=== PATIENT | female | born 1975 | race American Indian/Alaskan Native ===

== ENCOUNTER 2016-06-25 13:33 | Emergency (ER) | payer MEDICARE ==
[2016-06-25 14:06] VITALS: BP 156/94
--- NOTE | 2016-06-25 14:33 | Emergency Department Report ---
Chief Complaint: Chest Pain Stated Complaint: HYPERTHYROID Time Seen by Provider: 06/25/16 14:24 - HPI History of Present Illness: 41-year-old female presents today with chest pain and shortness of breath 3 days. Positive for history of similar symptoms and was diagnosed with hypothyroidism. Positive for history of CHF, diabetes, hypertension, bipolar schizophrenia. Positive for nausea and vomiting and states she is compliant with medication. - ROS Review of Systems: Per HPI - Exam Vital Signs: Vital Signs 06/25/16 14:00 Temperature 97.1 F L Pulse Rate 119 H Respiratory 24 Rate Blood Pressure 156/94 O2 Sat by Pulse 97 Oximetry Physical Exam: General: 41-year-old female in no acute distress. Well-developed, well- nourished. CV: Tachycardic. Regular rhythm. Lungs: Clear to auscultation bilaterally. MSE screening note: Focused history and physical exam performed. Due to findings the following was ordered: ED Disposition for MSE Condition: Stable
--- NOTE | 2016-06-25 14:54 | XRay Report ---
CHEST 2 VIEWS INDICATION: Chest pain, shortness of breath. CHF. COMPARISON: 12/11/2015. FINDINGS: PA and lateral chest radiographs demonstrate normal cardiomediastinal silhouette. Clear lungs. Intact bones. CONCLUSION: No acute disease in the chest. Thank you for the opportunity to participate in this patient's care.
[2016-06-25 15:16] LABS: Basophils % (Auto) 0.3 % (0.0-1.8); Hematocrit 43.1 % (30.3-42.9); Hemoglobin 13.7 gm/dl (10.1-14.3); Mean Corpuscular HGB Conc 32 % (30-34); Mean Corpuscular Hemoglobin 26 pg (28-32); Mean Corpuscular Volume 83 fl (79-97); Platelet Count 252 K/mm3 (140-440); Red Blood Count 5.22 M/mm3 (3.65-5.03); Red Cell Distribution Width 14.5 % (13.2-15.2); White Blood Count 8.1 K/mm3 (4.5-11.0)
[2016-06-25 15:39] LABS: Creatine Kinase MB 3.5 ng/mL (0.0-4.0)
[2016-06-25 15:40] LABS: Anion Gap 24 mmol/L; BUN/Creatinine Ratio 15.88; Blood Urea Nitrogen 27 mg/dL (7-17); Calcium 8.5 mg/dL (8.4-10.2); Carbon Dioxide 17 mmol/L (22-30); Chloride 80.7 mmol/L (98-107); Creatine Kinase 41 units/L (30-135); Lipase 119 units/L (13-60); Potassium 4.6 mmol/L (3.6-5.0)
[2016-06-25 16:06] LABS: Sodium 118 mmol/L (137-145)
[2016-06-25 16:09] LABS: Glucose 915 mg/dL (65-100)
--- NOTE | 2016-06-26 00:29 | Admit Criteria Form ---
Admission Criteria Documentation: HEART FAILURE: OBSERVATION CARE USE THIS FORM ONLY WHEN INPATIENT ADMISSION CRITERIA ARE NOT MET. (Place "X" for any and all applicable criteria): Placement for observation care is indicated for a patient with ANY ONE of the following (1)(2)(3)(4)(5)(6) [ X]I. Signs or symptoms inadequately controlled by outpatient or emergency department treatment as indicated by persistence of ANY ONE of the following: [ ]a) Pulmonary edema [ ]b) Oxygen saturation less than 90% on room air or baseline supplemental oxygen [ ]c) Tachypnea [X ]d) Dyspnea [ ]e) Syncope [ ]f) Cognitive impairment (new) [ ]II. Change in renal function (reduction of more than 25% in estimated glomerular filtration rate from baseline) [ ]III. New-onset acute heart failure for which immediate outpatient etiologic examination is needed that cannot be done in required time frame [ ]IV. Other observation care needs. ( Also refer to General Criteria: Observation Care Form as appropriate) The original [employer] content created by [employer] has been revised. The portions of the content which have been revised are identified through the use of italic text, and [facility] has neither reviewed nor approved the modified material. All other unmodified content is copyright [facility] [employer]. Please see references footnoted in the original [facility] [employer] edition 2015 Admission Criteria Met: Pending
--- NOTE | 2016-06-27 14:09 | ED Elopement Review ---
ED Pt Elopement review - Results review Lab results: Laboratory Tests 06/25/16 06/25/16 15:05 15:05 WBC 8.1 RBC 5.22 H Hgb 13.7 Hct 43.1 H MCV 83 MCH 26 L MCHC 32 RDW 14.5 Plt Count 252 Lymph % (Auto) 18.5 [place] % (Auto) 7.8 H Eos % (Auto) 1.0 Baso % (Auto) 0.3 Lymph # 1.5 [place] # 0.6 Eos # 0.1 Baso # 0.0 Seg Neutrophils % 72.4 H Seg Neutrophils # 5.9 Sodium 118 L* Potassium 4.6 Chloride 80.7 L Carbon Dioxide 17 L Anion Gap 24 BUN 27 H Creatinine 1.7 H Estimated GFR 40 BUN/Creatinine Ratio 15.88 Glucose 915 H* Calcium 8.5 Total Creatine Kinase 41 CK-MB (CK-2) 3.5 CK-MB (CK-2) Rel Index 8.5 H Troponin T < 0.010 Lipase 119 H - Call Back decision Pt Call Back Decision: Call pt to return to ED KASHIF (glucose 915 and elevated lipase.)
== END 2016-06-25 23:50 | disposition left against medical advice (07) ==
LOC: ED 13:33
DX: R07.9 Chest pain, unspecified (principal); R06.02 Shortness of breath; R11.2 Nausea with vomiting, unspecified; E11.9 Type 2 diabetes mellitus without complications; E03.9 Hypothyroidism, unspecified; I50.9 Heart failure, unspecified; I10 Essential (primary) hypertension; F31.9 Bipolar disorder, unspecified; F20.9 Schizophrenia, unspecified; Z53.21 Procedure and treatment not carried out due to patient leaving prior to being seen by health care provider
CPT/HCPCS: 36415; 71020; 80048; 82550; 82553; 83690; 84484; 85025; 93005; 93010

== ENCOUNTER 2016-06-30 10:04 | Inpatient (IN) | payer MEDICARE ==
--- NOTE | 2016-06-30 10:59 | Emergency Department Report ---
Chief Complaint: Hyperglycemia Stated Complaint: ABNORMAL LABS Time Seen by Provider: 06/30/16 10:54 - HPI History of Present Illness: Patient was instructed to return back to the ED due to abnormal laboratory results. The patient's glycemic level is greater than 500. LMP 06/28/16 - ROS Review of Systems: all other systems are unremarkable except for documentation in HPI - Exam Vital Signs: Vital Signs 06/30/16 10:14 Temperature 98.0 F Pulse Rate 105 H Respiratory 20 Rate Blood Pressure 175/92 O2 Sat by Pulse 100 Oximetry Physical Exam: Gen: well nourished, NAD MSE screening note: Focused history and physical exam performed. Due to findings the following was ordered: laboratory studies ordered ED Disposition for MSE Condition: Stable
[2016-06-30 11:27] LABS: Basophils % (Auto) 1.1 % (0.0-1.8); Eosinophils % (Auto) 4.4 % (0.0-4.3); Hematocrit 36.8 % (30.3-42.9); Hemoglobin 11.8 gm/dl (10.1-14.3); Mean Corpuscular HGB Conc 32 % (30-34); Mean Corpuscular Hemoglobin 26 pg (28-32); Mean Corpuscular Volume 82 fl (79-97); Platelet Count 217 K/mm3 (140-440); Red Blood Count 4.49 M/mm3 (3.65-5.03); Red Cell Distribution Width 14.6 % (13.2-15.2); White Blood Count 6.3 K/mm3 (4.5-11.0)
--- NOTE | 2016-06-30 11:29 | Emergency Department Report ---
ED General Adult HPI - General Chief complaint: Hyperglycemia Stated complaint: ABNORMAL LABS Time Seen by Provider: 06/30/16 11:25 Source: patient Mode of arrival: Ambulatory Limitations: No Limitations - History of Present Illness Initial comments: Patient admits that she hasn't taken her insulin for at least 3 days. She is however largely asymptomatic. She states that she needs some yeast medicine. This is for a rash in the intertriginous folds of her abdomen. She does not complain of dysuria. She does not complain of nausea vomiting or actual urinary frequency. She has a history of a psychiatric disorder. She states that her primary care is office has been closed. However it is not unlikely that she is simply medically noncompliant. She states that she had a temperature of 101 yesterday. She does not refer me to any specific focus of infection. He does complain of some generalized weakness and a high blood sugar. -: Gradual Severity scale (0 -10): 0 Associated Symptoms: denies other symptoms - Related Data Home Medications Medication Instructions Recorded Confirmed Last Taken Insulin Glargine,Hum.rec.anlog 30 units SQ HS 05/24/14 06/30/16 05/23/14 [Lantus] HumaLOG VIAL 20 units SQ BID 04/11/15 06/30/16 Unknown Previous Rx's Medication Instructions Recorded Last Taken Type Hydrochlorothiazide [HCTZ] 25 mg PO QDAY tablet 10/09/14 Unknown Rx Diazepam Tab [Valium] 5 mg PO TID PRN #30 tablet 12/14/15 Unknown Rx Diltiazem Cd [Cardizem CD] 300 mg PO QDAY #30 capsule 12/14/15 Unknown Rx Gabapentin [Neurontin] 300 mg PO Q8HR #90 capsule 12/14/15 Unknown Rx Insulin Aspart [NovoLOG Flexpen] 6 units SQ AC #2 pen 12/14/15 Unknown Rx Lisinopril [Zestril TAB] 20 mg PO QDAY #30 tablet 12/14/15 Unknown Rx Methimazole [Tapazole] 5 mg PO Q8HR #60 tablet 12/14/15 Unknown Rx Quetiapine Fumarate [SEROquel XR] 400 mg PO QDAY #30 tab.er.24h 12/14/15 Unknown Rx metFORMIN XR [Glucophage XR] 1,000 mg PO 0800 #30 tablet 12/14/15 Unknown Rx Ibuprofen [Motrin] 800 mg PO Q8HR PRN #15 tablet 02/21/16 Unknown Rx Allergies Allergy/AdvReac Type Severity Reaction Status Date / Time latex Allergy Rash Verified 02/21/16 09:31 morphine Allergy Rash Verified 02/21/16 09:31 Penicillins Allergy Rash Verified 02/21/16 09:31 tramadol Allergy Rash Verified 02/21/16 09:31 ED Review of Systems ROS: Stated complaint: ABNORMAL LABS Other details as noted in HPI Constitutional: denies: chills, fever Eyes: denies: eye pain, eye discharge, vision change ENT: denies: ear pain, throat pain Respiratory: denies: cough, shortness of breath, wheezing Cardiovascular: denies: chest pain, palpitations Endocrine: no symptoms reported Gastrointestinal: denies: abdominal pain, nausea, diarrhea Genitourinary: denies: urgency, dysuria, discharge Musculoskeletal: denies: back pain, arthralgia Skin: rash. denies: lesions Neurological: denies: headache, weakness, paresthesias Psychiatric: denies: anxiety, depression Hematological/Lymphatic: denies: easy bleeding, easy bruising ED Past Medical Hx - Past Medical History Hx Hypertension: Yes Hx Congestive Heart Failure: Yes Hx Diabetes: Yes Hx Psychiatric Treatment: Yes (BIPOLAR/SCHIZO) Additional medical history: Paranoid schizophrenia - Surgical History Additional Surgical History: right arm fx - Social History Smoking Status: Former Smoker Substance Use Type: Alcohol - Medications Home Medications: Home Medications Medication Instructions Recorded Confirmed Last Taken Type Insulin Glargine,Hum.rec.anlog 30 units SQ HS 05/24/14 06/30/16 05/23/14 History [Lantus] Hydrochlorothiazide [HCTZ] 25 mg PO QDAY tablet 10/09/14 06/30/16 Unknown Rx HumaLOG VIAL 20 units SQ BID 04/11/15 06/30/16 Unknown History Diazepam Tab [Valium] 5 mg PO TID PRN #30 tablet 12/14/15 06/30/16 Unknown Rx Diltiazem Cd [Cardizem CD] 300 mg PO QDAY #30 capsule 12/14/15 06/30/16 Unknown Rx Gabapentin [Neurontin] 300 mg PO Q8HR #90 capsule 12/14/15 06/30/16 Unknown Rx Insulin Aspart [NovoLOG Flexpen] 6 units SQ AC #2 pen 12/14/15 06/30/16 Unknown Rx Lisinopril [Zestril TAB] 20 mg PO QDAY #30 tablet 12/14/15 06/30/16 Unknown Rx Methimazole [Tapazole] 5 mg PO Q8HR #60 tablet 12/14/15 06/30/16 Unknown Rx Quetiapine Fumarate [SEROquel XR] 400 mg PO QDAY #30 tab.er.24h 12/14/15 Unknown Rx metFORMIN XR [Glucophage XR] 1,000 mg PO 0800 #30 tablet 12/14/15 06/30/16 Unknown Rx Ibuprofen [Motrin] 800 mg PO Q8HR PRN #15 tablet 02/21/16 06/30/16 Unknown Rx ED Physical Exam - General Limitations: No Limitations General appearance: alert, in no apparent distress - Head Head exam: Present: atraumatic, normocephalic - Eye Eye exam: Present: normal appearance, PERRL, EOMI. Absent: scleral icterus - ENT ENT exam: Present: mucous membranes moist - Neck Neck exam: Present: normal inspection - Respiratory Respiratory exam: Present: normal lung sounds bilaterally. Absent: respiratory distress - Cardiovascular Cardiovascular Exam: Present: regular rate, normal rhythm. Absent: systolic murmur, diastolic murmur, rubs, gallop - GI/Abdominal GI/Abdominal exam: Present: soft, normal bowel sounds. Absent: distended, tenderness, guarding, rebound - Extremities Exam Extremities exam: Present: normal inspection. Absent: tenderness, joint swelling, calf tenderness - Back Exam Back exam: Present: normal inspection - Neurological Exam Neurological exam: Present: alert, oriented X3, CN II-XII intact. Absent: motor sensory deficit - Psychiatric Psychiatric exam: Present: normal affect, normal mood - Skin Skin exam: Present: warm, intact, rash (there is mild intertriginous rash is moist onto the breasts and in the intertriginous folds of the abdomen/groin) ED Course Vital Signs 06/30/16 06/30/16 06/30/16 10:14 11:20 11:26 Temperature 98.0 F 98.4 F Pulse Rate 105 H 100 H 102 H Respiratory 20 17 11 L Rate Blood Pressure 175/92 Blood Pressure 198/84 [Left] O2 Sat by Pulse 100 100 100 Oximetry 06/30/16 06/30/1617 11:30 12:00 12:02 Temperature Pulse Rate 99 H 104 H 117 H Respiratory 13 14 18 Rate Blood Pressure 190/87 183/88 183/88 Blood Pressure [Left] O2 Sat by Pulse 100 100 Oximetry 06/30/16 06/30/16 12:20 12:45 Temperature Pulse Rate 101 H Respiratory Rate Blood Pressure 183/88 194/86 Blood Pressure [Left] O2 Sat by Pulse Oximetry ED Medical Decision Making - Lab Data Result diagrams: 06/30/16 11:12 06/30/16 11:12 Laboratory Results - last 24 hr 06/30/16 06/30/16 06/30/16 10:21 11:12 11:12 WBC 6.3 RBC 4.49 Hgb 11.8 Hct 36.8 MCV 82 MCH 26 L MCHC 32 RDW 14.6 Plt Count 217 Lymph % (Auto) 24.8 [place] % (Auto) 7.6 H Eos % (Auto) 4.4 H Baso % (Auto) 1.1 Lymph # 1.6 [place] # 0.5 Eos # 0.3 Baso # 0.1 Seg Neutrophils % 62.1 Seg Neutrophils # 3.9 VBG pH 7.305 L POC Glucose > 500 H - EKG Data EKG shows normal: sinus rhythm - EKG Data Interpretation: nonspecific ST-T wave blanca, other (RBBB ) - Radiology Data interpreted by me: Chest x-ray no acute process Critical Care Time: Yes Critical care time in (mins) excluding proc time.: 40 Critical care attestation.: If time is entered above; I have spent that time in minutes in the direct care of this critically ill patient, excluding procedure time. ED Disposition Clinical Impression: Elevated brain natriuretic peptide (BNP) level, Cardiomyopathy, Right bundle branch block, Moniliasis skin DKA (diabetic ketoacidoses) Qualifiers: Diabetes mellitus type: type 2 Diabetes mellitus complication detail: without coma Qualified Code(s): E13.10 - Other specified diabetes mellitus with ketoacidosis without coma Disposition: OP ADMITTED IP TO THIS HOSP Is pt being admited?: Yes Does the pt Need Aspirin: Yes Condition: Stable Instructions: Diabetic Ketoacidosis (ED)
[2016-06-30] MEDS ORDERED: NACL 0.9% 1000 ML 1,000 ML IV ONE (11:30)
[2016-06-30] MEDS ORDERED: CATAPRES PO ONE (11:37)
[2016-06-30 11:49] LABS: Alanine Aminotransferase 11 units/L (7-56); Albumin 2.8 g/dL (3.9-5); Albumin/Globulin Ratio 0.7 %; Alkaline Phosphatase 147 units/L (35-129); Anion Gap 18 mmol/L; B-Hydroxybutyrate 3.3 mg/dL (0.2-2.8); BUN/Creatinine Ratio 18.18; Bilirubin,Total 0.2 mg/dL (0.1-1.2); Blood Urea Nitrogen 20 mg/dL (7-17); Calcium 8.5 mg/dL (8.4-10.2); Carbon Dioxide 18 mmol/L (22-30); Chloride 93.7 mmol/L (98-107); Potassium 3.8 mmol/L (3.6-5.0); Sodium 126 mmol/L (137-145); Total Protein 6.6 g/dL (6.3-8.2)
[2016-06-30 11:57] LABS: Bilirubin,Urine NEG (Negative); Blood,Urine SM (Negative); Ketones,Urine NEG (Negative); Leukocyte Esterase,Urine NEG (Negative); Nitrite,Urine NEG (Negative); Urobilinogen,Urine < 2.0 mg/dL (<2.0)
[2016-06-30 12:03] LABS: Glucose 789 mg/dL (65-100)
--- NOTE | 2016-06-30 12:14 | Admit Criteria Form ---
Admission Criteria Documentation: DIABETES Clinical Indications for Admission to Inpatient Care (Place 'X' for any and all applicable criteria): Admission is indicated by presence of ALL (if I & II) or ANY ONE (if III or IV) of the following (1)(2)(3)(4): [X ]I. Diabetes is uncontrolled as indicated by ANY ONE of the following: [X ]a) Diabetic ketoacidosis as indicated by ALL of the following (8): X[ ]i) Hyperglycemia (eg, plasma glucose greater than 200 mg /dL (11.1 mmol/L)) [X ]ii) Acidosis (eg, arterial pH less than 7.30, serum bicarbonate level less than 15 mEq/L (mmol/L)) [X ]iii) Moderate ketonuria or ketonemia [ ]b) Hyperglycemic hyperosmolar state as indicated by ALL of the following(9)(10): [ ]i) Neurologic dysfunction (eg, stupor, coma, hemiparesis , seizure)(13) [ ]ii) Plasma glucose greater than 600 mg/dL (33.3 mmol/L) [ ]iii) Serum osmolality greater than 320 mOsm/kg (mmol/kg) [ X]c) Severe signs or symptoms secondary to hyperglycemia indicated by ANY ONE of the following: [ ]i) Altered mental status(10) [ ]ii) Significant hypovolemia or dehydration [ ]iii) Intractable nausea or vomiting [ ]iv) Unexplained fever or severe infection [X ]v) Severe electrolyte abnormality (eg, hypokalemia, hyperkalemia, hypernatremia) [ X]II. Management at other levels of care (Also use Diabetes: Observation Care as appropriate) is not feasible because of ANY ONE of the following: [X ]a) Condition was not adequately corrected with treatment at other levels of care. [ ]b) Treatment at other levels of care is not appropriate because of condition severity (eg, hyperosmolar coma). [ ]III. Contraindications and/or Inappropriate clinical situations for Observational Care in patients with Diabetes, when ANY ONE of the following is required: [ ]a) Patient require specific diagnostic workup or therapeutic intervention 22 [ ]b) Patient with abnormal vital signs or altered mental status 23 [ ]IV. General contraindications and/or Inappropriate clinical situations for Observational Care in patients with Diabetes, when ANY ONE of the following is required: [ ]a) Prediction of prolongation of LOS based on ANY ONE of the following may be considered as a contraindication for observational care 2, 3, 4, 5, 6, 7, 8, 9, 10, 11 [ ]i) Age > 65 yrs. [ ]ii) Patient arriving by ambulance [ ]iii) Patient with high acuity [ ]iv) Patient requiring vital sign monitoring [ ]v) Patient on IV medication [ ]b) Systolic blood pressures 180mmHg 3,12 [ ]c) Patient with altered mental status including delirium and other alteration of consciousness, (3) [ ]d) Patient whose discharge disposition will be to a [facility] home or rehabilitation home should not be managed in Emergency Department Observation Unit. CMS rule requires 3 days hospital stay before such placement.3,13 [ ]e) Patient with failure to thrive due to broad array of etiologies 3,16,17 [ ]f) Inability to ambulate 3,14 Extended stay beyond goal length of stay may be needed for(3)(20): [ ]a) Treatment of precipitating causes [ ]b) Development of hypoglycemia [ ]c) Complications of treatment [ ]d) Complications of decompensated diabetes (eg, acute gastric dilatation, persistent metabolic or neurologic derangement) [ ]e) Active Comorbidities [ ]f) Older patients( 65 years or older) The original [facility] content created by [employer] has been revised. The portions of the content which have been revised are identified through the use of italic text or in bold,and [facility] has neither reviewed nor approved the modified material. All other unmodified content is copyright [facility]. Please see references footnoted in the original [facility] edition 2016 Admission Criteria Met: Yes
[2016-06-30 12:16] LABS: Magnesium 1.8 mg/dL (1.7-2.3)
[2016-06-30] MEDS ORDERED: D50W (25GM) IV PRN ×2 (12:39→17:30)
[2016-06-30] MEDS ORDERED: K-DUR PO ONE (12:53)
--- NOTE | 2016-06-30 13:03 | XRay Report ---
ROUTINE CHEST, TWO VIEWS: HISTORY: Difficulty breathing. The trachea, heart, mediastinal contour, lung elena and bony thorax are unremarkable. IMPRESSION: Unremarkable chest x-ray. No significant change since 06/25/16.
[2016-06-30 13:05] LABS: INR 1.05 (0.87-1.13); Partial Thromboplastin Time 27.9 Sec. (24.2-36.6)
[2016-06-30 13:07] LABS: Blood Urea Nitrogen 22 mg/dL (7-17); Calcium 8.7 mg/dL (8.4-10.2); Carbon Dioxide 18 mmol/L (22-30); Chloride 93.2 mmol/L (98-107); Magnesium 1.9 mg/dL (1.7-2.3); Phosphorous 2.9 mg/dL (2.5-4.5); Potassium 4.1 mmol/L (3.6-5.0); Sodium 127 mmol/L (137-145)
[2016-06-30 13:08] LABS: Anion Gap 20 mmol/L
[2016-06-30] MEDS ORDERED: DIFLUCAN PO ONE (13:15)
[2016-06-30] MEDS ORDERED: BABY ASPIRIN PO ONE (13:17)
[2016-06-30 13:20] LABS: Glucose 780 mg/dL (65-100)
[2016-06-30] MEDS ORDERED: NovoLIN R 100 UNITS in NACL 0.9% 99 ML IV SCH ×2 (13:30→18:00)
[2016-06-30 15:43] LABS: BUN/Creatinine Ratio 22.22; Blood Urea Nitrogen 20 mg/dL (7-17); Calcium 8.5 mg/dL (8.4-10.2); Carbon Dioxide 17 mmol/L (22-30); Chloride 98.3 mmol/L (98-107); Potassium 3.7 mmol/L (3.6-5.0); Sodium 131 mmol/L (137-145)
[2016-06-30] MEDS: LOVENOX SUB-Q SCH (15:46)
[2016-06-30 15:48] LABS: Glucose 564 mg/dL (65-100)
[2016-06-30 15:49] LABS: Anion Gap 19 mmol/L
--- NOTE | 2016-06-30 15:49 | History and Physical Report ---
History of Present Illness Date of examination: 06/30/16 Date of admission: 06/30/16 Chief complaint: Elevated Blood sugar and blood pressure History of present illness: Patient is a 41-year-old lady who was a history of brittle diabetes, diabetic peripheral neuropathy, hypertension, bipolar disorder, noncompliance with medication and diet, started having what she felt was symptoms of yeast infection 4 days ago. Came to the emergency department where patient was evaluated, nondistended ordered, given some medications and discharged home. However her lab results came back today showing she has severely elevated blood sugar levels in the 700s. There was evidence of ketones in her blood. Patient was called back on readmitted to the emergency department. Denies any fever, nausea or vomiting. Still has symptoms of yeast infection for which she is concerned about. Emergency department patient was commenced on IV normal saline. Insulin was also given. Past History Past Medical History: atrial fib, diabetes, hypertension, hyperlipidemia, other (schizophrenia and bipolar disorder) Past Surgical History: No surgical history Social history: lives with family. denies: smoking, alcohol abuse, IV drug use Family history: hypertension Medications and Allergies Allergies Allergy/AdvReac Type Severity Reaction Status Date / Time latex Allergy Rash Verified 02/21/16 09:31 morphine Allergy Rash Verified 02/21/16 09:31 Penicillins Allergy Rash Verified 02/21/16 09:31 tramadol Allergy Rash Verified 02/21/16 09:31 Home Medications Medication Instructions Recorded Confirmed Last Taken Type Insulin Glargine,Hum.rec.anlog 30 units SQ HS 05/24/14 06/30/16 05/23/14 History [Lantus] Hydrochlorothiazide [HCTZ] 25 mg PO QDAY tablet 10/09/14 06/30/16 Unknown Rx HumaLOG VIAL 20 units SQ BID 04/11/15 06/30/16 Unknown History Diazepam Tab [Valium] 5 mg PO TID PRN #30 tablet 12/14/15 06/30/16 Unknown Rx Diltiazem Cd [Cardizem CD] 300 mg PO QDAY #30 capsule 12/14/15 06/30/16 Unknown Rx Gabapentin [Neurontin] 300 mg PO Q8HR #90 capsule 12/14/15 06/30/16 Unknown Rx Insulin Aspart [NovoLOG Flexpen] 6 units SQ AC #2 pen 12/14/15 06/30/16 Unknown Rx Lisinopril [Zestril TAB] 20 mg PO QDAY #30 tablet 12/14/15 06/30/16 Unknown Rx Methimazole [Tapazole] 5 mg PO Q8HR #60 tablet 12/14/15 06/30/16 Unknown Rx Quetiapine Fumarate [SEROquel XR] 400 mg PO QDAY #30 tab.er.24h 12/14/15 Unknown Rx metFORMIN XR [Glucophage XR] 1,000 mg PO 0800 #30 tablet 12/14/15 06/30/16 Unknown Rx Ibuprofen [Motrin] 800 mg PO Q8HR PRN #15 tablet 02/21/16 06/30/16 Unknown Rx Active Meds: Active Medications Dextrose (D50w (25gm)) 0 ml IV ONCE PRN PRN Reason: Hypoglycemia Enoxaparin Sodium (Lovenox) 40 mg SUB-Q QDAY SILVANO Insulin Human Regular 100 (units/ Sodium Chloride) 100 mls @ 1 mls/hr IV TITR SILVANO; 1 UNITS/HR PRN Reason: Protocol Last Admin: 06/30/16 13:52 Dose: 8 mls/hr Review of Systems All systems: negative Exam - Physical Exam Narrative exam: Constitutional: Well Nourished and Well developed. Head: NC/ AT Eyes: Denies any visual impairments. No discharge from the eyes Nose: Denies any rhinorrhea or epistaxis Throats: Denies any post nasal drainage. Ears: Denies any hearing deficits Cardiovascular system: Denies any chest pain, shortness of breath, orthopnea, paroxysmal nocturnal dyspnea, or palpitation. Respiratory system: Denies any cough, difficulty breathing, wheezing, pleuritic chest pain, Gastrointestinal system: Denies any abdominal pain, nausea vomiting, hematemesis or melena. Neurological system: Denies any headache, slurred speech, facial droop, lateralizing weakness Genitalia system: Denies any dysuria, urinary frequency or urgency, urethral discharge Skin: No rashes, hyperpigmented spots. Hematological: Denies any cervical tenderness hemorrhages or petechia. Immunological: Denies any multiple septic spots, Lymphatic: Denies any generalized lymphadenopathy. Endocrine: Denies any polyuria, polydipsia, polyphagia. No heat or cold intolerance. - Constitutional Vitals: Temp Pulse Resp BP Pulse Ox 98.4 F 81 25 H 159/52 99 06/30/16 11:20 06/30/16 14:30 06/30/16 14:30 06/30/16 14:30 06/30/16 14:30 General appearance: Present: no acute distress, well-nourished - EENT Eyes: Present: PERRL ENT: hearing intact, clear oral mucosa - Neck Neck: Present: supple, normal ROM - Respiratory Respiratory effort: normal Respiratory: bilateral: CTA - Cardiovascular Heart Sounds: Present: S1 & S2. Absent: rub, click - Extremities Extremities: pulses symmetrical, No edema Peripheral Pulses: within normal limits - Abdominal General gastrointestinal: Present: soft, non-tender, non-distended, normal bowel sounds Female genitourinary: Present: normal - Integumentary Integumentary: Present: clear, warm, dry - Musculoskeletal Musculoskeletal: gait normal, strength equal bilaterally - Psychiatric Psychiatric: appropriate mood/affect, intact judgment & insight - Neurologic Neurologic: CNII-XII intact, moves all extremities Results - Labs CBC & Chem 7: 06/30/16 11:12 06/30/16 21:42 Labs: Abnormal lab results 06/30/16 06/30/16 06/30/16 Range/Units 10:21 11:12 11:12 MCH 26 L (28-32) pg [place] % (Auto) 7.6 H (0.0-7.3) % Eos % (Auto) 4.4 H (0.0-4.3) % VBG pH (7.320-7.420) Sodium 126 L D (137-145) mmol/L Chloride 93.7 L (98-107) mmol/L Carbon Dioxide 18 L (22-30) mmol/L BUN 20 H (7-17) mg/dL Glucose 789 H* (65-100) mg/dL POC Glucose > 500 H (70-105) Alkaline Phosphatase 147 H (35-129) units/L NT-Pro-B Natriuret Pep (0-450) pg/mL Albumin 2.8 L (3.9-5) g/dL Ketones 3.3 H (0.2-2.8) mg/dL 06/30/16 06/30/16 06/30/16 Range/Units 11:12 11:12 12:45 MCH (28-32) pg [place] % (Auto) (0.0-7.3) % Eos % (Auto) (0.0-4.3) % VBG pH 7.305 L (7.320-7.420) Sodium 127 L (137-145) mmol/L Chloride 93.2 L (98-107) mmol/L Carbon Dioxide 18 L (22-30) mmol/L BUN 22 H (7-17) mg/dL Glucose 780 H* (65-100) mg/dL POC Glucose (70-105) Alkaline Phosphatase (35-129) units/L NT-Pro-B Natriuret Pep 1520 H (0-450) pg/mL Albumin (3.9-5) g/dL Ketones (0.2-2.8) mg/dL 06/30/16 Range/Units 13:45 MCH (28-32) pg [place] % (Auto) (0.0-7.3) % Eos % (Auto) (0.0-4.3) % VBG pH (7.320-7.420) Sodium (137-145) mmol/L Chloride (98-107) mmol/L Carbon Dioxide (22-30) mmol/L BUN (7-17) mg/dL Glucose (65-100) mg/dL POC Glucose > 500 H (70-105) Alkaline Phosphatase (35-129) units/L NT-Pro-B Natriuret Pep (0-450) pg/mL Albumin (3.9-5) g/dL Ketones (0.2-2.8) mg/dL - Imaging and Cardiology EKG: pending, report reviewed, image reviewed, other Assessment and Plan Assessment: 1. Diabetic ketoacidosis 2. Metabolic acidosis 3. Noncompliance 4. She started having failure 5. Hypertension 6. Diabetic peripheral neuropathy 7. Heart failure with elevated proBNP Plan: Admit to ICU Commence IV hydration with normal saline at 150/m. IV insulin per DKA protocol. Anticipates hypokalemia and hypomagnesemia with IV insulin. We'll correct accordingly. Optimize blood pressure control with lisinopril, amlodipine, and carvedilol Continue with patient's gabapentin for medical neuropathy DVT prophylaxis with Lovenox and GI prophylaxis with Protonix continue with beta blockers and lisinopril for congestive heart failure. ECHO report of 6/22/16 was 50-55% LVEF with diastolic dysfunction. Will Closely patient's pulmonary status to avoid any over hydration. Spent 31 minutes in direct patient care delivery degenerative data during this admission
[2016-06-30] MEDS ORDERED: ATIVAN IV ONE (15:52)
[2016-06-30] MEDS ORDERED: ATIVAN ONE (16:03)
[2016-06-30 17:18] LABS: Anion Gap 16 mmol/L; BUN/Creatinine Ratio 21.11; Blood Urea Nitrogen 19 mg/dL (7-17); Calcium 8.9 mg/dL (8.4-10.2); Carbon Dioxide 20 mmol/L (22-30); Chloride 102.3 mmol/L (98-107); Glucose 251 mg/dL (65-100); Potassium 3.5 mmol/L (3.6-5.0); Sodium 135 mmol/L (137-145)
[2016-06-30] MEDS ORDERED: D5W/0.45% NACL/KCL 20 MEQ 1,000 ML IV SCH (18:00)
--- NOTE | 2016-06-30 18:44 | Consultation ---
History of Present Illness Consult date: 06/30/16 Requesting physician: KATHIE HAILE Reason for consult: other (DKA) History of present illness: PULMONARY/CCM CONSULT NOTE (Full dictation # [id number]) Please see dictated notes for full details Medications and Allergies Allergies Allergy/AdvReac Type Severity Reaction Status Date / Time latex Allergy Rash Verified 02/21/16 09:31 morphine Allergy Rash Verified 02/21/16 09:31 Penicillins Allergy Rash Verified 02/21/16 09:31 tramadol Allergy Rash Verified 02/21/16 09:31 Home Medications Medication Instructions Recorded Confirmed Last Taken Type Insulin Glargine,Hum.rec.anlog 30 units SQ HS 05/24/14 06/30/16 05/23/14 History [Lantus] Hydrochlorothiazide [HCTZ] 25 mg PO QDAY tablet 10/09/14 06/30/16 Unknown Rx HumaLOG VIAL 20 units SQ BID 04/11/15 06/30/16 Unknown History Diazepam Tab [Valium] 5 mg PO TID PRN #30 tablet 12/14/15 06/30/16 Unknown Rx Diltiazem Cd [Cardizem CD] 300 mg PO QDAY #30 capsule 12/14/15 06/30/16 Unknown Rx Gabapentin [Neurontin] 300 mg PO Q8HR #90 capsule 12/14/15 06/30/16 Unknown Rx Insulin Aspart [NovoLOG Flexpen] 6 units SQ AC #2 pen 12/14/15 06/30/16 Unknown Rx Lisinopril [Zestril TAB] 20 mg PO QDAY #30 tablet 12/14/15 06/30/16 Unknown Rx Methimazole [Tapazole] 5 mg PO Q8HR #60 tablet 12/14/15 06/30/16 Unknown Rx Quetiapine Fumarate [SEROquel XR] 400 mg PO QDAY #30 tab.er.24h 12/14/15 Unknown Rx metFORMIN XR [Glucophage XR] 1,000 mg PO 0800 #30 tablet 12/14/15 06/30/16 Unknown Rx Ibuprofen [Motrin] 800 mg PO Q8HR PRN #15 tablet 02/21/16 06/30/16 Unknown Rx Active Meds: Active Medications Dextrose (D50w (25gm)) 0 ml IV ONCE PRN PRN Reason: Hypoglycemia Dextrose (D50w (25gm)) 0 ml IV PRN PRN PRN Reason: Hypoglycemia Enoxaparin Sodium (Lovenox) 40 mg SUB-Q QDAY SILVANO Last Admin: 06/30/16 15:46 Dose: 40 mg Insulin Human Regular 100 (units/ Sodium Chloride) 100 mls @ 1 mls/hr IV TITR SILVANO; 1 UNITS/HR PRN Reason: Protocol Last Titration: 06/30/16 18:02 Dose: 2 units/hr Potassium Chloride/Dextrose/Sod Cl (D5w/0.45% Nacl/Kcl 20 Meq) 1,000 mls @ 125 mls/hr IV DIRECT SILVANO Physical Examination Vital signs: Vital Signs Temp Pulse Resp BP Pulse Ox 98.0 F 105 H 20 175/92 100 06/30/16 10:14 06/30/16 10:14 06/30/16 10:14 06/30/16 10:14 06/30/16 10:14 Results - Laboratory Findings CBC and BMP: 06/30/16 11:12 07/01/16 09:59 PT/INR, D-dimer PT 13.6 Sec. (12.2-14.9) 06/30/16 12:45 INR 1.05 (0.87-1.13) 06/30/16 12:45 Abnormal lab findings: Abnormal Labs 06/30/16 06/30/16 06/30/16 15:43 16:48 16:48 Sodium 135 L Potassium 3.5 L Carbon Dioxide 20 L BUN 19 H Glucose 251 H POC Glucose 408 H 238 H 06/30/16 18:01 Sodium Potassium Carbon Dioxide BUN Glucose POC Glucose 153 H
[2016-06-30 22:20] LABS: Anion Gap 16 mmol/L; BUN/Creatinine Ratio 21.25; Blood Urea Nitrogen 17 mg/dL (7-17); Calcium 8.6 mg/dL (8.4-10.2); Carbon Dioxide 20 mmol/L (22-30); Glucose 196 mg/dL (65-100); Sodium 137 mmol/L (137-145)
[2016-06-30 22:22] LABS: Anion Gap 16 mmol/L; BUN/Creatinine Ratio 24.28; Blood Urea Nitrogen 17 mg/dL (7-17); Calcium 8.7 mg/dL (8.4-10.2); Carbon Dioxide 19 mmol/L (22-30); Cholesterol 132 mg/dL (50-199); Glucose 200 mg/dL (65-100); HDL Cholesterol 32 mg/dL (40-59); LDL Cholesterol,Direct 56 mg/dL (50-130); Magnesium 1.7 mg/dL (1.7-2.3); Phosphorous 2.5 mg/dL (2.5-4.5); Potassium 3.9 mmol/L (3.6-5.0); Sodium 134 mmol/L (137-145); Triglycerides 222 mg/dL (2-149)
[2016-07-01 00:22] LABS: BUN/Creatinine Ratio 24.28; Blood Urea Nitrogen 17 mg/dL (7-17); Calcium 8.6 mg/dL (8.4-10.2); Carbon Dioxide 21 mmol/L (22-30); Glucose 145 mg/dL (65-100)
[2016-07-01 00:23] LABS: Potassium 3.7 mmol/L (3.6-5.0); Sodium 137 mmol/L (137-145)
[2016-07-01 00:25] LABS: Anion Gap 16 mmol/L
[2016-07-01] MEDS: PERCOCET 5/325 PO PRN ×4 (04:54→19:19)
[2016-07-01 05:36] LABS: BUN/Creatinine Ratio 21.42; Blood Urea Nitrogen 15 mg/dL (7-17); Calcium 8.7 mg/dL (8.4-10.2); Carbon Dioxide 19 mmol/L (22-30); Chloride 108.3 mmol/L (98-107); Glucose 125 mg/dL (65-100); Potassium 3.7 mmol/L (3.6-5.0); Sodium 139 mmol/L (137-145)
[2016-07-01 05:38] LABS: Anion Gap 15 mmol/L
[2016-07-01] MEDS ORDERED: D50W (25GM) IV PRN (09:27)
[2016-07-01] MEDS: NEURONTIN PO SCH ×3 (10:00→20:00)
--- NOTE | 2016-07-01 10:23 | Progress Note ---
Assessment and Plan - Patient Problems (1) DKA (diabetic ketoacidoses) Diagnosis Date: 12/11/15 Current Visit: Yes Status: Acute Qualifiers: Diabetes mellitus type: type 2 Diabetes mellitus complication detail: without coma Qualified Code(s): E13.10 - Other specified diabetes mellitus with ketoacidosis without coma Plan to address problem: - resolved - on long acting insulin therapy now - SSI - resume home meds (2) Atrial fibrillation with rapid ventricular response Diagnosis Date: 12/11/15 Current Visit: No Status: Acute Plan to address problem: - rate controlled (3) Hypertensive urgency Current Visit: Yes Status: Acute Plan to address problem: - resolved - resume home meds Subjective Date of service: 07/01/16 Principal diagnosis: DKA Interval history: seen and examined at bedside; 24hour events reviewed; nursing and respiratory care staff consulted; no adverse overnight events reported to me; resting peacefully in bed; denies acute chest pains or increased SOB; off IV insulin; flat/depressed affect Objective Vital Signs - 12hr 06/30/16 06/30/16 06/30/16 22:30 23:00 23:30 Temperature Pulse Rate 79 94 H 75 Respiratory 27 H 13 30 H Rate Blood Pressure 139/65 132/57 132/57 O2 Sat by Pulse 99 98 99 Oximetry 06/30/16 07/01/16 07/01/16 23:42 00:00 00:05 Temperature 98.1 F Pulse Rate 76 81 Respiratory 29 H 24 Rate Blood Pressure 132/57 132/71 O2 Sat by Pulse 99 97 Oximetry 07/01/16 07/01/16 07/01/16 00:10 00:30 00:54 Temperature Pulse Rate 82 77 76 Respiratory 29 H 30 H 31 H Rate Blood Pressure 132/71 132/71 132/71 O2 Sat by Pulse 99 99 98 Oximetry 07/01/16 07/01/16 07/01/16 01:00 01:02 01:30 Temperature Pulse Rate 75 79 76 Respiratory 25 H 32 H 33 H Rate Blood Pressure 127/64 127/64 127/64 O2 Sat by Pulse 98 98 98 Oximetry 07/01/16 07/01/16 07/01/16 01:54 02:00 02:04 Temperature Pulse Rate 77 77 81 Respiratory 32 H 29 H 18 Rate Blood Pressure 127/64 123/68 127/64 O2 Sat by Pulse 98 98 99 Oximetry 07/01/16 07/01/16 07/01/16 02:30 02:50 02:54 Temperature Pulse Rate 87 83 80 Respiratory 10 L 15 17 Rate Blood Pressure 123/68 123/68 123/68 O2 Sat by Pulse 100 99 99 Oximetry 07/01/16 07/01/16 07/01/16 03:00 03:04 03:30 Temperature Pulse Rate 79 79 80 Respiratory 16 14 12 Rate Blood Pressure 132/60 132/60 132/60 O2 Sat by Pulse 100 100 99 Oximetry 07/01/16 07/01/16 07/01/16 04:00 04:10 04:30 Temperature 98.3 F Pulse Rate 83 78 Respiratory 13 8 L Rate Blood Pressure 145/70 145/70 O2 Sat by Pulse 100 99 Oximetry 07/01/16 07/01/16 07/01/16 05:00 05:12 05:30 Temperature Pulse Rate 77 82 75 Respiratory 12 20 25 H Rate Blood Pressure 138/65 138/65 138/65 O2 Sat by Pulse 100 99 97 Oximetry 07/01/16 07/01/16 07/01/16 06:00 06:09 06:30 Temperature Pulse Rate 107 H 105 H 99 H Respiratory 36 H 33 H 27 H Rate Blood Pressure 138/65 167/65 167/65 O2 Sat by Pulse 98 97 97 Oximetry 07/01/16 07/01/16 07/01/16 07:00 07:30 08:00 Temperature 98.2 F Pulse Rate 84 85 Respiratory 27 H 15 28 H Rate Blood Pressure 119/46 119/46 119/46 O2 Sat by Pulse 97 98 98 Oximetry 07/01/16 08:30 Temperature Pulse Rate 85 Respiratory 31 H Rate Blood Pressure 129/44 O2 Sat by Pulse 98 Oximetry Constitutional: no acute distress Eyes: non-icteric ENT: oropharynx moist Neck: supple, no lymphadenopathy Ascultation: Bilateral: clear Cardiovascular: regular rate and rhythm Gastrointestinal: normoactive bowel sounds, soft, non-tender, non-distended Integumentary: normal Extremities: no cyanosis, no edema, pulses normal, no ischemia or petechiae Neurologic: normal mental status, non-focal exam, pupils equal and round, motor strength normal and Psychiatric: depressed CBC and BMP: 06/30/16 11:12 07/01/16 16:51 ABG, PT/INR, D-dimer: PT/INR, D-dimer PT 13.6 Sec. (12.2-14.9) 06/30/16 12:45 INR 1.05 (0.87-1.13) 06/30/16 12:45 Abnormal lab findings: Abnormal Labs 06/30/16 06/30/16 06/30/16 15:43 16:48 16:48 Sodium 135 L Potassium 3.5 L Chloride Carbon Dioxide 20 L BUN 19 H Glucose 251 H POC Glucose 408 H 238 H Hemoglobin A1c Triglycerides HDL Cholesterol 06/30/16 06/30/16 06/30/16 18:01 19:50 21:06 Sodium Potassium Chloride Carbon Dioxide BUN Glucose POC Glucose 153 H 141 H 198 H Hemoglobin A1c Triglycerides HDL Cholesterol 06/30/16 06/30/16 06/30/16 21:42 21:42 21:42 Sodium 134 L Potassium Chloride Carbon Dioxide 19 L 20 L BUN Glucose 200 H 196 H POC Glucose Hemoglobin A1c 14.3 H Triglycerides 222 H HDL Cholesterol 32 L 06/30/16 06/30/16 06/30/16 22:09 23:42 23:55 Sodium Potassium Chloride Carbon Dioxide 21 L BUN Glucose 145 H POC Glucose 211 H 150 H Hemoglobin A1c Triglycerides HDL Cholesterol 07/01/16 07/01/16 07/01/16 00:13 00:53 02:19 Sodium Potassium Chloride Carbon Dioxide BUN Glucose POC Glucose 143 H 145 H 162 H Hemoglobin A1c Triglycerides HDL Cholesterol 07/01/16 07/01/16 07/01/16 02:55 04:12 04:47 Sodium Potassium Chloride 108.3 H Carbon Dioxide 19 L BUN Glucose 125 H POC Glucose 144 H 130 H Hemoglobin A1c Triglycerides HDL Cholesterol 07/01/16 07/01/16 05:08 06:24 Sodium Potassium Chloride Carbon Dioxide BUN Glucose POC Glucose 126 H 46 L Hemoglobin A1c Triglycerides HDL Cholesterol
[2016-07-01] MEDS: LOVENOX SUB-Q SCH (10:27)
[2016-07-01 10:30] LABS: Anion Gap 22 mmol/L; BUN/Creatinine Ratio 21.42; Blood Urea Nitrogen 15 mg/dL (7-17); Calcium 8.4 mg/dL (8.4-10.2); Carbon Dioxide 14 mmol/L (22-30); Chloride 104.1 mmol/L (98-107); Glucose 191 mg/dL (65-100); Potassium 3.9 mmol/L (3.6-5.0); Sodium 136 mmol/L (137-145)
[2016-07-01] MEDS: NOVOLOG SUB-Q SCH ×4 (10:55→21:59)
[2016-07-01] MEDS: LEVEMIR SUB-Q SCH (12:55)
--- NOTE | 2016-07-01 13:13 | Consultation ---
CONSULTING PHYSICIAN: Modesto Stephenson MD REASON FOR CONSULTATION: Hypertensive urgency and diabetic ketoacidosis. CHIEF COMPLAINT AND HISTORY OF PRESENT ILLNESS: The patient is a 41-year-old -[place] female with past medical history significant amongst other things for a diagnosis of end-stage renal disease with complications, came into the Emergency Room complaining actually with symptoms of a yeast infection. She was seen in the ER, she was evaluated, this was about 4 days before this representation, she was given medications and discharged home. When they were reviewing her lab results, they found that her blood sugars were on the high side. She was asked to come back into the Emergency Room. On reevaluation, she complained of a fever of about 101 prior to coming into the Emergency Room. She was no longer complaining of dysuria. She did not complain of nausea or vomiting. She was, however, found to be in diabetic ketoacidosis and admitted to the Intensive Care Unit for IV insulin therapy, hence the consult. When I stopped by to see her, she was lying in bed, a little bit of a flat/depressed affect. She apparently has a history of bipolar disorder. When asked why she was not taking her medications, she says she did not know, she admitted to not being compliant with her medications. She denied any chest pains, palpitations. Denied any new onset leg pain or swelling. Denied nausea, vomiting, or overt aspiration. That really is as much of the history of this presentation as I have. PAST MEDICAL HISTORY: Hypertension, congestive heart failure, diabetes, bipolar disorder/paranoid schizophrenia. PAST SURGICAL HISTORY: Right arm fracture repair. MEDICATIONS: She was on at the time I stopped by to see her, according to the medication administration record: She was on Lovenox 40 mg subcutaneous daily, Neurontin 800 mg p.o. t.i.d. She was on IV insulin drip. She was on Percocet 5/325 mg p.o. q. 4 hours p.r.n. moderate pain, and she has been given some potassium chloride at that time. ALLERGIES: To latex, to morphine, to penicillins, to tramadol, nature of this allergy is unknown. DIET: Obese lady. Denies significant weight loss or gain in the preceding few weeks to months. FAMILY AND SOCIAL HISTORY: She has a less than 10+ pack year now remote tobacco smoking history, she tells me. Denies alcohol or illicit drug use or abuse. REVIEW OF SYSTEMS: No loss of consciousness. No new onset seizures. No new onset focal weakness. No gross hematochezia or melena. No gross hematuria. No dysuria. No hematemesis. No hemoptysis. Complete review of systems obtained. Pertinent positives and/or negatives as in body of history above, otherwise they are noncontributory. PHYSICAL EXAMINATION: VITAL SIGNS: At presentation, she was afebrile, temperature 98.0, pulse 105, respiratory rate 20, blood pressure 175/92, oxygen sats were 100%, inspired oxygen concentration was not recorded. HEENT: Pupils equal, round, about 3 mm, reactive to light. Extraocular muscle movements are intact. NECK: Grossly, there were no palpable lymph nodes in the supraclavicular or submandibular lymph node chains. LUNGS: Auscultation of both lung elena, she did have some bibasilar rhonchi, mild, otherwise clear, and no wheezing. HEART: Heart sounds 1 and 2 are heard. There were regular rate and rhythm at the time of my evaluation. ABDOMEN: Soft, full, bowel sounds are positive, nontender. EXTREMITIES: Without overt digital clubbing, cyanosis, or pedal edema. NEUROLOGIC: The exam was grossly nonfocal. LABORATORY DATA: From my review are as follows: Admission labs: white cell count 6300, hemoglobin 11.8, hematocrit 36.8, platelets 217. Serum INR 1.05. Venous blood gas showed a pH of 7.331. Serum sodium was 126, potassium 3.8, chloride 94, bicarbonate 18, BUN 20, creatinine 1.1, and glucose 789. BNP was elevated at 1520. Albumin slightly diminished at 2.8. Urinalysis negative for nitrites and leukocyte esterase. Serum ketones slightly elevated at 3.3. Radiographic studies have been reviewed. I am trying to pull up the films. I have reviewed the radiologist's interpretation, it mentions an unremarkable chest x-ray without significant change since one done on the 4th of this month. This is about 5 days ago. Urine culture is pending. ASSESSMENT AND PLAN: We have a middle-aged lady, history of noncompliance, in with diabetic ketoacidosis and requiring IV insulin therapy. For this reason, she will be admitted to the Intensive Care Unit. It will be titrated according to the DKA protocol. Psychiatric evaluation will be at the behest of the attending physician. Hopefully, we can quickly convert her to a longer acting insulin as well as sliding scale and get her off the IV insulin therapy. She will be placed on GI prophylaxis while she is in here as well as DVT prophylaxis. Flu and pneumonia vaccination will be per protocol. Blood pressure control is improved now at this time and if necessary IV Cardene drip will be started. Thank you very much for the consult, . We will follow along and make further recommendations as the picture progresses/becomes clearer. JOB# [id number] TALIA/ALL
[2016-07-01 13:56] LABS: Anion Gap 19 mmol/L; BUN/Creatinine Ratio 16.66; Blood Urea Nitrogen 15 mg/dL (7-17); Calcium 8.3 mg/dL (8.4-10.2); Carbon Dioxide 17 mmol/L (22-30); Chloride 103.5 mmol/L (98-107); Glucose 368 mg/dL (65-100); Potassium 3.6 mmol/L (3.6-5.0); Sodium 136 mmol/L (137-145)
[2016-07-01 17:41] LABS: Anion Gap 19 mmol/L; BUN/Creatinine Ratio 22.22; Blood Urea Nitrogen 20 mg/dL (7-17); Calcium 8.3 mg/dL (8.4-10.2); Carbon Dioxide 16 mmol/L (22-30); Chloride 103.2 mmol/L (98-107); Glucose 431 mg/dL (65-100); Potassium 3.9 mmol/L (3.6-5.0); Sodium 134 mmol/L (137-145)
--- NOTE | 2016-07-01 19:59 | Progress Note ---
Assessment and Plan Assessment: 1. Diabetic ketoacidosis - Improving 2. Metabolic acidosis - resolved 3. Noncompliance - Advised accordingly. 4. H/o diastolic heart failure failure 5. Hypertension - controlled 6. Diabetic peripheral neuropathy - Gabpemntind and 7. Heart failure with elevated proBNP Plan: Comntinue with IV hydration with normal saline at 150/m. SSI high dose with basal insulin commenced . Optimized blood pressure control with lisinopril, amlodipine, and carvedilol Continue with patient's gabapentin for diabetic peripheral neuropathy DVT prophylaxis with Lovenox and GI prophylaxis with Protonix continue with beta blockers and lisinopril for congestive heart failure. ECHO report of 12/12/15 was 50-55% LVEF with diastolic dysfunction. Will Closely patient's pulmonary status to avoid any over hydration. Spent 31 minutes in direct critical patient care delivery degenerative data during this admission Subjective Date of service: 07/01/16 Principal diagnosis: DKA Interval history: Feeling better Objective - Constitutional Vitals: Vital Signs - 12hr 07/01/16 07/01/16 07/01/16 08:00 08:30 08:38 Temperature 98.2 F Pulse Rate 85 85 Respiratory 28 H 31 H 30 H Rate Blood Pressure 119/46 129/44 129/44 O2 Sat by Pulse 98 98 98 Oximetry 07/01/16 07/01/16 07/01/16 09:00 09:30 10:00 Temperature Pulse Rate 82 78 88 Respiratory 27 H 30 H 16 Rate Blood Pressure 138/58 138/58 138/58 O2 Sat by Pulse 99 98 98 Oximetry 07/01/16 07/01/16 07/01/16 10:30 11:00 11:30 Temperature Pulse Rate 96 H 84 92 H Respiratory 16 14 20 Rate Blood Pressure 148/65 130/51 130/51 O2 Sat by Pulse 100 99 98 Oximetry 07/01/16 07/01/16 07/01/16 12:00 12:30 13:01 Temperature 98.4 F Pulse Rate 94 H 106 H 97 H Respiratory 14 17 31 H Rate Blood Pressure 138/62 138/62 128/59 O2 Sat by Pulse 98 99 97 Oximetry 07/01/16 07/01/16 07/01/16 13:07 13:31 14:00 Temperature Pulse Rate 98 H 99 H 94 H Respiratory 34 H 29 H 31 H Rate Blood Pressure 128/59 128/59 118/46 O2 Sat by Pulse 97 97 99 Oximetry 07/01/16 07/01/16 07/01/16 14:11 14:17 14:31 Temperature Pulse Rate 95 H 96 H 99 H Respiratory 31 H 32 H 33 H Rate Blood Pressure 118/46 118/46 118/46 O2 Sat by Pulse 98 98 98 Oximetry 07/01/16 07/01/16 07/01/16 15:00 15:31 16:00 Temperature Pulse Rate 97 H 107 H 91 H Respiratory 32 H 27 H 17 Rate Blood Pressure 123/45 123/45 131/53 O2 Sat by Pulse 97 97 Oximetry 07/01/16 07/01/16 07/01/16 16:30 16:31 17:00 Temperature 98.6 F Pulse Rate 85 94 H Respiratory 15 21 Rate Blood Pressure 123/45 135/59 O2 Sat by Pulse 98 99 Oximetry 07/01/16 07/01/16 07/01/16 17:31 18:00 19:00 Temperature Pulse Rate 93 H 94 H Respiratory 17 19 Rate Blood Pressure 135/59 121/58 143/44 O2 Sat by Pulse 99 98 Oximetry 07/01/16 07/01/16 19:31 19:50 Temperature 98.3 F Pulse Rate 92 H Respiratory 31 H Rate Blood Pressure 121/61 O2 Sat by Pulse Oximetry General appearance: Present: no acute distress - EENT Eyes: PERRL ENT: hearing intact, clear oral mucosa Ears: bilateral: normal - Neck Neck: supple, normal ROM - Respiratory Respiratory effort: normal Respiratory: bilateral: CTA - Breasts Breasts: normal - Cardiovascular Rhythm: regular Heart Sounds: Present: S1 & S2 Extremities: no ischemia - Gastrointestinal General gastrointestinal: Present: soft, non-tender - Genitourinary Female genitourinary: normal - Integumentary Integumentary: clear, warm - Musculoskeletal Musculoskeletal: strength equal bilaterally - Neurologic Neurologic: CNII-XII intact, moves all extremities - Psychiatric Psychiatric: memory intact, appropriate mood/affect, intact judgment & insight - Labs CBC & Chem 7: 06/30/16 11:12 07/01/16 16:51 Labs: Abnormal lab results 06/30/16 06/30/16 06/30/16 Range/Units 19:50 21:06 21:42 Sodium 134 L (137-145) mmol/L Chloride (98-107) mmol/L Carbon Dioxide 19 L (22-30) mmol/L BUN (7-17) mg/dL Glucose 200 H (65-100) mg/dL POC Glucose 141 H 198 H (70-105) Hemoglobin A1c (4-6) % Calcium (8.4-10.2) mg/dL Triglycerides 222 H (2-149) mg/dL HDL Cholesterol 32 L (40-59) mg/dL 06/30/16 06/30/16 06/30/16 Range/Units 21:42 21:42 22:09 Sodium (137-145) mmol/L Chloride (98-107) mmol/L Carbon Dioxide 20 L (22-30) mmol/L BUN (7-17) mg/dL Glucose 196 H (65-100) mg/dL POC Glucose 211 H (70-105) Hemoglobin A1c 14.3 H (4-6) % Calcium (8.4-10.2) mg/dL Triglycerides (2-149) mg/dL HDL Cholesterol (40-59) mg/dL 06/30/16 06/30/16 07/01/16 Range/Units 23:42 23:55 00:13 Sodium (137-145) mmol/L Chloride (98-107) mmol/L Carbon Dioxide 21 L (22-30) mmol/L BUN (7-17) mg/dL Glucose 145 H (65-100) mg/dL POC Glucose 150 H 143 H (70-105) Hemoglobin A1c (4-6) % Calcium (8.4-10.2) mg/dL Triglycerides (2-149) mg/dL HDL Cholesterol (40-59) mg/dL 07/01/16 07/01/16 07/01/16 Range/Units 00:53 02:19 02:55 Sodium (137-145) mmol/L Chloride (98-107) mmol/L Carbon Dioxide (22-30) mmol/L BUN (7-17) mg/dL Glucose (65-100) mg/dL POC Glucose 145 H 162 H 144 H (70-105) Hemoglobin A1c (4-6) % Calcium (8.4-10.2) mg/dL Triglycerides (2-149) mg/dL HDL Cholesterol (40-59) mg/dL 07/01/16 07/01/16 07/01/16 Range/Units 04:12 04:47 05:08 Sodium (137-145) mmol/L Chloride 108.3 H (98-107) mmol/L Carbon Dioxide 19 L (22-30) mmol/L BUN (7-17) mg/dL Glucose 125 H (65-100) mg/dL POC Glucose 130 H 126 H (70-105) Hemoglobin A1c (4-6) % Calcium (8.4-10.2) mg/dL Triglycerides (2-149) mg/dL HDL Cholesterol (40-59) mg/dL 07/01/16 07/01/16 07/01/16 Range/Units 06:24 08:05 09:05 Sodium (137-145) mmol/L Chloride (98-107) mmol/L Carbon Dioxide (22-30) mmol/L BUN (7-17) mg/dL Glucose (65-100) mg/dL POC Glucose 46 L 129 H 177 H (70-105) Hemoglobin A1c (4-6) % Calcium (8.4-10.2) mg/dL Triglycerides (2-149) mg/dL HDL Cholesterol (40-59) mg/dL 07/01/16 07/01/16 07/01/16 Range/Units 09:59 11:13 13:04 Sodium 136 L 136 L (137-145) mmol/L Chloride (98-107) mmol/L Carbon Dioxide 14 L 17 L (22-30) mmol/L BUN (7-17) mg/dL Glucose 191 H 368 H (65-100) mg/dL POC Glucose 231 H (70-105) Hemoglobin A1c (4-6) % Calcium 8.3 L (8.4-10.2) mg/dL Triglycerides (2-149) mg/dL HDL Cholesterol (40-59) mg/dL 07/01/16 Range/Units 16:51 Sodium 134 L (137-145) mmol/L Chloride (98-107) mmol/L Carbon Dioxide 16 L (22-30) mmol/L BUN 20 H (7-17) mg/dL Glucose 431 H (65-100) mg/dL POC Glucose (70-105) Hemoglobin A1c (4-6) % Calcium 8.3 L (8.4-10.2) mg/dL Triglycerides (2-149) mg/dL HDL Cholesterol (40-59) mg/dL
[2016-07-01] MEDS ORDERED: LEVEMIR SUB-Q STA (21:28)
[2016-07-02] MEDS: PERCOCET 5/325 PO PRN ×4 (00:24→20:02)
[2016-07-02] MEDS: NEURONTIN PO SCH ×3 (08:55→20:05)
[2016-07-02] MEDS: LOVENOX SUB-Q SCH (10:30)
[2016-07-02] MEDS: NOVOLOG SUB-Q SCH ×4 (11:26→22:07)
[2016-07-02] MEDS: LEVEMIR SUB-Q SCH (11:37)
--- NOTE | 2016-07-02 12:29 | Progress Note ---
Assessment and Plan - Patient Problems (1) DKA (diabetic ketoacidoses) Diagnosis Date: 12/11/15 Current Visit: Yes Status: Acute Qualifiers: Diabetes mellitus type: type 2 Diabetes mellitus complication detail: without coma Qualified Code(s): E13.10 - Other specified diabetes mellitus with ketoacidosis without coma Plan to address problem: - resolved - on long acting insulin therapy now and increased levemir to 45units (from 30units) - SSI - resuming home meds (2) Atrial fibrillation with rapid ventricular response Diagnosis Date: 12/11/15 Current Visit: No Status: Acute Plan to address problem: - rate controlled (3) Hypertensive urgency Current Visit: Yes Status: Acute Plan to address problem: - resolved - resuming home meds Subjective Date of service: 07/02/16 Principal diagnosis: DKA Interval history: seen and examined at bedside; 24hour events reviewed; nursing and respiratory care staff consulted; no adverse overnight events reported to me; u p in bed; eating breakfast; still looks depressed but more conversational today; no N/V/F/ C; sugars running high Objective Vital Signs - 12hr 07/02/16 07/02/16 07/02/16 00:31 00:46 01:00 Temperature 98.6 F Pulse Rate 76 81 Respiratory 26 H 25 H Rate Blood Pressure 141/71 154/67 O2 Sat by Pulse 100 99 Oximetry 07/02/16 07/02/16 07/02/16 01:31 02:00 02:31 Temperature Pulse Rate 74 75 75 Respiratory 26 H 25 H 25 H Rate Blood Pressure 154/67 134/67 134/67 O2 Sat by Pulse 98 97 98 Oximetry 07/02/16 07/02/16 07/02/16 02:59 03:00 03:03 Temperature Pulse Rate 72 72 73 Respiratory 27 H 24 24 Rate Blood Pressure 134/67 154/75 154/75 O2 Sat by Pulse 98 98 98 Oximetry 07/02/16 07/02/16 07/02/16 03:31 04:00 04:01 Temperature 98.8 F Pulse Rate 84 72 Respiratory 36 H 24 Rate Blood Pressure 154/75 149/56 O2 Sat by Pulse 99 99 Oximetry 07/02/16 07/02/16 07/02/16 04:31 05:00 08:00 Temperature 98.2 F Pulse Rate 82 81 Respiratory 17 18 Rate Blood Pressure 149/56 164/81 O2 Sat by Pulse 100 Oximetry Constitutional: no acute distress Eyes: non-icteric ENT: oropharynx moist Neck: supple, no lymphadenopathy Ascultation: Bilateral: clear Cardiovascular: regular rate and rhythm Gastrointestinal: normoactive bowel sounds, soft, non-tender, non-distended Integumentary: normal Extremities: no cyanosis, no edema, pulses normal, no ischemia or petechiae Neurologic: normal mental status, non-focal exam, pupils equal and round, motor strength normal and Psychiatric: depressed CBC and BMP: 06/30/16 11:12 07/01/16 16:51 ABG, PT/INR, D-dimer: PT/INR, D-dimer PT 13.6 Sec. (12.2-14.9) 06/30/16 12:45 INR 1.05 (0.87-1.13) 06/30/16 12:45 Abnormal lab findings: Abnormal Labs 06/30/16 06/30/16 06/30/16 15:43 16:48 16:48 Sodium 135 L Potassium 3.5 L Chloride Carbon Dioxide 20 L BUN 19 H Glucose 251 H POC Glucose 408 H 238 H Hemoglobin A1c Calcium Triglycerides HDL Cholesterol 06/30/16 06/30/16 06/30/16 18:01 19:50 21:06 Sodium Potassium Chloride Carbon Dioxide BUN Glucose POC Glucose 153 H 141 H 198 H Hemoglobin A1c Calcium Triglycerides HDL Cholesterol 06/30/16 06/30/16 06/30/16 21:42 21:42 21:42 Sodium 134 L Potassium Chloride Carbon Dioxide 19 L 20 L BUN Glucose 200 H 196 H POC Glucose Hemoglobin A1c 14.3 H Calcium Triglycerides 222 H HDL Cholesterol 32 L 06/30/16 06/30/16 06/30/16 22:09 23:42 23:55 Sodium Potassium Chloride Carbon Dioxide 21 L BUN Glucose 145 H POC Glucose 211 H 150 H Hemoglobin A1c Calcium Triglycerides HDL Cholesterol 07/01/16 07/01/16 07/01/16 00:13 00:53 02:19 Sodium Potassium Chloride Carbon Dioxide BUN Glucose POC Glucose 143 H 145 H 162 H Hemoglobin A1c Calcium Triglycerides HDL Cholesterol 07/01/16 07/01/16 07/01/16 02:55 04:12 04:47 Sodium Potassium Chloride 108.3 H Carbon Dioxide 19 L BUN Glucose 125 H POC Glucose 144 H 130 H Hemoglobin A1c Calcium Triglycerides HDL Cholesterol 07/01/16 07/01/16 07/01/16 05:08 06:24 08:05 Sodium Potassium Chloride Carbon Dioxide BUN Glucose POC Glucose 126 H 46 L 129 H Hemoglobin A1c Calcium Triglycerides HDL Cholesterol 07/01/16 07/01/16 07/01/16 09:05 09:59 10:02 Sodium 136 L Potassium Chloride Carbon Dioxide 14 L BUN Glucose 191 H POC Glucose 177 H 210 H Hemoglobin A1c Calcium Triglycerides HDL Cholesterol 07/01/16 07/01/16 07/01/16 11:13 13:04 15:52 Sodium 136 L Potassium Chloride Carbon Dioxide 17 L BUN Glucose 368 H POC Glucose 231 H 394 H Hemoglobin A1c Calcium 8.3 L Triglycerides HDL Cholesterol 07/01/16 07/01/16 07/01/16 16:51 21:08 21:11 Sodium 134 L Potassium Chloride Carbon Dioxide 16 L BUN 20 H Glucose 431 H POC Glucose > 500 H > 500 H Hemoglobin A1c Calcium 8.3 L Triglycerides HDL Cholesterol 07/02/16 07:57 Sodium Potassium Chloride Carbon Dioxide BUN Glucose POC Glucose 303 H Hemoglobin A1c Calcium Triglycerides HDL Cholesterol
[2016-07-02] MEDS ORDERED: LEVEMIR SUB-Q ONE (13:00)
[2016-07-02] MEDS: TAPAZOLE PO SCH ×2 (15:01→22:08)
[2016-07-02] MEDS: CARDIZEM CD PO SCH (15:01)
[2016-07-02] MEDS: HCTZ PO SCH (15:02)
[2016-07-02] MEDS: ZESTRIL PO SCH (15:03)
[2016-07-02] MEDS: GLUCOPHAGE XR PO SCH (17:45)
--- NOTE | 2016-07-02 23:50 | Progress Note ---
Assessment and Plan Assessment: 1. Diabetic ketoacidosis - corrected 2. Metabolic acidosis - resolved 3. Noncompliance - Advised accordingly. 4. H/o diastolic heart failure failure 5. Hypertension - controlled 6. Diabetic peripheral neuropathy - Gabapentine and Lyrica 7. Heart failure with elevated proBNP Plan: Comntinue with IV hydration with normal saline at 150/m. SSI high dose with basal insulin commenced . Optimized blood pressure control with lisinopril, amlodipine, and carvedilol Continue with patient's gabapentin for diabetic peripheral neuropathy DVT prophylaxis with Lovenox and GI prophylaxis with Protonix continue with beta blockers and lisinopril for congestive heart failure. ECHO report of 12/12/15 was 50-55% LVEF with diastolic dysfunction. Will Closely patient's pulmonary status to avoid any over hydration. Spent 31 minutes in direct critical patient care delivery degenerative data during this admission Subjective Date of service: 07/02/16 Principal diagnosis: DKA Interval history: Feeling better Objective - Constitutional Vitals: Vital Signs - 12hr 07/02/16 07/02/16 07/02/16 12:00 12:31 12:35 Temperature 97.3 F L Pulse Rate 94 H 99 H 84 Respiratory 16 21 18 Rate Respiratory Rate [Unable to Assess] Blood Pressure 146/81 146/81 146/81 O2 Sat by Pulse 99 94 98 Oximetry 07/02/16 07/02/16 07/02/16 13:01 13:31 14:01 Temperature Pulse Rate 91 H 85 82 Respiratory 31 H 26 H 27 H Rate Respiratory Rate [Unable to Assess] Blood Pressure 132/45 132/45 132/45 O2 Sat by Pulse 99 99 97 Oximetry 07/02/16 07/02/16 07/02/16 14:31 15:01 15:03 Temperature Pulse Rate 88 82 84 Respiratory 25 H 31 H Rate Respiratory Rate [Unable to Assess] Blood Pressure 132/45 132/45 137/82 O2 Sat by Pulse 98 97 Oximetry 07/02/16 07/02/16 07/02/16 15:31 16:00 16:01 Temperature 98.7 F Pulse Rate 82 82 Respiratory 26 H 27 H Rate Respiratory Rate [Unable to Assess] Blood Pressure 132/45 132/45 O2 Sat by Pulse Oximetry 07/02/16 07/02/16 07/02/16 16:31 17:01 17:31 Temperature Pulse Rate 80 109 H 88 Respiratory 26 H 14 14 Rate Respiratory Rate [Unable to Assess] Blood Pressure 132/45 132/45 132/45 O2 Sat by Pulse Oximetry 07/02/16 07/02/16 07/02/16 17:43 17:55 18:01 Temperature Pulse Rate 90 88 87 Respiratory 24 27 H 27 H Rate Respiratory Rate [Unable to Assess] Blood Pressure 132/45 132/45 132/45 O2 Sat by Pulse Oximetry 07/02/16 07/02/16 07/02/16 18:21 18:31 19:00 Temperature Pulse Rate 87 86 Respiratory 17 17 Rate Respiratory 18 Rate [Unable to Assess] Blood Pressure 132/45 132/45 O2 Sat by Pulse Oximetry 07/02/16 07/02/16 07/02/16 19:01 19:31 20:00 Temperature 98.8 F Pulse Rate 82 79 Respiratory 14 24 18 Rate Respiratory Rate [Unable to Assess] Blood Pressure 132/45 132/45 O2 Sat by Pulse 100 Oximetry 07/02/16 07/02/16 07/02/16 20:01 20:02 20:31 Temperature Pulse Rate 108 H 77 Respiratory 18 20 18 Rate Respiratory Rate [Unable to Assess] Blood Pressure 144/60 144/60 O2 Sat by Pulse Oximetry 07/02/16 07/02/16 07/02/16 21:01 21:31 22:00 Temperature Pulse Rate 93 H 82 80 Respiratory 18 29 H Rate Respiratory Rate [Unable to Assess] Blood Pressure 144/60 144/60 O2 Sat by Pulse Oximetry 07/02/16 22:01 Temperature Pulse Rate 83 Respiratory 27 H Rate Respiratory Rate [Unable to Assess] Blood Pressure 144/60 O2 Sat by Pulse Oximetry General appearance: Present: no acute distress - EENT Eyes: PERRL - Neck Neck: supple - Respiratory Respiratory: bilateral: CTA - Cardiovascular Rhythm: regular Heart Sounds: Present: S1 & S2 Extremities: no ischemia - Gastrointestinal General gastrointestinal: Present: soft, non-tender, non-distended - Integumentary Integumentary: clear, warm - Musculoskeletal Musculoskeletal: strength equal bilaterally - Neurologic Neurologic: CNII-XII intact - Psychiatric Psychiatric: appropriate mood/affect - Labs CBC & Chem 7: 06/30/16 11:12 07/01/16 16:51 Labs: Abnormal lab results 07/02/16 07/02/16 07/02/16 Range/Units 07:57 11:14 16:21 POC Glucose 303 H 410 H 349 H (70-105) 07/02/16 Range/Units 21:42 POC Glucose 405 H (70-105)
[2016-07-03] MEDS: TAPAZOLE PO SCH ×2 (05:31→14:52)
[2016-07-03] MEDS: NOVOLOG SUB-Q SCH ×3 (08:00→17:50)
[2016-07-03] MEDS: CARDIZEM CD PO SCH ×2 (09:00→09:33)
--- NOTE | 2016-07-03 09:10 | Progress Note ---
Assessment and Plan Assessment: 1. Diabetic ketoacidosis - corrected 2. Metabolic acidosis - resolved. Check Electolytes 3. Noncompliance - Advised accordingly. 4. H/o diastolic heart failure failure 5. Hypertension - controlled 6. Diabetic peripheral neuropathy - Gabapentine and Lyrica 7. Heart failure with elevated proBNP. Stable Plan: Comntinue with IV hydration with normal saline at 150/m. SSI high dose with basal insulin commenced . Optimized blood pressure control with lisinopril, amlodipine, and carvedilol Continue with patient's gabapentin for diabetic peripheral neuropathy DVT prophylaxis with Lovenox and GI prophylaxis with Protonix continue with beta blockers and lisinopril for congestive heart failure. ECHO report of 12/12/15 was 50-55% LVEF with diastolic dysfunction. Will Closely patient's pulmonary status to avoid any over hydration. Spent 30 minutes in direct critical patient care delivery degenerative data during this admission Subjective Date of service: 07/03/16 Principal diagnosis: DKA Interval history: Feeling better. No N/V Objective - Constitutional Vitals: Vital Signs - 12hr 07/02/16 07/02/16 07/02/16 21:31 22:00 22:01 Temperature Pulse Rate 82 80 83 Respiratory 29 H 27 H Rate Respiratory Rate [Unable to Assess] Blood Pressure 144/60 144/60 O2 Sat by Pulse Oximetry 07/02/16 07/02/16 07/03/16 22:05 23:01 00:00 Temperature 98.3 F Pulse Rate 79 82 Respiratory 27 H 23 18 Rate Respiratory Rate [Unable to Assess] Blood Pressure 54/27 54/27 O2 Sat by Pulse 100 Oximetry 07/03/16 07/03/16 07/03/16 00:01 01:01 01:27 Temperature Pulse Rate 75 74 76 Respiratory 25 H 26 H 26 H Rate Respiratory Rate [Unable to Assess] Blood Pressure 54/27 54/35 113/56 O2 Sat by Pulse Oximetry 07/03/16 07/03/16 07/03/16 02:00 03:00 04:00 Temperature Pulse Rate 73 75 72 Respiratory 25 H 25 H 23 Rate Respiratory 18 Rate [Unable to Assess] Blood Pressure 102/48 109/49 111/54 O2 Sat by Pulse 98 Oximetry 07/03/16 07/03/16 07/03/16 04:30 05:00 06:00 Temperature 98.0 F Pulse Rate 75 74 Respiratory 26 H 25 H Rate Respiratory Rate [Unable to Assess] Blood Pressure 106/52 103/54 O2 Sat by Pulse Oximetry 07/03/16 07:49 Temperature 98.4 F Pulse Rate Respiratory Rate Respiratory Rate [Unable to Assess] Blood Pressure O2 Sat by Pulse Oximetry General appearance: Present: no acute distress, well-nourished - EENT Eyes: PERRL, EOM intact ENT: hearing intact, clear oral mucosa Ears: bilateral: normal - Neck Neck: supple, normal ROM - Respiratory Respiratory effort: normal Respiratory: bilateral: CTA - Breasts Breasts: normal - Cardiovascular Rhythm: regular Heart Sounds: Present: S1 & S2. Absent: gallop, rub Extremities: pulses intact, No edema, normal color, Full ROM - Gastrointestinal General gastrointestinal: Present: soft, non-tender, non-distended, normal bowel sounds - Genitourinary Female genitourinary: normal - Integumentary Integumentary: clear, warm, dry - Musculoskeletal Musculoskeletal: 1, strength equal bilaterally - Neurologic Neurologic: moves all extremities - Psychiatric Psychiatric: memory intact, appropriate mood/affect, intact judgment & insight - Labs CBC & Chem 7: 06/30/16 11:12 07/01/16 16:51 Labs: Abnormal lab results 07/02/16 07/02/16 07/02/16 Range/Units 07:57 11:14 16:21 POC Glucose 303 H 410 H 349 H (70-105) 07/02/16 07/03/16 Range/Units 21:42 07:42 POC Glucose 405 H 218 H (70-105)
[2016-07-03] MEDS: ZESTRIL PO SCH (09:21)
[2016-07-03] MEDS: GLUCOPHAGE XR PO SCH (09:21)
[2016-07-03] MEDS: NEURONTIN PO SCH ×2 (09:22→14:51)
[2016-07-03] MEDS: HCTZ PO SCH (09:23)
[2016-07-03] MEDS: LOVENOX SUB-Q SCH (09:23)
[2016-07-03] MEDS: PERCOCET 5/325 PO PRN ×2 (09:28→14:54)
[2016-07-03 09:50] LABS: Basophils % (Auto) 0.3 % (0.0-1.8); Eosinophils % (Auto) 3.6 % (0.0-4.3); Hematocrit 33.3 % (30.3-42.9); Hemoglobin 10.9 gm/dl (10.1-14.3); Mean Corpuscular HGB Conc 33 % (30-34); Mean Corpuscular Hemoglobin 26 pg (28-32); Mean Corpuscular Volume 81 fl (79-97); Platelet Count 212 K/mm3 (140-440); Red Blood Count 4.14 M/mm3 (3.65-5.03); Red Cell Distribution Width 14.6 % (13.2-15.2); White Blood Count 7.4 K/mm3 (4.5-11.0)
[2016-07-03] MEDS ORDERED: LEVEMIR SUB-Q SCH (10:00)
[2016-07-03 10:03] LABS: Anion Gap 15 mmol/L; BUN/Creatinine Ratio 22.72; Blood Urea Nitrogen 25 mg/dL (7-17); Calcium 8.7 mg/dL (8.4-10.2); Carbon Dioxide 20 mmol/L (22-30); Chloride 106.9 mmol/L (98-107); Glucose 266 mg/dL (65-100); Potassium 4.2 mmol/L (3.6-5.0); Sodium 138 mmol/L (137-145)
--- NOTE | 2016-07-03 12:00 | Progress Note ---
Assessment and Plan - Patient Problems (1) DKA (diabetic ketoacidoses) Diagnosis Date: 12/11/15 Current Visit: Yes Status: Acute Qualifiers: Diabetes mellitus type: type 2 Diabetes mellitus complication detail: without coma Qualified Code(s): E13.10 - Other specified diabetes mellitus with ketoacidosis without coma (2) Atrial fibrillation with rapid ventricular response Diagnosis Date: 12/11/15 Current Visit: No Status: Acute (3) Hypertensive urgency Current Visit: Yes Status: Acute Subjective Date of service: 07/03/16 Principal diagnosis: DKA Interval history: seen and examined at bedside; 24hour events reviewed; nursing and respiratory care staff consulted; no adverse overnight events reported to me; Objective Vital Signs - 12hr 07/03/16 07/03/16 07/03/16 00:01 01:01 01:27 Temperature Pulse Rate 75 74 76 Respiratory 25 H 26 H 26 H Rate Respiratory Rate [Unable to Assess] Blood Pressure 54/27 54/35 113/56 O2 Sat by Pulse Oximetry 07/03/16 07/03/16 07/03/16 02:00 03:00 04:00 Temperature Pulse Rate 73 75 72 Respiratory 25 H 25 H 23 Rate Respiratory 18 Rate [Unable to Assess] Blood Pressure 102/48 109/49 111/54 O2 Sat by Pulse 98 Oximetry 07/03/16 07/03/16 07/03/16 04:30 05:00 06:00 Temperature 98.0 F Pulse Rate 75 74 Respiratory 26 H 25 H Rate Respiratory Rate [Unable to Assess] Blood Pressure 106/52 103/54 O2 Sat by Pulse Oximetry 07/03/16 07/03/16 07/03/16 06:35 07:00 07:49 Temperature 98.4 F Pulse Rate 81 78 Respiratory 33 H 27 H Rate Respiratory Rate [Unable to Assess] Blood Pressure 103/54 111/56 O2 Sat by Pulse Oximetry 07/03/16 07/03/16 07/03/16 08:00 09:01 09:21 Temperature Pulse Rate 74 81 Respiratory 25 H 27 H Rate Respiratory Rate [Unable to Assess] Blood Pressure 109/50 109/50 114/54 O2 Sat by Pulse Oximetry 07/03/16 07/03/16 07/03/16 09:33 10:01 11:46 Temperature 97.4 F L Pulse Rate 100 H 84 Respiratory 20 Rate Respiratory Rate [Unable to Assess] Blood Pressure 114/54 114/44 O2 Sat by Pulse Oximetry Constitutional: no acute distress Eyes: non-icteric ENT: oropharynx moist Neck: supple, no lymphadenopathy Ascultation: Bilateral: clear Cardiovascular: regular rate and rhythm Gastrointestinal: normoactive bowel sounds, soft, non-tender, non-distended Integumentary: normal Extremities: no cyanosis, no edema, pulses normal, no ischemia or petechiae Neurologic: normal mental status, non-focal exam, pupils equal and round, motor strength normal and Psychiatric: depressed CBC and BMP: 07/03/16 09:39 07/03/16 09:39 ABG, PT/INR, D-dimer: PT/INR, D-dimer PT 13.6 Sec. (12.2-14.9) 06/30/16 12:45 INR 1.05 (0.87-1.13) 06/30/16 12:45 Abnormal lab findings: Abnormal Labs 06/30/16 06/30/16 06/30/16 15:43 16:48 16:48 MCH Kerr % (Auto) Sodium 135 L Potassium 3.5 L Chloride Carbon Dioxide 20 L BUN 19 H Glucose 251 H POC Glucose 408 H 238 H Hemoglobin A1c Calcium Triglycerides HDL Cholesterol 06/30/16 06/30/16 06/30/16 18:01 19:50 21:06 MCH Kerr % (Auto) Sodium Potassium Chloride Carbon Dioxide BUN Glucose POC Glucose 153 H 141 H 198 H Hemoglobin A1c Calcium Triglycerides HDL Cholesterol 06/30/16 06/30/16 06/30/16 21:42 21:42 21:42 MCH Kerr % (Auto) Sodium 134 L Potassium Chloride Carbon Dioxide 19 L 20 L BUN Glucose 200 H 196 H POC Glucose Hemoglobin A1c 14.3 H Calcium Triglycerides 222 H HDL Cholesterol 32 L 06/30/16 06/30/16 06/30/16 22:09 23:42 23:55 MCH Kerr % (Auto) Sodium Potassium Chloride Carbon Dioxide 21 L BUN Glucose 145 H POC Glucose 211 H 150 H Hemoglobin A1c Calcium Triglycerides HDL Cholesterol 07/01/16 07/01/16 07/01/16 00:13 00:53 02:19 MCH Kerr % (Auto) Sodium Potassium Chloride Carbon Dioxide BUN Glucose POC Glucose 143 H 145 H 162 H Hemoglobin A1c Calcium Triglycerides HDL Cholesterol 07/01/16 07/01/16 07/01/16 02:55 04:12 04:47 MCH Kerr % (Auto) Sodium Potassium Chloride 108.3 H Carbon Dioxide 19 L BUN Glucose 125 H POC Glucose 144 H 130 H Hemoglobin A1c Calcium Triglycerides HDL Cholesterol 07/01/16 07/01/16 07/01/16 05:08 06:24 08:05 MCH Kerr % (Auto) Sodium Potassium Chloride Carbon Dioxide BUN Glucose POC Glucose 126 H 46 L 129 H Hemoglobin A1c Calcium Triglycerides HDL Cholesterol 07/01/16 07/01/16 07/01/16 09:05 09:59 10:02 MCH Kerr % (Auto) Sodium 136 L Potassium Chloride Carbon Dioxide 14 L BUN Glucose 191 H POC Glucose 177 H 210 H Hemoglobin A1c Calcium Triglycerides HDL Cholesterol 07/01/16 07/01/16 07/01/16 11:13 13:04 15:52 MCH Kerr % (Auto) Sodium 136 L Potassium Chloride Carbon Dioxide 17 L BUN Glucose 368 H POC Glucose 231 H 394 H Hemoglobin A1c Calcium 8.3 L Triglycerides HDL Cholesterol 07/01/16 07/01/16 07/01/16 16:51 21:08 21:11 MCH Kerr % (Auto) Sodium 134 L Potassium Chloride Carbon Dioxide 16 L BUN 20 H Glucose 431 H POC Glucose > 500 H > 500 H Hemoglobin A1c Calcium 8.3 L Triglycerides HDL Cholesterol 07/02/16 07/02/16 07/02/16 07:57 11:14 16:21 MCH Kerr % (Auto) Sodium Potassium Chloride Carbon Dioxide BUN Glucose POC Glucose 303 H 410 H 349 H Hemoglobin A1c Calcium Triglycerides HDL Cholesterol 07/02/16 07/03/16 07/03/16 21:42 07:42 09:39 MCH 26 L Kerr % (Auto) 7.6 H Sodium Potassium Chloride Carbon Dioxide BUN Glucose POC Glucose 405 H 218 H Hemoglobin A1c Calcium Triglycerides HDL Cholesterol 07/03/16 07/03/16 09:39 11:16 MCH Kerr % (Auto) Sodium Potassium Chloride Carbon Dioxide 20 L BUN 25 H Glucose 266 H POC Glucose 363 H Hemoglobin A1c Calcium Triglycerides HDL Cholesterol
[2016-07-03 15:53] VITALS: BP 108/52
== END 2016-07-03 19:00 | disposition left against medical advice (07) | DRG 638 ==
LOC: ED 10:04 → CC1 15:33 → 3A 07-03 15:10
PROVIDERS: ADMIT Family Medicine; ATTEND Family Medicine
PROC: 4A033R1 Measurement of Arterial Saturation, Peripheral, Percutaneous Approach (ICD-10-PCS; principal; 2016-06-30)
DX: E13.10 Other specified diabetes mellitus with ketoacidosis without coma (principal); F20.0 Paranoid schizophrenia; I50.30 Unspecified diastolic (congestive) heart failure; I16.0 Hypertensive urgency; Z53.21 Procedure and treatment not carried out due to patient leaving prior to being seen by health care provider; I50.9 Heart failure, unspecified; F31.9 Bipolar disorder, unspecified; I48.91 Unspecified atrial fibrillation; E78.5 Hyperlipidemia, unspecified; E66.9 Obesity, unspecified; I11.0 Hypertensive heart disease with heart failure; Z68.31 Body mass index [BMI] 31.0-31.9, adult; Z79.4 Long term (current) use of insulin; Z79.899 Other long term (current) drug therapy; Z79.84 Long term (current) use of oral hypoglycemic drugs; Z88.5 Allergy status to narcotic agent; Z88.0 Allergy status to penicillin; Z88.8 Allergy status to other drugs, medicaments and biological substances; Z91.040 Latex allergy status; Z87.891 Personal history of nicotine dependence; Z91.19 Patient's noncompliance with other medical treatment and regimen; Z98.890 Other specified postprocedural states; Z87.81 Personal history of (healed) traumatic fracture; Z82.49 Family history of ischemic heart disease and other diseases of the circulatory system
CPT/HCPCS: 36415; 71020; 80048; 80053; 80061; 81001; 82010; 82805; 82962; 83036; 83735; 83880; 84100; 84702; 85025; 85610; 85730; 87040; 87086; 93005; 93010; 96361; 96372; 96374; J1650; J1815; J1818; J2060; J7030

== ENCOUNTER 2016-08-13 05:28 | Emergency (ER) | payer MEDICARE ==
[2016-08-13 06:51] VITALS: BP 160/67
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
[2016-08-13] MEDS ORDERED: MOTRIN PO ONE (07:57)
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
[2016-08-13 09:21] LABS: Bilirubin,Urine NEG (Negative); Blood,Urine SM (Negative); Ketones,Urine NEG (Negative); Leukocyte Esterase,Urine NEG (Negative); Nitrite,Urine NEG (Negative); Urobilinogen,Urine < 2.0 mg/dL (<2.0); WBC,Urine < 1.0 /HPF (0.0-6.0)
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
== END 2016-08-13 11:41 | disposition home or self-care (01) ==
LOC: ED 05:28
DX: M25.511 Pain in right shoulder (principal); M79.601 Pain in right arm; N93.9 Abnormal uterine and vaginal bleeding, unspecified; I10 Essential (primary) hypertension; I50.9 Heart failure, unspecified; F31.9 Bipolar disorder, unspecified; F20.0 Paranoid schizophrenia; E11.9 Type 2 diabetes mellitus without complications; Z79.1 Long term (current) use of non-steroidal anti-inflammatories (NSAID); Z79.4 Long term (current) use of insulin; Z79.899 Other long term (current) drug therapy; Z88.0 Allergy status to penicillin; Z88.6 Allergy status to analgesic agent; Z91.040 Latex allergy status; Y08.89XA Assault by other specified means, initial encounter; Y93.89 Activity, other specified; Y99.8 Other external cause status; Y92.89 Other specified places as the place of occurrence of the external cause
CPT/HCPCS: 81001; 81025; 87210; 87591; 99284

== ENCOUNTER 2016-08-14 13:27 | Inpatient (IN) | payer MEDICARE ==
[~2016-08-14 13:27] MED LIST: AMIDATE IV ONE; ZEMURON IV ONE
[2016-08-14] MEDS ORDERED: VASELINE LIP THERAPY TP PRN (13:41)
[2016-08-14] MEDS ORDERED: ARTIFICIAL TEARS OPHTH OINT OU PRN (13:41)
[2016-08-14] MEDS ORDERED: AMIDATE IV ONE (13:43)
[2016-08-14] MEDS ORDERED: ZEMURON IV ONE (13:43)
[2016-08-14] MEDS ORDERED: SUBLIMAZE IV ONE (13:43)
[2016-08-14 13:53] LABS: Urine Drugs of Abuse Note Disclamer
[2016-08-14] MEDS ORDERED: ROCEPHIN/NS 2 GM/100 ML 2 GM/100 ML BAG IV ONE (13:57)
[2016-08-14] MEDS ORDERED: NACL 0.9% 500 ML IV SCH (14:00)
[2016-08-14 14:01] LABS: Bacteria,Urine 1+ /HPF (Negative); Bilirubin,Urine NEG (Negative); Blood,Urine NEG (Negative); Ketones,Urine NEG (Negative); Leukocyte Esterase,Urine NEG (Negative); Nitrite,Urine NEG (Negative); Urobilinogen,Urine < 2.0 mg/dL (<2.0); WBC,Urine < 1.0 /HPF (0.0-6.0)
--- NOTE | 2016-08-14 14:02 | Emergency Department Report ---
ED Altered Mental Status HPI - General Chief Complaint: Altered Mental Status Stated Complaint: UNRESPONSIVE Time Seen by Provider: 08/14/16 13:39 Source: EMS (verbal report received from EMS. ems notes not available at time of chart dictation), RN notes reviewed, old records reviewed Mode of arrival: Stretcher Limitations: Altered Mental Status, Physical Limitation, Other - History of Present Illness Initial Comments: This is a 41-year-old female. She is previously unknown to me. As per verbal report from EMS, patient is brought to the hospital by EMS for altered mental status. Patient found on count, minimally responsive. Patient had nasal trumpet applied in the field. EMS gave 2 mg of Narcan, minimal response. EMS reports fingerstick greater than 400. Apparently, the patient's family contacted 911 last night, patient refused care. 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 May also have a history of schizophrenia, bipolar, atrial fibrillation. Upon arrival to the ER, the patient was breathing sonorously, had copious airway secretions, was not protecting her airway. Her eyes would not open spontaneously, she did not respond to verbal command, and she grimace response to painful stimuli. Given this, she was intubated by myself with one attempt using direct laryngoscopy, without any obvious competitions. Primary survey was otherwise unremarkable, secondary survey was unremarkable, patient found to have a core temperature of 94 rectally. Active patient rewarming was ordered. CT scan of the head and cervical spine were ordered, lung protective vent which strategies were ordered, broad- spectrum antibiotics ordered. Urinalysis is pending. EKG is pending. Critical care consult, we are currently awaiting callback Patient intubated using C-spine immobilization/protective technique. . MD Complaint: altered mental status, confusion -: Gradual Severity: severe Context: drug abuse Associated Symptoms: other (per hpi) Treatments Prior to Arrival: spinal immobilization, other pre-hosp med - Related Data Home Medications Medication Instructions Recorded Confirmed Last Taken Insulin Glargine,Hum.rec.anlog 30 units SQ HS 05/24/14 07/29/16 05/23/14 [Lantus] Previous Rx's Medication Instructions Recorded Last Taken Type Diazepam Tab [Valium] 5 mg PO TID PRN #30 tablet 12/14/15 Unknown Rx Gabapentin [Neurontin] 300 mg PO Q8HR #90 capsule 12/14/15 Unknown Rx Insulin Aspart [NovoLOG Flexpen] 6 units SQ AC #2 pen 12/14/15 Unknown Rx Methimazole [Tapazole] 5 mg PO Q8HR #60 tablet 12/14/15 Unknown Rx Quetiapine Fumarate [SEROquel XR] 400 mg PO QDAY #30 tab.er.24h 12/14/15 Unknown Rx metFORMIN XR [Glucophage XR] 1,000 mg PO 0800 #30 tablet 12/14/15 Unknown Rx Diltiazem Cd [Cardizem CD] 300 mg PO QDAY #30 capsule 07/31/16 Unknown Rx Furosemide [Lasix TAB] 20 mg PO QDAY #30 tablet 07/31/16 Unknown Rx HYDROcodone/APAP 7.5-325 [[place] 1 each PO Q6HR PRN #12 tablet 07/31/16 Unknown Rx 7.5/325] Lisinopril [Zestril TAB] 20 mg PO QDAY #30 tablet 07/31/16 Unknown Rx Ibuprofen [Motrin 800 MG tab] 800 mg PO Q8HR PRN #15 tablet 08/13/16 Unknown Rx Allergies Allergy/AdvReac Type Severity Reaction Status Date / Time latex Allergy Rash Verified 08/14/16 13:44 Penicillins Allergy Rash Verified 08/14/16 13:44 tramadol Allergy Rash Verified 08/14/16 13:44 ED Review of Systems ROS: Stated complaint: UNRESPONSIVE Other details as noted in HPI Comment: Unobtainable due to pts medical conditions Constitutional: see HPI Eyes: as per HPI ENT: as per HPI Respiratory: see HPI Cardiovascular: as per HPI Endocrine: see HPI Gastrointestinal: as per HPI Genitourinary: as per HPI Musculoskeletal: as per HPI Skin: as per HPI Neurological: as per HPI Psychiatric: as per HPI Hematological/Lymphatic: as per HPI ED Past Medical Hx - Past Medical History Hx Hypertension: Yes Hx Congestive Heart Failure: Yes Hx Diabetes: Yes Hx Arthritis: Yes Hx Psychiatric Treatment: Yes (BIPOLAR/PARANOID SCHIZOPHRENIA) Hx Asthma: Yes Hx COPD: No Additional medical history: Paranoid schizophrenia - Surgical History Additional Surgical History: right arm fx - Social History Smoking Status: Former Smoker - Medications Home Medications: Home Medications Medication Instructions Recorded Confirmed Last Taken Type Insulin Glargine,Hum.rec.anlog 30 units SQ HS 05/24/14 07/29/16 05/23/14 History [Lantus] Diazepam Tab [Valium] 5 mg PO TID PRN #30 tablet 12/14/15 07/29/16 Unknown Rx Gabapentin [Neurontin] 300 mg PO Q8HR #90 capsule 12/14/15 07/29/16 Unknown Rx Insulin Aspart [NovoLOG Flexpen] 6 units SQ AC #2 pen 12/14/15 07/29/16 Unknown Rx Methimazole [Tapazole] 5 mg PO Q8HR #60 tablet 12/14/15 07/29/16 Unknown Rx Quetiapine Fumarate [SEROquel XR] 400 mg PO QDAY #30 tab.er.24h 12/14/15 Unknown Rx metFORMIN XR [Glucophage XR] 1,000 mg PO 0800 #30 tablet 12/14/15 07/29/16 Unknown Rx Diltiazem Cd [Cardizem CD] 300 mg PO QDAY #30 capsule 07/31/16 Unknown Rx Furosemide [Lasix TAB] 20 mg PO QDAY #30 tablet 07/31/16 Unknown Rx HYDROcodone/APAP 7.5-325 [[place] 1 each PO Q6HR PRN #12 tablet 07/31/16 Unknown Rx 7.5/325] Lisinopril [Zestril TAB] 20 mg PO QDAY #30 tablet 07/31/16 Unknown Rx Ibuprofen [Motrin 800 MG tab] 800 mg PO Q8HR PRN #15 tablet 08/13/16 Unknown Rx ED Physical Exam - General Limitations: Altered Mental Status, Physical Limitation, Other General appearance: obtunded, obese - Head Head exam: Present: atraumatic, normal inspection - Eye Eye exam: Present: normal appearance, other (pupils are pinpoint, minimally responsive to light.) - ENT ENT exam: Present: mucous membranes moist, other (copious secretions noted in oropharynx) - Neck Neck exam: Present: normal inspection. Absent: tenderness, meningismus, lymphadenopathy - Respiratory Respiratory exam: Present: respiratory distress, rhonchi - Cardiovascular Cardiovascular Exam: Present: regular rate, normal rhythm, normal heart sounds. Absent: bradycardia, tachycardia, irregular rhythm, systolic murmur, diastolic murmur, rubs, gallop - GI/Abdominal GI/Abdominal exam: Present: soft, normal bowel sounds. Absent: distended, tenderness, guarding, rebound, rigid, pulsatile mass - Rectal Rectal exam: Present: normal inspection, normal rectal tone - External exam: Present: normal external exam, other (escorted by nurse RN Jr Ray) - Extremities Exam Extremities exam: Present: normal inspection, normal capillary refill. Absent: tenderness, pedal edema, joint swelling, calf tenderness - Back Exam Back exam: Present: normal inspection. Absent: muscle spasm, paraspinal tenderness, vertebral tenderness - Neurological Exam Neurological exam: Present: altered - Psychiatric Psychiatric exam: Present: flat affect - Skin Skin exam: Present: warm, dry, intact, normal color. Absent: rash - Assessment Assessment Interval: Baseline - Level of Consciousness 1a. Level of Consciousness: responds reflex/autonomic - LOC Questions 1b. LOC Questions: answers no questions correctly - LOC Command 1c. LOC Commands: performs no tasks correctly - Best Gaze 2. Best Gaze: normal (cannot assess) - Visual 3. Visual: no visual loss (cannot assess) - Facial Palsy 4. Facial Palsy: normal symmetrical movement - Motor Arm 5b. Motor Arm Right: no movement 5a. Motor Arm Left: no movement - Motor Leg 6a. Motor Leg Left: no movement 6b. Motor Leg Right: no movement - Limb Ataxia 7. Limb Ataxia: absent - Sensory 8. Sensory: severe/total sensory loss - Best Language 9. Best Language: mute/global aphasia - Dysarthria 10. Dysarthria: intubated or other barrier - Extinction and Inattention 11. Extinction/Inattention: profound inattention ED Course Vital Signs 08/14/16 08/14/16 08/14/16 13:35 13:45 13:56 Temperature 94.5 F L 95.4 F L Pulse Rate 67 70 Respiratory 16 Rate Blood Pressure 166/73 Blood Pressure [Left] O2 Sat by Pulse 100 98 Oximetry 08/14/16 08/14/16 08/14/16 14:05 14:10 16:21 Temperature 94.5 F L Pulse Rate 64 61 Respiratory 20 14 22 Rate Blood Pressure Blood Pressure 146/84 [Left] O2 Sat by Pulse 100 100 Oximetry 08/14/16 08/14/16 08/14/16 16:30 16:45 17:00 Temperature Pulse Rate 59 L 58 L Respiratory 20 18 Rate Blood Pressure 117/50 125/63 135/66 Blood Pressure [Left] O2 Sat by Pulse 100 100 100 Oximetry 08/14/16 08/14/16 08/14/16 17:15 17:30 17:45 Temperature Pulse Rate 64 64 64 Respiratory 16 16 17 Rate Blood Pressure 154/79 141/61 123/59 Blood Pressure [Left] O2 Sat by Pulse 100 100 100 Oximetry 08/14/16 08/14/16 08/14/16 18:00 18:15 18:30 Temperature Pulse Rate 67 67 66 Respiratory 18 18 18 Rate Blood Pressure 122/59 103/48 122/46 Blood Pressure [Left] O2 Sat by Pulse 100 100 100 Oximetry 08/14/16 08/14/16 08/14/16 18:42 18:45 19:00 Temperature 95.5 F L Pulse Rate 64 65 65 Respiratory 18 17 19 Rate Blood Pressure 124/56 123/63 Blood Pressure 119/75 [Left] O2 Sat by Pulse 100 100 100 Oximetry 08/14/16 08/14/16 19:15 19:29 Temperature Pulse Rate 66 66 Respiratory 17 Rate Blood Pressure 119/75 119/75 Blood Pressure [Left] O2 Sat by Pulse 100 100 Oximetry - Reevaluation(s) Reevaluation #1: 08/14/16 15:34 Patient still hypothermic. Low TSH suggest hyperthyroidism. Chest x-ray does not suggest pneumonia. Urinalysis does not suggest urinary tract infection. Lactic acid 1.1. ABG demonstrates metabolic acidosis, without respiratory compensation, and mild hypoxemia. Given altered mental status, hypothermia, patient will be treated empirically for community-acquired meningitis. Blood cultures, urine cultures have been ordered. Ceftriaxone, steroids, acyclovir, vancomycin is ordered. We are currently awaiting CT scan of the head and cervical spine to proceed with spinal puncture. IV insulin as ordered. Case was discussed with critical care, Dr. Hartley, who will see the patient in consultation. Reevaluation #2: 08/14/16 17:20 Dr Garcia, accepts patient to his service Reevaluation #3: 08/14/16 18:27 CT scan of the brain and cervical spine are negative. Family and relatives not currently in the department, not available. Given the acuity of patient's condition, multiple abnormal vital signs, a spinal tap was performed by myself with 1 attempt with no obvious complications. CSF analysis is pending. Reevaluation #4: 02/23/17 18:42 additional history is obtained from the patient's boyfriend, Mr. RATNA Green; [phone] He is concerned that the patient may have tried to overdose. Patient takes Seroquel. Patient will be placed on a 1013. Psychiatric consultation is ordered. Reevaluation #5: 08/14/16 19:25 CSF preliminary analysis does not appear to be consistent with meningitis. Gram stain is pending. - Intubation Time Out Performed: Yes Sedative: Etomidate Mg Given: 20 Paralytic: Rocuronium Mg Given: 100 Laryngoscope: Dov Size: 4 ET Tube Size: 7.5 Other Airway Intervention: bvm, passive apneic oxygenation Tube Secured Depth (cm): 24 Tube Secured Location: teeth Tube Placement Confirmation: visualized tube passing t, equal breath sounds bilat, no breath sounds over epi, confirmation by capnometr Patient Tolerated Procedure: well Intubation Complications: none - Lumbar Puncture Consent Obtained: emergent situation Time Out Performed: Yes Indication for Procedure: change in mental status Patient Position: right lateral decubitus Skin Prep: Povidone-Iodine 1% Local Anesthetic Used: Lidocaine 2% Amount of anesthesia used (mls): 10 Spinal Needle Gauge: 22G Spinal Needle Length: 3in Interspace Used: L4-L5 Fluid Initially Obtained: clear Complications: none Patient Tolerated Procedure: well - Lab Data Result diagrams: 08/15/16 14:21 08/15/16 14:21 Lab Results 08/14/16 08/14/16 08/14/16 Range/Units 13:45 13:45 14:11 WBC (4.5-11.0) K/mm3 RBC (3.65-5.03) M/mm3 Hgb (10.1-14.3) gm/dl Hct (30.3-42.9) % MCV (79-97) fl MCH (28-32) pg MCHC (30-34) % RDW (13.2-15.2) % Plt Count (140-440) K/mm3 Lymph % (Auto) (13.4-35.0) % [place] % (Auto) (0.0-7.3) % Eos % (Auto) (0.0-4.3) % Baso % (Auto) (0.0-1.8) % Lymph # (1.2-5.4) K/mm3 [place] # (0.0-0.8) K/mm3 Eos # (0.0-0.4) K/mm3 Baso # (0.0-0.1) K/mm3 Seg Neutrophils % (40.0-70.0) % Seg Neutrophils # (1.8-7.7) K/mm3 PT (12.2-14.9) Sec. INR (0.87-1.13) APTT (24.2-36.6) Sec. POC ABG pH 7.257 L (7.35-7.45) POC ABG pCO2 39.8 (35-45) POC ABG pO2 65 L (80-105) POC ABG HCO3 17.8 POC ABG Total CO2 19 POC ABG O2 Sat 89 POC ABG Base Excess -9 FiO2 50 % Sodium (137-145) mmol/L Potassium (3.6-5.0) mmol/L Chloride (98-107) mmol/L Carbon Dioxide (22-30) mmol/L Anion Gap mmol/L BUN (7-17) mg/dL Creatinine (0.7-1.2) mg/dL Estimated GFR ml/min BUN/Creatinine Ratio % Glucose (65-100) mg/dL Lactic Acid (0.7-2.0) mmol/L Calcium (8.4-10.2) mg/dL Total Bilirubin (0.1-1.2) mg/dL AST (5-40) units/L ALT (7-56) units/L Alkaline Phosphatase (35-129) units/L Ammonia (25-60) umol/L Total Creatine Kinase (30-135) units/L Troponin T (0.00-0.029) ng/mL Total Protein (6.3-8.2) g/dL Albumin (3.9-5) g/dL Albumin/Globulin Ratio % TSH (0.270-4.200) mlU/mL HCG, Qual (Negative) Urine Color Straw (Yellow) Urine Turbidity Clear (Clear) Urine pH 6.0 (5.0-7.0) Ur Specific [place] 1.008 (1.003-1.030) Urine Protein 100 mg/dl (Negative) mg/dL Urine Glucose (UA) 150 (Negative) mg/dL Urine Ketones Neg (Negative) mg/dL Urine Blood Neg (Negative) Urine Nitrite Neg (Negative) Urine Bilirubin Neg (Negative) Urine Urobilinogen < 2.0 (<2.0) mg/dL Ur Leukocyte Esterase Neg (Negative) Urine WBC (Auto) < 1.0 (0.0-6.0) /HPF Urine RBC (Auto) 2.0 (0.0-6.0) /HPF U Epithel Cells (Auto) < 1.0 (0-13.0) /HPF Urine Bacteria (Auto) 1+ (Negative) /HPF Salicylates (2.8-20.0) mg/dL Urine Opiates Screen Presumptive negative Urine Methadone Screen Presumptive negative Acetaminophen (10.0-30.0) ug/mL Ur Barbiturates Screen Presumptive negative Ur Phencyclidine Scrn Presumptive negative Ur Amphetamines Screen Presumptive negative U Benzodiazepines Scrn Presumptive negative Urine Cocaine Screen Presumptive negative U Marijuana (THC) Screen Presumptive negative Drugs of Abuse Note Disclamer Plasma/Serum Alcohol (0-0.07) gm% 08/14/16 08/14/16 08/14/16 Range/Units 14:16 14:16 14:16 WBC 5.4 (4.5-11.0) K/mm3 RBC 4.69 (3.65-5.03) M/mm3 Hgb 11.8 (10.1-14.3) gm/dl Hct 37.0 (30.3-42.9) % MCV 79 (79-97) fl MCH 25 L (28-32) pg MCHC 32 (30-34) % RDW 14.2 (13.2-15.2) % Plt Count 195 (140-440) K/mm3 Lymph % (Auto) 29.4 (13.4-35.0) % [place] % (Auto) 6.4 (0.0-7.3) % Eos % (Auto) 3.6 (0.0-4.3) % Baso % (Auto) 0.8 (0.0-1.8) % Lymph # 1.6 (1.2-5.4) K/mm3 [place] # 0.3 (0.0-0.8) K/mm3 Eos # 0.2 (0.0-0.4) K/mm3 Baso # 0.0 (0.0-0.1) K/mm3 Seg Neutrophils % 59.8 (40.0-70.0) % Seg Neutrophils # 3.2 (1.8-7.7) K/mm3 PT 14.2 (12.2-14.9) Sec. INR 1.11 (0.87-1.13) APTT 26.3 (24.2-36.6) Sec. POC ABG pH (7.35-7.45) POC ABG pCO2 (35-45) POC ABG pO2 (80-105) POC ABG HCO3 POC ABG Total CO2 POC ABG O2 Sat POC ABG Base Excess FiO2 % Sodium 136 L (137-145) mmol/L Potassium 3.9 (3.6-5.0) mmol/L Chloride 100.8 (98-107) mmol/L Carbon Dioxide 17 L (22-30) mmol/L Anion Gap 22 mmol/L BUN 26 H (7-17) mg/dL Creatinine 1.1 (0.7-1.2) mg/dL Estimated GFR > 60 ml/min BUN/Creatinine Ratio 23.63 % Glucose 375 H (65-100) mg/dL Lactic Acid (0.7-2.0) mmol/L Calcium 8.9 (8.4-10.2) mg/dL Total Bilirubin 0.3 (0.1-1.2) mg/dL AST 10 (5-40) units/L ALT 12 (7-56) units/L Alkaline Phosphatase 87 (35-129) units/L Ammonia (25-60) umol/L Total Creatine Kinase 410 H (30-135) units/L Troponin T < 0.010 (0.00-0.029) ng/mL Total Protein 6.8 (6.3-8.2) g/dL Albumin 3.3 L (3.9-5) g/dL Albumin/Globulin Ratio 0.9 % TSH (0.270-4.200) mlU/mL HCG, Qual (Negative) Urine Color (Yellow) Urine Turbidity (Clear) Urine pH (5.0-7.0) Ur Specific [place] (1.003-1.030) Urine Protein (Negative) mg/dL Urine Glucose (UA) (Negative) mg/dL Urine Ketones (Negative) mg/dL Urine Blood (Negative) Urine Nitrite (Negative) Urine Bilirubin (Negative) Urine Urobilinogen (<2.0) mg/dL Ur Leukocyte Esterase (Negative) Urine WBC (Auto) (0.0-6.0) /HPF Urine RBC (Auto) (0.0-6.0) /HPF U Epithel Cells (Auto) (0-13.0) /HPF Urine Bacteria (Auto) (Negative) /HPF Salicylates (2.8-20.0) mg/dL Urine Opiates Screen Urine Methadone Screen Acetaminophen (10.0-30.0) ug/mL Ur Barbiturates Screen Ur Phencyclidine Scrn Ur Amphetamines Screen U Benzodiazepines Scrn Urine Cocaine Screen U Marijuana (THC) Screen Drugs of Abuse Note Plasma/Serum Alcohol (0-0.07) gm% 08/14/16 08/14/16 08/14/16 Range/Units 14:16 14:16 14:16 WBC (4.5-11.0) K/mm3 RBC (3.65-5.03) M/mm3 Hgb (10.1-14.3) gm/dl Hct (30.3-42.9) % MCV (79-97) fl MCH (28-32) pg MCHC (30-34) % RDW (13.2-15.2) % Plt Count (140-440) K/mm3 Lymph % (Auto) (13.4-35.0) % [place] % (Auto) (0.0-7.3) % Eos % (Auto) (0.0-4.3) % Baso % (Auto) (0.0-1.8) % Lymph # (1.2-5.4) K/mm3 [place] # (0.0-0.8) K/mm3 Eos # (0.0-0.4) K/mm3 Baso # (0.0-0.1) K/mm3 Seg Neutrophils % (40.0-70.0) % Seg Neutrophils # (1.8-7.7) K/mm3 PT (12.2-14.9) Sec. INR (0.87-1.13) APTT (24.2-36.6) Sec. POC ABG pH (7.35-7.45) POC ABG pCO2 (35-45) POC ABG pO2 (80-105) POC ABG HCO3 POC ABG Total CO2 POC ABG O2 Sat POC ABG Base Excess FiO2 % Sodium (137-145) mmol/L Potassium (3.6-5.0) mmol/L Chloride (98-107) mmol/L Carbon Dioxide (22-30) mmol/L Anion Gap mmol/L BUN (7-17) mg/dL Creatinine (0.7-1.2) mg/dL Estimated GFR ml/min BUN/Creatinine Ratio % Glucose (65-100) mg/dL Lactic Acid 1.1 (0.7-2.0) mmol/L Calcium (8.4-10.2) mg/dL Total Bilirubin (0.1-1.2) mg/dL AST (5-40) units/L ALT (7-56) units/L Alkaline Phosphatase (35-129) units/L Ammonia 28.0 (25-60) umol/L Total Creatine Kinase (30-135) units/L Troponin T (0.00-0.029) ng/mL Total Protein (6.3-8.2) g/dL Albumin (3.9-5) g/dL Albumin/Globulin Ratio % TSH < 0.005 L (0.270-4.200) mlU/mL HCG, Qual (Negative) Urine Color (Yellow) Urine Turbidity (Clear) Urine pH (5.0-7.0) Ur Specific [place] (1.003-1.030) Urine Protein (Negative) mg/dL Urine Glucose (UA) (Negative) mg/dL Urine Ketones (Negative) mg/dL Urine Blood (Negative) Urine Nitrite (Negative) Urine Bilirubin (Negative) Urine Urobilinogen (<2.0) mg/dL Ur Leukocyte Esterase (Negative) Urine WBC (Auto) (0.0-6.0) /HPF Urine RBC (Auto) (0.0-6.0) /HPF U Epithel Cells (Auto) (0-13.0) /HPF Urine Bacteria (Auto) (Negative) /HPF Salicylates (2.8-20.0) mg/dL Urine Opiates Screen Urine Methadone Screen Acetaminophen (10.0-30.0) ug/mL Ur Barbiturates Screen Ur Phencyclidine Scrn Ur Amphetamines Screen U Benzodiazepines Scrn Urine Cocaine Screen U Marijuana (THC) Screen Drugs of Abuse Note Plasma/Serum Alcohol (0-0.07) gm% 08/14/16 08/14/16 08/14/16 Range/Units 14:16 14:16 14:16 WBC (4.5-11.0) K/mm3 RBC (3.65-5.03) M/mm3 Hgb (10.1-14.3) gm/dl Hct (30.3-42.9) % MCV (79-97) fl MCH (28-32) pg MCHC (30-34) % RDW (13.2-15.2) % Plt Count (140-440) K/mm3 Lymph % (Auto) (13.4-35.0) % [place] % (Auto) (0.0-7.3) % Eos % (Auto) (0.0-4.3) % Baso % (Auto) (0.0-1.8) % Lymph # (1.2-5.4) K/mm3 [place] # (0.0-0.8) K/mm3 Eos # (0.0-0.4) K/mm3 Baso # (0.0-0.1) K/mm3 Seg Neutrophils % (40.0-70.0) % Seg Neutrophils # (1.8-7.7) K/mm3 PT (12.2-14.9) Sec. INR (0.87-1.13) APTT (24.2-36.6) Sec. POC ABG pH (7.35-7.45) POC ABG pCO2 (35-45) POC ABG pO2 (80-105) POC ABG HCO3 POC ABG Total CO2 POC ABG O2 Sat POC ABG Base Excess FiO2 % Sodium (137-145) mmol/L Potassium (3.6-5.0) mmol/L Chloride (98-107) mmol/L Carbon Dioxide (22-30) mmol/L Anion Gap mmol/L BUN (7-17) mg/dL Creatinine (0.7-1.2) mg/dL Estimated GFR ml/min BUN/Creatinine Ratio % Glucose (65-100) mg/dL Lactic Acid (0.7-2.0) mmol/L Calcium (8.4-10.2) mg/dL Total Bilirubin (0.1-1.2) mg/dL AST (5-40) units/L ALT (7-56) units/L Alkaline Phosphatase (35-129) units/L Ammonia (25-60) umol/L Total Creatine Kinase (30-135) units/L Troponin T (0.00-0.029) ng/mL Total Protein (6.3-8.2) g/dL Albumin (3.9-5) g/dL Albumin/Globulin Ratio % TSH (0.270-4.200) mlU/mL HCG, Qual (Negative) Urine Color (Yellow) Urine Turbidity (Clear) Urine pH (5.0-7.0) Ur Specific [place] (1.003-1.030) Urine Protein (Negative) mg/dL Urine Glucose (UA) (Negative) mg/dL Urine Ketones (Negative) mg/dL Urine Blood (Negative) Urine Nitrite (Negative) Urine Bilirubin (Negative) Urine Urobilinogen (<2.0) mg/dL Ur Leukocyte Esterase (Negative) Urine WBC (Auto) (0.0-6.0) /HPF Urine RBC (Auto) (0.0-6.0) /HPF U Epithel Cells (Auto) (0-13.0) /HPF Urine Bacteria (Auto) (Negative) /HPF Salicylates < 0.3 L (2.8-20.0) mg/dL Urine Opiates Screen Urine Methadone Screen Acetaminophen < 15.0 (10.0-30.0) ug/mL Ur Barbiturates Screen Ur Phencyclidine Scrn Ur Amphetamines Screen U Benzodiazepines Scrn Urine Cocaine Screen U Marijuana (THC) Screen Drugs of Abuse Note Plasma/Serum Alcohol < 0.01 (0-0.07) gm% 08/14/16 Range/Units 14:16 WBC (4.5-11.0) K/mm3 RBC (3.65-5.03) M/mm3 Hgb (10.1-14.3) gm/dl Hct (30.3-42.9) % MCV (79-97) fl MCH (28-32) pg MCHC (30-34) % RDW (13.2-15.2) % Plt Count (140-440) K/mm3 Lymph % (Auto) (13.4-35.0) % [place] % (Auto) (0.0-7.3) % Eos % (Auto) (0.0-4.3) % Baso % (Auto) (0.0-1.8) % Lymph # (1.2-5.4) K/mm3 [place] # (0.0-0.8) K/mm3 Eos # (0.0-0.4) K/mm3 Baso # (0.0-0.1) K/mm3 Seg Neutrophils % (40.0-70.0) % Seg Neutrophils # (1.8-7.7) K/mm3 PT (12.2-14.9) Sec. INR (0.87-1.13) APTT (24.2-36.6) Sec. POC ABG pH (7.35-7.45) POC ABG pCO2 (35-45) POC ABG pO2 (80-105) POC ABG HCO3 POC ABG Total CO2 POC ABG O2 Sat POC ABG Base Excess FiO2 % Sodium (137-145) mmol/L Potassium (3.6-5.0) mmol/L Chloride (98-107) mmol/L Carbon Dioxide (22-30) mmol/L Anion Gap mmol/L BUN (7-17) mg/dL Creatinine (0.7-1.2) mg/dL Estimated GFR ml/min BUN/Creatinine Ratio % Glucose (65-100) mg/dL Lactic Acid (0.7-2.0) mmol/L Calcium (8.4-10.2) mg/dL Total Bilirubin (0.1-1.2) mg/dL AST (5-40) units/L ALT (7-56) units/L Alkaline Phosphatase (35-129) units/L Ammonia (25-60) umol/L Total Creatine Kinase (30-135) units/L Troponin T (0.00-0.029) ng/mL Total Protein (6.3-8.2) g/dL Albumin (3.9-5) g/dL Albumin/Globulin Ratio % TSH (0.270-4.200) mlU/mL HCG, Qual Negative (Negative) Urine Color (Yellow) Urine Turbidity (Clear) Urine pH (5.0-7.0) Ur Specific [place] (1.003-1.030) Urine Protein (Negative) mg/dL Urine Glucose (UA) (Negative) mg/dL Urine Ketones (Negative) mg/dL Urine Blood (Negative) Urine Nitrite (Negative) Urine Bilirubin (Negative) Urine Urobilinogen (<2.0) mg/dL Ur Leukocyte Esterase (Negative) Urine WBC (Auto) (0.0-6.0) /HPF Urine RBC (Auto) (0.0-6.0) /HPF U Epithel Cells (Auto) (0-13.0) /HPF Urine Bacteria (Auto) (Negative) /HPF Salicylates (2.8-20.0) mg/dL Urine Opiates Screen Urine Methadone Screen Acetaminophen (10.0-30.0) ug/mL Ur Barbiturates Screen Ur Phencyclidine Scrn Ur Amphetamines Screen U Benzodiazepines Scrn Urine Cocaine Screen U Marijuana (THC) Screen Drugs of Abuse Note Plasma/Serum Alcohol (0-0.07) gm% - EKG Data -: EKG Interpreted by Me EKG shows normal: sinus rhythm Rate: normal When compared to previous EKG there are: other (no stemi) 08/14/16 19:25 normal sinus, 63 bpm, QTC prolonged at 495 ms, right bundle branch block, abnormal EKG, not morphologically consistent with STEMI, appears grossly unchanged from prior EKG. - Radiology Data Radiology results: report reviewed, image reviewed interpreted by me: X-ray the chest and straight no acute disease. Poor inspiration is noted. Upper lung zones are clear. Endotracheal tube terminates 5 cm superior to the lulu. CT scan of the head and cervical spine are negative. - Core Measures Measure Exclusions: not indicated - NEXUS Criteria Focal neurological deficit present: No Midline spinal tenderness present: No Altered level of consciousness: Yes Intoxication present: No Distracting injury present: No NEXUS results: C-Spine cannot be cleared clinically by these results. Imaging is required. Critical Care Time: Yes Critical care time in (mins) excluding proc time.: 60 Critical care attestation.: If time is entered above; I have spent that time in minutes in the direct care of this critically ill patient, excluding procedure time. ED Disposition Clinical Impression: Respiratory failure, Hypothermia Disposition: OP ADMITTED IP TO THIS HOSP Is pt being admited?: Yes Condition: Critical
[2016-08-14 14:16] LABS: ISTAT Base Excess -9; ISTAT HCO3 17.8; ISTAT PCO2 39.8 (35-45); ISTAT PH 7.257 (7.35-7.45); ISTAT PO2 65 (80-105); ISTAT SO2 89; ISTAT TCO2 19
--- NOTE | 2016-08-14 14:19 | Admit Criteria Form ---
Admission Criteria Documentation: RESPIRATORY FAILURE GRG Clinical Indications for Admission to Inpatient Care (Place 'X' for any and all applicable criteria): Hospital admission is needed for appropriate care of the patient because of acute respiratory failure or insufficiency as indicated by ANY ONE of the following(1)(2)(3)(4)(5)(6)(7)(8): [ X]I. Mechanical ventilation needed (acute invasive or noninvasive) [ ]II. Severe ventilation deficit as indicated by ANY ONE of the following (9) [ ]a) Respiratory acidosis (pH less than 7.32 and partial pressure of carbon dioxide greater than 40 mm Hg (5.3 kPa)) [ ]b) Partial pressure of carbon dioxide greater than 44 mm Hg (5.9 kPa ) (new) [ ]c) Airflow measurements less than 25% of predicted (eg, peak expiratory flow rate less than 100 L/minute) [ ]d) Forced vital capacity less than 15 mL/kg of ideal body weight, or 50% decrease in vital capacity from baseline [ ]III. Noncardiac pulmonary edema not resolving with rapid emergency treatment (8) [ ]IV. Severe respiratory distress as indicated by ANY ONE of the following: [ ]a) Severe tachypnea (respiratory rate greater than 30, greater than 45 for 6-month-old, greater than 60 for ) [ ]b) Severe hypoxemia (partial pressure of oxygen less than 50 mm Hg ( 6.7 kPa) on greater than 50% oxygen or partial pressure of oxygen to FIO2 ratio less than 200) [ ]c) Mental status deterioration from respiratory disease [ ]V. Airway obstruction or inadequate protection [A](10)(11) The original [employer] content created by [employer] has been revised. The portions of the content which have been revised are identified through the use of italic text or in bold, and [employer] has neither reviewed nor approved the modified material. All other unmodified content is copyright [employer]. Please see references footnoted in the original [employer] edition 2016 Admission Criteria Met: Yes
--- NOTE | 2016-08-14 14:45 | XRay Report ---
AP chest History: Endotracheal tube placement. Findings: Compared to 07/29/16. An endotracheal tube terminates 5 cm superior to the lulu. There is poor inspiration with mild bibasilar atelectatic changes. The upper lung zones are clear. No pleural effusion or pneumothorax. Heart and mediastinal structures are unremarkable.
[2016-08-14 14:46] LABS: Basophils % (Auto) 0.8 % (0.0-1.8); Eosinophils % (Auto) 3.6 % (0.0-4.3); Hemoglobin 11.8 gm/dl (10.1-14.3); Mean Corpuscular HGB Conc 32 % (30-34); Mean Corpuscular Volume 79 fl (79-97); Platelet Count 195 K/mm3 (140-440); Red Blood Count 4.69 M/mm3 (3.65-5.03); Red Cell Distribution Width 14.2 % (13.2-15.2); White Blood Count 5.4 K/mm3 (4.5-11.0)
[2016-08-14 14:47] LABS: Mean Corpuscular Hemoglobin 25 pg (28-32)
[2016-08-14 14:55] LABS: INR 1.11 (0.87-1.13)
[2016-08-14 14:56] LABS: Partial Thromboplastin Time 26.3 Sec. (24.2-36.6)
[2016-08-14 15:08] LABS: Alanine Aminotransferase 12 units/L (7-56); Albumin 3.3 g/dL (3.9-5); Albumin/Globulin Ratio 0.9 %; Alkaline Phosphatase 87 units/L (35-129); Anion Gap 22 mmol/L; BUN/Creatinine Ratio 23.63; Bilirubin,Total 0.3 mg/dL (0.1-1.2); Blood Urea Nitrogen 26 mg/dL (7-17); Calcium 8.9 mg/dL (8.4-10.2); Carbon Dioxide 17 mmol/L (22-30); Chloride 100.8 mmol/L (98-107); Creatine Kinase 410 units/L (30-135); Glucose 375 mg/dL (65-100); Potassium 3.9 mmol/L (3.6-5.0); Sodium 136 mmol/L (137-145); Total Protein 6.8 g/dL (6.3-8.2)
[2016-08-14] MEDS ORDERED: VANCOMYCIN VIAL IV ONE (15:31)
[2016-08-14] MEDS ORDERED: DECADRON IV ONE (15:31)
[2016-08-14] MEDS ORDERED: ZOVIRAX 1,000 MG in NACL 0.9% 100 ML IV STA (15:39)
[2016-08-14] MEDS ORDERED: VANCOMYCIN PHARMACY TO DOSE IV SCH (16:00)
[2016-08-14] MEDS ORDERED: VANCOMYCIN VIAL 2,000 MG in NACL 0.9% 500 ML 500 ML IV ONE (16:30)
[2016-08-14] MEDS ORDERED: XYLOCAINE 2%/EPI 1:100,000 INFILTRATI ONE (16:42)
[2016-08-14] MEDS: fentaNYL DRIP Premix 2,000 MCG/100 ML BAG IV SCH (16:45)
--- NOTE | 2016-08-14 16:45 | Cat Scan Report ---
Cranial CT without contrast. History: Altered mineral status. Findings: Motion artifact degrades image quality. The study is read with these limitations. No definite evidence of an intracranial hemorrhage or acute infarct is seen. No masses or extra-axial collections are seen. The ventricles are normal in size and contour. The posterior fossa is unremarkable. The calvarium is intact. There is evidence of chronic ethmoid sinusitis. Impression: Technically limited study demonstrating no intracranial abnormalities. Chronic sinus disease is noted.
--- NOTE | 2016-08-14 16:47 | Cat Scan Report ---
CT of the cervical spine. History: Neck pain. Findings: There is no evidence of fracture or subluxation. The vertebral body heights are normal. Mild changes of spondylosis are seen at C5-6. The odontoid is intact. An endotracheal tube is noted. Impression: No acute findings.
[2016-08-14 18:04] LABS: ISTAT Base Excess -6; ISTAT HCO3 20.1; ISTAT PCO2 38.4 (35-45); ISTAT PH 7.326 (7.35-7.45); ISTAT PO2 203 (80-105); ISTAT SO2 100; ISTAT TCO2 21
[2016-08-14 19:17] LABS: Appearance,CSF Clear; Glucose,CSF 183 mg/dL; White Blood Cell,CSF 0 /mm3 (1-10)
--- NOTE | 2016-08-14 19:26 | Consultation ---
History of Present Illness Consult date: 08/14/16 Requesting physician: SIMA CHINO Reason for consult: other (Acute Hypoxemic Respiratory Failure) History of present illness: PULMONARY/CCM CONSULT NOTE (Full dictation # [id number]) Please see dictated notes for full details Medications and Allergies Allergies Allergy/AdvReac Type Severity Reaction Status Date / Time latex Allergy Rash Verified 08/14/16 13:44 Penicillins Allergy Rash Verified 08/14/16 13:44 tramadol Allergy Rash Verified 08/14/16 13:44 Home Medications Medication Instructions Recorded Confirmed Last Taken Type Insulin Glargine,Hum.rec.anlog 30 units SQ HS 05/24/14 07/29/16 05/23/14 History [Lantus] Diazepam Tab [Valium] 5 mg PO TID PRN #30 tablet 12/14/15 07/29/16 Unknown Rx Gabapentin [Neurontin] 300 mg PO Q8HR #90 capsule 12/14/15 07/29/16 Unknown Rx Insulin Aspart [NovoLOG Flexpen] 6 units SQ AC #2 pen 12/14/15 07/29/16 Unknown Rx Methimazole [Tapazole] 5 mg PO Q8HR #60 tablet 12/14/15 07/29/16 Unknown Rx Quetiapine Fumarate [SEROquel XR] 400 mg PO QDAY #30 tab.er.24h 12/14/15 Unknown Rx metFORMIN XR [Glucophage XR] 1,000 mg PO 0800 #30 tablet 12/14/15 07/29/16 Unknown Rx Diltiazem Cd [Cardizem CD] 300 mg PO QDAY #30 capsule 07/31/16 Unknown Rx Furosemide [Lasix TAB] 20 mg PO QDAY #30 tablet 07/31/16 Unknown Rx HYDROcodone/APAP 7.5-325 [[place] 1 each PO Q6HR PRN #12 tablet 07/31/16 Unknown Rx 7.5/325] Lisinopril [Zestril TAB] 20 mg PO QDAY #30 tablet 07/31/16 Unknown Rx Ibuprofen [Motrin 800 MG tab] 800 mg PO Q8HR PRN #15 tablet 08/13/16 Unknown Rx Active Meds: Active Medications Hydrophilic Ointment (Vaseline Lip Therapy) 1 applic TP Q2HR PRN PRN Reason: Dry Lips Fentanyl Citrate (Fentanyl Drip Premix) 2,000 mcg in 100 mls @ 5.443 mls/hr IV TITR SILVANO; 1 MCG/KG/HR PRN Reason: Protocol Last Titration: 08/14/16 16:55 Dose: 0.18 mcg/kg/hr, 1 mls/hr Vancomycin HCl 1,500 mg/ (Sodium Chloride) 500 mls @ 250 mls/hr IV Q12H SILVANO Multi-Ingred Cream/Lotion/Oil/Oint (Artificial Tears Ophth Oint) 1 applic OU Q4HR PRN PRN Reason: Dry Eye(s) Sodium Chloride (Nacl 0.9% 500 Ml) 1 ml IV DIRECT SILVANO Vancomycin HCl (Vancomycin Pharmacy To Dose) 1 each IV PKCONSULT SILVANO PRN Reason: Protocol Physical Examination Vital signs: Vital Signs Temp Pulse Resp BP Pulse Ox 94.5 F L 67 16 166/73 100 08/14/16 13:35 08/14/16 13:35 08/14/16 13:35 08/14/16 13:35 08/14/16 13:35 Results - Laboratory Findings CBC and BMP: 08/14/16 14:16 08/14/16 14:16 ABG POC ABG pH 7.326 (7.35-7.45) L 08/14/16 17:21 POC ABG pCO2 38.4 (35-45) 08/14/16 17:21 POC ABG pO2 203 (80-105) H 08/14/16 17:21 POC ABG HCO3 20.1 08/14/16 17:21 POC ABG Total CO2 21 08/14/16 17:21 POC ABG O2 Sat 100 08/14/16 17:21 PT/INR, D-dimer PT 14.2 Sec. (12.2-14.9) 08/14/16 14:16 INR 1.11 (0.87-1.13) 08/14/16 14:16 Abnormal lab findings: Abnormal Labs 08/14/16 17:21 POC ABG pH 7.326 L POC ABG pO2 203 H
[2016-08-14 19:30] LABS: CSF Diff Status Complete
[2016-08-14] MEDS ORDERED: ZOSYN/NS 4.5GM/100ML 4.5 GM/100 ML VIAL IV SCH (23:45)
--- NOTE | 2016-08-14 23:53 | Event Note ---
Date: 08/14/16 See H/p in reports
[2016-08-15] MEDS: DUONEB 0.5 MG-3 MG/3 ML SOLN IH SCH ×4 (02:45→19:58)
[2016-08-15 05:10] LABS: ISTAT Base Excess -14; ISTAT HCO3 13.2; ISTAT PCO2 30.2 (35-45); ISTAT PO2 143 (80-105); ISTAT SO2 99; ISTAT TCO2 14
--- NOTE | 2016-08-15 08:50 | XRay Report ---
Single view chest: Compared to 08/14/16. History: Followup of respiratory failure. Findings: Normal cardiomediastinal silhouette. Trachea is midline. Tip of endotracheal tube in normal position. Left basilar atelectasis. Normal CP angles. Impression: Left basilar atelectasis.
[2016-08-15] MEDS: LEVAQUIN 500MG/100ML 500 MG/100 ML BAG IV SCH (09:17)
[2016-08-15] MEDS: VANCOMYCIN VIAL 1,500 MG in NACL 0.9% 500 ML 500 ML IV SCH (09:17)
[2016-08-15] MEDS: LOVENOX SUB-Q SCH (09:17)
--- NOTE | 2016-08-15 10:38 | History and Physical Report ---
CHIEF COMPLAINT: 1. Altered mental status. 2. Unresponsiveness. HISTORY OF PRESENT ILLNESS: A 41-year-old female with history of bipolar, schizophrenia, hypertension, congestive heart failure, insulin-dependent diabetes, and arthritis, brought by EMS for altered mental status. The patient was found to be minimally responsive. The patient had a nasal trumpet applied in the field. EMS gave 2 mg of Narcan with minimal response. Fingerstick was greater than 400. No fever, no chills. The patient had copious airway secretions and was breathing sonorously; hence the patient was intubated for airway protection in the ER. The patient also had a core temperature of 94 for which rewarming was ordered in the ER. The reason for altered sensorium is not clear. No fever, no chills, no shortness of breath. Became altered sensorium and unresponsive. The patient had high sugars last night and did not want to seek any medical attention. PAST MEDICAL HISTORY: 1. As mentioned, bipolar disorder. 2. Hypertension. 3. Insulin-dependent diabetes. 4. Congestive heart failure. 5. Asthma, COPD. 6. Paranoid schizophrenia. PAST SURGICAL HISTORY: Right arm fracture. SOCIAL HISTORY: Former smoker, stopped smoking 4 years ago. FAMILY HISTORY: Significant for hypertension. CURRENT MEDICATIONS: Lantus 30 units subcutaneous at bedtime, diazepam 5 mg p.o. t.i.d., gabapentin 300 mg p.o. q.8h., NovoLog 6 units before each meal, Tapazole 5 mg p.o. q.8h., Seroquel 400 mg p.o. daily, metformin 1000 mg p.o. daily, diltiazem 300 mg p.o. daily, Lasix 20 mg p.o. daily, [place] 7.5/325 mg q.6h., lisinopril 20 mg once a day, and (ibuprofen) Motrin 800 mg p.o. q.8h. REVIEW OF SYSTEMS: The patient totally altered and unresponsive. Review of systems could not be done. The patient had sugars last night. That's the only positive contribution towards review of systems. No fever, no chills as per the family. No wheezing, no shortness of breath, no dysuria as per family. No TIAs or strokes. The patient unresponsive and intubated. PHYSICAL EXAMINATION: GENERAL: Middle-aged female, intubated, unresponsive. HEENT: Pupils equal and reactive. NECK: Supple, no lymphadenopathy, no thyromegaly, no neck stiffness. LUNGS: Bilateral rhonchi present. CARDIOVASCULAR: S1, S2 heard. No gallop, no murmur, no rub. Apical impulse in left fifth intercostal space and midclavicular line. ABDOMEN: Soft and benign. No hepatosplenomegaly. No guarding, no rigidity. CENTRAL NERVOUS SYSTEM: Totally unresponsive. Not moving her extremities. VITAL SIGNS: Repeat blood pressure was 166/73 and temperature is 94.5. LABORATORY DATA: Significant for white count of 5400, H and H is 11.8 and 37.0, platelet count is 195,000. Protime is 14.2, INR is 1.11, PTT is 36.3. pH is 7.257, pCO2 is 39.8, pO2 of 65, bicarbonate is 17.8 and FiO2 is 50. Glucose is 375. Sodium is 136, potassium is 3.9, BUN and creatinine is 26 and 1.1. Urine shows no white cells. CSF was normal. CSF glucose was 183. Urine drug screen was negative. ASSESSMENT AND PLAN: 1. Encephalopathy, toxicosis metabolic, high sugars may be contributory or multifactorial including catatonic schizophrenia. Continue protection of airway and continue vent management. 2. Acute respiratory failure. The patient intubated because of airway protection. Blood gas, pH was 7.257; pCO2 of 39.8; and pO2 was 65 and O2 stat was 89 consistent with acute respiratory failure secondary to hypoxia 3. Uncontrolled diabetes, high dose sliding scale coverage. 4. Catatonia schizophrenia possible, continue Seroquel. Mental Health consult to be requested. 5. Hypertension. Continue Cardizem-CD. 6. Tube feeding diet. 7. Deep venous thrombosis prophylaxis, Lovenox 40 mg subcutaneous daily. In summary, the patient has encephalopathy, hypothermia, possible sepsis. The patient is started on IV broad spectrum antibiotics. LP was negative. 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 PROGNOSIS: Fair to guarded. CRITICAL CARE STATEMENT: The high probability of a clinically significant sudden or life-threatening deterioration of the cardiopulmonary system required my full and direct attention, intervention, and personal management. The aggregate critical care time was 35 minutes. This time is in addition to the time spent performing reported procedures, but includes the following data review and interpretation, and patient's assessment and monitoring of vital signs, documentation, medication orders and management. JOB# [id number] TOBIAS/ALL
--- NOTE | 2016-08-15 11:57 | Progress Note ---
Assessment and Plan Assessment and plan: 1.? Sepsis. Patient was noted to have hypothermia on admission. Chest x-ray appears to have left lower lobe. Follow-up blood cultures and check lactic acid levels. 2. Acute hypoxemic respiratory failure. Follow-up ABG. Continue vent management per pulmonary. 3. Left lower lobe pneumonia. Patient will be treated with IV antibiotics and follow-up blood and sputum cultures. 4. Diabetes mellitus type 2. Uncontrolled. Continue sliding scale. 5. Hypertension. Continue antihypertensives medications. 6. Catatonia. Patient does have a history of schizophrenia. 7. Toxic metabolic encephalopathy. LP was negative. Continue supportive measures. Consider neurology consultation. History Interval history: 41-year-old female with history of bipolar, schizophrenia, hypertension, congestive heart failure, insulin-dependent diabetes mellitus and osteoarthritis presented to the emergency department with altered mentation. Patient was admitted with diagnosis of sepsis, toxic metabolic encephalopathy, acute hypoxemic respiratory failure and catatonia. Patient currently remains intubated and sedated in the ICU. Hospitalist Physical - Constitutional Vitals: Temp Pulse Resp BP Pulse Ox 99.6 F 70 26 H 132/52 100 08/15/16 08:00 08/15/16 11:36 08/15/16 11:00 08/15/16 11:36 08/15/16 11:36 General appearance: Present: no acute distress, well-nourished, other (orally intubated) - EENT Eyes: Present: PERRL, EOM intact ENT: hearing intact, clear oral mucosa, dentition normal - Neck Neck: Present: supple, normal ROM - Respiratory Respiratory effort: normal Respiratory: bilateral: diminished, rhonchi - Cardiovascular Rhythm: regular Heart Sounds: Present: S1 & S2. Absent: gallop, rub - Extremities Extremities: no ischemia, No edema, Full ROM - Abdominal General gastrointestinal: soft, non-tender, non-distended, normal bowel sounds - Integumentary Integumentary: Present: clear, warm, dry - Neurologic Neurologic: CNII-XII intact, moves all extremities Results - Labs CBC & Chem 7: 08/14/16 14:16 08/14/16 14:16 Labs: Laboratory Last Values WBC 5.4 K/mm3 (4.5-11.0) 08/14/16 14:16 RBC 4.69 M/mm3 (3.65-5.03) 08/14/16 14:16 Hgb 11.8 gm/dl (10.1-14.3) 08/14/16 14:16 Hct 37.0 % (30.3-42.9) 08/14/16 14:16 MCV 79 fl (79-97) 08/14/16 14:16 MCH 25 pg (28-32) L 08/14/16 14:16 MCHC 32 % (30-34) 08/14/16 14:16 RDW 14.2 % (13.2-15.2) 08/14/16 14:16 Plt Count 195 K/mm3 (140-440) 08/14/16 14:16 Lymph % (Auto) 29.4 % (13.4-35.0) 08/14/16 14:16 [place] % (Auto) 6.4 % (0.0-7.3) 08/14/16 14:16 Eos % (Auto) 3.6 % (0.0-4.3) 08/14/16 14:16 Baso % (Auto) 0.8 % (0.0-1.8) 08/14/16 14:16 Lymph # 1.6 K/mm3 (1.2-5.4) 08/14/16 14:16 [place] # 0.3 K/mm3 (0.0-0.8) 08/14/16 14:16 Eos # 0.2 K/mm3 (0.0-0.4) 08/14/16 14:16 Baso # 0.0 K/mm3 (0.0-0.1) 08/14/16 14:16 Seg Neutrophils % 59.8 % (40.0-70.0) 08/14/16 14:16 Seg Neutrophils # 3.2 K/mm3 (1.8-7.7) 08/14/16 14:16 PT 14.2 Sec. (12.2-14.9) 08/14/16 14:16 INR 1.11 (0.87-1.13) 08/14/16 14:16 APTT 26.3 Sec. (24.2-36.6) 08/14/16 14:16 POC ABG pH 7.250 (7.35-7.45) L 08/15/16 04:52 POC ABG pCO2 30.2 (35-45) L 08/15/16 04:52 POC ABG pO2 143 (80-105) H 08/15/16 04:52 POC ABG HCO3 13.2 08/15/16 04:52 POC ABG Total CO2 14 08/15/16 04:52 POC ABG O2 Sat 99 08/15/16 04:52 POC ABG Base Excess -14 08/15/16 04:52 FiO2 35 % 08/15/16 04:52 Sodium 136 mmol/L (137-145) L 08/14/16 14:16 Potassium 3.9 mmol/L (3.6-5.0) 08/14/16 14:16 Chloride 100.8 mmol/L (98-107) 08/14/16 14:16 Carbon Dioxide 17 mmol/L (22-30) L 08/14/16 14:16 Anion Gap 22 mmol/L 08/14/16 14:16 BUN 26 mg/dL (7-17) H 08/14/16 14:16 Creatinine 1.1 mg/dL (0.7-1.2) 08/14/16 14:16 Estimated GFR > 60 ml/min 08/14/16 14:16 BUN/Creatinine Ratio 23.63 % 08/14/16 14:16 Glucose 375 mg/dL (65-100) H 08/14/16 14:16 POC Glucose 368 (70-105) H 08/15/16 03:12 Lactic Acid 1.1 mmol/L (0.7-2.0) 08/14/16 14:16 Calcium 8.9 mg/dL (8.4-10.2) 08/14/16 14:16 Total Bilirubin 0.3 mg/dL (0.1-1.2) 08/14/16 14:16 AST 10 units/L (5-40) 08/14/16 14:16 ALT 12 units/L (7-56) 08/14/16 14:16 Alkaline Phosphatase 87 units/L (35-129) 08/14/16 14:16 Ammonia 28.0 umol/L (25-60) 08/14/16 14:16 Total Creatine Kinase 410 units/L (30-135) H 08/14/16 14:16 Troponin T < 0.010 ng/mL (0.00-0.029) 08/14/16 14:16 Total Protein 6.8 g/dL (6.3-8.2) 08/14/16 14:16 Albumin 3.3 g/dL (3.9-5) L 08/14/16 14:16 Albumin/Globulin Ratio 0.9 % 08/14/16 14:16 TSH < 0.005 mlU/mL (0.270-4.200) L 08/14/16 14:16 HCG, Qual Negative (Negative) 08/14/16 14:16 Urine Color Straw (Yellow) 08/14/16 13:45 Urine Turbidity Clear (Clear) 08/14/16 13:45 Urine pH 6.0 (5.0-7.0) 08/14/16 13:45 Ur Specific [place] 1.008 (1.003-1.030) 08/14/16 13:45 Urine Protein 100 mg/dl mg/dL (Negative) 08/14/16 13:45 Urine Glucose (UA) 150 mg/dL (Negative) 08/14/16 13:45 Urine Ketones Neg mg/dL (Negative) 08/14/16 13:45 Urine Blood Neg (Negative) 08/14/16 13:45 Urine Nitrite Neg (Negative) 08/14/16 13:45 Urine Bilirubin Neg (Negative) 08/14/16 13:45 Urine Urobilinogen < 2.0 mg/dL (<2.0) 08/14/16 13:45 Ur Leukocyte Esterase Neg (Negative) 08/14/16 13:45 Urine WBC (Auto) < 1.0 /HPF (0.0-6.0) 08/14/16 13:45 Urine RBC (Auto) 2.0 /HPF (0.0-6.0) 08/14/16 13:45 U Epithel Cells (Auto) < 1.0 /HPF (0-13.0) 08/14/16 13:45 Urine Bacteria (Auto) 1+ /HPF (Negative) 08/14/16 13:45 CSF Appearance Clear 08/14/16 Unknown CSF Color Colorless 08/14/16 Unknown CSF WBC 0 /mm3 (1-10) 08/14/16 Unknown CSF RBC 2 /mm3 (0-0) 08/14/16 Unknown CSF Seg Neutrophils Not Reportable 08/14/16 Unknown CSF Lymphocytes % Not Reportable 08/14/16 Unknown CSF Reactive Lymphs Not Reportable 08/14/16 Unknown CSF Monocytes % Not Reportable 08/14/16 Unknown CSF Eosinophils % Not Reportable 08/14/16 Unknown CSF Basophils Not Reportable 08/14/16 Unknown CSF Comment No cells seen 08/14/16 Unknown CSF Pathologist Review C 08/14/16 Unknown CSF Glucose 183 mg/dL 08/14/16 Unknown CSF Total Protein 23 mg/dL 08/14/16 Unknown Salicylates < 0.3 mg/dL (2.8-20.0) L 08/14/16 14:16 Urine Opiates Screen Presumptive negative 08/14/16 13:45 Urine Methadone Screen Presumptive negative 08/14/16 13:45 Acetaminophen < 15.0 ug/mL (10.0-30.0) 08/14/16 14:16 Ur Barbiturates Screen Presumptive negative 08/14/16 13:45 Ur Phencyclidine Scrn Presumptive negative 08/14/16 13:45 Ur Amphetamines Screen Presumptive negative 08/14/16 13:45 U Benzodiazepines Scrn Presumptive negative 08/14/16 13:45 Urine Cocaine Screen Presumptive negative 08/14/16 13:45 U Marijuana (THC) Screen Presumptive negative 08/14/16 13:45 Drugs of Abuse Note Disclamer 08/14/16 13:45 Plasma/Serum Alcohol < 0.01 gm% (0-0.07) 08/14/16 14:16
--- NOTE | 2016-08-15 13:12 | Progress Note ---
Assessment and Plan - Patient Problems (1) Acute respiratory failure Current Visit: Yes Status: Acute Qualifiers: Respiratory failure complication: R Plan to address problem: - continue full MVS - continue bronchodilators - treat metabolic acidosis - continue aspiration precautions / VAP bundles - routine pulmonary toilet (2) Altered mental status Current Visit: Yes Status: Acute Qualifiers: Altered mental status type: A Coma depth: C Coma timing: C Plan to address problem: - get EEG - neurology consult placed - treat acidosis (3) LESLI (acute kidney injury) Current Visit: Yes Status: Acute Plan to address problem: - will begin alkalanized isotonic fluids - follow BUN/Cr - follow electrolytes and correct as necessary (4) Metabolic acidosis Current Visit: Yes Status: Acute Plan to address problem: - as above (5) Atrial fibrillation with rapid ventricular response Onset Date: 12/11/15 Current Visit: No Status: Acute Plan to address problem: - rate control per cardiology - treat hyperthyroidism (6) Hyperthyroidism Onset Date: 12/11/15 Current Visit: No Status: Acute Plan to address problem: - resume home methimazole dose (7) Discharge planning issues Current Visit: Yes Status: Acute Plan to address problem: ....she is critically ill on life sustaining interventions including MVS ....34' CCT Subjective Date of service: 08/15/16 Principal diagnosis: Acute Hypoxemic Respiratory Failure; Altered Mental Status Interval history: Seen and examined at bedside; 24 hour events reviewed; nursing and respiratory care staff consulted; no adverse overnight events reported to me; AMS is persistent; no emesis or overt aspiration; remains on MVS; still with metabolic acidosis Objective Vital Signs - 12hr 08/15/16 08/15/16 08/15/16 01:20 01:30 01:40 Temperature Pulse Rate 71 71 71 Pulse Rate [ Bilateral Throughout] Respiratory 21 21 20 Rate Respiratory Rate [Bilateral Throughout] Blood Pressure 129/54 129/54 129/54 O2 Sat by Pulse 100 100 100 Oximetry 08/15/16 08/15/16 08/15/16 01:50 02:00 02:10 Temperature Pulse Rate 71 71 71 Pulse Rate [ Bilateral Throughout] Respiratory 21 17 20 Rate Respiratory Rate [Bilateral Throughout] Blood Pressure 129/54 130/52 130/52 O2 Sat by Pulse 100 100 100 Oximetry 08/15/16 08/15/16 08/15/16 02:20 02:28 02:30 Temperature Pulse Rate 71 72 71 Pulse Rate [ Bilateral Throughout] Respiratory 20 20 Rate Respiratory Rate [Bilateral Throughout] Blood Pressure 130/52 130/59 130/52 O2 Sat by Pulse 100 100 100 Oximetry 08/15/16 08/15/16 08/15/16 02:40 02:47 02:50 Temperature Pulse Rate 71 71 Pulse Rate [ 70 Bilateral Throughout] Respiratory 21 22 Rate Respiratory 20 Rate [Bilateral Throughout] Blood Pressure 130/52 130/52 O2 Sat by Pulse 100 100 Oximetry 08/15/16 08/15/16 08/15/16 03:00 03:02 03:10 Temperature Pulse Rate 71 71 Pulse Rate [ 69 Bilateral Throughout] Respiratory 22 20 Rate Respiratory 21 Rate [Bilateral Throughout] Blood Pressure 122/52 130/52 O2 Sat by Pulse 100 100 Oximetry 08/15/16 08/15/16 08/15/16 03:20 03:30 03:40 Temperature Pulse Rate 71 71 71 Pulse Rate [ Bilateral Throughout] Respiratory 20 20 20 Rate Respiratory Rate [Bilateral Throughout] Blood Pressure 130/52 130/52 130/52 O2 Sat by Pulse 100 100 100 Oximetry 08/15/16 08/15/16 08/15/16 03:50 04:00 04:10 Temperature Pulse Rate 72 72 72 Pulse Rate [ Bilateral Throughout] Respiratory 20 20 21 Rate Respiratory Rate [Bilateral Throughout] Blood Pressure 130/52 125/51 122/52 O2 Sat by Pulse 100 100 100 Oximetry 08/15/16 08/15/16 08/15/16 04:20 04:30 04:40 Temperature Pulse Rate 73 74 73 Pulse Rate [ Bilateral Throughout] Respiratory 21 22 19 Rate Respiratory Rate [Bilateral Throughout] Blood Pressure 122/52 122/52 122/52 O2 Sat by Pulse 100 100 100 Oximetry 08/15/16 08/15/16 08/15/16 04:50 04:52 05:00 Temperature Pulse Rate 73 73 74 Pulse Rate [ Bilateral Throughout] Respiratory 20 22 Rate Respiratory Rate [Bilateral Throughout] Blood Pressure 122/52 125/51 129/47 O2 Sat by Pulse 100 100 100 Oximetry 08/15/16 08/15/16 08/15/16 05:10 05:20 05:30 Temperature Pulse Rate 74 74 74 Pulse Rate [ Bilateral Throughout] Respiratory 22 23 24 Rate Respiratory Rate [Bilateral Throughout] Blood Pressure 129/47 129/47 129/47 O2 Sat by Pulse 100 100 100 Oximetry 08/15/16 08/15/16 08/15/16 05:40 05:50 06:00 Temperature Pulse Rate 74 74 74 Pulse Rate [ Bilateral Throughout] Respiratory 22 23 22 Rate Respiratory Rate [Bilateral Throughout] Blood Pressure 129/47 129/47 129/43 O2 Sat by Pulse 100 100 100 Oximetry 08/15/16 08/15/16 08/15/16 06:10 06:20 06:30 Temperature Pulse Rate 74 74 74 Pulse Rate [ Bilateral Throughout] Respiratory 22 22 21 Rate Respiratory Rate [Bilateral Throughout] Blood Pressure 129/43 129/43 129/43 O2 Sat by Pulse 100 100 100 Oximetry 08/15/16 08/15/16 08/15/16 06:40 06:50 07:00 Temperature Pulse Rate 74 74 74 Pulse Rate [ Bilateral Throughout] Respiratory 24 23 24 Rate Respiratory Rate [Bilateral Throughout] Blood Pressure 129/43 129/43 125/50 O2 Sat by Pulse 100 100 100 Oximetry 08/15/16 08/15/16 08/15/16 07:10 07:20 07:30 Temperature Pulse Rate 74 74 74 Pulse Rate [ Bilateral Throughout] Respiratory 25 H 26 H 26 H Rate Respiratory Rate [Bilateral Throughout] Blood Pressure 125/50 125/50 125/50 O2 Sat by Pulse 100 100 100 Oximetry 08/15/16 08/15/16 08/15/16 07:36 07:40 07:47 Temperature Pulse Rate 74 74 Pulse Rate [ 74 Bilateral Throughout] Respiratory 26 H Rate Respiratory 25 H Rate [Bilateral Throughout] Blood Pressure 125/50 125/50 O2 Sat by Pulse 100 100 Oximetry 08/15/16 08/15/16 08/15/16 07:50 08:00 08:10 Temperature 99.6 F Pulse Rate 73 80 76 Pulse Rate [ Bilateral Throughout] Respiratory 19 25 H 26 H Rate Respiratory Rate [Bilateral Throughout] Blood Pressure 125/50 143/53 143/53 O2 Sat by Pulse 100 100 100 Oximetry 08/15/16 08/15/16 08/15/16 08:20 08:30 08:40 Temperature Pulse Rate 75 74 73 Pulse Rate [ Bilateral Throughout] Respiratory 25 H 26 H 25 H Rate Respiratory Rate [Bilateral Throughout] Blood Pressure 143/53 143/53 143/53 O2 Sat by Pulse 100 100 100 Oximetry 08/15/16 08/15/16 08/15/16 08:50 09:00 09:10 Temperature Pulse Rate 73 73 73 Pulse Rate [ Bilateral Throughout] Respiratory 26 H 25 H 26 H Rate Respiratory Rate [Bilateral Throughout] Blood Pressure 143/53 133/48 133/48 O2 Sat by Pulse 100 100 100 Oximetry 08/15/16 08/15/16 08/15/16 09:20 09:30 09:40 Temperature Pulse Rate 72 71 71 Pulse Rate [ Bilateral Throughout] Respiratory 25 H 25 H 25 H Rate Respiratory Rate [Bilateral Throughout] Blood Pressure 133/48 133/48 133/48 O2 Sat by Pulse 100 100 100 Oximetry 08/15/16 08/15/16 08/15/16 09:50 10:00 10:10 Temperature Pulse Rate 71 71 71 Pulse Rate [ Bilateral Throughout] Respiratory 25 H 25 H 26 H Rate Respiratory Rate [Bilateral Throughout] Blood Pressure 133/48 124/54 124/54 O2 Sat by Pulse 100 100 100 Oximetry 08/15/16 08/15/16 08/15/16 10:20 10:30 10:40 Temperature Pulse Rate 71 70 70 Pulse Rate [ Bilateral Throughout] Respiratory 24 23 26 H Rate Respiratory Rate [Bilateral Throughout] Blood Pressure 124/54 124/54 124/54 O2 Sat by Pulse 100 100 100 Oximetry 08/15/16 08/15/16 08/15/16 10:50 11:00 11:36 Temperature Pulse Rate 70 70 70 Pulse Rate [ Bilateral Throughout] Respiratory 24 26 H Rate Respiratory Rate [Bilateral Throughout] Blood Pressure 124/54 132/52 132/52 O2 Sat by Pulse 100 100 100 Oximetry Constitutional: no acute distress, lethargic Eyes: non-icteric ENT: oropharynx moist Neck: supple, no lymphadenopathy Effort: mildly labored Ascultation: Bilateral: rhonchi (scant in bases) Cardiovascular: regular rate and rhythm Gastrointestinal: normoactive bowel sounds, soft, non-tender, non-distended Integumentary: normal Extremities: no cyanosis, no edema, pulses normal, no ischemia or petechiae Neurologic: unable to assess Psychiatric: other (obtunded) CBC and BMP: 08/15/16 14:21 08/15/16 14:21 ABG, PT/INR, D-dimer: ABG POC ABG pH 7.250 (7.35-7.45) L 08/15/16 04:52 POC ABG pCO2 30.2 (35-45) L 08/15/16 04:52 POC ABG pO2 143 (80-105) H 08/15/16 04:52 POC ABG HCO3 13.2 08/15/16 04:52 POC ABG Total CO2 14 08/15/16 04:52 POC ABG O2 Sat 99 08/15/16 04:52 PT/INR, D-dimer PT 14.2 Sec. (12.2-14.9) 08/14/16 14:16 INR 1.11 (0.87-1.13) 08/14/16 14:16 Abnormal lab findings: Abnormal Labs 08/14/16 08/14/16 08/15/16 17:21 19:31 03:12 POC ABG pH 7.326 L POC ABG pCO2 POC ABG pO2 203 H POC Glucose 341 H 368 H 08/15/16 04:52 POC ABG pH 7.250 L POC ABG pCO2 30.2 L POC ABG pO2 143 H POC Glucose Chest x-ray: image reviewed
[2016-08-15 14:08] LABS: ISTAT Base Excess -12; ISTAT HCO3 14.7; ISTAT PCO2 30.1 (35-45); ISTAT PH 7.296 (7.35-7.45); ISTAT PO2 153 (80-105); ISTAT SO2 99; ISTAT TCO2 16
[2016-08-15] MEDS ORDERED: PANCREAZE DR 10,500 UNIT FEEDTUBE PRN (14:29)
[2016-08-15] MEDS ORDERED: SIMPLE SYRUP FEEDTUBE PRN ×2 (14:29)
[2016-08-15] MEDS ORDERED: SODIUM BICARBONATE FEEDTUBE PRN (14:29)
[2016-08-15 14:43] LABS: Basophils % (Auto) 0.4 % (0.0-1.8); Hematocrit 31.8 % (30.3-42.9); Hemoglobin 10.4 gm/dl (10.1-14.3); Mean Corpuscular HGB Conc 33 % (30-34); Mean Corpuscular Hemoglobin 26 pg (28-32); Mean Corpuscular Volume 78 fl (79-97); Platelet Count 213 K/mm3 (140-440); Red Blood Count 4.09 M/mm3 (3.65-5.03); Red Cell Distribution Width 14.4 % (13.2-15.2); White Blood Count 10.1 K/mm3 (4.5-11.0)
[2016-08-15 14:58] LABS: BUN/Creatinine Ratio 22.35; Calcium 8.8 mg/dL (8.4-10.2); Chloride 105.4 mmol/L (98-107); Magnesium 1.9 mg/dL (1.7-2.3); Phosphorous 4.3 mg/dL (2.5-4.5); Potassium 4.4 mmol/L (3.6-5.0)
--- NOTE | 2016-08-15 16:05 | XRay Report ---
Flat abdomen: Next History: Dobbhoff placement. Findings: Tip of Dobbhoff feeding tube is noted in distal stomach. Impression: Tip of Dobbhoff feeding tube is noted in distal stomach.
[2016-08-15] MEDS ORDERED: D50W (25GM) IV PRN (17:10)
[2016-08-15] MEDS: SODIUM BICARBONATE 150 MEQ in D5W 1,000 ML IV SCH (17:51)
[2016-08-15 21:47] LABS: ISTAT Base Excess -9; ISTAT HCO3 17.1; ISTAT PCO2 32.9 (35-45); ISTAT PH 7.323 (7.35-7.45); ISTAT PO2 150 (80-105); ISTAT SO2 99; ISTAT TCO2 18
[2016-08-15] MEDS: fentaNYL DRIP Premix 2,000 MCG/100 ML BAG IV SCH (23:40)
[2016-08-16] MEDS: DUONEB 0.5 MG-3 MG/3 ML SOLN IH SCH ×4 (01:34→20:21)
[2016-08-16 04:20] LABS: Basophils % (Auto) 0.9 % (0.0-1.8); Eosinophils % (Auto) 0.6 % (0.0-4.3); Hematocrit 31.7 % (30.3-42.9); Hemoglobin 10.1 gm/dl (10.1-14.3); Mean Corpuscular HGB Conc 32 % (30-34); Mean Corpuscular Volume 80 fl (79-97); Platelet Count 180 K/mm3 (140-440); Red Blood Count 3.97 M/mm3 (3.65-5.03); Red Cell Distribution Width 14.5 % (13.2-15.2)
[2016-08-16 04:21] LABS: Mean Corpuscular Hemoglobin 25 pg (28-32)
[2016-08-16 04:42] LABS: BUN/Creatinine Ratio 26.25; Calcium 8.8 mg/dL (8.4-10.2); Chloride 105.6 mmol/L (98-107); Potassium 4.2 mmol/L (3.6-5.0)
[2016-08-16 05:40] LABS: ISTAT Base Excess -8; ISTAT HCO3 18.8; ISTAT PCO2 37.9 (35-45); ISTAT PH 7.303 (7.35-7.45); ISTAT PO2 113 (80-105); ISTAT SO2 98; ISTAT TCO2 20
[2016-08-16] MEDS: VANCOMYCIN VIAL 1,500 MG in NACL 0.9% 500 ML 500 ML IV SCH ×3 (06:00→17:22)
[2016-08-16] MEDS: fentaNYL DRIP Premix 2,000 MCG/100 ML BAG IV SCH (06:25)
[2016-08-16] MEDS: SODIUM BICARBONATE 150 MEQ in D5W 1,000 ML IV SCH (06:38)
[2016-08-16] MEDS: LEVAQUIN 500MG/100ML 500 MG/100 ML BAG IV SCH (09:56)
[2016-08-16] MEDS: LOVENOX SUB-Q SCH (09:57)
[2016-08-16] MEDS: PEPCID PO SCH (09:57)
--- NOTE | 2016-08-16 10:10 | XRay Report ---
AP chest History: Followup respiratory failure. Findings: The endotracheal tube and feeding tube remain in adequate position. Decreased segmental atelectasis at the left lung base since yesterday's exam. The lungs are generally clear. Heart size is stable and within normal limits.
--- NOTE | 2016-08-16 11:07 | Progress Note ---
Assessment and Plan Assessment and plan: 1.? Sepsis. Patient was noted to have hypothermia on admission. Chest x-ray appears to have left lower lobe infiltrate. Follow-up blood cultures and check lactic acid levels. 2. Acute hypoxemic respiratory failure. Follow-up ABG. Continue vent management per pulmonary. 3. Left lower lobe pneumonia. Patient will be treated with IV antibiotics and follow-up blood and sputum cultures. 4. Diabetes mellitus type 2. Uncontrolled. Continue sliding scale. 5. Hypertension. Continue antihypertensives medications. 6. Catatonia. Patient does have a history of schizophrenia. 7. Toxic metabolic encephalopathy. LP was negative. Continue supportive measures. Neurology consultation. EEG 8. Acute kidney injury. Etiology secondary to #1 +/- vasomotor nephropathy/ dehydration. 8. Hyperthyroidism. Resume methimazole. 10. Atrial fibrillation with RVR. Treatment hyperthyroidism. Rate control per cardiology. History Interval history: 41-year-old female with history of bipolar, schizophrenia, hypertension, congestive heart failure, insulin-dependent diabetes mellitus and osteoarthritis presented to the emergency department with altered mentation. Patient was admitted with diagnosis of sepsis, toxic metabolic encephalopathy, acute hypoxemic respiratory failure and catatonia. Patient currently remains intubated and sedated in the ICU. Hospitalist Physical - Constitutional Vitals: Temp Pulse Resp BP Pulse Ox 98.3 F 70 11 L 128/60 100 08/16/16 08:00 08/16/16 10:41 08/16/16 10:41 08/16/16 10:41 08/16/16 10:41 General appearance: Present: no acute distress, well-nourished, other (orally intubated) - EENT Eyes: Present: PERRL, EOM intact ENT: hearing intact, clear oral mucosa, dentition normal - Neck Neck: Present: supple, normal ROM - Respiratory Respiratory effort: normal Respiratory: bilateral: CTA - Cardiovascular Rhythm: regular Heart Sounds: Present: S1 & S2. Absent: gallop, rub - Extremities Extremities: no ischemia, No edema, Full ROM - Abdominal General gastrointestinal: soft, non-tender, non-distended, normal bowel sounds - Integumentary Integumentary: Present: clear, warm, dry - Neurologic Neurologic: CNII-XII intact, moves all extremities Results - Labs CBC & Chem 7: 08/16/16 04:07 08/16/16 04:07 Labs: Laboratory Last Values WBC 9.0 K/mm3 (4.5-11.0) 08/16/16 04:07 RBC 3.97 M/mm3 (3.65-5.03) 08/16/16 04:07 Hgb 10.1 gm/dl (10.1-14.3) 08/16/16 04:07 Hct 31.7 % (30.3-42.9) 08/16/16 04:07 MCV 80 fl (79-97) 08/16/16 04:07 MCH 25 pg (28-32) L 08/16/16 04:07 MCHC 32 % (30-34) 08/16/16 04:07 RDW 14.5 % (13.2-15.2) 08/16/16 04:07 Plt Count 180 K/mm3 (140-440) 08/16/16 04:07 Lymph % (Auto) 21.8 % (13.4-35.0) 08/16/16 04:07 [place] % (Auto) 9.2 % (0.0-7.3) H 08/16/16 04:07 Eos % (Auto) 0.6 % (0.0-4.3) 08/16/16 04:07 Baso % (Auto) 0.9 % (0.0-1.8) 08/16/16 04:07 Lymph # 2.0 K/mm3 (1.2-5.4) 08/16/16 04:07 [place] # 0.8 K/mm3 (0.0-0.8) 08/16/16 04:07 Eos # 0.0 K/mm3 (0.0-0.4) 08/16/16 04:07 Baso # 0.1 K/mm3 (0.0-0.1) 08/16/16 04:07 Seg Neutrophils % 67.5 % (40.0-70.0) 08/16/16 04:07 Seg Neutrophils # 6.0 K/mm3 (1.8-7.7) 08/16/16 04:07 PT 14.2 Sec. (12.2-14.9) 08/14/16 14:16 INR 1.11 (0.87-1.13) 08/14/16 14:16 APTT 26.3 Sec. (24.2-36.6) 08/14/16 14:16 POC ABG pH 7.303 (7.35-7.45) L 08/16/16 05:24 POC ABG pCO2 37.9 (35-45) 08/16/16 05:24 POC ABG pO2 113 (80-105) H 08/16/16 05:24 POC ABG HCO3 18.8 08/16/16 05:24 POC ABG Total CO2 20 08/16/16 05:24 POC ABG O2 Sat 98 08/16/16 05:24 POC ABG Base Excess -8 08/16/16 05:24 FiO2 30 % 08/16/16 05:24 Sodium 138 mmol/L (137-145) 08/16/16 04:07 Potassium 4.2 mmol/L (3.6-5.0) 08/16/16 04:07 Chloride 105.6 mmol/L (98-107) 08/16/16 04:07 Carbon Dioxide 18 mmol/L (22-30) L 08/16/16 04:07 Anion Gap 19 mmol/L 08/16/16 04:07 BUN 42 mg/dL (7-17) H 08/16/16 04:07 Creatinine 1.6 mg/dL (0.7-1.2) H 08/16/16 04:07 Estimated GFR 43 ml/min 08/16/16 04:07 BUN/Creatinine Ratio 26.25 % 08/16/16 04:07 Glucose 341 mg/dL (65-100) H 08/16/16 04:07 POC Glucose 323 (70-105) H 08/16/16 06:16 Lactic Acid 1.0 mmol/L (0.7-2.0) 08/15/16 14:21 Calcium 8.8 mg/dL (8.4-10.2) 08/16/16 04:07 Phosphorus 4.3 mg/dL (2.5-4.5) 08/15/16 14:21 Magnesium 1.9 mg/dL (1.7-2.3) 08/15/16 14:21 Total Bilirubin 0.3 mg/dL (0.1-1.2) 08/14/16 14:16 AST 10 units/L (5-40) 08/14/16 14:16 ALT 12 units/L (7-56) 08/14/16 14:16 Alkaline Phosphatase 87 units/L (35-129) 08/14/16 14:16 Ammonia 28.0 umol/L (25-60) 08/14/16 14:16 Total Creatine Kinase 410 units/L (30-135) H 08/14/16 14:16 Troponin T < 0.010 ng/mL (0.00-0.029) 08/14/16 14:16 Total Protein 6.8 g/dL (6.3-8.2) 08/14/16 14:16 Albumin 3.3 g/dL (3.9-5) L 08/14/16 14:16 Albumin/Globulin Ratio 0.9 % 08/14/16 14:16 TSH < 0.005 mlU/mL (0.270-4.200) L 08/14/16 14:16 HCG, Qual Negative (Negative) 08/14/16 14:16 Urine Color Straw (Yellow) 08/14/16 13:45 Urine Turbidity Clear (Clear) 08/14/16 13:45 Urine pH 6.0 (5.0-7.0) 08/14/16 13:45 Ur Specific [place] 1.008 (1.003-1.030) 08/14/16 13:45 Urine Protein 100 mg/dl mg/dL (Negative) 08/14/16 13:45 Urine Glucose (UA) 150 mg/dL (Negative) 08/14/16 13:45 Urine Ketones Neg mg/dL (Negative) 08/14/16 13:45 Urine Blood Neg (Negative) 08/14/16 13:45 Urine Nitrite Neg (Negative) 08/14/16 13:45 Urine Bilirubin Neg (Negative) 08/14/16 13:45 Urine Urobilinogen < 2.0 mg/dL (<2.0) 08/14/16 13:45 Ur Leukocyte Esterase Neg (Negative) 08/14/16 13:45 Urine WBC (Auto) < 1.0 /HPF (0.0-6.0) 08/14/16 13:45 Urine RBC (Auto) 2.0 /HPF (0.0-6.0) 08/14/16 13:45 U Epithel Cells (Auto) < 1.0 /HPF (0-13.0) 08/14/16 13:45 Urine Bacteria (Auto) 1+ /HPF (Negative) 08/14/16 13:45 CSF Appearance Clear 08/14/16 Unknown CSF Color Colorless 08/14/16 Unknown CSF WBC 0 /mm3 (1-10) 08/14/16 Unknown CSF RBC 2 /mm3 (0-0) 08/14/16 Unknown CSF Seg Neutrophils Not Reportable 08/14/16 Unknown CSF Lymphocytes % Not Reportable 08/14/16 Unknown CSF Reactive Lymphs Not Reportable 08/14/16 Unknown CSF Monocytes % Not Reportable 08/14/16 Unknown CSF Eosinophils % Not Reportable 08/14/16 Unknown CSF Basophils Not Reportable 08/14/16 Unknown CSF Comment No cells seen 08/14/16 Unknown CSF Pathologist Review C 08/14/16 Unknown CSF Glucose 183 mg/dL 08/14/16 Unknown CSF Total Protein 23 mg/dL 08/14/16 Unknown Salicylates < 0.3 mg/dL (2.8-20.0) L 08/14/16 14:16 Urine Opiates Screen Presumptive negative 08/14/16 13:45 Urine Methadone Screen Presumptive negative 08/14/16 13:45 Acetaminophen < 15.0 ug/mL (10.0-30.0) 08/14/16 14:16 Ur Barbiturates Screen Presumptive negative 08/14/16 13:45 Ur Phencyclidine Scrn Presumptive negative 08/14/16 13:45 Ur Amphetamines Screen Presumptive negative 08/14/16 13:45 U Benzodiazepines Scrn Presumptive negative 08/14/16 13:45 Urine Cocaine Screen Presumptive negative 08/14/16 13:45 U Marijuana (THC) Screen Presumptive negative 08/14/16 13:45 Drugs of Abuse Note Disclamer 08/14/16 13:45 Plasma/Serum Alcohol < 0.01 gm% (0-0.07) 08/14/16 14:16
--- NOTE | 2016-08-16 13:03 | Progress Note ---
Assessment and Plan - Patient Problems (1) Acute respiratory failure Current Visit: Yes Status: Acute Qualifiers: Respiratory failure complication: R Plan to address problem: - continue full MVS - continue bronchodilators - continue to treat metabolic acidosis - continue aspiration precautions / VAP bundles - routine pulmonary toilet - PSV trial in am hopefully and once acidosis corrected/ significantly improved (2) Altered mental status Current Visit: Yes Status: Acute Qualifiers: Altered mental status type: A Coma depth: C Coma timing: C Plan to address problem: - EEG oredered; await report - no clinical seizures - neurology consult placed - treating acidosis (3) LESLI (acute kidney injury) Current Visit: Yes Status: Acute Plan to address problem: - will continue alkalanized isotonic fluids - follow BUN/Cr - follow electrolytes and correct as necessary (4) Metabolic acidosis Current Visit: Yes Status: Acute Plan to address problem: - as above (5) Atrial fibrillation with rapid ventricular response Onset Date: 12/11/15 Current Visit: No Status: Acute Plan to address problem: - rate control per cardiology - treat hyperthyroidism (6) Hyperthyroidism Onset Date: 12/11/15 Current Visit: No Status: Acute Plan to address problem: - resumed home methimazole dose (7) Discharge planning issues Current Visit: Yes Status: Acute Plan to address problem: ....she is critically ill on life sustaining interventions including MVS at risk for further deterioration including ....32' CCT Subjective Date of service: 08/16/16 Principal diagnosis: Acute Hypoxemic Respiratory Failure; Altered Mental Status Interval history: Seen and examined at bedside; 24 hour events reviewed; nursing and respiratory care staff consulted; no adverse overnight events reported to me; remains on MVS ; arousable but not for extended periods of time; awaiting neurology evaluation as well as EEG; no emesis or overt aspiration Objective Vital Signs - 12hr 08/16/16 08/16/16 08/16/16 01:11 01:21 01:31 Temperature Pulse Rate 72 72 72 Pulse Rate [ Bilateral Throughout] Respiratory 14 14 23 Rate Respiratory Rate [Bilateral Throughout] Blood Pressure 136/54 136/54 136/54 O2 Sat by Pulse 100 100 100 Oximetry 08/16/16 08/16/16 08/16/16 01:35 01:41 01:51 Temperature Pulse Rate 72 72 Pulse Rate [ 72 Bilateral Throughout] Respiratory 18 16 Rate Respiratory 19 Rate [Bilateral Throughout] Blood Pressure 136/54 136/54 O2 Sat by Pulse 100 100 Oximetry 08/16/16 08/16/16 08/16/16 02:00 02:10 02:11 Temperature Pulse Rate 71 71 Pulse Rate [ 70 Bilateral Throughout] Respiratory 13 12 Rate Respiratory 19 Rate [Bilateral Throughout] Blood Pressure 143/55 143/55 O2 Sat by Pulse 100 100 Oximetry 08/16/16 08/16/16 08/16/16 02:21 02:31 02:41 Temperature Pulse Rate 71 71 71 Pulse Rate [ Bilateral Throughout] Respiratory 12 12 10 L Rate Respiratory Rate [Bilateral Throughout] Blood Pressure 143/55 136/54 136/54 O2 Sat by Pulse 100 100 99 Oximetry 08/16/16 08/16/16 08/16/16 02:51 03:00 03:11 Temperature Pulse Rate 71 71 71 Pulse Rate [ Bilateral Throughout] Respiratory 10 L 16 13 Rate Respiratory Rate [Bilateral Throughout] Blood Pressure 136/54 127/53 127/53 O2 Sat by Pulse 100 100 99 Oximetry 08/16/16 08/16/16 08/16/16 03:21 03:31 03:37 Temperature Pulse Rate 71 70 71 Pulse Rate [ Bilateral Throughout] Respiratory 13 16 Rate Respiratory Rate [Bilateral Throughout] Blood Pressure 127/53 143/55 127/53 O2 Sat by Pulse 100 100 100 Oximetry 08/16/16 08/16/16 08/16/16 03:41 03:51 04:00 Temperature Pulse Rate 70 70 70 Pulse Rate [ Bilateral Throughout] Respiratory 12 16 12 Rate Respiratory Rate [Bilateral Throughout] Blood Pressure 143/55 143/55 134/53 O2 Sat by Pulse 99 100 100 Oximetry 08/16/16 08/16/16 08/16/16 04:11 04:21 04:31 Temperature Pulse Rate 70 70 70 Pulse Rate [ Bilateral Throughout] Respiratory 16 15 14 Rate Respiratory Rate [Bilateral Throughout] Blood Pressure 134/53 134/53 134/53 O2 Sat by Pulse 100 100 100 Oximetry 08/16/16 08/16/16 08/16/16 04:41 04:51 05:00 Temperature Pulse Rate 71 71 70 Pulse Rate [ Bilateral Throughout] Respiratory 20 11 L 17 Rate Respiratory Rate [Bilateral Throughout] Blood Pressure 134/53 134/53 131/50 O2 Sat by Pulse 100 100 100 Oximetry 08/16/16 08/16/16 08/16/16 05:11 05:21 05:31 Temperature Pulse Rate 70 69 69 Pulse Rate [ Bilateral Throughout] Respiratory 12 16 15 Rate Respiratory Rate [Bilateral Throughout] Blood Pressure 131/50 131/50 131/50 O2 Sat by Pulse 100 100 100 Oximetry 08/16/16 08/16/16 08/16/16 05:41 05:51 06:00 Temperature Pulse Rate 69 69 69 Pulse Rate [ Bilateral Throughout] Respiratory 13 11 L 14 Rate Respiratory Rate [Bilateral Throughout] Blood Pressure 131/50 131/50 129/52 O2 Sat by Pulse 100 100 100 Oximetry 08/16/16 08/16/16 08/16/16 06:11 06:21 06:31 Temperature Pulse Rate 69 70 70 Pulse Rate [ Bilateral Throughout] Respiratory 11 L 13 11 L Rate Respiratory Rate [Bilateral Throughout] Blood Pressure 129/52 129/52 129/52 O2 Sat by Pulse 100 100 100 Oximetry 08/16/16 08/16/16 08/16/16 06:41 06:51 07:00 Temperature Pulse Rate 70 70 70 Pulse Rate [ Bilateral Throughout] Respiratory 12 10 L 13 Rate Respiratory Rate [Bilateral Throughout] Blood Pressure 129/52 129/52 131/53 O2 Sat by Pulse 100 100 100 Oximetry 08/16/16 08/16/16 08/16/16 07:11 07:21 07:31 Temperature Pulse Rate 69 69 72 Pulse Rate [ Bilateral Throughout] Respiratory 14 14 15 Rate Respiratory Rate [Bilateral Throughout] Blood Pressure 131/53 131/53 131/53 O2 Sat by Pulse 100 100 100 Oximetry 08/16/16 08/16/16 08/16/16 07:40 07:41 07:46 Temperature Pulse Rate 70 70 Pulse Rate [ 70 Bilateral Throughout] Respiratory 16 Rate Respiratory 16 Rate [Bilateral Throughout] Blood Pressure 131/53 131/53 O2 Sat by Pulse 100 100 Oximetry 08/16/16 08/16/16 08/16/16 07:51 08:00 08:11 Temperature 98.3 F Pulse Rate 69 69 69 Pulse Rate [ Bilateral Throughout] Respiratory 10 L 18 16 Rate Respiratory Rate [Bilateral Throughout] Blood Pressure 131/53 136/59 136/59 O2 Sat by Pulse 100 97 100 Oximetry 08/16/16 08/16/16 08/16/16 08:21 08:28 08:31 Temperature Pulse Rate 70 69 Pulse Rate [ 70 Bilateral Throughout] Respiratory 16 13 Rate Respiratory 18 Rate [Bilateral Throughout] Blood Pressure 136/59 136/59 O2 Sat by Pulse 100 100 Oximetry 08/16/16 08/16/16 08/16/16 08:41 08:51 09:00 Temperature Pulse Rate 69 69 69 Pulse Rate [ Bilateral Throughout] Respiratory 12 15 10 L Rate Respiratory Rate [Bilateral Throughout] Blood Pressure 136/59 136/59 129/53 O2 Sat by Pulse 100 100 100 Oximetry 08/16/16 08/16/16 08/16/16 09:11 09:21 09:31 Temperature Pulse Rate 69 69 69 Pulse Rate [ Bilateral Throughout] Respiratory 14 12 18 Rate Respiratory Rate [Bilateral Throughout] Blood Pressure 129/53 129/53 129/53 O2 Sat by Pulse 100 100 99 Oximetry 08/16/16 08/16/16 08/16/16 09:41 09:51 10:00 Temperature Pulse Rate 69 69 69 Pulse Rate [ Bilateral Throughout] Respiratory 11 L 12 16 Rate Respiratory Rate [Bilateral Throughout] Blood Pressure 129/53 129/53 128/60 O2 Sat by Pulse 100 100 100 Oximetry 08/16/16 08/16/16 08/16/16 10:11 10:21 10:31 Temperature Pulse Rate 69 69 70 Pulse Rate [ Bilateral Throughout] Respiratory 11 L 16 14 Rate Respiratory Rate [Bilateral Throughout] Blood Pressure 128/60 128/60 128/60 O2 Sat by Pulse 100 100 100 Oximetry 08/16/16 08/16/16 08/16/16 10:41 10:51 11:00 Temperature Pulse Rate 70 70 70 Pulse Rate [ Bilateral Throughout] Respiratory 11 L 14 14 Rate Respiratory Rate [Bilateral Throughout] Blood Pressure 128/60 128/60 141/61 O2 Sat by Pulse 100 100 100 Oximetry 08/16/16 08/16/16 08/16/16 11:11 11:21 11:31 Temperature Pulse Rate 71 71 72 Pulse Rate [ Bilateral Throughout] Respiratory 16 14 14 Rate Respiratory Rate [Bilateral Throughout] Blood Pressure 128/60 128/60 128/60 O2 Sat by Pulse 100 100 100 Oximetry 08/16/16 08/16/16 08/16/16 11:41 11:43 11:50 Temperature 99.0 F Pulse Rate 72 72 Pulse Rate [ Bilateral Throughout] Respiratory 13 Rate Respiratory Rate [Bilateral Throughout] Blood Pressure 141/61 141/61 O2 Sat by Pulse 100 100 Oximetry 08/16/16 08/16/16 11:51 12:00 Temperature Pulse Rate 72 72 Pulse Rate [ Bilateral Throughout] Respiratory 15 14 Rate Respiratory Rate [Bilateral Throughout] Blood Pressure 141/61 138/56 O2 Sat by Pulse 100 100 Oximetry Constitutional: no acute distress, lethargic Eyes: non-icteric ENT: oropharynx moist Neck: supple, no lymphadenopathy Effort: mildly labored Ascultation: Bilateral: rhonchi (scant in bases) Cardiovascular: regular rate and rhythm Gastrointestinal: normoactive bowel sounds, soft, non-tender, non-distended Integumentary: normal Extremities: no cyanosis, no edema, pulses normal, no ischemia or petechiae Neurologic: unable to assess Psychiatric: other (obtunded) CBC and BMP: 08/16/16 04:07 08/16/16 04:07 ABG, PT/INR, D-dimer: ABG POC ABG pH 7.303 (7.35-7.45) L 08/16/16 05:24 POC ABG pCO2 37.9 (35-45) 08/16/16 05:24 POC ABG pO2 113 (80-105) H 08/16/16 05:24 POC ABG HCO3 18.8 08/16/16 05:24 POC ABG Total CO2 20 08/16/16 05:24 POC ABG O2 Sat 98 08/16/16 05:24 PT/INR, D-dimer PT 14.2 Sec. (12.2-14.9) 08/14/16 14:16 INR 1.11 (0.87-1.13) 08/14/16 14:16 Abnormal lab findings: Abnormal Labs 08/14/16 08/14/16 08/15/16 17:21 19:31 03:12 MCV MCH [place] % (Auto) [place] # Seg Neutrophils % POC ABG pH 7.326 L POC ABG pCO2 POC ABG pO2 203 H Sodium Carbon Dioxide BUN Creatinine Glucose POC Glucose 341 H 368 H 08/15/16 08/15/16 08/15/16 04:52 11:01 13:15 MCV MCH [place] % (Auto) [place] # Seg Neutrophils % POC ABG pH 7.250 L 7.296 L POC ABG pCO2 30.2 L 30.1 L POC ABG pO2 143 H 153 H Sodium Carbon Dioxide BUN Creatinine Glucose POC Glucose 309 H 08/15/16 08/15/1608/15/17 14:21 14:21 16:43 MCV 78 L MCH 26 L [place] % (Auto) 9.3 H [place] # 0.9 H Seg Neutrophils % 76.4 H POC ABG pH POC ABG pCO2 POC ABG pO2 Sodium 136 L Carbon Dioxide 15 L BUN 38 H Creatinine 1.7 H D Glucose 266 H POC Glucose 269 H 08/15/16 08/16/16 08/16/16 21:36 01:14 04:07 MCV MCH 25 L [place] % (Auto) 9.2 H [place] # Seg Neutrophils % POC ABG pH 7.323 L POC ABG pCO2 32.9 L POC ABG pO2 150 H Sodium Carbon Dioxide BUN Creatinine Glucose POC Glucose 394 H 08/16/16 08/16/16 08/16/16 04:07 04:42 05:24 MCV MCH [place] % (Auto) [place] # Seg Neutrophils % POC ABG pH 7.303 L POC ABG pCO2 POC ABG pO2 113 H Sodium Carbon Dioxide 18 L BUN 42 H Creatinine 1.6 H Glucose 341 H POC Glucose 368 H 08/16/16 08/16/16 06:16 11:17 MCV MCH [place] % (Auto) [place] # Seg Neutrophils % POC ABG pH POC ABG pCO2 POC ABG pO2 Sodium Carbon Dioxide BUN Creatinine Glucose POC Glucose 323 H 300 H Chest x-ray: image reviewed
--- NOTE | 2016-08-16 15:03 | Consultation ---
History of Present Illness - Reason for Consult Consult date: 08/16/16 acute renal failure, metabolic acidosis - History of Present Illness Patient is a 41 yo AF with history significant for DM type 2, HTN, Obesity, peripheral neuropathy, previous admissions with DKA, ?Schizophrenia and Thyroid disorder was brought to the hospital by EMS for altered mental status. Patient was found minimally responsive by EMS. EMS reports fingerstick greater than 400. Unable to obtain any history from patient at this time and there was no family member at the bedside. She is also found to have anion gap metabolic acidosis and creatinine of 1.6. Her baseline creatinine was normal. Patient is currently intubated and sedated. Past History Past Medical History: diabetes, hypertension Medications and Allergies Allergies Allergy/AdvReac Type Severity Reaction Status Date / Time latex Allergy Rash Verified 08/14/16 13:44 Penicillins Allergy Rash Verified 08/14/16 13:44 tramadol Allergy Rash Verified 08/14/16 13:44 Home Medications Medication Instructions Recorded Confirmed Last Taken Type Insulin Glargine,Hum.rec.anlog 30 units SQ HS 05/24/14 08/16/16 05/23/14 History [Lantus] Diazepam Tab [Valium] 5 mg PO TID PRN #30 tablet 12/14/15 08/16/16 Unknown Rx Gabapentin [Neurontin] 300 mg PO Q8HR #90 capsule 12/14/15 08/16/16 Unknown Rx Insulin Aspart [NovoLOG Flexpen] 6 units SQ AC #2 pen 12/14/15 08/16/16 Unknown Rx Methimazole [Tapazole] 5 mg PO Q8HR #60 tablet 12/14/15 08/16/16 Unknown Rx Quetiapine Fumarate [SEROquel XR] 400 mg PO QDAY #30 tab.er.24h 12/14/15 Unknown Rx metFORMIN XR [Glucophage XR] 1,000 mg PO 0800 #30 tablet 12/14/15 08/16/16 Unknown Rx Diltiazem Cd [Cardizem CD] 300 mg PO QDAY #30 capsule 07/31/16 08/16/16 Unknown Rx Furosemide [Lasix TAB] 20 mg PO QDAY #30 tablet 07/31/16 08/16/16 Unknown Rx HYDROcodone/APAP 7.5-325 [[place] 1 each PO Q6HR PRN #12 tablet 07/31/16 08/16/16 Unknown Rx 7.5/325] Lisinopril [Zestril TAB] 20 mg PO QDAY #30 tablet 07/31/16 08/16/16 Unknown Rx Ibuprofen [Motrin 800 MG tab] 800 mg PO Q8HR PRN #15 tablet 08/13/16 08/16/16 Unknown Rx Active Meds: Active Medications Albuterol/Ipratropium (Duoneb 0.5 Mg-3 Mg/3 Ml Soln) 1 ampul IH Q6HRT [facility] Last Admin: 08/16/16 13:11 Dose: 1 ampul Lipase/Protease/Amylase (Pancreaze Dr 10,500 Unit) 1 each FEEDTUBE PRN PRN PRN Reason: For Clogged Feeding Tube Dextrose (D50w (25gm)) 50 ml IV PRN PRN PRN Reason: Hypoglycemia Enoxaparin Sodium (Lovenox) 40 mg SUB-Q QDAY [facility] Last Admin: 08/16/16 09:57 Dose: 40 mg Famotidine (Pepcid) 20 mg PO QDAY [facility] Last Admin: 08/16/16 09:57 Dose: 20 mg Hydrophilic Ointment (Vaseline Lip Therapy) 1 applic TP Q2HR PRN PRN Reason: Dry Lips Fentanyl Citrate (Fentanyl Drip Premix) 2,000 mcg in 100 mls @ 5.443 mls/hr IV TITR [facility]; 1 MCG/KG/HR PRN Reason: Protocol Last Admin: 08/16/16 06:25 Dose: 2.75 mcg/kg/hr, 14.969 mls/hr Vancomycin HCl 1,500 mg/ (Sodium Chloride) 500 mls @ 250 mls/hr IV Q12H [facility] Last Admin: 08/16/16 06:29 Dose: 250 mls/hr Levofloxacin/Dextrose (Levaquin 500mg/100ml) 500 mg in 100 mls @ 100 mls/hr IV Q24HR [facility] Last Admin: 08/16/16 09:56 Dose: 100 mls/hr Sodium Bicarbonate 150 meq/ (Dextrose) 1,150 mls @ 75 mls/hr IV DIRECT [facility] Last Admin: 08/16/16 06:38 Dose: 75 mls/hr Insulin Detemir (Levemir) 30 units SUB-Q QHS [facility] Insulin Human Regular (Novolin R) 0 units SUB-Q Q6HR [facility] PRN Reason: Protocol Last Admin: 08/16/16 14:54 Dose: 6 units Methimazole (Tapazole) 5 mg FEEDTUBE Q8HR [facility] Multi-Ingred Cream/Lotion/Oil/Oint (Artificial Tears Ophth Oint) 1 applic OU Q4HR PRN PRN Reason: Dry Eye(s) Quetiapine Fumarate (Seroquel) 200 mg PO BID [facility] Simple Syrup (Simple Syrup) 15 ml FEEDTUBE PRN PRN PRN Reason: Hypoglycemia Simple Syrup (Simple Syrup) 30 ml FEEDTUBE PRN PRN PRN Reason: Hypoglycemia Sodium Bicarbonate (Sodium Bicarbonate) 325 mg FEEDTUBE PRN PRN PRN Reason: For Clogged Feeding Tube Sodium Chloride (Nacl 0.9% 500 Ml) 1 ml IV DIRECT [facility] Vancomycin HCl (Vancomycin Pharmacy To Dose) 1 each IV PKCONSULT [facility] PRN Reason: Protocol Review of Systems ROS unobtainable: due to mental status Exam - Vital Signs Vital signs: Vital Signs Temp Pulse Resp BP Pulse Ox 94.5 F L 67 16 166/73 100 08/14/16 13:35 08/14/16 13:35 08/14/16 13:35 08/14/16 13:35 08/14/16 13:35 - General Appearance General appearance: well-developed, well-nourished, obese, sedated on ventilator (FiO2 30%), intubated EENT: PERRL Neck: Present: neck supple, trachea midline Respiratory: Other (coarse breath sounds) Heart: regular, S1S2, no murmurs Gastrointestinal: Present: normoactive bowel sounds, obese. Absent: tenderness , distended Integumentary: no rash, warm and dry Neurologic: other (sedated) Musculoskeletal: Present: other (no edema) Psychiatric: other (sedated) Results - Lab Results 08/16/16 04:07 08/16/16 04:07 Most recent lab results Calcium 8.8 mg/dL (8.4-10.2) 08/16/16 04:07 Phosphorus 4.3 mg/dL (2.5-4.5) 08/15/16 14:21 Magnesium 1.9 mg/dL (1.7-2.3) 08/15/16 14:21 Assessment and Plan - Patient Problems (1) LESLI (acute kidney injury) Current Visit: Yes Status: Acute Plan to address problem: Acute Kidney Injury in the setting of Respiratory failure, ?Sepsis and uncontrolled DM. Continue IV fluids and monitor renal function. Hemodynamically stable. Mild rhabdomyolysis noted. Monitor CK levels. Urine studies ordered. (2) Metabolic acidosis Current Visit: Yes Status: Acute Plan to address problem: Anion gap metabolic acidosis in the setting of uncontrolled DM. Urine is negative for ketones. Continue Bicarbonate drip. Monitor acid-base status. (3) Acute respiratory failure Current Visit: Yes Status: Acute Qualifiers: Respiratory failure complication: R Plan to address problem: On vent. 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
[2016-08-16 15:51] LABS: Potassium, Urine 13.89 mEq/L
[2016-08-16] MEDS: TAPAZOLE FEEDTUBE SCH ×2 (17:22→22:50)
[2016-08-16] MEDS: SODIUM BICARBONATE 150 MEQ in STERILE WATER 1,000 ML IV SCH (18:25)
[2016-08-16] MEDS ORDERED: LEVEMIR SUB-Q SCH (22:00)
[2016-08-16] MEDS: TYLENOL FEEDTUBE PRN (23:34)
[2016-08-17] MEDS: fentaNYL DRIP Premix 2,000 MCG/100 ML BAG IV SCH (00:25)
[2016-08-17] MEDS: DUONEB 0.5 MG-3 MG/3 ML SOLN IH SCH ×4 (01:28→19:59)
[2016-08-17] MEDS: TYLENOL FEEDTUBE PRN ×3 (03:25→22:16)
[2016-08-17] MEDS: VANCOMYCIN VIAL 1,500 MG in NACL 0.9% 500 ML 500 ML IV SCH ×2 (05:02→18:52)
[2016-08-17] MEDS: TAPAZOLE FEEDTUBE SCH ×3 (05:02→22:17)
[2016-08-17 05:42] LABS: Basophils % (Auto) 0.6 % (0.0-1.8); Eosinophils % (Auto) 1.4 % (0.0-4.3); Hemoglobin 9.9 gm/dl (10.1-14.3); Mean Corpuscular HGB Conc 32 % (30-34); Mean Corpuscular Volume 79 fl (79-97); Platelet Count 176 K/mm3 (140-440); Red Cell Distribution Width 14.5 % (13.2-15.2)
[2016-08-17 05:44] LABS: Mean Corpuscular Hemoglobin 25 pg (28-32)
[2016-08-17 05:56] LABS: Calcium 8.7 mg/dL (8.4-10.2); Chloride 106.4 mmol/L (98-107); Potassium 4.1 mmol/L (3.6-5.0)
[2016-08-17 06:21] LABS: ISTAT Base Excess -1; ISTAT HCO3 23.5; ISTAT PCO2 37.9 (35-45); ISTAT PO2 111 (80-105); ISTAT SO2 98; ISTAT TCO2 25
--- NOTE | 2016-08-17 08:07 | Progress Note ---
Assessment and Plan - Patient Problems (1) LESLI (acute kidney injury) Current Visit: Yes Status: Acute Plan to address problem: Acute Kidney Injury in the setting of Respiratory failure, Sepsis and uncontrolled DM. Renal function is improving. Continue IV fluids and monitor renal function. Hemodynamically stable. Mild rhabdomyolysis noted. CK level is improving. (2) Metabolic acidosis Current Visit: Yes Status: Acute Plan to address problem: MA is improving with Bicarbonate drip. Monitor acid-base status. (3) Acute respiratory failure Current Visit: Yes Status: Acute Qualifiers: Respiratory failure complication: R Plan to address problem: On vent. (4) Altered mental status Current Visit: Yes Status: Acute Qualifiers: Altered mental status type: A Coma depth: C Coma timing: C (5) Diabetes mellitus Current Visit: No Status: Chronic Qualifiers: Diabetes mellitus type: D Diabetes mellitus complication status: D Diabetes mellitus complication detail: D Diabetic retinopathy severity: D Proliferative retinopathy type: P Diabetes mellitus macular edema: D Diabetes mellitus emt intermediate insulin use: D Laterality: L Chronic kidney disease stage: C Subjective Date of service: 08/17/16 Principal diagnosis: Acute Hypoxemic Respiratory Failure; Altered Mental Status Interval history: Patient remain intubated. Objective - Vital Signs Vital signs: Vital Signs - 12hr 08/16/16 08/16/16 08/16/16 20:19 20:21 20:31 Temperature Pulse Rate 80 82 Pulse Rate [ 80 Bilateral Throughout] Pulse Rate [ From Monitor] Respiratory 26 H Rate Respiratory 22 Rate [Bilateral Throughout] Respiratory Rate [ Generalized] Blood Pressure 138/60 138/60 O2 Sat by Pulse 99 100 Oximetry 08/16/16 08/16/16 08/16/16 21:00 21:31 22:00 Temperature Pulse Rate 80 80 80 Pulse Rate [ 83 Bilateral Throughout] Pulse Rate [ From Monitor] Respiratory 19 21 21 Rate Respiratory 21 Rate [Bilateral Throughout] Respiratory Rate [ Generalized] Blood Pressure 157/64 157/64 153/59 O2 Sat by Pulse 100 100 100 Oximetry 08/16/16 08/16/16 08/16/16 22:31 22:45 23:00 Temperature 103 F H Pulse Rate 81 80 Pulse Rate [ Bilateral Throughout] Pulse Rate [ 80 From Monitor] Respiratory 21 21 Rate Respiratory Rate [Bilateral Throughout] Respiratory Rate [ Generalized] Blood Pressure 153/59 152/59 O2 Sat by Pulse 100 99 Oximetry 08/16/16 08/16/1608/16/17 23:31 23:34 23:46 Temperature Pulse Rate 92 H 91 H Pulse Rate [ Bilateral Throughout] Pulse Rate [ From Monitor] Respiratory 22 26 H Rate Respiratory Rate [Bilateral Throughout] Respiratory Rate [ Generalized] Blood Pressure 215/84 147/52 O2 Sat by Pulse 98 99 Oximetry 08/17/16 08/17/16 08/17/16 00:00 00:31 01:00 Temperature Pulse Rate 87 89 84 Pulse Rate [ Bilateral Throughout] Pulse Rate [ From Monitor] Respiratory 23 22 21 Rate Respiratory Rate [Bilateral Throughout] Respiratory Rate [ Generalized] Blood Pressure 157/48 157/48 154/45 O2 Sat by Pulse 99 99 98 Oximetry 08/17/16 08/17/16 08/17/16 01:29 01:31 01:40 Temperature Pulse Rate 85 Pulse Rate [ 85 84 Bilateral Throughout] Pulse Rate [ From Monitor] Respiratory 23 Rate Respiratory 20 16 Rate [Bilateral Throughout] Respiratory Rate [ Generalized] Blood Pressure 154/45 O2 Sat by Pulse 99 Oximetry 08/17/16 08/17/16 08/17/16 02:00 02:31 03:00 Temperature Pulse Rate 85 81 83 Pulse Rate [ Bilateral Throughout] Pulse Rate [ From Monitor] Respiratory 18 19 19 Rate Respiratory Rate [Bilateral Throughout] Respiratory Rate [ Generalized] Blood Pressure 162/55 162/55 167/57 O2 Sat by Pulse 99 100 98 Oximetry 08/17/16 08/17/16 08/17/16 03:03 03:25 03:30 Temperature 101.4 F H Pulse Rate Pulse Rate [ Bilateral Throughout] Pulse Rate [ 82 From Monitor] Respiratory 20 20 Rate Respiratory Rate [Bilateral Throughout] Respiratory Rate [ Generalized] Blood Pressure O2 Sat by Pulse 98 Oximetry 08/17/16 08/17/16 08/17/16 03:31 03:48 04:00 Temperature Pulse Rate 82 81 81 Pulse Rate [ Bilateral Throughout] Pulse Rate [ From Monitor] Respiratory 20 20 Rate Respiratory Rate [Bilateral Throughout] Respiratory 19 Rate [ Generalized] Blood Pressure 167/57 167/57 157/52 O2 Sat by Pulse 98 99 99 Oximetry 08/17/16 08/17/16 08/17/16 04:25 04:46 05:00 Temperature Pulse Rate 79 79 Pulse Rate [ Bilateral Throughout] Pulse Rate [ 79 From Monitor] Respiratory 20 20 Rate Respiratory Rate [Bilateral Throughout] Respiratory Rate [ Generalized] Blood Pressure 154/54 O2 Sat by Pulse 99 Oximetry 08/17/16 08/17/16 08/17/16 06:01 07:00 07:39 Temperature Pulse Rate 83 77 Pulse Rate [ Bilateral Throughout] Pulse Rate [ 77 From Monitor] Respiratory 18 19 23 Rate Respiratory Rate [Bilateral Throughout] Respiratory Rate [ Generalized] Blood Pressure 154/54 147/47 O2 Sat by Pulse 98 98 99 Oximetry 08/17/16 08/17/16 08/17/16 07:48 07:50 08:04 Temperature Pulse Rate 77 Pulse Rate [ 102 H 103 H Bilateral Throughout] Pulse Rate [ From Monitor] Respiratory Rate Respiratory 18 18 Rate [Bilateral Throughout] Respiratory Rate [ Generalized] Blood Pressure 147/47 O2 Sat by Pulse 98 Oximetry - General Appearance General appearance: well-developed, well-nourished, sedated on ventilator (FiO2 25%), intubated EENT: PERRL Neck: supple Respiratory: Present: Other (coarse breath sounds) Cardiology: regular, S1S2, no murmurs Gastrointestinal: normoactive bowel sounds, no tenderness, no distended Integumentary: no rash, warm and dry Neurologic: other (sedated) Musculoskeletal: other (no edema) - Lab 08/17/16 04:21 08/17/16 04:21 Most recent lab results Calcium 8.7 mg/dL (8.4-10.2) 08/17/16 04:21 Phosphorus 4.3 mg/dL (2.5-4.5) 08/15/16 14:21 Magnesium 1.9 mg/dL (1.7-2.3) 08/15/16 14:21 Urine Creatinine 39.3 mg/dL (0.1-20.0) H 08/16/16 15:12 Urine Sodium 80 mEq/L 08/16/16 15:12
--- NOTE | 2016-08-17 10:23 | XRay Report ---
AP CHEST: HISTORY: Followup respiratory failure AP view of the chest demonstrates a normal mediastinal and cardiac contour with clear lungs and normal bony and soft tissue structures. Lines and tubes are unchanged since yesterday's exam. IMPRESSION: Unremarkable AP chest.
[2016-08-17] MEDS: LEVAQUIN 500MG/100ML 500 MG/100 ML BAG IV SCH (10:25)
[2016-08-17] MEDS: PEPCID PO SCH (10:25)
[2016-08-17] MEDS: LOVENOX SUB-Q SCH (10:26)
[2016-08-17 11:39] LABS: ISTAT Base Excess 0; ISTAT HCO3 24.3; ISTAT PCO2 36.4 (35-45); ISTAT PH 7.433 (7.35-7.45); ISTAT PO2 90 (80-105); ISTAT SO2 97; ISTAT TCO2 25
[2016-08-17] MEDS: SODIUM BICARBONATE 150 MEQ in STERILE WATER 1,000 ML IV SCH (12:43)
--- NOTE | 2016-08-17 13:22 | Progress Note ---
Assessment and Plan - Patient Problems (1) Acute respiratory failure Current Visit: Yes Status: Acute Qualifiers: Respiratory failure complication: R Plan to address problem: - extubate if ABG good - continue bronchodilators - corrected metabolic acidosis - continue aspiration precautions - continue routine pulmonary toilet (2) Altered mental status Current Visit: Yes Status: Acute Qualifiers: Altered mental status type: A Coma depth: C Coma timing: C Plan to address problem: - EEG ordered; await report - no clinical seizures - neurology consult placed - much improved since restarting seroquel (3) LESLI (acute kidney injury) Current Visit: Yes Status: Acute Plan to address problem: - improving - follow BUN/Cr - follow electrolytes and correct as necessary - follow nephrology recommendations (4) Metabolic acidosis Current Visit: Yes Status: Acute Plan to address problem: - as above (5) Atrial fibrillation with rapid ventricular response Onset Date: 12/11/15 Current Visit: No Status: Acute Plan to address problem: - rate controlled - treating hyperthyroidism (6) Hyperthyroidism Onset Date: 12/11/15 Current Visit: No Status: Acute Plan to address problem: - resumed home methimazole dose (7) Discharge planning issues Current Visit: Yes Status: Acute Plan to address problem: ...she is critically ill on life sustaining interventions including MVS at risk for further deterioration including ..improving though ...care plan discussed with patient and brother at bedside ....34' CCT Subjective Date of service: 08/17/16 Principal diagnosis: Acute Hypoxemic Respiratory Failure; Altered Mental Status Interval history: Seen and examined at bedside; 24 hour events reviewed; nursing and respiratory care staff consulted; no adverse overnight events reported to me; looks much more alert; following commands well; denies acute chest pains or increased SOB; tolerating SBT well at 8/5 Objective Vital Signs - 12hr 08/17/16 08/17/16 08/17/16 01:29 01:31 01:40 Temperature Pulse Rate 85 Pulse Rate [ 85 84 Bilateral Throughout] Pulse Rate [ From Monitor] Respiratory 23 Rate Respiratory 20 16 Rate [Bilateral Throughout] Respiratory Rate [ Generalized] Blood Pressure 154/45 O2 Sat by Pulse 99 Oximetry 08/17/16 08/17/16 08/17/16 02:00 02:31 03:00 Temperature Pulse Rate 85 81 83 Pulse Rate [ Bilateral Throughout] Pulse Rate [ From Monitor] Respiratory 18 19 19 Rate Respiratory Rate [Bilateral Throughout] Respiratory Rate [ Generalized] Blood Pressure 162/55 162/55 167/57 O2 Sat by Pulse 99 100 98 Oximetry 08/17/16 08/17/16 08/17/16 03:03 03:25 03:30 Temperature 101.4 F H Pulse Rate Pulse Rate [ Bilateral Throughout] Pulse Rate [ 82 From Monitor] Respiratory 20 20 Rate Respiratory Rate [Bilateral Throughout] Respiratory Rate [ Generalized] Blood Pressure O2 Sat by Pulse 98 Oximetry 08/17/16 08/17/16 08/17/16 03:31 03:48 04:00 Temperature Pulse Rate 82 81 81 Pulse Rate [ Bilateral Throughout] Pulse Rate [ From Monitor] Respiratory 20 20 Rate Respiratory Rate [Bilateral Throughout] Respiratory 19 Rate [ Generalized] Blood Pressure 167/57 167/57 157/52 O2 Sat by Pulse 98 99 99 Oximetry 08/17/16 08/17/16 08/17/16 04:25 04:46 05:00 Temperature Pulse Rate 79 79 Pulse Rate [ Bilateral Throughout] Pulse Rate [ 79 From Monitor] Respiratory 20 20 Rate Respiratory Rate [Bilateral Throughout] Respiratory Rate [ Generalized] Blood Pressure 154/54 O2 Sat by Pulse 99 Oximetry 08/17/16 08/17/16 08/17/16 06:01 07:00 07:39 Temperature Pulse Rate 83 77 Pulse Rate [ Bilateral Throughout] Pulse Rate [ 77 From Monitor] Respiratory 18 19 23 Rate Respiratory Rate [Bilateral Throughout] Respiratory Rate [ Generalized] Blood Pressure 154/54 147/47 O2 Sat by Pulse 98 98 99 Oximetry 08/17/16 08/17/16 08/17/16 07:48 07:50 08:00 Temperature 99.8 F H Pulse Rate 77 Pulse Rate [ 102 H Bilateral Throughout] Pulse Rate [ From Monitor] Respiratory Rate Respiratory 18 Rate [Bilateral Throughout] Respiratory Rate [ Generalized] Blood Pressure 147/47 O2 Sat by Pulse 98 Oximetry 08/17/16 08/17/16 08/17/16 08:01 08:04 09:00 Temperature Pulse Rate 96 H 81 Pulse Rate [ 103 H Bilateral Throughout] Pulse Rate [ From Monitor] Respiratory 22 19 Rate Respiratory 18 Rate [Bilateral Throughout] Respiratory Rate [ Generalized] Blood Pressure 196/59 154/44 O2 Sat by Pulse 98 98 Oximetry 08/17/16 08/17/16 08/17/16 10:00 11:00 11:20 Temperature Pulse Rate 82 84 84 Pulse Rate [ Bilateral Throughout] Pulse Rate [ From Monitor] Respiratory 21 23 22 Rate Respiratory Rate [Bilateral Throughout] Respiratory Rate [ Generalized] Blood Pressure 173/50 178/44 167/51 O2 Sat by Pulse 98 99 99 Oximetry 08/17/16 08/17/16 11:42 12:00 Temperature 102.2 F H Pulse Rate 90 Pulse Rate [ Bilateral Throughout] Pulse Rate [ 95 H From Monitor] Respiratory 28 H 28 H Rate Respiratory Rate [Bilateral Throughout] Respiratory Rate [ Generalized] Blood Pressure 182/54 O2 Sat by Pulse 98 98 Oximetry Constitutional: no acute distress, lethargic Eyes: non-icteric ENT: oropharynx moist Neck: supple, no lymphadenopathy Effort: normal, mildly labored Ascultation: Bilateral: clear Cardiovascular: regular rate and rhythm Gastrointestinal: normoactive bowel sounds, soft, non-tender, non-distended Integumentary: normal Extremities: no cyanosis, no edema, pulses normal, no ischemia or petechiae Neurologic: normal mental status, non-focal exam, pupils equal and round, motor strength normal and Psychiatric: mood appropriate, anxious CBC and BMP: 08/17/16 04:21 08/17/16 04:21 ABG, PT/INR, D-dimer: ABG POC ABG pH 7.433 (7.35-7.45) 08/17/16 11:33 POC ABG pCO2 36.4 (35-45) 08/17/16 11:33 POC ABG pO2 90 (80-105) 08/17/16 11:33 POC ABG HCO3 24.3 08/17/16 11:33 POC ABG Total CO2 25 08/17/16 11:33 POC ABG O2 Sat 97 08/17/16 11:33 PT/INR, D-dimer PT 14.2 Sec. (12.2-14.9) 08/14/16 14:16 INR 1.11 (0.87-1.13) 08/14/16 14:16 Abnormal lab findings: Abnormal Labs 08/14/16 08/14/16 08/15/16 17:21 19:31 03:12 Hgb MCV MCH Robeson % (Auto) Robeson # Seg Neutrophils % Seg Neutrophils # POC ABG pH 7.326 L POC ABG pCO2 POC ABG pO2 203 H Sodium Carbon Dioxide BUN Creatinine Glucose POC Glucose 341 H 368 H Total Creatine Kinase Urine Creatinine Urine Chloride 08/15/16 08/15/16 08/15/16 04:52 11:01 13:15 Hgb MCV MCH Rob[place] % (Auto) Robeson # Seg Neutrophils % Seg Neutrophils # POC ABG pH 7.250 L 7.296 L POC ABG pCO2 30.2 L 30.1 L POC ABG pO2 143 H 153 H Sodium Carbon Dioxide BUN Creatinine Glucose POC Glucose 309 H Total Creatine Kinase Urine Creatinine Urine Chloride 08/15/16 08/15/16 08/15/16 14:21 14:21 16:43 Hgb MCV 78 L MCH 26 L Robeson % (Auto) 9.3 H Robeson # 0.9 H Seg Neutrophils % 76.4 H Seg Neutrophils # POC ABG pH POC ABG pCO2 POC ABG pO2 Sodium 136 L Carbon Dioxide 15 L BUN 38 H Creatinine 1.7 H D Glucose 266 H POC Glucose 269 H Total Creatine Kinase Urine Creatinine Urine Chloride 08/15/16 08/16/16 08/16/16 21:36 01:14 04:07 Hgb MCV MCH 25 L Robeson % (Auto) 9.2 H Robeson # Seg Neutrophils % Seg Neutrophils # POC ABG pH 7.323 L POC ABG pCO2 32.9 L POC ABG pO2 150 H Sodium Carbon Dioxide BUN Creatinine Glucose POC Glucose 394 H Total Creatine Kinase Urine Creatinine Urine Chloride 08/16/16 08/16/16 08/16/16 04:07 04:42 05:24 Hgb MCV MCH Rob[place] % (Auto) Robeson # Seg Neutrophils % Seg Neutrophils # POC ABG pH 7.303 L POC ABG pCO2 POC ABG pO2 113 H Sodium Carbon Dioxide 18 L BUN 42 H Creatinine 1.6 H Glucose 341 H POC Glucose 368 H Total Creatine Kinase Urine Creatinine Urine Chloride 08/16/16 08/16/16 08/16/16 06:16 11:17 15:12 Hgb MCV MCH [place] % (Auto) Robeson # Seg Neutrophils % Seg Neutrophils # POC ABG pH POC ABG pCO2 POC ABG pO2 Sodium Carbon Dioxide BUN Creatinine Glucose POC Glucose 323 H 300 H Total Creatine Kinase Urine Creatinine 39.3 H Urine Chloride 57.7 L 08/16/16 08/16/16 08/17/16 18:30 23:34 04:21 Hgb 9.9 L MCV MCH 25 L Robeson % (Auto) 9.5 H Robeson # 1.0 H Seg Neutrophils % 73.5 H Seg Neutrophils # 8.1 H POC ABG pH POC ABG pCO2 POC ABG pO2 Sodium Carbon Dioxide BUN Creatinine Glucose POC Glucose 345 H 313 H Total Creatine Kinase Urine Creatinine Urine Chloride 08/17/16 08/17/16 08/17/16 04:21 05:29 11:48 Hgb MCV MCH Rob[place] % (Auto) Robeson # Seg Neutrophils % Seg Neutrophils # POC ABG pH POC ABG pCO2 POC ABG pO2 111 H Sodium Carbon Dioxide BUN 39 H Creatinine 1.3 H Glucose 390 H POC Glucose 248 H Total Creatine Kinase 226 H Urine Creatinine Urine Chloride Chest x-ray: image reviewed
--- NOTE | 2016-08-17 13:59 | Progress Note ---
Assessment and Plan Assessment and plan: 1.? Sepsis. Continue IV antibiotics. Follow-up culture results. 2. Acute hypoxemic respiratory failure. Continue vent management per pulmonary. 3. Left lower lobe pneumonia. Continue antibiotics. 4. Diabetes mellitus type 2. Uncontrolled. Increase Lantus to 40 units at bedtime. Continue sliding scale. 5. Hypertension. Uncontrolled. Start Hydralazine when necessary. Continue antihypertensives medications. 6. Catatonia. Patient does have a history of schizophrenia. 7. Toxic metabolic encephalopathy. LP was negative. Continue supportive measures. Neurology consultation. EEG 8. Acute kidney injury. Etiology secondary to #1 +/- vasomotor nephropathy/ dehydration. 9. Hyperthyroidism. Resume methimazole. 10. Atrial fibrillation with RVR. Treatment hyperthyroidism. Rate control per cardiology. History Interval history: 41-year-old female with history of bipolar, schizophrenia, hypertension, congestive heart failure, insulin-dependent diabetes mellitus and osteoarthritis presented to the emergency department with altered mentation. Patient was admitted with diagnosis of sepsis, toxic metabolic encephalopathy, acute hypoxemic respiratory failure and catatonia. Patient currently remains intubated and sedated in the ICU. Hospitalist Physical - Constitutional Vitals: Temp Pulse Resp BP Pulse Ox 102.2 F H 86 22 174/48 98 08/17/16 12:00 08/17/16 13:23 08/17/16 13:23 08/17/16 13:20 08/17/16 13:20 General appearance: Present: no acute distress, well-nourished, other (orally intubated) - EENT Eyes: Present: PERRL, EOM intact ENT: hearing intact, clear oral mucosa, dentition normal - Neck Neck: Present: supple, normal ROM - Respiratory Respiratory effort: normal Respiratory: bilateral: diminished, rhonchi - Cardiovascular Rhythm: regular Heart Sounds: Present: S1 & S2. Absent: gallop, rub - Extremities Extremities: no ischemia, No edema, Full ROM - Abdominal General gastrointestinal: soft, non-tender, non-distended, normal bowel sounds - Integumentary Integumentary: Present: clear, warm, dry - Neurologic Neurologic: CNII-XII intact, moves all extremities Results - Labs CBC & Chem 7: 08/17/16 04:21 08/17/16 04:21 Labs: Laboratory Last Values WBC 11.0 K/mm3 (4.5-11.0) 08/17/16 04:21 RBC 3.90 M/mm3 (3.65-5.03) 08/17/16 04:21 Hgb 9.9 gm/dl (10.1-14.3) L 08/17/16 04:21 Hct 31.0 % (30.3-42.9) 08/17/16 04:21 MCV 79 fl (79-97) 08/17/16 04:21 MCH 25 pg (28-32) L 08/17/16 04:21 MCHC 32 % (30-34) 08/17/16 04:21 RDW 14.5 % (13.2-15.2) 08/17/16 04:21 Plt Count 176 K/mm3 (140-440) 08/17/16 04:21 Lymph % (Auto) 15.0 % (13.4-35.0) 08/17/16 04:21 [place] % (Auto) 9.5 % (0.0-7.3) H 08/17/16 04:21 Eos % (Auto) 1.4 % (0.0-4.3) 08/17/16 04:21 Baso % (Auto) 0.6 % (0.0-1.8) 08/17/16 04:21 Lymph # 1.7 K/mm3 (1.2-5.4) 08/17/16 04:21 [place] # 1.0 K/mm3 (0.0-0.8) H 08/17/16 04:21 Eos # 0.2 K/mm3 (0.0-0.4) 08/17/16 04:21 Baso # 0.1 K/mm3 (0.0-0.1) 08/17/16 04:21 Seg Neutrophils % 73.5 % (40.0-70.0) H 08/17/16 04:21 Seg Neutrophils # 8.1 K/mm3 (1.8-7.7) H 08/17/16 04:21 PT 14.2 Sec. (12.2-14.9) 08/14/16 14:16 INR 1.11 (0.87-1.13) 08/14/16 14:16 APTT 26.3 Sec. (24.2-36.6) 08/14/16 14:16 POC ABG pH 7.433 (7.35-7.45) 08/17/16 11:33 POC ABG pCO2 36.4 (35-45) 08/17/16 11:33 POC ABG pO2 90 (80-105) 08/17/16 11:33 POC ABG HCO3 24.3 08/17/16 11:33 POC ABG Total CO2 25 08/17/16 11:33 POC ABG O2 Sat 97 08/17/16 11:33 POC ABG Base Excess 0 08/17/16 11:33 FiO2 25 % 08/17/16 11:33 Sodium 143 mmol/L (137-145) 08/17/16 04:21 Potassium 4.1 mmol/L (3.6-5.0) 08/17/16 04:21 Chloride 106.4 mmol/L (98-107) 08/17/16 04:21 Carbon Dioxide 22 mmol/L (22-30) 08/17/16 04:21 Anion Gap 19 mmol/L 08/17/16 04:21 BUN 39 mg/dL (7-17) H 08/17/16 04:21 Creatinine 1.3 mg/dL (0.7-1.2) H 08/17/16 04:21 Estimated GFR 54 ml/min 08/17/16 04:21 BUN/Creatinine Ratio 30.00 % 08/17/16 04:21 Glucose 390 mg/dL (65-100) H 08/17/16 04:21 POC Glucose 248 (70-105) H 08/17/16 11:48 Lactic Acid 1.0 mmol/L (0.7-2.0) 08/15/16 14:21 Calcium 8.7 mg/dL (8.4-10.2) 08/17/16 04:21 Phosphorus 4.3 mg/dL (2.5-4.5) 08/15/16 14:21 Magnesium 1.9 mg/dL (1.7-2.3) 08/15/16 14:21 Total Bilirubin 0.3 mg/dL (0.1-1.2) 08/14/16 14:16 AST 10 units/L (5-40) 08/14/16 14:16 ALT 12 units/L (7-56) 08/14/16 14:16 Alkaline Phosphatase 87 units/L (35-129) 08/14/16 14:16 Ammonia 28.0 umol/L (25-60) 08/14/16 14:16 Total Creatine Kinase 226 units/L (30-135) H 08/17/16 04:21 Troponin T < 0.010 ng/mL (0.00-0.029) 08/14/16 14:16 Total Protein 6.8 g/dL (6.3-8.2) 08/14/16 14:16 Albumin 3.3 g/dL (3.9-5) L 08/14/16 14:16 Albumin/Globulin Ratio 0.9 % 08/14/16 14:16 TSH < 0.005 mlU/mL (0.270-4.200) L 08/14/16 14:16 HCG, Qual Negative (Negative) 08/14/16 14:16 Urine Color Straw (Yellow) 08/14/16 13:45 Urine Turbidity Clear (Clear) 08/14/16 13:45 Urine pH 6.0 (5.0-7.0) 08/14/16 13:45 Ur Specific [place] 1.008 (1.003-1.030) 08/14/16 13:45 Urine Protein 100 mg/dl mg/dL (Negative) 08/14/16 13:45 Urine Glucose (UA) 150 mg/dL (Negative) 08/14/16 13:45 Urine Ketones Neg mg/dL (Negative) 08/14/16 13:45 Urine Blood Neg (Negative) 08/14/16 13:45 Urine Nitrite Neg (Negative) 08/14/16 13:45 Urine Bilirubin Neg (Negative) 08/14/16 13:45 Urine Urobilinogen < 2.0 mg/dL (<2.0) 08/14/16 13:45 Ur Leukocyte Esterase Neg (Negative) 08/14/16 13:45 Urine WBC (Auto) < 1.0 /HPF (0.0-6.0) 08/14/16 13:45 Urine RBC (Auto) 2.0 /HPF (0.0-6.0) 08/14/16 13:45 U Epithel Cells (Auto) < 1.0 /HPF (0-13.0) 08/14/16 13:45 Urine Bacteria (Auto) 1+ /HPF (Negative) 08/14/16 13:45 Urine Eosinophils 14 (None Seen) 08/16/16 15:12 Urine Creatinine 39.3 mg/dL (0.1-20.0) H 08/16/16 15:12 Urine Sodium 80 mEq/L 08/16/16 15:12 Urine Potassium 13.89 mEq/L 08/16/16 15:12 Urine Chloride 57.7 mEq/L (110-250) L 08/16/16 15:12 CSF Appearance Clear 08/14/16 Unknown CSF Color Colorless 08/14/16 Unknown CSF WBC 0 /mm3 (1-10) 08/14/16 Unknown CSF RBC 2 /mm3 (0-0) 08/14/16 Unknown CSF Seg Neutrophils Not Reportable 08/14/16 Unknown CSF Lymphocytes % Not Reportable 08/14/16 Unknown CSF Reactive Lymphs Not Reportable 08/14/16 Unknown CSF Monocytes % Not Reportable 08/14/16 Unknown CSF Eosinophils % Not Reportable 08/14/16 Unknown CSF Basophils Not Reportable 08/14/16 Unknown CSF Comment No cells seen 08/14/16 Unknown CSF Pathologist Review C 08/14/16 Unknown CSF Glucose 183 mg/dL 08/14/16 Unknown CSF Total Protein 23 mg/dL 08/14/16 Unknown Salicylates < 0.3 mg/dL (2.8-20.0) L 08/14/16 14:16 Urine Opiates Screen Presumptive negative 08/14/16 13:45 Urine Methadone Screen Presumptive negative 08/14/16 13:45 Acetaminophen < 15.0 ug/mL (10.0-30.0) 08/14/16 14:16 Ur Barbiturates Screen Presumptive negative 08/14/16 13:45 Ur Phencyclidine Scrn Presumptive negative 08/14/16 13:45 Ur Amphetamines Screen Presumptive negative 08/14/16 13:45 U Benzodiazepines Scrn Presumptive negative 08/14/16 13:45 Urine Cocaine Screen Presumptive negative 08/14/16 13:45 U Marijuana (THC) Screen Presumptive negative 08/14/16 13:45 Drugs of Abuse Note Disclamer 08/14/16 13:45 Plasma/Serum Alcohol < 0.01 gm% (0-0.07) 08/14/16 14:16
[2016-08-17] MEDS ORDERED: LEVEMIR SUB-Q SCH (14:01)
[2016-08-17] MEDS: APRESOLINE IV PRN ×3 (14:39→22:17)
[2016-08-17] MEDS ORDERED: HALDOL IV PRN (15:23)
[2016-08-17] MEDS: XANAX PO PRN (22:15)
--- NOTE | 2016-08-17 23:49 | Consultation ---
PULMONARY AND CRITICAL CARE CONSULT NOTE This is a late dictation. She was seen in the Emergency Room on 08/14/2016. HISTORY OF PRESENT ILLNESS: This is a 41-year-old -Mex[place] female known to me from prior admissions. Past medical history, amongst other things, significant for a diagnosis of schizophrenia. She was brought into the Emergency Room due to altered mental status. She had been found down minimally responsive. She came in with a nasal trumpet and reportedly, the patient's family had contacted EMS services the night before admission, but she had refused care. In the ER, she was breathing, she was in respiratory distress, had copious airway secretions and ultimately, she ended up being intubated. She was, amongst other things, found to have numbers consistent with diabetic ketoacidosis. She was placed on IV insulin drip and admitted to the intensive care unit. When I had stopped by to see her, she was mostly nonresponsive. She was relatively hemodynamically stable. I do not have any history of emesis or overt aspiration. With regards to the patient's tobacco use/abuse history, the records indicate that she does have a past smoking history unable to quantify. PAST MEDICAL HISTORY: Hypertension, congestive heart failure, diabetes, arthritis, bipolar disorder, history of asthma, history of paranoid schizophrenia. PAST SURGICAL HISTORY: She has had a right arm fracture repair in the past. MEDICATIONS: She was on, at the time I had come back to see her, according to the medication administration record had included the following: She had received Rocephin 2 grams IV x 1, she received Decadron 10 mg IV x 1, she received etomidate for a rapid sequence intubation, and she received insulin 8 units IV x 1 at the time she was paralyzed for the intubation, she received 2 grams of vancomycin. ALLERGIES: TO LATEX, TO PENICILLINS, TO TRAMADOL; NATURE OF THIS ALLERGY IS UNKNOWN. DIET: Obese lady, acute weight loss or gain history is unknown. FAMILY AND SOCIAL HISTORY: Apparently lives in the community with the family. She does have a prior tobacco smoking history. No alcohol or illicit drug use or abuse reported. REVIEW OF SYSTEMS: Unobtainable secondary to the patient's medical and mental condition since she has been here. No gross hematochezia or melena. No gross hematuria. No hematemesis. No bloody tracheal secretions. No witnessed seizures. PHYSICAL EXAMINATION: VITAL SIGNS: At presentation in the Emergency Room revealed, the vital signs shows that she was hypothermic, temperature was 94.5 Fahrenheit rectally, pulse was 67, respiratory rate of 16, blood pressure 166/73, oxygen sats were 100%, inspired oxygen concentration was not recorded. HEAD, EYES, EARS, NOSE, AND THROAT: Pupils were equal, round, about 3-4 mm, sluggishly reactive to light. Extraocular muscle movements could not be assessed. Endotracheal tube was taped at the lips around 23-24 cm. Grossly, no palpable lymph nodes in the supraclavicular or submandibular lymph node chains. LUNGS: Auscultation of both lung elena unremarkable. Lungs are clear bilaterally. HEART: Heart sounds 1 and 2 are heard. They were regular in rate and rhythm at time of my evaluation. ABDOMEN: Soft, full, bowel sounds are positive, nontender. EXTREMITIES: Without overt digital clubbing, cyanosis or pedal edema. NEUROLOGIC: She has spontaneous movement to all extremities, but was mostly nonresponsive, status post intubation. LABORATORY DATA: From my review are as follows: White cell count on admission 5400, hemoglobin 11.8, hematocrit 37.0, platelets 195. INR 1.11. Arterial blood gas showed a pH of 7.26, pCO2 of 40, pO2 of 65 that was on 50% FiO2 assist control, tidal volumes 500 mL, rate of 16, PEEP of 5 on 50% FiO2. Serum sodium 136, potassium 3.9, chloride 101, bicarb 17, BUN 26, creatinine 1.1, glucose 365. CPK was slightly elevated at 410. TSH was low at 0.005. Beta-hCG test was negative. Troponin was within normal limits. Liver function tests were within normal limits. Lactic acid within normal limits. Urinalysis was negative for nitrites or leukocyte esterase, bland. The ER physician had done a lumbar puncture and most of the results so far were within normal limits. Urine drug screen, Tylenol, aspirin and alcohol within expected limits and the urine drug screen was negative, otherwise. Microbiology studies have been sent to the lab. We will follow on those. Radiographic studies have been reviewed, also reviewed the radiologist's interpretation. Endotracheal tube was in place, tip at the level of aortic knob, mild basal atelectasis in the left, otherwise no acute process. ASSESSMENT AND PLAN: We have a middle-aged lady in with altered mental status and an acute hypoxemic respiratory failure with mostly a metabolic acidosis that is nonlactic acid driven. From a respiratory standpoint, we will keep her on full mechanical ventilatory support. We will wean oxygen to keep sats greater than or equal to about 92% to 94%. Aspiration precautions and other ventilator bundles will be instituted. Bronchodilators will be instituted. The hope is that she improves, she may have taken some of her medications, possibly antiepileptic medications, all other medications she has at home, and this might be contributing to her mental status. We will see how she does and begin weaning her as soon as we can. Hopefully, the metabolic acidosis is short-lived and she does not have to compensate significantly from a respiratory standpoint. From a cardiovascular standpoint, her blood pressures were holding at this point. Cardiac enzymes are negative. We will follow her clinically targeting mean arterial pressures greater than or equal to about 60-65 mmHg. Acute coronary syndrome workup probably not indicated at this point. From a GI and nutritional standpoint, enteral nutrition will be the feeding modality of choice. She will be put on GI prophylaxis. Aspiration precautions will be maintained. From an infectious disease standpoint, she has empirically been started on broad-spectrum antibiotics. We will continue those for now. Anti-infectives will ultimately be deescalated based on results of clinical and microbiologic data. Lactic acid level is unremarkable as is the white count. I will order a CRP level and begin to deescalate quickly if that is nonremarkable also. From a renal standpoint, no major electrolyte abnormalities at this point and except for the bicarb. We will trend the bicarb and see how that goes. If it does not improve, bicarbonate supplementation will be considered. We will also follow her BUN and creatinine ratio and correct all her electrolytes as necessary. From an endocrine standpoint, she will be put on sliding scale insulin. Strict glycemic control will be targeted. I note the TSH that is significantly reduced. Home medications include methimazole and we will continue that. I believe she has been admitted to this hospital in the past that has had trouble with also her not taking the methimazole. From a [employer] standpoint, CT scan of the brain was done and of the C-spine. CT scan of the C-spine was unremarkable. CT of the brain was unremarkable. The exam was grossly nonfocal. I note she was also taking Neurontin at home. I do hope that whatever medications might be cause of this altered mental status will soon wear off and we will be able to get her to follow commands. From a general and hospital healthcare maintenance standpoint, she is going to be placed on GI and DVT prophylaxis. Flu and pneumonia will be per protocol. Thank you very much for the consult, Dr. Spencer. We will follow along and make further recommendations as picture progresses/becomes clear. At this time, I had spent about 35-40 minutes of critical care time without overlap, excluding any procedural time that may be necessary. She is critically ill on life-sustaining interventions including mechanical ventilator support at high risk for further deterioration including . JOB# [id number] TALIA/ALL
[2016-08-17] MEDS: NORCO 7.5/325 PO PRN (23:58)
[2016-08-18] MEDS: DUONEB 0.5 MG-3 MG/3 ML SOLN IH SCH ×4 (01:45→19:40)
[2016-08-18] MEDS: TAPAZOLE FEEDTUBE SCH ×3 (06:00→22:03)
[2016-08-18] MEDS: VANCOMYCIN VIAL 1,500 MG in NACL 0.9% 500 ML 500 ML IV SCH (06:00)
[2016-08-18] MEDS: SODIUM BICARBONATE 150 MEQ in STERILE WATER 1,000 ML IV SCH (06:00)
[2016-08-18] MEDS: NORCO 7.5/325 PO PRN ×3 (06:01→22:03)
[2016-08-18 06:19] LABS: Anion Gap 18 mmol/L; BUN/Creatinine Ratio 26.36; Blood Urea Nitrogen 29 mg/dL (7-17); Calcium 8.8 mg/dL (8.4-10.2); Carbon Dioxide 26 mmol/L (22-30); Chloride 101.5 mmol/L (98-107); Glucose 245 mg/dL (65-100); Sodium 142 mmol/L (137-145)
[2016-08-18 06:21] LABS: Basophils % (Auto) 0.6 % (0.0-1.8); Eosinophils % (Auto) 4.6 % (0.0-4.3); Hematocrit 33.1 % (30.3-42.9); Hemoglobin 10.5 gm/dl (10.1-14.3); Mean Corpuscular HGB Conc 32 % (30-34); Mean Corpuscular Volume 79 fl (79-97); Platelet Count 187 K/mm3 (140-440); Red Cell Distribution Width 14.5 % (13.2-15.2); White Blood Count 11.2 K/mm3 (4.5-11.0)
[2016-08-18 06:22] LABS: Mean Corpuscular Hemoglobin 25 pg (28-32)
[2016-08-18 06:26] LABS: Potassium 3.1 mmol/L (3.6-5.0)
[2016-08-18] MEDS: K-DUR PO SCH ×2 (08:05→18:15)
--- NOTE | 2016-08-18 08:37 | XRay Report ---
AP CHEST: AP view of the chest demonstrates a normal mediastinal and cardiac contour with clear lungs and normal bony and soft tissue structures. IMPRESSION: Normal AP chest.
--- NOTE | 2016-08-18 08:44 | Progress Note ---
Assessment and Plan Assessment and plan: 1.? Sepsis. Continue IV antibiotics. Follow-up culture results. 2. Acute hypoxemic respiratory failure. Continue vent management per pulmonary. 3. Left lower lobe pneumonia. Continue antibiotics. 4. Diabetes mellitus type 2. Uncontrolled. Increase Lantus to 40 units at bedtime. Continue sliding scale. 5. Hypertension. Uncontrolled. Start Hydralazine when necessary. Continue antihypertensives medications. 6. Catatonia. Resolved. Patient does have a history of schizophrenia. 7. Toxic metabolic encephalopathy. LP was negative. Continue supportive measures. Neurology consultation pending. EEG pending 8. Acute kidney injury. Resolved. Etiology secondary to #1 +/- vasomotor nephropathy/dehydration. 9. Hyperthyroidism. Resume methimazole. 10. Atrial fibrillation with RVR. Treatment hyperthyroidism. Rate control per cardiology. 11. Hypokalemia. Replete potassium. 12. Disposition. Patient will be transferred to the floor. History Interval history: 41-year-old female with history of bipolar, schizophrenia, hypertension, congestive heart failure, insulin-dependent diabetes mellitus and osteoarthritis presented to the emergency department with altered mentation. Patient was admitted with diagnosis of sepsis, toxic metabolic encephalopathy, acute hypoxemic respiratory failure and catatonia. Patient is now extubated Hospitalist Physical - Constitutional Vitals: Temp Pulse Resp BP Pulse Ox 98.6 F 101 H 27 H 167/62 97 08/18/16 04:00 08/18/16 07:26 08/18/16 07:26 08/18/16 07:00 08/18/16 08:15 General appearance: Present: no acute distress, well-nourished, other (orally intubated) - EENT Eyes: Present: PERRL, EOM intact ENT: hearing intact, clear oral mucosa, dentition normal - Neck Neck: Present: supple, normal ROM - Respiratory Respiratory effort: normal Respiratory: bilateral: diminished - Cardiovascular Rhythm: regular Heart Sounds: Present: S1 & S2. Absent: gallop, rub - Extremities Extremities: no ischemia, No edema, Full ROM - Abdominal General gastrointestinal: soft, non-tender, non-distended, normal bowel sounds - Integumentary Integumentary: Present: clear, warm, dry - Neurologic Neurologic: CNII-XII intact, moves all extremities Results - Labs CBC & Chem 7: 08/18/16 04:55 08/18/16 04:55 Labs: Laboratory Last Values WBC 11.2 K/mm3 (4.5-11.0) H 08/18/16 04:55 RBC 4.20 M/mm3 (3.65-5.03) 08/18/16 04:55 Hgb 10.5 gm/dl (10.1-14.3) 08/18/16 04:55 Hct 33.1 % (30.3-42.9) 08/18/16 04:55 MCV 79 fl (79-97) 08/18/16 04:55 MCH 25 pg (28-32) L 08/18/16 04:55 MCHC 32 % (30-34) 08/18/16 04:55 RDW 14.5 % (13.2-15.2) 08/18/16 04:55 Plt Count 187 K/mm3 (140-440) 08/18/16 04:55 Lymph % (Auto) 14.7 % (13.4-35.0) 08/18/16 04:55 [place] % (Auto) 7.5 % (0.0-7.3) H 08/18/16 04:55 Eos % (Auto) 4.6 % (0.0-4.3) H 08/18/16 04:55 Baso % (Auto) 0.6 % (0.0-1.8) 08/18/16 04:55 Lymph # 1.6 K/mm3 (1.2-5.4) 08/18/16 04:55 [place] # 0.8 K/mm3 (0.0-0.8) 08/18/16 04:55 Eos # 0.5 K/mm3 (0.0-0.4) H 08/18/16 04:55 Baso # 0.1 K/mm3 (0.0-0.1) 08/18/16 04:55 Seg Neutrophils % 72.6 % (40.0-70.0) H 08/18/16 04:55 Seg Neutrophils # 8.2 K/mm3 (1.8-7.7) H 08/18/16 04:55 PT 14.2 Sec. (12.2-14.9) 08/14/16 14:16 INR 1.11 (0.87-1.13) 08/14/16 14:16 APTT 26.3 Sec. (24.2-36.6) 08/14/16 14:16 POC ABG pH 7.433 (7.35-7.45) 08/17/16 11:33 POC ABG pCO2 36.4 (35-45) 08/17/16 11:33 POC ABG pO2 90 (80-105) 08/17/16 11:33 POC ABG HCO3 24.3 08/17/16 11:33 POC ABG Total CO2 25 08/17/16 11:33 POC ABG O2 Sat 97 08/17/16 11:33 POC ABG Base Excess 0 08/17/16 11:33 FiO2 25 % 08/17/16 11:33 Sodium 142 mmol/L (137-145) 08/18/16 04:55 Potassium 3.1 mmol/L (3.6-5.0) L D 08/18/16 04:55 Chloride 101.5 mmol/L (98-107) 08/18/16 04:55 Carbon Dioxide 26 mmol/L (22-30) 08/18/16 04:55 Anion Gap 18 mmol/L 08/18/16 04:55 BUN 29 mg/dL (7-17) H 08/18/16 04:55 Creatinine 1.1 mg/dL (0.7-1.2) 08/18/16 04:55 Estimated GFR > 60 ml/min 08/18/16 04:55 BUN/Creatinine Ratio 26.36 % 08/18/16 04:55 Glucose 245 mg/dL (65-100) H 08/18/16 04:55 POC Glucose 391 (70-105) H 08/17/16 22:10 Lactic Acid 1.0 mmol/L (0.7-2.0) 08/15/16 14:21 Calcium 8.8 mg/dL (8.4-10.2) 08/18/16 04:55 Phosphorus 4.3 mg/dL (2.5-4.5) 08/15/16 14:21 Magnesium 1.9 mg/dL (1.7-2.3) 08/15/16 14:21 Total Bilirubin 0.3 mg/dL (0.1-1.2) 08/14/16 14:16 AST 10 units/L (5-40) 08/14/16 14:16 ALT 12 units/L (7-56) 08/14/16 14:16 Alkaline Phosphatase 87 units/L (35-129) 08/14/16 14:16 Ammonia 28.0 umol/L (25-60) 08/14/16 14:16 Total Creatine Kinase 226 units/L (30-135) H 08/17/16 04:21 Troponin T < 0.010 ng/mL (0.00-0.029) 08/14/16 14:16 Total Protein 6.8 g/dL (6.3-8.2) 08/14/16 14:16 Albumin 3.3 g/dL (3.9-5) L 08/14/16 14:16 Albumin/Globulin Ratio 0.9 % 08/14/16 14:16 TSH < 0.005 mlU/mL (0.270-4.200) L 08/14/16 14:16 HCG, Qual Negative (Negative) 08/14/16 14:16 Urine Color Straw (Yellow) 08/14/16 13:45 Urine Turbidity Clear (Clear) 08/14/16 13:45 Urine pH 6.0 (5.0-7.0) 08/14/16 13:45 Ur Specific [place] 1.008 (1.003-1.030) 08/14/16 13:45 Urine Protein 100 mg/dl mg/dL (Negative) 08/14/16 13:45 Urine Glucose (UA) 150 mg/dL (Negative) 08/14/16 13:45 Urine Ketones Neg mg/dL (Negative) 08/14/16 13:45 Urine Blood Neg (Negative) 08/14/16 13:45 Urine Nitrite Neg (Negative) 08/14/16 13:45 Urine Bilirubin Neg (Negative) 08/14/16 13:45 Urine Urobilinogen < 2.0 mg/dL (<2.0) 08/14/16 13:45 Ur Leukocyte Esterase Neg (Negative) 08/14/16 13:45 Urine WBC (Auto) < 1.0 /HPF (0.0-6.0) 08/14/16 13:45 Urine RBC (Auto) 2.0 /HPF (0.0-6.0) 08/14/16 13:45 U Epithel Cells (Auto) < 1.0 /HPF (0-13.0) 08/14/16 13:45 Urine Bacteria (Auto) 1+ /HPF (Negative) 08/14/16 13:45 Urine Eosinophils 14 (None Seen) 08/16/16 15:12 Urine Creatinine 39.3 mg/dL (0.1-20.0) H 08/16/16 15:12 Urine Sodium 80 mEq/L 08/16/16 15:12 Urine Potassium 13.89 mEq/L 08/16/16 15:12 Urine Chloride 57.7 mEq/L (110-250) L 08/16/16 15:12 CSF Appearance Clear 08/14/16 Unknown CSF Color Colorless 08/14/16 Unknown CSF WBC 0 /mm3 (1-10) 08/14/16 Unknown CSF RBC 2 /mm3 (0-0) 08/14/16 Unknown CSF Seg Neutrophils Not Reportable 08/14/16 Unknown CSF Lymphocytes % Not Reportable 08/14/16 Unknown CSF Reactive Lymphs Not Reportable 08/14/16 Unknown CSF Monocytes % Not Reportable 08/14/16 Unknown CSF Eosinophils % Not Reportable 08/14/16 Unknown CSF Basophils Not Reportable 08/14/16 Unknown CSF Comment No cells seen 08/14/16 Unknown CSF Pathologist Review C 08/14/16 Unknown CSF Glucose 183 mg/dL 08/14/16 Unknown CSF Total Protein 23 mg/dL 08/14/16 Unknown Vancomycin Trough 22.8 ug/mL (5.0-20.0) H 08/17/16 16:25 Salicylates < 0.3 mg/dL (2.8-20.0) L 08/14/16 14:16 Urine Opiates Screen Presumptive negative 08/14/16 13:45 Urine Methadone Screen Presumptive negative 08/14/16 13:45 Acetaminophen < 15.0 ug/mL (10.0-30.0) 08/14/16 14:16 Ur Barbiturates Screen Presumptive negative 08/14/16 13:45 Ur Phencyclidine Scrn Presumptive negative 08/14/16 13:45 Ur Amphetamines Screen Presumptive negative 08/14/16 13:45 U Benzodiazepines Scrn Presumptive negative 08/14/16 13:45 Urine Cocaine Screen Presumptive negative 08/14/16 13:45 U Marijuana (THC) Screen Presumptive negative 08/14/16 13:45 Drugs of Abuse Note Disclamer 08/14/16 13:45 Plasma/Serum Alcohol < 0.01 gm% (0-0.07) 08/14/16 14:16
--- NOTE | 2016-08-18 08:47 | Progress Note ---
Assessment and Plan - Patient Problems (1) LESLI (acute kidney injury) Current Visit: Yes Status: Acute Plan to address problem: Acute Kidney Injury in the setting of Respiratory failure, Sepsis and uncontrolled DM. Renal function is much better. Monitor renal function. Hemodynamically stable. Mild rhabdomyolysis noted. CK level is improving. Replete K. (2) Metabolic acidosis Current Visit: Yes Status: Acute Plan to address problem: Improved. (3) Acute respiratory failure Current Visit: Yes Status: Acute Qualifiers: Respiratory failure complication: R Plan to address problem: Improved. (4) Altered mental status Current Visit: Yes Status: Acute Qualifiers: Altered mental status type: A Coma depth: C Coma timing: C (5) Diabetes mellitus Current Visit: No Status: Chronic Qualifiers: Diabetes mellitus type: D Diabetes mellitus complication status: D Diabetes mellitus complication detail: D Diabetic retinopathy severity: D Proliferative retinopathy type: P Diabetes mellitus macular edema: D Diabetes mellitus skilled nursing insulin use: D Laterality: L Chronic kidney disease stage: C Subjective Date of service: 08/18/16 Principal diagnosis: Acute Hypoxemic Respiratory Failure; Altered Mental Status Interval history: Patient is extubated. Objective - Vital Signs Vital signs: Vital Signs - 12hr 08/17/16 08/17/16 08/17/16 21:00 22:00 22:16 Temperature Pulse Rate 105 H 96 H Pulse Rate [ Bilateral Throughout] Pulse Rate [ From Monitor] Respiratory 22 21 26 H Rate Respiratory Rate [Bilateral Throughout] Respiratory Rate [Left Shoulder] Blood Pressure 139/64 177/64 O2 Sat by Pulse 98 99 Oximetry 08/17/16 08/17/16 08/17/16 22:17 23:00 23:55 Temperature Pulse Rate 95 H 101 H Pulse Rate [ Bilateral Throughout] Pulse Rate [ From Monitor] Respiratory 28 H Rate Respiratory Rate [Bilateral Throughout] Respiratory 30 H Rate [Left Shoulder] Blood Pressure 177/64 178/55 O2 Sat by Pulse 97 Oximetry 08/17/16 08/18/16 08/18/16 23:58 00:00 01:00 Temperature 99.9 F H Pulse Rate 98 H 94 H Pulse Rate [ Bilateral Throughout] Pulse Rate [ 97 H From Monitor] Respiratory 29 H 31 H 29 H Rate Respiratory Rate [Bilateral Throughout] Respiratory Rate [Left Shoulder] Blood Pressure 163/58 154/60 O2 Sat by Pulse 95 94 Oximetry 08/18/16 08/18/16 08/18/16 02:00 03:00 04:00 Temperature 98.6 F Pulse Rate 88 91 H 89 Pulse Rate [ Bilateral Throughout] Pulse Rate [ 89 From Monitor] Respiratory 32 H 30 H 20 Rate Respiratory Rate [Bilateral Throughout] Respiratory Rate [Left Shoulder] Blood Pressure 162/60 165/64 171/57 O2 Sat by Pulse 95 94 94 Oximetry 08/18/16 08/18/16 08/18/16 05:00 06:00 06:01 Temperature Pulse Rate 90 92 H Pulse Rate [ Bilateral Throughout] Pulse Rate [ From Monitor] Respiratory 25 H 30 H 29 H Rate Respiratory Rate [Bilateral Throughout] Respiratory Rate [Left Shoulder] Blood Pressure 175/64 191/62 O2 Sat by Pulse 94 94 Oximetry 08/18/16 08/18/16 08/18/16 07:00 07:01 07:19 Temperature Pulse Rate 98 H Pulse Rate [ 97 H Bilateral Throughout] Pulse Rate [ From Monitor] Respiratory 34 H 17 Rate Respiratory 27 H Rate [Bilateral Throughout] Respiratory Rate [Left Shoulder] Blood Pressure 167/62 O2 Sat by Pulse 93 Oximetry 08/18/16 08/18/16 07:26 08:15 Temperature Pulse Rate Pulse Rate [ 101 H Bilateral Throughout] Pulse Rate [ From Monitor] Respiratory Rate Respiratory 27 H Rate [Bilateral Throughout] Respiratory Rate [Left Shoulder] Blood Pressure O2 Sat by Pulse 97 Oximetry - General Appearance General appearance: well-developed, well-nourished, obese, other (no distress) EENT: PERRL, mucous membranes moist, hearing intact, vision intact Neck: no carotid bruit, supple Respiratory: Present: Clear to Ascultation Cardiology: regular, S1S2, no murmurs Gastrointestinal: normoactive bowel sounds, no tenderness, no distended Integumentary: no rash, warm and dry Neurologic: no focal deficit, no asterixis, alert and oriented x3, CN 3-12 intact Musculoskeletal: other (no edema) Psychiatric: cooperative - Lab 08/18/16 04:55 08/18/16 04:55 Most recent lab results Calcium 8.8 mg/dL (8.4-10.2) 08/18/16 04:55 Phosphorus 4.3 mg/dL (2.5-4.5) 08/15/16 14:21 Magnesium 1.9 mg/dL (1.7-2.3) 08/15/16 14:21 Urine Creatinine 39.3 mg/dL (0.1-20.0) H 08/16/16 15:12 Urine Sodium 80 mEq/L 08/16/16 15:12
[2016-08-18] MEDS: PEPCID PO SCH (09:28)
[2016-08-18] MEDS: LOVENOX SUB-Q SCH (09:28)
[2016-08-18] MEDS: LEVAQUIN 500MG/100ML 500 MG/100 ML BAG IV SCH (09:29)
--- NOTE | 2016-08-18 13:04 | Progress Note ---
Assessment and Plan Assessment and plan: 1.? Sepsis. Continue IV antibiotics. Follow-up culture results. 2. Acute hypoxemic respiratory failure. Continue vent management per pulmonary. 3. Left lower lobe pneumonia. Continue antibiotics.? Aspiration. 4. Diabetes mellitus type 2. Uncontrolled. Increase Lantus to 40 units at bedtime. Continue sliding scale. 5. Hypertension. Uncontrolled. Start Hydralazine when necessary. Continue antihypertensives medications. 6. Catatonia. Resolved. Patient does have a history of schizophrenia. 7. Toxic metabolic encephalopathy. LP was negative. Continue supportive measures. Neurology consultation pending. EEG pending 8. Acute kidney injury. Resolved. Etiology secondary to #1 +/- vasomotor nephropathy/dehydration. 9. Hyperthyroidism. Resume methimazole. 10. Atrial fibrillation with RVR. Treat hyperthyroidism. Rate control per cardiology. 11. Hypokalemia. Replete potassium. 12. Disposition. ER physician/EMS records report that a boyfriend states that there is a fear of overdose. I discussed this with the patient and she reports she took 2000 mg of Seroquel prior to admission. Documented daily dose should be 400 mg daily. Continue 1013. Psych evaluation pending. 13. ?Drug overdose. As above. History Interval history: 41-year-old female with history of bipolar, schizophrenia, hypertension, congestive heart failure, insulin-dependent diabetes mellitus and osteoarthritis presented to the emergency department with altered mentation. Patient was admitted with diagnosis of sepsis, toxic metabolic encephalopathy, acute hypoxemic respiratory failure and catatonia. Patient is now extubated Hospitalist Physical - Constitutional Vitals: Temp Pulse Resp BP Pulse Ox 99.1 F 98 H 14 159/58 94 08/18/16 08:00 08/18/16 09:00 08/18/16 09:00 08/18/16 09:00 08/18/16 09:00 General appearance: Present: no acute distress, well-nourished, other (orally intubated) - EENT Eyes: Present: PERRL, EOM intact ENT: hearing intact, clear oral mucosa, dentition normal - Neck Neck: Present: supple, normal ROM - Respiratory Respiratory effort: normal Respiratory: bilateral: CTA - Cardiovascular Rhythm: regular Heart Sounds: Present: S1 & S2. Absent: gallop, rub - Extremities Extremities: no ischemia, No edema, Full ROM - Abdominal General gastrointestinal: soft, non-tender, non-distended, normal bowel sounds - Integumentary Integumentary: Present: clear, warm, dry - Neurologic Neurologic: CNII-XII intact, moves all extremities Results - Labs CBC & Chem 7: 08/18/16 04:55 08/18/16 04:55 Labs: Laboratory Last Values WBC 11.2 K/mm3 (4.5-11.0) H 08/18/16 04:55 RBC 4.20 M/mm3 (3.65-5.03) 08/18/16 04:55 Hgb 10.5 gm/dl (10.1-14.3) 08/18/16 04:55 Hct 33.1 % (30.3-42.9) 08/18/16 04:55 MCV 79 fl (79-97) 08/18/16 04:55 MCH 25 pg (28-32) L 08/18/16 04:55 MCHC 32 % (30-34) 08/18/16 04:55 RDW 14.5 % (13.2-15.2) 08/18/16 04:55 Plt Count 187 K/mm3 (140-440) 08/18/16 04:55 Lymph % (Auto) 14.7 % (13.4-35.0) 08/18/16 04:55 [place] % (Auto) 7.5 % (0.0-7.3) H 08/18/16 04:55 Eos % (Auto) 4.6 % (0.0-4.3) H 08/18/16 04:55 Baso % (Auto) 0.6 % (0.0-1.8) 08/18/16 04:55 Lymph # 1.6 K/mm3 (1.2-5.4) 08/18/16 04:55 [place] # 0.8 K/mm3 (0.0-0.8) 08/18/16 04:55 Eos # 0.5 K/mm3 (0.0-0.4) H 08/18/16 04:55 Baso # 0.1 K/mm3 (0.0-0.1) 08/18/16 04:55 Seg Neutrophils % 72.6 % (40.0-70.0) H 08/18/16 04:55 Seg Neutrophils # 8.2 K/mm3 (1.8-7.7) H 08/18/16 04:55 PT 14.2 Sec. (12.2-14.9) 08/14/16 14:16 INR 1.11 (0.87-1.13) 08/14/16 14:16 APTT 26.3 Sec. (24.2-36.6) 08/14/16 14:16 POC ABG pH 7.433 (7.35-7.45) 08/17/16 11:33 POC ABG pCO2 36.4 (35-45) 08/17/16 11:33 POC ABG pO2 90 (80-105) 08/17/16 11:33 POC ABG HCO3 24.3 08/17/16 11:33 POC ABG Total CO2 25 08/17/16 11:33 POC ABG O2 Sat 97 08/17/16 11:33 POC ABG Base Excess 0 08/17/16 11:33 FiO2 25 % 08/17/16 11:33 Sodium 142 mmol/L (137-145) 08/18/16 04:55 Potassium 3.1 mmol/L (3.6-5.0) L D 08/18/16 04:55 Chloride 101.5 mmol/L (98-107) 08/18/16 04:55 Carbon Dioxide 26 mmol/L (22-30) 08/18/16 04:55 Anion Gap 18 mmol/L 08/18/16 04:55 BUN 29 mg/dL (7-17) H 08/18/16 04:55 Creatinine 1.1 mg/dL (0.7-1.2) 08/18/16 04:55 Estimated GFR > 60 ml/min 08/18/16 04:55 BUN/Creatinine Ratio 26.36 % 08/18/16 04:55 Glucose 245 mg/dL (65-100) H 08/18/16 04:55 POC Glucose 363 (70-105) H 08/18/16 12:26 Lactic Acid 1.0 mmol/L (0.7-2.0) 08/15/16 14:21 Calcium 8.8 mg/dL (8.4-10.2) 08/18/16 04:55 Phosphorus 4.3 mg/dL (2.5-4.5) 08/15/16 14:21 Magnesium 1.9 mg/dL (1.7-2.3) 08/15/16 14:21 Total Bilirubin 0.3 mg/dL (0.1-1.2) 08/14/16 14:16 AST 10 units/L (5-40) 08/14/16 14:16 ALT 12 units/L (7-56) 08/14/16 14:16 Alkaline Phosphatase 87 units/L (35-129) 08/14/16 14:16 Ammonia 28.0 umol/L (25-60) 08/14/16 14:16 Total Creatine Kinase 226 units/L (30-135) H 08/17/16 04:21 Troponin T < 0.010 ng/mL (0.00-0.029) 08/14/16 14:16 Total Protein 6.8 g/dL (6.3-8.2) 08/14/16 14:16 Albumin 3.3 g/dL (3.9-5) L 08/14/16 14:16 Albumin/Globulin Ratio 0.9 % 08/14/16 14:16 TSH < 0.005 mlU/mL (0.270-4.200) L 08/14/16 14:16 HCG, Qual Negative (Negative) 08/14/16 14:16 Urine Color Straw (Yellow) 08/14/16 13:45 Urine Turbidity Clear (Clear) 08/14/16 13:45 Urine pH 6.0 (5.0-7.0) 08/14/16 13:45 Ur Specific [place] 1.008 (1.003-1.030) 08/14/16 13:45 Urine Protein 100 mg/dl mg/dL (Negative) 08/14/16 13:45 Urine Glucose (UA) 150 mg/dL (Negative) 08/14/16 13:45 Urine Ketones Neg mg/dL (Negative) 08/14/16 13:45 Urine Blood Neg (Negative) 08/14/16 13:45 Urine Nitrite Neg (Negative) 08/14/16 13:45 Urine Bilirubin Neg (Negative) 08/14/16 13:45 Urine Urobilinogen < 2.0 mg/dL (<2.0) 08/14/16 13:45 Ur Leukocyte Esterase Neg (Negative) 08/14/16 13:45 Urine WBC (Auto) < 1.0 /HPF (0.0-6.0) 08/14/16 13:45 Urine RBC (Auto) 2.0 /HPF (0.0-6.0) 08/14/16 13:45 U Epithel Cells (Auto) < 1.0 /HPF (0-13.0) 08/14/16 13:45 Urine Bacteria (Auto) 1+ /HPF (Negative) 08/14/16 13:45 Urine Eosinophils 14 (None Seen) 08/16/16 15:12 Urine Creatinine 39.3 mg/dL (0.1-20.0) H 08/16/16 15:12 Urine Sodium 80 mEq/L 08/16/16 15:12 Urine Potassium 13.89 mEq/L 08/16/16 15:12 Urine Chloride 57.7 mEq/L (110-250) L 08/16/16 15:12 CSF Appearance Clear 08/14/16 Unknown CSF Color Colorless 08/14/16 Unknown CSF WBC 0 /mm3 (1-10) 08/14/16 Unknown CSF RBC 2 /mm3 (0-0) 08/14/16 Unknown CSF Seg Neutrophils Not Reportable 08/14/16 Unknown CSF Lymphocytes % Not Reportable 08/14/16 Unknown CSF Reactive Lymphs Not Reportable 08/14/16 Unknown CSF Monocytes % Not Reportable 08/14/16 Unknown CSF Eosinophils % Not Reportable 08/14/16 Unknown CSF Basophils Not Reportable 08/14/16 Unknown CSF Comment No cells seen 08/14/16 Unknown CSF Pathologist Review C 08/14/16 Unknown CSF Glucose 183 mg/dL 08/14/16 Unknown CSF Total Protein 23 mg/dL 08/14/16 Unknown Vancomycin Trough 22.8 ug/mL (5.0-20.0) H 08/17/16 16:25 Salicylates < 0.3 mg/dL (2.8-20.0) L 08/14/16 14:16 Urine Opiates Screen Presumptive negative 08/14/16 13:45 Urine Methadone Screen Presumptive negative 08/14/16 13:45 Acetaminophen < 15.0 ug/mL (10.0-30.0) 08/14/16 14:16 Ur Barbiturates Screen Presumptive negative 08/14/16 13:45 Ur Phencyclidine Scrn Presumptive negative 08/14/16 13:45 Ur Amphetamines Screen Presumptive negative 08/14/16 13:45 U Benzodiazepines Scrn Presumptive negative 08/14/16 13:45 Urine Cocaine Screen Presumptive negative 08/14/16 13:45 U Marijuana (THC) Screen Presumptive negative 08/14/16 13:45 Drugs of Abuse Note Disclamer 08/14/16 13:45 Plasma/Serum Alcohol < 0.01 gm% (0-0.07) 08/14/16 14:16
--- NOTE | 2016-08-18 15:36 | Consultation ---
History of Present Illness Consult date: 08/18/16 Consult reason: atrial fibrillation History of present illness: This is a 41yr old woman that has a cardiac history of paroxysmal atrial fibrillation found during an admission to this hospital November 2015. At that time she was placed on cardizem for suppression and warfarin for prophylaxis and discharge home. Patient has since failed for outpatient cardiac follow up. She was brought in by EMS 08/14 after she was found unresponsive at home by a family member, admitted with sepsis, respiratory failure and uncontrolled diabetes. Her presenting ECG shows a sinus rhythm with a right bundle branch block. Telemetry strips reviewed shows a stable sinus rhythm. INR sub- therapeutic at 1.1 on presentation. Cardiac consultation requested for history of atrial fibrillation. Past History Past Medical History: diabetes, hypertension Medications and Allergies Allergies Allergy/AdvReac Type Severity Reaction Status Date / Time latex Allergy Rash Verified 08/14/16 13:44 Penicillins Allergy Rash Verified 08/14/16 13:44 tramadol Allergy Rash Verified 08/14/16 13:44 Home Medications Medication Instructions Recorded Confirmed Last Taken Type Insulin Glargine,Hum.rec.anlog 30 units SQ HS 05/24/14 08/16/16 05/23/14 History [Lantus] Diazepam Tab [Valium] 5 mg PO TID PRN #30 tablet 12/14/15 08/16/16 Unknown Rx Gabapentin [Neurontin] 300 mg PO Q8HR #90 capsule 12/14/15 08/16/16 Unknown Rx Insulin Aspart [NovoLOG Flexpen] 6 units SQ AC #2 pen 12/14/15 08/16/16 Unknown Rx Methimazole [Tapazole] 5 mg PO Q8HR #60 tablet 12/14/15 08/16/16 Unknown Rx Quetiapine Fumarate [SEROquel XR] 400 mg PO QDAY #30 tab.er.24h 12/14/15 Unknown Rx metFORMIN XR [Glucophage XR] 1,000 mg PO 0800 #30 tablet 12/14/15 08/16/16 Unknown Rx Diltiazem Cd [Cardizem CD] 300 mg PO QDAY #30 capsule 07/31/16 08/16/16 Unknown Rx Furosemide [Lasix TAB] 20 mg PO QDAY #30 tablet 07/31/16 08/16/16 Unknown Rx HYDROcodone/APAP 7.5-325 [Prue 1 each PO Q6HR PRN #12 tablet 07/31/16 08/16/16 Unknown Rx 7.5/325] Lisinopril [Zestril TAB] 20 mg PO QDAY #30 tablet 07/31/16 08/16/16 Unknown Rx Ibuprofen [Motrin 800 MG tab] 800 mg PO Q8HR PRN #15 tablet 08/13/16 08/16/16 Unknown Rx Active Meds: Active Medications Acetaminophen (Tylenol) 650 mg FEEDTUBE Q4H PRN PRN Reason: Fever Last Admin: 08/17/16 22:16 Dose: 650 mg Acetaminophen/Hydrocodone Bitart (Prue 7.5/325) 1 each PO Q6H PRN PRN Reason: Pain, Moderate (4-6) Last Admin: 08/18/16 06:01 Dose: 1 each Albuterol/Ipratropium (Duoneb 0.5 Mg-3 Mg/3 Ml Soln) 1 ampul IH Q6HRT [facility] Last Admin: 08/18/16 14:16 Dose: Not Given Alprazolam (Xanax) 0.25 mg PO Q8H PRN PRN Reason: Anxiety Last Admin: 08/17/16 22:15 Dose: 0.25 mg Dextrose (D50w (25gm)) 50 ml IV PRN PRN PRN Reason: Hypoglycemia Enoxaparin Sodium (Lovenox) 40 mg SUB-Q QDAY [facility] Last Admin: 08/18/16 09:28 Dose: 40 mg Famotidine (Pepcid) 20 mg PO QDAY [facility] Last Admin: 08/18/16 09:28 Dose: 20 mg Haloperidol Lactate (Haldol) 5 mg IV Q6H PRN PRN Reason: Agitation Hydralazine HCl (Apresoline) 10 mg IV Q4HR PRN PRN Reason: Blood Pressure Last Admin: 08/17/16 22:17 Dose: 10 mg Hydrophilic Ointment (Vaseline Lip Therapy) 1 applic TP Q2HR PRN PRN Reason: Dry Lips Levofloxacin/Dextrose (Levaquin 500mg/100ml) 500 mg in 100 mls @ 100 mls/hr IV Q24HR [facility] Last Admin: 08/18/16 09:29 Dose: 100 mls/hr Vancomycin HCl (Vancomycin/Ns 1 Gm/250 Ml) 1 gm in 250 mls @ 166.667 mls/hr IV Q12H [facility] Insulin Aspart (Novolog) 5 units SUB-Q AC [facility] Insulin Detemir (Levemir) 50 units SUB-Q QHS [facility] Insulin Human Regular (Novolin R) 0 units SUB-Q ACHS [facility] PRN Reason: Protocol Last Admin: 08/18/16 08:04 Dose: 3 units Methimazole (Tapazole) 5 mg FEEDTUBE Q8HR [facility] Last Admin: 08/18/16 06:00 Dose: 5 mg Multi-Ingred Cream/Lotion/Oil/Oint (Artificial Tears Ophth Oint) 1 applic OU Q4HR PRN PRN Reason: Dry Eye(s) Quetiapine Fumarate (Seroquel) 200 mg PO BID [facility] Last Admin: 08/18/16 09:28 Dose: 200 mg Vancomycin HCl (Vancomycin Pharmacy To Dose) 1 each IV PKCONSULT [facility] PRN Reason: Protocol Physical Examination Vital Signs Temp Pulse Resp BP Pulse Ox 94.5 F L 67 16 166/73 100 08/14/16 13:35 08/14/16 13:35 08/14/16 13:35 08/14/16 13:35 08/14/16 13:35 General appearance: no acute distress Cardiac: Positive: Reg Rate and Rhythm Results 08/18/16 04:55 08/18/16 04:55 Cardiac Enzymes 08/15/16 08/15/16 08/15/16 Range/Units 03:12 04:52 11:01 WBC (4.5-11.0) K/mm3 RBC (3.65-5.03) M/mm3 Hgb (10.1-14.3) gm/dl Hct (30.3-42.9) % MCV (79-97) fl MCH (28-32) pg MCHC (30-34) % RDW (13.2-15.2) % Plt Count (140-440) K/mm3 Lymph % (Auto) (13.4-35.0) % Page % (Auto) (0.0-7.3) % Eos % (Auto) (0.0-4.3) % Baso % (Auto) (0.0-1.8) % Lymph # (1.2-5.4) K/mm3 Page # (0.0-0.8) K/mm3 Eos # (0.0-0.4) K/mm3 Baso # (0.0-0.1) K/mm3 Seg Neutrophils % (40.0-70.0) % Seg Neutrophils # (1.8-7.7) K/mm3 POC ABG pH 7.250 L 7.296 L (7.35-7.45) POC ABG pCO2 30.2 L 30.1 L (35-45) POC ABG pO2 143 H 153 H (80-105) POC ABG HCO3 13.2 14.7 POC ABG Total CO2 14 16 POC ABG O2 Sat 99 99 POC ABG Base Excess -14 -12 FiO2 35 35 % Sodium (137-145) mmol/L Potassium (3.6-5.0) mmol/L Chloride (98-107) mmol/L Carbon Dioxide (22-30) mmol/L Anion Gap mmol/L BUN (7-17) mg/dL Creatinine (0.7-1.2) mg/dL Estimated GFR ml/min BUN/Creatinine Ratio % Glucose (65-100) mg/dL POC Glucose 368 H (70-105) Lactic Acid (0.7-2.0) mmol/L Calcium (8.4-10.2) mg/dL Phosphorus (2.5-4.5) mg/dL Magnesium (1.7-2.3) mg/dL Total Creatine Kinase (30-135) units/L Urine Eosinophils (None Seen) Urine Creatinine (0.1-20.0) mg/dL Urine Sodium mEq/L Urine Potassium mEq/L Urine Chloride (110-250) mEq/L 08/15/16 08/15/16 08/15/16 Range/Units 13:15 14:21 14:21 WBC 10.1 (4.5-11.0) K/mm3 RBC 4.09 (3.65-5.03) M/mm3 Hgb 10.4 (10.1-14.3) gm/dl Hct 31.8 (30.3-42.9) % MCV 78 L (79-97) fl MCH 26 L (28-32) pg MCHC 33 (30-34) % RDW 14.4 (13.2-15.2) % Plt Count 213 (140-440) K/mm3 Lymph % (Auto) 13.9 (13.4-35.0) % Page % (Auto) 9.3 H (0.0-7.3) % Eos % (Auto) 0.0 (0.0-4.3) % Baso % (Auto) 0.4 (0.0-1.8) % Lymph # 1.4 (1.2-5.4) K/mm3 Page # 0.9 H (0.0-0.8) K/mm3 Eos # 0.0 (0.0-0.4) K/mm3 Baso # 0.0 (0.0-0.1) K/mm3 Seg Neutrophils % 76.4 H (40.0-70.0) % Seg Neutrophils # 7.7 (1.8-7.7) K/mm3 POC ABG pH (7.35-7.45) POC ABG pCO2 (35-45) POC ABG pO2 (80-105) POC ABG HCO3 POC ABG Total CO2 POC ABG O2 Sat POC ABG Base Excess FiO2 % Sodium 136 L (137-145) mmol/L Potassium 4.4 (3.6-5.0) mmol/L Chloride 105.4 (98-107) mmol/L Carbon Dioxide 15 L (22-30) mmol/L Anion Gap 20 mmol/L BUN 38 H (7-17) mg/dL Creatinine 1.7 H D (0.7-1.2) mg/dL Estimated GFR 40 ml/min BUN/Creatinine Ratio 22.35 % Glucose 266 H (65-100) mg/dL POC Glucose 309 H (70-105) Lactic Acid (0.7-2.0) mmol/L Calcium 8.8 (8.4-10.2) mg/dL Phosphorus 4.3 (2.5-4.5) mg/dL Magnesium 1.9 (1.7-2.3) mg/dL Total Creatine Kinase (30-135) units/L Urine Eosinophils (None Seen) Urine Creatinine (0.1-20.0) mg/dL Urine Sodium mEq/L Urine Potassium mEq/L Urine Chloride (110-250) mEq/L 08/15/16 08/15/16 08/15/16 Range/Units 14:21 16:43 21:36 WBC (4.5-11.0) K/mm3 RBC (3.65-5.03) M/mm3 Hgb (10.1-14.3) gm/dl Hct (30.3-42.9) % MCV (79-97) fl MCH (28-32) pg MCHC (30-34) % RDW (13.2-15.2) % Plt Count (140-440) K/mm3 Lymph % (Auto) (13.4-35.0) % Page % (Auto) (0.0-7.3) % Eos % (Auto) (0.0-4.3) % Baso % (Auto) (0.0-1.8) % Lymph # (1.2-5.4) K/mm3 Page # (0.0-0.8) K/mm3 Eos # (0.0-0.4) K/mm3 Baso # (0.0-0.1) K/mm3 Seg Neutrophils % (40.0-70.0) % Seg Neutrophils # (1.8-7.7) K/mm3 POC ABG pH 7.323 L (7.35-7.45) POC ABG pCO2 32.9 L (35-45) POC ABG pO2 150 H (80-105) POC ABG HCO3 17.1 POC ABG Total CO2 18 POC ABG O2 Sat 99 POC ABG Base Excess -9 FiO2 35 % Sodium (137-145) mmol/L Potassium (3.6-5.0) mmol/L Chloride (98-107) mmol/L Carbon Dioxide (22-30) mmol/L Anion Gap mmol/L BUN (7-17) mg/dL Creatinine (0.7-1.2) mg/dL Estimated GFR ml/min BUN/Creatinine Ratio % Glucose (65-100) mg/dL POC Glucose 269 H (70-105) Lactic Acid 1.0 (0.7-2.0) mmol/L Calcium (8.4-10.2) mg/dL Phosphorus (2.5-4.5) mg/dL Magnesium (1.7-2.3) mg/dL Total Creatine Kinase (30-135) units/L Urine Eosinophils (None Seen) Urine Creatinine (0.1-20.0) mg/dL Urine Sodium mEq/L Urine Potassium mEq/L Urine Chloride (110-250) mEq/L 02/25/17 02/25/17 02/25/17 Range/Units 01:14 04:07 04:07 WBC 9.0 (4.5-11.0) K/mm3 RBC 3.97 (3.65-5.03) M/mm3 Hgb 10.1 (10.1-14.3) gm/dl Hct 31.7 (30.3-42.9) % MCV 80 (79-97) fl MCH 25 L (28-32) pg MCHC 32 (30-34) % RDW 14.5 (13.2-15.2) % Plt Count 180 (140-440) K/mm3 Lymph % (Auto) 21.8 (13.4-35.0) % Page % (Auto) 9.2 H (0.0-7.3) % Eos % (Auto) 0.6 (0.0-4.3) % Baso % (Auto) 0.9 (0.0-1.8) % Lymph # 2.0 (1.2-5.4) K/mm3 Page # 0.8 (0.0-0.8) K/mm3 Eos # 0.0 (0.0-0.4) K/mm3 Baso # 0.1 (0.0-0.1) K/mm3 Seg Neutrophils % 67.5 (40.0-70.0) % Seg Neutrophils # 6.0 (1.8-7.7) K/mm3 POC ABG pH (7.35-7.45) POC ABG pCO2 (35-45) POC ABG pO2 (80-105) POC ABG HCO3 POC ABG Total CO2 POC ABG O2 Sat POC ABG Base Excess FiO2 % Sodium 138 (137-145) mmol/L Potassium 4.2 (3.6-5.0) mmol/L Chloride 105.6 (98-107) mmol/L Carbon Dioxide 18 L (22-30) mmol/L Anion Gap 19 mmol/L BUN 42 H (7-17) mg/dL Creatinine 1.6 H (0.7-1.2) mg/dL Estimated GFR 43 ml/min BUN/Creatinine Ratio 26.25 % Glucose 341 H (65-100) mg/dL POC Glucose 394 H (70-105) Lactic Acid (0.7-2.0) mmol/L Calcium 8.8 (8.4-10.2) mg/dL Phosphorus (2.5-4.5) mg/dL Magnesium (1.7-2.3) mg/dL Total Creatine Kinase (30-135) units/L Urine Eosinophils (None Seen) Urine Creatinine (0.1-20.0) mg/dL Urine Sodium mEq/L Urine Potassium mEq/L Urine Chloride (110-250) mEq/L 08/16/16 08/16/16 08/16/16 Range/Units 04:42 05:24 06:16 WBC (4.5-11.0) K/mm3 RBC (3.65-5.03) M/mm3 Hgb (10.1-14.3) gm/dl Hct (30.3-42.9) % MCV (79-97) fl MCH (28-32) pg MCHC (30-34) % RDW (13.2-15.2) % Plt Count (140-440) K/mm3 Lymph % (Auto) (13.4-35.0) % Page % (Auto) (0.0-7.3) % Eos % (Auto) (0.0-4.3) % Baso % (Auto) (0.0-1.8) % Lymph # (1.2-5.4) K/mm3 Page # (0.0-0.8) K/mm3 Eos # (0.0-0.4) K/mm3 Baso # (0.0-0.1) K/mm3 Seg Neutrophils % (40.0-70.0) % Seg Neutrophils # (1.8-7.7) K/mm3 POC ABG pH 7.303 L (7.35-7.45) POC ABG pCO2 37.9 (35-45) POC ABG pO2 113 H (80-105) POC ABG HCO3 18.8 POC ABG Total CO2 20 POC ABG O2 Sat 98 POC ABG Base Excess -8 FiO2 30 % Sodium (137-145) mmol/L Potassium (3.6-5.0) mmol/L Chloride (98-107) mmol/L Carbon Dioxide (22-30) mmol/L Anion Gap mmol/L BUN (7-17) mg/dL Creatinine (0.7-1.2) mg/dL Estimated GFR ml/min BUN/Creatinine Ratio % Glucose (65-100) mg/dL POC Glucose 368 H 323 H (70-105) Lactic Acid (0.7-2.0) mmol/L Calcium (8.4-10.2) mg/dL Phosphorus (2.5-4.5) mg/dL Magnesium (1.7-2.3) mg/dL Total Creatine Kinase (30-135) units/L Urine Eosinophils (None Seen) Urine Creatinine (0.1-20.0) mg/dL Urine Sodium mEq/L Urine Potassium mEq/L Urine Chloride (110-250) mEq/L 08/16/16 08/16/16 08/16/16 Range/Units 11:17 15:12 15:12 WBC (4.5-11.0) K/mm3 RBC (3.65-5.03) M/mm3 Hgb (10.1-14.3) gm/dl Hct (30.3-42.9) % MCV (79-97) fl MCH (28-32) pg MCHC (30-34) % RDW (13.2-15.2) % Plt Count (140-440) K/mm3 Lymph % (Auto) (13.4-35.0) % Page % (Auto) (0.0-7.3) % Eos % (Auto) (0.0-4.3) % Baso % (Auto) (0.0-1.8) % Lymph # (1.2-5.4) K/mm3 Page # (0.0-0.8) K/mm3 Eos # (0.0-0.4) K/mm3 Baso # (0.0-0.1) K/mm3 Seg Neutrophils % (40.0-70.0) % Seg Neutrophils # (1.8-7.7) K/mm3 POC ABG pH (7.35-7.45) POC ABG pCO2 (35-45) POC ABG pO2 (80-105) POC ABG HCO3 POC ABG Total CO2 POC ABG O2 Sat POC ABG Base Excess FiO2 % Sodium (137-145) mmol/L Potassium (3.6-5.0) mmol/L Chloride (98-107) mmol/L Carbon Dioxide (22-30) mmol/L Anion Gap mmol/L BUN (7-17) mg/dL Creatinine (0.7-1.2) mg/dL Estimated GFR ml/min BUN/Creatinine Ratio % Glucose (65-100) mg/dL POC Glucose 300 H (70-105) Lactic Acid (0.7-2.0) mmol/L Calcium (8.4-10.2) mg/dL Phosphorus (2.5-4.5) mg/dL Magnesium (1.7-2.3) mg/dL Total Creatine Kinase (30-135) units/L Urine Eosinophils 14 (None Seen) Urine Creatinine 39.3 H (0.1-20.0) mg/dL Urine Sodium 80 mEq/L Urine Potassium 13.89 mEq/L Urine Chloride 57.7 L (110-250) mEq/L 08/16/16 08/16/16 08/17/16 Range/Units 18:30 23:34 04:21 WBC 11.0 (4.5-11.0) K/mm3 RBC 3.90 (3.65-5.03) M/mm3 Hgb 9.9 L (10.1-14.3) gm/dl Hct 31.0 (30.3-42.9) % MCV 79 (79-97) fl MCH 25 L (28-32) pg MCHC 32 (30-34) % RDW 14.5 (13.2-15.2) % Plt Count 176 (140-440) K/mm3 Lymph % (Auto) 15.0 (13.4-35.0) % Page % (Auto) 9.5 H (0.0-7.3) % Eos % (Auto) 1.4 (0.0-4.3) % Baso % (Auto) 0.6 (0.0-1.8) % Lymph # 1.7 (1.2-5.4) K/mm3 Page # 1.0 H (0.0-0.8) K/mm3 Eos # 0.2 (0.0-0.4) K/mm3 Baso # 0.1 (0.0-0.1) K/mm3 Seg Neutrophils % 73.5 H (40.0-70.0) % Seg Neutrophils # 8.1 H (1.8-7.7) K/mm3 POC ABG pH (7.35-7.45) POC ABG pCO2 (35-45) POC ABG pO2 (80-105) POC ABG HCO3 POC ABG Total CO2 POC ABG O2 Sat POC ABG Base Excess FiO2 % Sodium (137-145) mmol/L Potassium (3.6-5.0) mmol/L Chloride (98-107) mmol/L Carbon Dioxide (22-30) mmol/L Anion Gap mmol/L BUN (7-17) mg/dL Creatinine (0.7-1.2) mg/dL Estimated GFR ml/min BUN/Creatinine Ratio % Glucose (65-100) mg/dL POC Glucose 345 H 313 H (70-105) Lactic Acid (0.7-2.0) mmol/L Calcium (8.4-10.2) mg/dL Phosphorus (2.5-4.5) mg/dL Magnesium (1.7-2.3) mg/dL Total Creatine Kinase (30-135) units/L Urine Eosinophils (None Seen) Urine Creatinine (0.1-20.0) mg/dL Urine Sodium mEq/L Urine Potassium mEq/L Urine Chloride (110-250) mEq/L 08/17/16 08/17/16 08/17/16 Range/Units 04:21 05:29 11:33 WBC (4.5-11.0) K/mm3 RBC (3.65-5.03) M/mm3 Hgb (10.1-14.3) gm/dl Hct (30.3-42.9) % MCV (79-97) fl MCH (28-32) pg MCHC (30-34) % RDW (13.2-15.2) % Plt Count (140-440) K/mm3 Lymph % (Auto) (13.4-35.0) % Page % (Auto) (0.0-7.3) % Eos % (Auto) (0.0-4.3) % Baso % (Auto) (0.0-1.8) % Lymph # (1.2-5.4) K/mm3 Page # (0.0-0.8) K/mm3 Eos # (0.0-0.4) K/mm3 Baso # (0.0-0.1) K/mm3 Seg Neutrophils % (40.0-70.0) % Seg Neutrophils # (1.8-7.7) K/mm3 POC ABG pH 7.400 7.433 (7.35-7.45) POC ABG pCO2 37.9 36.4 (35-45) POC ABG pO2 111 H 90 (80-105) POC ABG HCO3 23.5 24.3 POC ABG Total CO2 25 25 POC ABG O2 Sat 98 97 POC ABG Base Excess -1 0 FiO2 30 25 % Sodium 143 (137-145) mmol/L Potassium 4.1 (3.6-5.0) mmol/L Chloride 106.4 (98-107) mmol/L Carbon Dioxide 22 (22-30) mmol/L Anion Gap 19 mmol/L BUN 39 H (7-17) mg/dL Creatinine 1.3 H (0.7-1.2) mg/dL Estimated GFR 54 ml/min BUN/Creatinine Ratio 30.00 % Glucose 390 H (65-100) mg/dL POC Glucose (70-105) Lactic Acid (0.7-2.0) mmol/L Calcium 8.7 (8.4-10.2) mg/dL Phosphorus (2.5-4.5) mg/dL Magnesium (1.7-2.3) mg/dL Total Creatine Kinase 226 H (30-135) units/L Urine Eosinophils (None Seen) Urine Creatinine (0.1-20.0) mg/dL Urine Sodium mEq/L Urine Potassium mEq/L Urine Chloride (110-250) mEq/L 08/17/16 08/17/16 08/17/16 Range/Units 11:48 17:50 22:10 WBC (4.5-11.0) K/mm3 RBC (3.65-5.03) M/mm3 Hgb (10.1-14.3) gm/dl Hct (30.3-42.9) % MCV (79-97) fl MCH (28-32) pg MCHC (30-34) % RDW (13.2-15.2) % Plt Count (140-440) K/mm3 Lymph % (Auto) (13.4-35.0) % Page % (Auto) (0.0-7.3) % Eos % (Auto) (0.0-4.3) % Baso % (Auto) (0.0-1.8) % Lymph # (1.2-5.4) K/mm3 Page # (0.0-0.8) K/mm3 Eos # (0.0-0.4) K/mm3 Baso # (0.0-0.1) K/mm3 Seg Neutrophils % (40.0-70.0) % Seg Neutrophils # (1.8-7.7) K/mm3 POC ABG pH (7.35-7.45) POC ABG pCO2 (35-45) POC ABG pO2 (80-105) POC ABG HCO3 POC ABG Total CO2 POC ABG O2 Sat POC ABG Base Excess FiO2 % Sodium (137-145) mmol/L Potassium (3.6-5.0) mmol/L Chloride (98-107) mmol/L Carbon Dioxide (22-30) mmol/L Anion Gap mmol/L BUN (7-17) mg/dL Creatinine (0.7-1.2) mg/dL Estimated GFR ml/min BUN/Creatinine Ratio % Glucose (65-100) mg/dL POC Glucose 248 H 311 H 391 H (70-105) Lactic Acid (0.7-2.0) mmol/L Calcium (8.4-10.2) mg/dL Phosphorus (2.5-4.5) mg/dL Magnesium (1.7-2.3) mg/dL Total Creatine Kinase (30-135) units/L Urine Eosinophils (None Seen) Urine Creatinine (0.1-20.0) mg/dL Urine Sodium mEq/L Urine Potassium mEq/L Urine Chloride (110-250) mEq/L 08/18/16 08/18/16 08/18/16 Range/Units 04:55 04:55 07:53 WBC 11.2 H (4.5-11.0) K/mm3 RBC 4.20 (3.65-5.03) M/mm3 Hgb 10.5 (10.1-14.3) gm/dl Hct 33.1 (30.3-42.9) % MCV 79 (79-97) fl MCH 25 L (28-32) pg MCHC 32 (30-34) % RDW 14.5 (13.2-15.2) % Plt Count 187 (140-440) K/mm3 Lymph % (Auto) 14.7 (13.4-35.0) % Page % (Auto) 7.5 H (0.0-7.3) % Eos % (Auto) 4.6 H (0.0-4.3) % Baso % (Auto) 0.6 (0.0-1.8) % Lymph # 1.6 (1.2-5.4) K/mm3 Page # 0.8 (0.0-0.8) K/mm3 Eos # 0.5 H (0.0-0.4) K/mm3 Baso # 0.1 (0.0-0.1) K/mm3 Seg Neutrophils % 72.6 H (40.0-70.0) % Seg Neutrophils # 8.2 H (1.8-7.7) K/mm3 POC ABG pH (7.35-7.45) POC ABG pCO2 (35-45) POC ABG pO2 (80-105) POC ABG HCO3 POC ABG Total CO2 POC ABG O2 Sat POC ABG Base Excess FiO2 % Sodium 142 (137-145) mmol/L Potassium 3.1 L D (3.6-5.0) mmol/L Chloride 101.5 (98-107) mmol/L Carbon Dioxide 26 (22-30) mmol/L Anion Gap 18 mmol/L BUN 29 H (7-17) mg/dL Creatinine 1.1 (0.7-1.2) mg/dL Estimated GFR > 60 ml/min BUN/Creatinine Ratio 26.36 % Glucose 245 H (65-100) mg/dL POC Glucose 229 H (70-105) Lactic Acid (0.7-2.0) mmol/L Calcium 8.8 (8.4-10.2) mg/dL Phosphorus (2.5-4.5) mg/dL Magnesium (1.7-2.3) mg/dL Total Creatine Kinase (30-135) units/L Urine Eosinophils (None Seen) Urine Creatinine (0.1-20.0) mg/dL Urine Sodium mEq/L Urine Potassium mEq/L Urine Chloride (110-250) mEq/L 08/18/16 Range/Units 12:26 WBC (4.5-11.0) K/mm3 RBC (3.65-5.03) M/mm3 Hgb (10.1-14.3) gm/dl Hct (30.3-42.9) % MCV (79-97) fl MCH (28-32) pg MCHC (30-34) % RDW (13.2-15.2) % Plt Count (140-440) K/mm3 Lymph % (Auto) (13.4-35.0) % Page % (Auto) (0.0-7.3) % Eos % (Auto) (0.0-4.3) % Baso % (Auto) (0.0-1.8) % Lymph # (1.2-5.4) K/mm3 Page # (0.0-0.8) K/mm3 Eos # (0.0-0.4) K/mm3 Baso # (0.0-0.1) K/mm3 Seg Neutrophils % (40.0-70.0) % Seg Neutrophils # (1.8-7.7) K/mm3 POC ABG pH (7.35-7.45) POC ABG pCO2 (35-45) POC ABG pO2 (80-105) POC ABG HCO3 POC ABG Total CO2 POC ABG O2 Sat POC ABG Base Excess FiO2 % Sodium (137-145) mmol/L Potassium (3.6-5.0) mmol/L Chloride (98-107) mmol/L Carbon Dioxide (22-30) mmol/L Anion Gap mmol/L BUN (7-17) mg/dL Creatinine (0.7-1.2) mg/dL Estimated GFR ml/min BUN/Creatinine Ratio % Glucose (65-100) mg/dL POC Glucose 363 H (70-105) Lactic Acid (0.7-2.0) mmol/L Calcium (8.4-10.2) mg/dL Phosphorus (2.5-4.5) mg/dL Magnesium (1.7-2.3) mg/dL Total Creatine Kinase (30-135) units/L Urine Eosinophils (None Seen) Urine Creatinine (0.1-20.0) mg/dL Urine Sodium mEq/L Urine Potassium mEq/L Urine Chloride (110-250) mEq/L CBC 08/18/16 Range/Units 04:55 WBC 11.2 H (4.5-11.0) K/mm3 RBC 4.20 (3.65-5.03) M/mm3 Hgb 10.5 (10.1-14.3) gm/dl Hct 33.1 (30.3-42.9) % Plt Count 187 (140-440) K/mm3 Lymph # 1.6 (1.2-5.4) K/mm3 Page # 0.8 (0.0-0.8) K/mm3 Eos # 0.5 H (0.0-0.4) K/mm3 Baso # 0.1 (0.0-0.1) K/mm3 Comprehensive Metabolic Panel 08/18/16 Range/Units 04:55 Sodium 142 (137-145) mmol/L Potassium 3.1 L D (3.6-5.0) mmol/L Chloride 101.5 (98-107) mmol/L Carbon Dioxide 26 (22-30) mmol/L BUN 29 H (7-17) mg/dL Creatinine 1.1 (0.7-1.2) mg/dL Glucose 245 H (65-100) mg/dL Calcium 8.8 (8.4-10.2) mg/dL EKG interpretations - EKG Sinus rhythms and dysrhythmias: sinus rhythm Assessment and Plan Altered mental status Acute respiratory failure pt extubated Diabetes mellitus -uncontrolled Hypertension -uncontrolled Paroxysmal atrial fibrillation currently in sinus rhythm RBBB, old Thyroid disease
[2016-08-18] MEDS: NOVOLOG SUB-Q SCH (18:37)
--- NOTE | 2016-08-18 19:16 | Progress Note ---
Assessment and Plan Patient alert,awake. No complaint of chest pain or shortness of breath. Complaining slight cough.Resting on room air. O2 satuaration 98%. - Patient Problems (1) Acute respiratory failure Current Visit: Yes Status: Acute Qualifiers: Respiratory failure complication: R Qualified Code(s): J96.01 - Acute respiratory failure with hypoxia; J96.02 - Acute respiratory failure with hypercapnia Plan to address problem: Improved. No complaint of shortness of breath. O2 satuaration 98% on room air. Obtaining blood gases on room air. Albuterol/atrovent aerosol treatments q 6 hours. Continue Lovenox Continue Famotidine. (2) LESLI (acute kidney injury) Current Visit: Yes Status: Acute Plan to address problem: Management as per primary care. (3) Altered mental status Current Visit: Yes Status: Acute Qualifiers: Altered mental status type: A Coma depth: C Coma timing: C Plan to address problem: Improved (4) Hypothermia Current Visit: Yes Status: Acute Qualifiers: Encounter type: E Plan to address problem: Improved. Todays temparature 98.4.F (5) Metabolic acidosis Current Visit: Yes Status: Acute Plan to address problem: Improved. Obtaining Blood gases. Subjective Date of service: 08/18/16 Principal diagnosis: Acute Hypoxemic Respiratory Failure; Altered Mental Status Interval history: Patient alert,awake. No complaint of chest pain or shortness of breath. Complaining slight cough.Resting on room air. O2 satuaration 98%. Objective Vital Signs - 12hr 08/18/16 08/18/16 08/18/16 07:15 07:19 07:26 Temperature Pulse Rate Pulse Rate [ 97 H 101 H Bilateral Throughout] Pulse Rate [ 101 H From Monitor] Pulse Rate [ Right Radial] Respiratory 32 H Rate Respiratory 27 H 27 H Rate [Bilateral Throughout] Blood Pressure Blood Pressure [Left Arm] O2 Sat by Pulse 97 Oximetry 08/18/16 08/18/16 08/18/16 08:00 08:15 09:00 Temperature 99.1 F Pulse Rate 104 H 98 H Pulse Rate [ Bilateral Throughout] Pulse Rate [ From Monitor] Pulse Rate [ Right Radial] Respiratory 14 14 Rate Respiratory Rate [Bilateral Throughout] Blood Pressure 181/65 159/58 Blood Pressure [Left Arm] O2 Sat by Pulse 95 97 94 Oximetry 08/18/16 08/18/1617 12:20 16:30 19:09 Temperature 98.9 F 97.8 F 98.6 F Pulse Rate Pulse Rate [ Bilateral Throughout] Pulse Rate [ 91 H From Monitor] Pulse Rate [ 100 H 91 H Right Radial] Respiratory 22 20 18 Rate Respiratory Rate [Bilateral Throughout] Blood Pressure 164/77 174/75 Blood Pressure 166/74 [Left Arm] O2 Sat by Pulse 96 97 Oximetry Constitutional: no acute distress, lethargic Eyes: non-icteric ENT: oropharynx moist Neck: supple, no lymphadenopathy Effort: normal, mildly labored Ascultation: Bilateral: clear, rhonchi (scant in bases) Cardiovascular: regular rate and rhythm Gastrointestinal: normoactive bowel sounds, soft, non-tender, non-distended Integumentary: normal Extremities: no cyanosis, no edema, pulses normal, no ischemia or petechiae Neurologic: normal mental status, non-focal exam, pupils equal and round, motor strength normal and Psychiatric: mood appropriate, anxious CBC and BMP: 08/18/16 04:55 08/18/16 04:55 ABG, PT/INR, D-dimer: ABG POC ABG pH 7.433 (7.35-7.45) 08/17/16 11:33 POC ABG pCO2 36.4 (35-45) 08/17/16 11:33 POC ABG pO2 90 (80-105) 08/17/16 11:33 POC ABG HCO3 24.3 08/17/16 11:33 POC ABG Total CO2 25 08/17/16 11:33 POC ABG O2 Sat 97 08/17/16 11:33 PT/INR, D-dimer PT 14.2 Sec. (12.2-14.9) 08/14/16 14:16 INR 1.11 (0.87-1.13) 08/14/16 14:16 Abnormal lab findings: Abnormal Labs 08/14/16 08/14/16 08/15/16 17:21 19:31 03:12 WBC Hgb MCV MCH [place] % (Auto) Eos % (Auto) [place] # Eos # Seg Neutrophils % Seg Neutrophils # POC ABG pH 7.326 L POC ABG pCO2 POC ABG pO2 203 H Sodium Potassium Carbon Dioxide BUN Creatinine Glucose POC Glucose 341 H 368 H Total Creatine Kinase Urine Creatinine Urine Chloride Vancomycin Trough 08/15/16 08/15/16 08/15/16 04:52 11:01 13:15 WBC Hgb MCV MCH [place] % (Auto) Eos % (Auto) [place] # Eos # Seg Neutrophils % Seg Neutrophils # POC ABG pH 7.250 L 7.296 L POC ABG pCO2 30.2 L 30.1 L POC ABG pO2 143 H 153 H Sodium Potassium Carbon Dioxide BUN Creatinine Glucose POC Glucose 309 H Total Creatine Kinase Urine Creatinine Urine Chloride Vancomycin Trough 08/15/16 08/15/16 08/15/16 14:21 14:21 16:43 WBC Hgb MCV 78 L MCH 26 L [place] % (Auto) 9.3 H Eos % (Auto) [place] # 0.9 H Eos # Seg Neutrophils % 76.4 H Seg Neutrophils # POC ABG pH POC ABG pCO2 POC ABG pO2 Sodium 136 L Potassium Carbon Dioxide 15 L BUN 38 H Creatinine 1.7 H D Glucose 266 H POC Glucose 269 H Total Creatine Kinase Urine Creatinine Urine Chloride Vancomycin Trough 08/15/16 08/16/16 08/16/16 21:36 01:14 04:07 WBC Hgb MCV MCH 25 L [place] % (Auto) 9.2 H Eos % (Auto) [place] # Eos # Seg Neutrophils % Seg Neutrophils # POC ABG pH 7.323 L POC ABG pCO2 32.9 L POC ABG pO2 150 H Sodium Potassium Carbon Dioxide BUN Creatinine Glucose POC Glucose 394 H Total Creatine Kinase Urine Creatinine Urine Chloride Vancomycin Trough 08/16/16 08/16/16 08/16/16 04:07 04:42 05:24 WBC Hgb MCV MCH [place] % (Auto) Eos % (Auto) [place] # Eos # Seg Neutrophils % Seg Neutrophils # POC ABG pH 7.303 L POC ABG pCO2 POC ABG pO2 113 H Sodium Potassium Carbon Dioxide 18 L BUN 42 H Creatinine 1.6 H Glucose 341 H POC Glucose 368 H Total Creatine Kinase Urine Creatinine Urine Chloride Vancomycin Trough 08/16/16 08/16/16 08/16/16 06:16 11:17 15:12 WBC Hgb MCV MCH [place] % (Auto) Eos % (Auto) [place] # Eos # Seg Neutrophils % Seg Neutrophils # POC ABG pH POC ABG pCO2 POC ABG pO2 Sodium Potassium Carbon Dioxide BUN Creatinine Glucose POC Glucose 323 H 300 H Total Creatine Kinase Urine Creatinine 39.3 H Urine Chloride 57.7 L Vancomycin Trough 0208/16/16 08/17/16 18:30 23:34 04:21 WBC Hgb 9.9 L MCV MCH 25 L [place] % (Auto) 9.5 H Eos % (Auto) [place] # 1.0 H Eos # Seg Neutrophils % 73.5 H Seg Neutrophils # 8.1 H POC ABG pH POC ABG pCO2 POC ABG pO2 Sodium Potassium Carbon Dioxide BUN Creatinine Glucose POC Glucose 345 H 313 H Total Creatine Kinase Urine Creatinine Urine Chloride Vancomycin Trough 08/17/16 08/17/16 08/17/16 04:21 05:29 11:48 WBC Hgb MCV MCH [place] % (Auto) Eos % (Auto) [place] # Eos # Seg Neutrophils % Seg Neutrophils # POC ABG pH POC ABG pCO2 POC ABG pO2 111 H Sodium Potassium Carbon Dioxide BUN 39 H Creatinine 1.3 H Glucose 390 H POC Glucose 248 H Total Creatine Kinase 226 H Urine Creatinine Urine Chloride Vancomycin Trough 08/17/16 08/17/16 08/17/16 16:25 17:50 22:10 WBC Hgb MCV MCH [place] % (Auto) Eos % (Auto) [place] # Eos # Seg Neutrophils % Seg Neutrophils # POC ABG pH POC ABG pCO2 POC ABG pO2 Sodium Potassium Carbon Dioxide BUN Creatinine Glucose POC Glucose 311 H 391 H Total Creatine Kinase Urine Creatinine Urine Chloride Vancomycin Trough 22.8 H 08/18/16 08/18/16 08/18/16 04:55 04:55 07:53 WBC 11.2 H Hgb MCV MCH 25 L [place] % (Auto) 7.5 H Eos % (Auto) 4.6 H [place] # Eos # 0.5 H Seg Neutrophils % 72.6 H Seg Neutrophils # 8.2 H POC ABG pH POC ABG pCO2 POC ABG pO2 Sodium Potassium 3.1 L D Carbon Dioxide BUN 29 H Creatinine Glucose 245 H POC Glucose 229 H Total Creatine Kinase Urine Creatinine Urine Chloride Vancomycin Trough 08/18/16 08/18/16 08/18/16 12:26 16:04 17:08 WBC Hgb MCV MCH [place] % (Auto) Eos % (Auto) [place] # Eos # Seg Neutrophils % Seg Neutrophils # POC ABG pH POC ABG pCO2 POC ABG pO2 Sodium Potassium Carbon Dioxide BUN Creatinine Glucose POC Glucose 363 H 387 H 358 H Total Creatine Kinase Urine Creatinine Urine Chloride Vancomycin Trough Chest x-ray: report reviewed (Normal AP chest.), image reviewed
[2016-08-18] MEDS: XANAX PO PRN (22:02)
[2016-08-18] MEDS: LEVEMIR SUB-Q SCH (22:07)
[2016-08-19] MEDS: DUONEB 0.5 MG-3 MG/3 ML SOLN IH SCH ×4 (02:42→20:33)
[2016-08-19 06:03] LABS: Basophils % (Auto) 0.4 % (0.0-1.8); Eosinophils % (Auto) 10.1 % (0.0-4.3); Hematocrit 31.3 % (30.3-42.9); Hemoglobin 10.2 gm/dl (10.1-14.3); Mean Corpuscular HGB Conc 32 % (30-34); Mean Corpuscular Hemoglobin 25 pg (28-32); Mean Corpuscular Volume 78 fl (79-97); Platelet Count 183 K/mm3 (140-440); Red Cell Distribution Width 14.3 % (13.2-15.2); White Blood Count 8.1 K/mm3 (4.5-11.0)
[2016-08-19 06:28] LABS: Anion Gap 18 mmol/L; Blood Urea Nitrogen 26 mg/dL (7-17); Calcium 8.9 mg/dL (8.4-10.2); Carbon Dioxide 27 mmol/L (22-30); Chloride 101.1 mmol/L (98-107); Creatine Kinase 124 units/L (30-135); Glucose 202 mg/dL (65-100); Phosphorous 3.3 mg/dL (2.5-4.5); Potassium 3.4 mmol/L (3.6-5.0); Sodium 143 mmol/L (137-145)
[2016-08-19] MEDS: ROBITUSSIN DM PO PRN ×2 (06:35→20:48)
[2016-08-19] MEDS: NORCO 7.5/325 PO PRN ×3 (06:35→20:51)
[2016-08-19] MEDS: TAPAZOLE FEEDTUBE SCH ×3 (06:35→21:03)
[2016-08-19] MEDS ORDERED: K-DUR PO ONE (08:30)
[2016-08-19] MEDS: NOVOLOG SUB-Q SCH ×3 (08:33→17:45)
--- NOTE | 2016-08-19 08:37 | Consultation ---
History of Present Illness - Reason for Consult Consult date: 08/19/16 neuro - History of Present Illness Thanks for consult all chart reviewed will monitor neuro status diabetic complications suspected Past History Past Medical History: diabetes, hypertension Medications and Allergies Allergies Allergy/AdvReac Type Severity Reaction Status Date / Time latex Allergy Rash Verified 08/14/16 13:44 Penicillins Allergy Rash Verified 08/14/16 13:44 tramadol Allergy Rash Verified 08/14/16 13:44 Home Medications Medication Instructions Recorded Confirmed Last Taken Type Insulin Glargine,Hum.rec.anlog 30 units SQ HS 05/24/14 08/16/16 05/23/14 History [Lantus] Diazepam Tab [Valium] 5 mg PO TID PRN #30 tablet 12/14/15 08/16/16 Unknown Rx Gabapentin [Neurontin] 300 mg PO Q8HR #90 capsule 12/14/15 08/16/16 Unknown Rx Insulin Aspart [NovoLOG Flexpen] 6 units SQ AC #2 pen 12/14/15 08/16/16 Unknown Rx Methimazole [Tapazole] 5 mg PO Q8HR #60 tablet 12/14/15 08/16/16 Unknown Rx Quetiapine Fumarate [SEROquel XR] 400 mg PO QDAY #30 tab.er.24h 12/14/15 Unknown Rx metFORMIN XR [Glucophage XR] 1,000 mg PO 0800 #30 tablet 12/14/15 08/16/16 Unknown Rx Diltiazem Cd [Cardizem CD] 300 mg PO QDAY #30 capsule 07/31/16 08/16/16 Unknown Rx Furosemide [Lasix TAB] 20 mg PO QDAY #30 tablet 07/31/16 08/16/16 Unknown Rx HYDROcodone/APAP 7.5-325 [[place] 1 each PO Q6HR PRN #12 tablet 07/31/16 08/16/16 Unknown Rx 7.5/325] Lisinopril [Zestril TAB] 20 mg PO QDAY #30 tablet 07/31/16 08/16/16 Unknown Rx Ibuprofen [Motrin 800 MG tab] 800 mg PO Q8HR PRN #15 tablet 08/13/16 08/16/16 Unknown Rx Active Meds: Active Medications Acetaminophen (Tylenol) 650 mg FEEDTUBE Q4H PRN PRN Reason: Fever Last Admin: 08/17/16 22:16 Dose: 650 mg Acetaminophen/Hydrocodone Bitart (Pyatt 7.5/325) 1 each PO Q6H PRN PRN Reason: Pain, Moderate (4-6) Last Admin: 08/19/16 06:35 Dose: 1 each Albuterol/Ipratropium (Duoneb 0.5 Mg-3 Mg/3 Ml Soln) 1 ampul IH Q6HRT [facility] Last Admin: 08/19/16 02:42 Dose: Not Given Alprazolam (Xanax) 0.25 mg PO Q8H PRN PRN Reason: Anxiety Last Admin: 08/18/16 22:02 Dose: 0.25 mg Dextrose (D50w (25gm)) 50 ml IV PRN PRN PRN Reason: Hypoglycemia Enoxaparin Sodium (Lovenox) 40 mg SUB-Q QDAY [facility] Last Admin: 08/18/16 09:28 Dose: 40 mg Famotidine (Pepcid) 20 mg PO QDAY [facility] Last Admin: 08/18/16 09:28 Dose: 20 mg Guaifenesin (Robitussin Dm) 10 ml PO Q6H PRN PRN Reason: Cough Last Admin: 08/19/16 06:35 Dose: 10 ml Haloperidol Lactate (Haldol) 5 mg IV Q6H PRN PRN Reason: Agitation Hydralazine HCl (Apresoline) 10 mg IV Q4HR PRN PRN Reason: Blood Pressure Last Admin: 08/17/16 22:17 Dose: 10 mg Hydrophilic Ointment (Vaseline Lip Therapy) 1 applic TP Q2HR PRN PRN Reason: Dry Lips Levofloxacin/Dextrose (Levaquin 500mg/100ml) 500 mg in 100 mls @ 100 mls/hr IV Q24HR [facility] Last Admin: 08/18/16 09:29 Dose: 100 mls/hr Vancomycin HCl (Vancomycin/Ns 1 Gm/250 Ml) 1 gm in 250 mls @ 166.667 mls/hr IV Q12H [facility] Insulin Aspart (Novolog) 5 units SUB-Q AC [facility] Last Admin: 08/19/16 08:33 Dose: 5 units Insulin Detemir (Levemir) 50 units SUB-Q QHS [facility] Last Admin: 08/18/16 22:07 Dose: 50 units Insulin Human Regular (Novolin R) 0 units SUB-Q ACHS [facility] PRN Reason: Protocol Last Admin: 08/19/16 08:34 Dose: 3 units Methimazole (Tapazole) 5 mg FEEDTUBE Q8HR [facility] Last Admin: 08/19/16 06:35 Dose: 5 mg Multi-Ingred Cream/Lotion/Oil/Oint (Artificial Tears Ophth Oint) 1 applic OU Q4HR PRN PRN Reason: Dry Eye(s) Quetiapine Fumarate (Seroquel) 200 mg PO BID [facility] Last Admin: 08/18/16 22:06 Dose: 200 mg Vancomycin HCl (Vancomycin Pharmacy To Dose) 1 each IV PKCONSULT [facility] PRN Reason: Protocol Exam - Constitutional Vitals: Temp Pulse Resp BP Pulse Ox 98 F 92 H 20 142/66 96 08/19/16 04:00 08/19/16 04:00 08/19/16 04:00 08/19/16 04:00 08/19/16 04:00 Results - Labs CBC & Chem 7: 08/19/16 04:42 08/19/16 04:42 Labs: Abnormal lab results 08/18/16 08/18/16 08/18/16 Range/Units 07:53 12:26 16:04 MCV (79-97) fl MCH (28-32) pg [place] % (Auto) (0.0-7.3) % Eos % (Auto) (0.0-4.3) % Eos # (0.0-0.4) K/mm3 Potassium (3.6-5.0) mmol/L BUN (7-17) mg/dL Glucose (65-100) mg/dL POC Glucose 229 H 363 H 387 H (70-105) 08/18/16 08/18/16 08/19/16 Range/Units 17:08 21:20 04:42 MCV 78 L (79-97) fl MCH 25 L (28-32) pg [place] % (Auto) 9.2 H (0.0-7.3) % Eos % (Auto) 10.1 H (0.0-4.3) % Eos # 0.8 H (0.0-0.4) K/mm3 Potassium (3.6-5.0) mmol/L BUN (7-17) mg/dL Glucose (65-100) mg/dL POC Glucose 358 H 233 H (70-105) 08/19/16 Range/Units 04:42 MCV (79-97) fl MCH (28-32) pg [place] % (Auto) (0.0-7.3) % Eos % (Auto) (0.0-4.3) % Eos # (0.0-0.4) K/mm3 Potassium 3.4 L (3.6-5.0) mmol/L BUN 26 H (7-17) mg/dL Glucose 202 H (65-100) mg/dL POC Glucose (70-105)
--- NOTE | 2016-08-19 09:28 | Progress Note ---
Assessment and Plan - Patient Problems (1) LESLI (acute kidney injury) Status: Acute Plan to address problem: Acute Kidney Injury in the setting of Respiratory failure, Sepsis and uncontrolled DM. Renal function has improved. Hemodynamically stable. Mild rhabdomyolysis has improved. (2) Metabolic acidosis Status: Acute Plan to address problem: Improved. (3) Acute respiratory failure Status: Acute Qualifiers: Respiratory failure complication: R Plan to address problem: Improved. (4) Altered mental status Status: Acute Qualifiers: Altered mental status type: A Coma depth: C Coma timing: C (5) Diabetes mellitus Status: Chronic Qualifiers: Diabetes mellitus type: D Diabetes mellitus complication status: D Diabetes mellitus complication detail: D Diabetic retinopathy severity: D Proliferative retinopathy type: P Diabetes mellitus macular edema: D Diabetes mellitus fci insulin use: D Laterality: L Chronic kidney disease stage: C Subjective Date of service: 08/19/16 Principal diagnosis: Acute Hypoxemic Respiratory Failure; Altered Mental Status Interval history: Patient is feeling better. Objective - Vital Signs Vital signs: Vital Signs - 12hr 08/19/16 08/19/16 08/19/16 00:06 00:13 02:00 Temperature 99.4 F 99.4 F Pulse Rate 94 H Pulse Rate [ 98 H From Monitor] Pulse Rate [ Right Radial] Respiratory 20 Rate Blood Pressure Blood Pressure 149/71 [Left Arm] O2 Sat by Pulse Oximetry 08/19/16 08/19/16 04:00 08:00 Temperature 98 F 98.4 F Pulse Rate Pulse Rate [ 92 H 92 H From Monitor] Pulse Rate [ 92 H Right Radial] Respiratory 20 18 Rate Blood Pressure 142/66 Blood Pressure 142/66 197/88 [Left Arm] O2 Sat by Pulse 96 97 Oximetry - General Appearance General appearance: well-developed, well-nourished, other (no distress) EENT: PERRL, mucous membranes moist, hearing intact, vision intact Neck: no JVD, supple Cardiology: regular, S1S2, no murmurs Gastrointestinal: normoactive bowel sounds, no tenderness, no distended Integumentary: no rash, warm and dry Neurologic: no focal deficit, no asterixis, alert and oriented x3, CN 3-12 intact Musculoskeletal: other (no edema) Psychiatric: mood/affect appropriate, cooperative - Lab 08/20/16 04:00 08/20/16 04:00 Most recent lab results Calcium 8.9 mg/dL (8.4-10.2) 08/19/16 04:42 Phosphorus 3.3 mg/dL (2.5-4.5) 08/19/16 04:42 Magnesium 2.0 mg/dL (1.7-2.3) 08/19/16 04:42 Urine Creatinine 39.3 mg/dL (0.1-20.0) H 08/16/16 15:12 Urine Sodium 80 mEq/L 08/16/16 15:12
--- NOTE | 2016-08-19 09:49 | Electroencephalogram Report ---
Electroencephalogram EEG Date of exam: 08/18/16 History: 41 YO F p/w altered mental status. Impression: Normal awake and drowsy 21 minute routine EEG. There are no findings to suggest cerebral dysfunction, cortical irritability, epileptiform discharges or electrographic seizures. Please note however that a normal EEG does not completely exclude a clinical diagnosis of epilepsy. Description: The waking background shows an appropriate organization with well-defined anterior posterior voltage and frequency gradients. Posteriorly, there is a well -developed alpha rhythm of 8-9 Hz which is symmetrical and bilaterally reactive. Anteriorly, there is a pattern of lower voltage and slightly irregular theta and beta range frequencies. During drowsiness, there is attenuation of the background rhythms. There is no sleep background. Throughout, the recording there are no epileptiform abnormalities, focal or lateralizing features, or significant interhemispheric findings. Interpretation: This is a digitally acquired 21-channel electroencephalogram. Both bipolar and referential montages were used in interpretation. Electrodes were placed in accordance with the International 10-20 system.
[2016-08-19] MEDS ORDERED: VANCOMYCIN VIAL 1,500 MG in NACL 0.9% 500 ML 500 ML IV SCH (10:00)
[2016-08-19 10:09] LABS: ISTAT Base Excess 2; ISTAT DEVICE 0; ISTAT HCO3 25.2; ISTAT PCO2 33.7 (35-45); ISTAT PH 7.481 (7.35-7.45); ISTAT PO2 89 (80-105); ISTAT SO2 98; ISTAT TCO2 26
[2016-08-19] MEDS: LEVAQUIN 500MG/100ML 500 MG/100 ML BAG IV SCH (10:48)
[2016-08-19] MEDS: VANCOMYCIN/NS 1 GM/250 ML 1 GM/250 ML BAG IV SCH ×2 (10:49→21:01)
[2016-08-19] MEDS: PEPCID PO SCH (10:49)
[2016-08-19] MEDS: LOVENOX SUB-Q SCH (10:49)
--- NOTE | 2016-08-19 11:21 | Progress Note ---
Assessment and Plan Altered mental status no acute intracranial abnormalities CT of the head Acute respiratory failure pt extubated Diabetes mellitus -uncontrolled Hypertension Paroxysmal atrial fibrillation currently in sinus rhythm pt reports she is on home eliquis for anticoagulation RBBB, old Thyroid disease Recommendation: Resume eliquis for stroke prophylaxis if no contraindication. Subjective Date of service: 08/19/16 Principal diagnosis: Acute Hypoxemic Respiratory Failure; Altered Mental Status Interval history: Patient has no chest pain or shortness of breath. Reports she is on eliquis at home for her paroxysmal atrial fibrillation. Objective Vital Signs Temp Pulse Pulse Pulse Pulse Resp Resp 08/19/16 09:03 96 H 20 08/19/16 08:53 92 H 20 08/19/16 08:00 98.4 F 92 H 18 08/19/16 04:00 98 F 92 H 92 H 20 08/19/16 02:00 94 H 08/19/16 00:13 99.4 F 08/19/16 00:06 99.4 F 98 H 20 08/18/16 20:00 94 H 08/18/16 19:55 100 H 20 08/18/16 19:41 08/18/16 19:40 98 H 20 08/18/16 19:25 98.4 F 98 H 20 08/18/16 19:09 98.6 F 91 H 18 08/18/16 18:00 104 H 08/18/16 16:30 97.8 F 91 H 20 08/18/16 16:00 104 H 08/18/16 12:20 98.9 F 100 H 22 BP BP Pulse Ox 08/19/16 09:03 08/19/16 08:53 99 08/19/16 08:00 197/88 97 08/19/16 04:00 142/66 142/66 96 08/19/16 02:00 08/19/16 00:13 08/19/16 00:06 149/71 08/18/16 20:00 08/18/16 19:55 08/18/16 19:41 98 08/18/16 19:40 98 08/18/16 19:25 141/64 97 08/18/16 19:09 166/74 97 08/18/16 18:00 08/18/16 16:30 174/75 08/18/16 16:00 97 02/27/17 12:20 164/77 96 - Physical Examination General: No Apparent Distress HEENT: Positive: PERRL Neck: Positive: trachea midline Cardiac: Positive: Reg Rate and Rhythm Lungs: Positive: Decreased Breath Sounds - Labs and Meds CBC 08/19/16 Range/Units 04:42 WBC 8.1 (4.5-11.0) K/mm3 RBC 4.00 (3.65-5.03) M/mm3 Hgb 10.2 (10.1-14.3) gm/dl Hct 31.3 (30.3-42.9) % Plt Count 183 (140-440) K/mm3 Lymph # 1.7 (1.2-5.4) K/mm3 Williamson # 0.7 (0.0-0.8) K/mm3 Eos # 0.8 H (0.0-0.4) K/mm3 Baso # 0.0 (0.0-0.1) K/mm3 Comprehensive Metabolic Panel 08/19/16 Range/Units 04:42 Sodium 143 (137-145) mmol/L Potassium 3.4 L (3.6-5.0) mmol/L Chloride 101.1 (98-107) mmol/L Carbon Dioxide 27 (22-30) mmol/L BUN 26 H (7-17) mg/dL Creatinine 1.0 (0.7-1.2) mg/dL Glucose 202 H (65-100) mg/dL Calcium 8.9 (8.4-10.2) mg/dL - EKG Sinus rhythms and dysrhythmias: sinus rhythm
--- NOTE | 2016-08-19 14:38 | Progress Note ---
Assessment and Plan Assessment and plan: 1. Sepsis due to LLL PNA- resolved respiraroy failure- cotn IV antibiotics- today is day 6; will complete course tomorrow; staph and strep in sputum 2. Diabetes mellitus type 2- cont insulin regime 3. Hypertension- now better controlled; cont meds 4. Shizophrenia with possible overdose as per boyfriend- she denied overdose; await consult from psyche; cont 1:1 observation 5. Toxic metabolic encephalopathy- resolved 6. Hyperthyroidism- cotn meds 7. Atrial fibrillation with RVR- cotn current meds; now in sinus; f/u cardiology for further recommendations 8. Hypokalemia- replace and cont to monitor 9. DVT prophylaxis- lovenox History Interval history: F/u sepsis; pneumonia Patient seen at athe bedside; no sob; denied overdose Hospitalist Physical - Constitutional Vitals: Temp Pulse Resp BP Pulse Ox 98.5 F 90 20 145/68 98 08/19/16 11:51 08/19/16 14:11 08/19/16 14:11 08/19/16 11:51 08/19/16 11:51 General appearance: Present: no acute distress, obese - EENT Eyes: Present: PERRL, EOM intact. Absent: scleral icterus, conjunctival injection ENT: hearing intact, no oropharyngeal erythema, no poor dentition - Neck Neck: Present: supple, normal ROM. Absent: enlarged thyroid, masses or JVD - Respiratory Respiratory effort: normal Respiratory: bilateral: diminished (bases), negative: rales, rhonchi, wheezing - Cardiovascular Rhythm: regular Heart Sounds: Present: S1 & S2. Absent: gallop - Extremities Extremities: no ischemia, pulses intact, pulses symmetrical, No edema Peripheral Pulses: within normal limits - Abdominal General gastrointestinal: soft, non-tender, non-distended, normal bowel sounds - Integumentary Integumentary: Present: clear - Psychiatric Psychiatric: appropriate mood/affect, intact judgment & insight, cooperative Results - Labs CBC & Chem 7: 08/19/16 04:42 08/19/16 04:42 Labs: Laboratory Last Values WBC 8.1 K/mm3 (4.5-11.0) 08/19/16 04:42 RBC 4.00 M/mm3 (3.65-5.03) 08/19/16 04:42 Hgb 10.2 gm/dl (10.1-14.3) 08/19/16 04:42 Hct 31.3 % (30.3-42.9) 08/19/16 04:42 MCV 78 fl (79-97) L 08/19/16 04:42 MCH 25 pg (28-32) L 08/19/16 04:42 MCHC 32 % (30-34) 08/19/16 04:42 RDW 14.3 % (13.2-15.2) 08/19/16 04:42 Plt Count 183 K/mm3 (140-440) 08/19/16 04:42 Lymph % (Auto) 21.0 % (13.4-35.0) 08/19/16 04:42 [place] % (Auto) 9.2 % (0.0-7.3) H 08/19/16 04:42 Eos % (Auto) 10.1 % (0.0-4.3) H 08/19/16 04:42 Baso % (Auto) 0.4 % (0.0-1.8) 08/19/16 04:42 Lymph # 1.7 K/mm3 (1.2-5.4) 08/19/16 04:42 [place] # 0.7 K/mm3 (0.0-0.8) 08/19/16 04:42 Eos # 0.8 K/mm3 (0.0-0.4) H 08/19/16 04:42 Baso # 0.0 K/mm3 (0.0-0.1) 08/19/16 04:42 Seg Neutrophils % 59.3 % (40.0-70.0) 08/19/16 04:42 Seg Neutrophils # 4.8 K/mm3 (1.8-7.7) 08/19/16 04:42 PT 14.2 Sec. (12.2-14.9) 08/14/16 14:16 INR 1.11 (0.87-1.13) 08/14/16 14:16 APTT 26.3 Sec. (24.2-36.6) 08/14/16 14:16 POC ABG pH 7.481 (7.35-7.45) H 08/19/16 09:10 POC ABG pCO2 33.7 (35-45) L 08/19/16 09:10 POC ABG pO2 89 (80-105) 08/19/16 09:10 POC ABG HCO3 25.2 08/19/16 09:10 POC ABG Total CO2 26 08/19/16 09:10 POC ABG O2 Sat 98 08/19/16 09:10 POC ABG Base Excess 2 08/19/16 09:10 FiO2 25 % 08/17/16 11:33 Sodium 143 mmol/L (137-145) 08/19/16 04:42 Potassium 3.4 mmol/L (3.6-5.0) L 08/19/16 04:42 Chloride 101.1 mmol/L (98-107) 08/19/16 04:42 Carbon Dioxide 27 mmol/L (22-30) 08/19/16 04:42 Anion Gap 18 mmol/L 08/19/16 04:42 BUN 26 mg/dL (7-17) H 08/19/16 04:42 Creatinine 1.0 mg/dL (0.7-1.2) 08/19/16 04:42 Estimated GFR > 60 ml/min 08/19/16 04:42 BUN/Creatinine Ratio 26.00 % 08/19/16 04:42 Glucose 202 mg/dL (65-100) H 08/19/16 04:42 POC Glucose 291 (70-105) H 08/19/16 11:26 Lactic Acid 1.0 mmol/L (0.7-2.0) 08/15/16 14:21 Calcium 8.9 mg/dL (8.4-10.2) 08/19/16 04:42 Phosphorus 3.3 mg/dL (2.5-4.5) 08/19/16 04:42 Magnesium 2.0 mg/dL (1.7-2.3) 08/19/16 04:42 Total Bilirubin 0.3 mg/dL (0.1-1.2) 08/14/16 14:16 AST 10 units/L (5-40) 08/14/16 14:16 ALT 12 units/L (7-56) 08/14/16 14:16 Alkaline Phosphatase 87 units/L (35-129) 08/14/16 14:16 Ammonia 28.0 umol/L (25-60) 08/14/16 14:16 Total Creatine Kinase 124 units/L (30-135) 08/19/16 04:42 Troponin T < 0.010 ng/mL (0.00-0.029) 08/14/16 14:16 Total Protein 6.8 g/dL (6.3-8.2) 08/14/16 14:16 Albumin 3.3 g/dL (3.9-5) L 08/14/16 14:16 Albumin/Globulin Ratio 0.9 % 08/14/16 14:16 TSH < 0.005 mlU/mL (0.270-4.200) L 08/14/16 14:16 HCG, Qual Negative (Negative) 08/14/16 14:16 Urine Color Straw (Yellow) 08/14/16 13:45 Urine Turbidity Clear (Clear) 08/14/16 13:45 Urine pH 6.0 (5.0-7.0) 08/14/16 13:45 Ur Specific [place] 1.008 (1.003-1.030) 08/14/16 13:45 Urine Protein 100 mg/dl mg/dL (Negative) 08/14/16 13:45 Urine Glucose (UA) 150 mg/dL (Negative) 08/14/16 13:45 Urine Ketones Neg mg/dL (Negative) 08/14/16 13:45 Urine Blood Neg (Negative) 08/14/16 13:45 Urine Nitrite Neg (Negative) 08/14/16 13:45 Urine Bilirubin Neg (Negative) 08/14/16 13:45 Urine Urobilinogen < 2.0 mg/dL (<2.0) 08/14/16 13:45 Ur Leukocyte Esterase Neg (Negative) 08/14/16 13:45 Urine WBC (Auto) < 1.0 /HPF (0.0-6.0) 08/14/16 13:45 Urine RBC (Auto) 2.0 /HPF (0.0-6.0) 08/14/16 13:45 U Epithel Cells (Auto) < 1.0 /HPF (0-13.0) 08/14/16 13:45 Urine Bacteria (Auto) 1+ /HPF (Negative) 08/14/16 13:45 Urine Eosinophils 14 (None Seen) 08/16/16 15:12 Urine Creatinine 39.3 mg/dL (0.1-20.0) H 08/16/16 15:12 Urine Sodium 80 mEq/L 08/16/16 15:12 Urine Potassium 13.89 mEq/L 08/16/16 15:12 Urine Chloride 57.7 mEq/L (110-250) L 08/16/16 15:12 CSF Appearance Clear 08/14/16 Unknown CSF Color Colorless 08/14/16 Unknown CSF WBC 0 /mm3 (1-10) 08/14/16 Unknown CSF RBC 2 /mm3 (0-0) 08/14/16 Unknown CSF Seg Neutrophils Not Reportable 08/14/16 Unknown CSF Lymphocytes % Not Reportable 08/14/16 Unknown CSF Reactive Lymphs Not Reportable 08/14/16 Unknown CSF Monocytes % Not Reportable 08/14/16 Unknown CSF Eosinophils % Not Reportable 08/14/16 Unknown CSF Basophils Not Reportable 08/14/16 Unknown CSF Comment No cells seen 08/14/16 Unknown CSF Pathologist Review C 08/14/16 Unknown CSF Glucose 183 mg/dL 08/14/16 Unknown CSF Total Protein 23 mg/dL 08/14/16 Unknown Vancomycin Trough 22.8 ug/mL (5.0-20.0) H 08/17/16 16:25 Salicylates < 0.3 mg/dL (2.8-20.0) L 08/14/16 14:16 Urine Opiates Screen Presumptive negative 08/14/16 13:45 Urine Methadone Screen Presumptive negative 08/14/16 13:45 Acetaminophen < 15.0 ug/mL (10.0-30.0) 08/14/16 14:16 Ur Barbiturates Screen Presumptive negative 08/14/16 13:45 Ur Phencyclidine Scrn Presumptive negative 08/14/16 13:45 Ur Amphetamines Screen Presumptive negative 08/14/16 13:45 U Benzodiazepines Scrn Presumptive negative 08/14/16 13:45 Urine Cocaine Screen Presumptive negative 08/14/16 13:45 U Marijuana (THC) Screen Presumptive negative 08/14/16 13:45 Drugs of Abuse Note Disclamer 08/14/16 13:45 Plasma/Serum Alcohol < 0.01 gm% (0-0.07) 08/14/16 14:16
--- NOTE | 2016-08-19 18:49 | Consultation ---
History of Present Illness - Reason for Consult Consult date: 08/19/16 Reason for consult: Found unconscious at home. History of overdose Requesting physician: CAMRYN MARKS - Chief Complaint Chief complaint: Ms. Rangel was evaluated by Dr. Renee and this author for psychiatric consultation. She was found unconscious at home by her fiance. She remembers taking her prescribed medications. She also notes she was sick for 4 days with respiratory symptoms and fever. She states she was irritated and may have taken an extra Seroquel but denies intentional overdose. She is currently being treated for pneumonia. She denies recent depression, anxiety, psychotic symptoms , tho, or other disturbances of mood. Her urine drug screen was negative. She denies use of alcohol or illicit substances currently. Last use of cocaine was 2 years ago. She is prescribed Seroquel by her primary care provider for ongoing management of bipolar disorder, "schizophrenia." She denies any exacerbation of schizophrenic symptoms, AVH, delusions, since 2 years ago. Medications and Allergies Allergies Allergy/AdvReac Type Severity Reaction Status Date / Time latex Allergy Rash Verified 08/14/16 13:44 Penicillins Allergy Rash Verified 08/14/16 13:44 tramadol Allergy Rash Verified 08/14/16 13:44 Home Medications Medication Instructions Recorded Confirmed Last Taken Type Insulin Glargine,Hum.rec.anlog 30 units SQ HS 05/24/14 08/16/16 05/23/14 History [Lantus] Diazepam Tab [Valium] 5 mg PO TID PRN #30 tablet 12/14/15 08/16/16 Unknown Rx Gabapentin [Neurontin] 300 mg PO Q8HR #90 capsule 12/14/15 08/16/16 Unknown Rx Insulin Aspart [NovoLOG Flexpen] 6 units SQ AC #2 pen 12/14/15 08/16/16 Unknown Rx Methimazole [Tapazole] 5 mg PO Q8HR #60 tablet 12/14/15 08/16/16 Unknown Rx Quetiapine Fumarate [SEROquel XR] 400 mg PO QDAY #30 tab.er.24h 12/14/15 Unknown Rx metFORMIN XR [Glucophage XR] 1,000 mg PO 0800 #30 tablet 12/14/15 08/16/16 Unknown Rx Diltiazem Cd [Cardizem CD] 300 mg PO QDAY #30 capsule 07/31/16 08/16/16 Unknown Rx Furosemide [Lasix TAB] 20 mg PO QDAY #30 tablet 07/31/16 08/16/16 Unknown Rx HYDROcodone/APAP 7.5-325 [[place] 1 each PO Q6HR PRN #12 tablet 07/31/16 08/16/16 Unknown Rx 7.5/325] Lisinopril [Zestril TAB] 20 mg PO QDAY #30 tablet 07/31/16 08/16/16 Unknown Rx Ibuprofen [Motrin 800 MG tab] 800 mg PO Q8HR PRN #15 tablet 08/13/16 08/16/16 Unknown Rx Active Meds: Active Medications Acetaminophen (Tylenol) 650 mg FEEDTUBE Q4H PRN PRN Reason: Fever Last Admin: 08/17/16 22:16 Dose: 650 mg Acetaminophen/Hydrocodone Bitart ([place] 7.5/325) 1 each PO Q6H PRN PRN Reason: Pain, Moderate (4-6) Last Admin: 08/19/16 13:00 Dose: 1 each Albuterol/Ipratropium (Duoneb 0.5 Mg-3 Mg/3 Ml Soln) 1 ampul IH Q6HRT SILVANO Last Admin: 08/19/16 14:11 Dose: 1 ampul Alprazolam (Xanax) 0.25 mg PO Q8H PRN PRN Reason: Anxiety Last Admin: 08/18/16 22:02 Dose: 0.25 mg Apixaban (Eliquis) 5 mg PO Q12HR SILVANO Dextrose (D50w (25gm)) 50 ml IV PRN PRN PRN Reason: Hypoglycemia Famotidine (Pepcid) 20 mg PO QDAY SILVANO Last Admin: 08/19/16 10:49 Dose: 20 mg Guaifenesin (Robitussin Dm) 10 ml PO Q6H PRN PRN Reason: Cough Last Admin: 08/19/16 06:35 Dose: 10 ml Haloperidol Lactate (Haldol) 5 mg IV Q6H PRN PRN Reason: Agitation Hydralazine HCl (Apresoline) 10 mg IV Q4HR PRN PRN Reason: Blood Pressure Last Admin: 08/17/16 22:17 Dose: 10 mg Hydrophilic Ointment (Vaseline Lip Therapy) 1 applic TP Q2HR PRN PRN Reason: Dry Lips Levofloxacin/Dextrose (Levaquin 500mg/100ml) 500 mg in 100 mls @ 100 mls/hr IV Q24HR [facility] Stop: 08/24/16 10:59 Last Admin: 08/19/16 10:48 Dose: 100 mls/hr Vancomycin HCl (Vancomycin/Ns 1 Gm/250 Ml) 1 gm in 250 mls @ 166.667 mls/hr IV Q12H [facility] Last Admin: 08/19/16 10:49 Dose: 166.667 mls/hr Insulin Aspart (Novolog) 5 units SUB-Q AC [facility] Last Admin: 08/19/16 17:45 Dose: 5 units Insulin Detemir (Levemir) 50 units SUB-Q QHS [facility] Last Admin: 08/18/16 22:07 Dose: 50 units Insulin Human Regular (Novolin R) 0 units SUB-Q ACHS [facility] PRN Reason: Protocol Last Admin: 08/19/16 17:45 Dose: 6 units Methimazole (Tapazole) 5 mg FEEDTUBE Q8HR [facility] Last Admin: 08/19/16 12:59 Dose: 5 mg Multi-Ingred Cream/Lotion/Oil/Oint (Artificial Tears Ophth Oint) 1 applic OU Q4HR PRN PRN Reason: Dry Eye(s) Quetiapine Fumarate (Seroquel) 200 mg PO BID [facility] Last Admin: 08/19/16 10:48 Dose: 200 mg Vancomycin HCl (Vancomycin Pharmacy To Dose) 1 each IV PKCONSULT [facility] PRN Reason: Protocol Past psychiatric history - Past Medical History Past Medical History: diabetes, other (obesity. Current pneumonia, chronic pain , CHF, thyroid disease) - past Psychiatric treatment and history Psych: Addictions, Depression, Schizophrenia psychiatric treatment history: previous psychiatric treatment. She has overdosed previously years ago. She denies acute psychiatric complaints since 2 years ago. Diagnosed with "bipolar and schizophrenia" 10 years ago. Illicit substance use in the past is cocaine (none in 2 years). Mental Status Exam - Vital signs Last Vital Signs Temp 97.9 F 08/19/16 15:37 Pulse 88 08/19/16 17:55 Resp 18 08/19/16 15:37 BP 149/70 08/19/16 15:37 Pulse Ox 98 08/19/16 15:37 - Exam Narrative exam: She denies suicidal or homicidal ideations. She denies depression or anxiety. She denies mood disturbance. No complaints with sleep or appetite prior to the illness. Orientation: time, place, person Affect: normal Mood: appropriate Thought Process: Intact Perceptions: none Speech: normal rate and pattern Motor activity: normal Level of consciousness: alert Memory: Intact Interaction: cooperative, pleasant Results Result Diagrams: 08/19/16 04:42 08/19/16 04:42 Abnormal lab results 08/18/16 08/19/16 08/19/16 Range/Units 21:20 04:42 04:42 MCV 78 L (79-97) fl MCH 25 L (28-32) pg [place] % (Auto) 9.2 H (0.0-7.3) % Eos % (Auto) 10.1 H (0.0-4.3) % Eos # 0.8 H (0.0-0.4) K/mm3 POC ABG pH (7.35-7.45) POC ABG pCO2 (35-45) Potassium 3.4 L (3.6-5.0) mmol/L BUN 26 H (7-17) mg/dL Glucose 202 H (65-100) mg/dL POC Glucose 233 H (70-105) 08/19/16 08/19/16 08/19/16 Range/Units 09:10 11:26 16:01 MCV (79-97) fl MCH (28-32) pg [place] % (Auto) (0.0-7.3) % Eos % (Auto) (0.0-4.3) % Eos # (0.0-0.4) K/mm3 POC ABG pH 7.481 H (7.35-7.45) POC ABG pCO2 33.7 L (35-45) Potassium (3.6-5.0) mmol/L BUN (7-17) mg/dL Glucose (65-100) mg/dL POC Glucose 291 H 300 H (70-105) All other labs normal. Assessment and Plan Assessment and plan: Dr. Renee and I interviewed Ms. Rangel. After review of her medical record and evaluating her current presentation, she is determined to be a low risk for suicide. Intentional overdose is unlikely. Disposition per a psychiatric standpoint is to establish care with a psychiatrist for medication management as she is currently seeing her PCP for psychiatric medication. - Psychiatric problem (1) Bipolar 1 disorder, depressed, full remission Current Visit: Yes Status: Acute
--- NOTE | 2016-08-19 19:49 | Progress Note ---
Assessment and Plan Patient alert,awake. No complaint of chest pain or shortness of breath. Complaining slight cough.Resting on room air. O2 satuaration 98%. - Patient Problems (1) Acute respiratory failure Current Visit: Yes Status: Acute Qualifiers: Respiratory failure complication: R Qualified Code(s): J96.01 - Acute respiratory failure with hypoxia; J96.02 - Acute respiratory failure with hypercapnia Plan to address problem: Improved. No complaint of shortness of breath. O2 satuaration 98% on room air. Albuterol/atrovent aerosol treatments q 6 hours. Continue Lovenox Continue Famotidine. (2) LESLI (acute kidney injury) Current Visit: Yes Status: Acute Plan to address problem: Management as per primary care. (3) Altered mental status Current Visit: Yes Status: Acute Qualifiers: Altered mental status type: A Coma depth: C Coma timing: C Plan to address problem: Improved (4) Hypothermia Current Visit: Yes Status: Acute Qualifiers: Encounter type: E Plan to address problem: Improved. Todays temparature 97.9 F (5) Metabolic acidosis Current Visit: Yes Status: Acute Plan to address problem: Improved. Obtaining Blood gases. Subjective Date of service: 08/19/16 Principal diagnosis: Acute Hypoxemic Respiratory Failure; Altered Mental Status Interval history: Patient alert,awake. No complaint of chest pain or shortness of breath. Complaining slight cough.Resting on room air. O2 satuaration 98%. Objective Vital Signs - 12hr 08/19/16 08/19/16 08/19/16 08:00 08:53 09:03 Temperature 98.4 F Pulse Rate Pulse Rate [ 92 H 96 H Bilateral Throughout] Pulse Rate [ 92 H From Monitor] Respiratory 18 Rate Respiratory 20 20 Rate [Bilateral Throughout] Blood Pressure 197/88 [Left Arm] O2 Sat by Pulse 97 99 Oximetry 08/19/16 08/19/16 08/19/16 10:00 11:51 13:00 Temperature 98.5 F Pulse Rate 90 Pulse Rate [ Bilateral Throughout] Pulse Rate [ 97 H From Monitor] Respiratory 18 20 Rate Respiratory Rate [Bilateral Throughout] Blood Pressure 145/68 [Left Arm] O2 Sat by Pulse 97 98 Oximetry 08/19/16 08/19/16 08/19/16 14:11 14:20 15:37 Temperature 97.9 F Pulse Rate Pulse Rate [ 90 94 H Bilateral Throughout] Pulse Rate [ 94 H From Monitor] Respiratory 18 Rate Respiratory 20 20 Rate [Bilateral Throughout] Blood Pressure 149/70 [Left Arm] O2 Sat by Pulse 98 Oximetry 08/19/16 17:55 Temperature Pulse Rate 88 Pulse Rate [ Bilateral Throughout] Pulse Rate [ From Monitor] Respiratory Rate Respiratory Rate [Bilateral Throughout] Blood Pressure [Left Arm] O2 Sat by Pulse Oximetry Constitutional: no acute distress, lethargic Eyes: non-icteric ENT: oropharynx moist Neck: supple, no lymphadenopathy Effort: normal, mildly labored Ascultation: Bilateral: rhonchi (scant in bases) Cardiovascular: regular rate and rhythm Gastrointestinal: normoactive bowel sounds, soft, non-tender, non-distended Integumentary: normal Extremities: no cyanosis, no edema, pulses normal, no ischemia or petechiae Neurologic: normal mental status, non-focal exam, pupils equal and round, motor strength normal and Psychiatric: mood appropriate, anxious CBC and BMP: 08/19/16 04:42 08/19/16 04:42 ABG, PT/INR, D-dimer: ABG POC ABG pH 7.481 (7.35-7.45) H 08/19/16 09:10 POC ABG pCO2 33.7 (35-45) L 08/19/16 09:10 POC ABG pO2 89 (80-105) 08/19/16 09:10 POC ABG HCO3 25.2 08/19/16 09:10 POC ABG Total CO2 26 08/19/16 09:10 POC ABG O2 Sat 98 08/19/16 09:10 PT/INR, D-dimer PT 14.2 Sec. (12.2-14.9) 08/14/16 14:16 INR 1.11 (0.87-1.13) 08/14/16 14:16 Abnormal lab findings: Abnormal Labs 08/14/16 08/14/16 08/15/16 17:21 19:31 03:12 WBC Hgb MCV MCH [place] % (Auto) Eos % (Auto) [place] # Eos # Seg Neutrophils % Seg Neutrophils # POC ABG pH 7.326 L POC ABG pCO2 POC ABG pO2 203 H Sodium Potassium Carbon Dioxide BUN Creatinine Glucose POC Glucose 341 H 368 H Total Creatine Kinase Urine Creatinine Urine Chloride Vancomycin Trough 08/15/16 08/15/16 08/15/16 04:52 11:01 13:15 WBC Hgb MCV MCH [place] % (Auto) Eos % (Auto) [place] # Eos # Seg Neutrophils % Seg Neutrophils # POC ABG pH 7.250 L 7.296 L POC ABG pCO2 30.2 L 30.1 L POC ABG pO2 143 H 153 H Sodium Potassium Carbon Dioxide BUN Creatinine Glucose POC Glucose 309 H Total Creatine Kinase Urine Creatinine Urine Chloride Vancomycin Trough 08/15/16 08/15/16 08/15/16 14:21 14:21 16:43 WBC Hgb MCV 78 L MCH 26 L [place] % (Auto) 9.3 H Eos % (Auto) [place] # 0.9 H Eos # Seg Neutrophils % 76.4 H Seg Neutrophils # POC ABG pH POC ABG pCO2 POC ABG pO2 Sodium 136 L Potassium Carbon Dioxide 15 L BUN 38 H Creatinine 1.7 H D Glucose 266 H POC Glucose 269 H Total Creatine Kinase Urine Creatinine Urine Chloride Vancomycin Trough 08/15/16 08/16/16 08/16/16 21:36 01:14 04:07 WBC Hgb MCV MCH 25 L [place] % (Auto) 9.2 H Eos % (Auto) [place] # Eos # Seg Neutrophils % Seg Neutrophils # POC ABG pH 7.323 L POC ABG pCO2 32.9 L POC ABG pO2 150 H Sodium Potassium Carbon Dioxide BUN Creatinine Glucose POC Glucose 394 H Total Creatine Kinase Urine Creatinine Urine Chloride Vancomycin Trough 08/16/16 08/16/16 08/16/16 04:07 04:42 05:24 WBC Hgb MCV MCH [place] % (Auto) Eos % (Auto) [place] # Eos # Seg Neutrophils % Seg Neutrophils # POC ABG pH 7.303 L POC ABG pCO2 POC ABG pO2 113 H Sodium Potassium Carbon Dioxide 18 L BUN 42 H Creatinine 1.6 H Glucose 341 H POC Glucose 368 H Total Creatine Kinase Urine Creatinine Urine Chloride Vancomycin Trough 08/16/16 08/16/16 08/16/16 06:16 11:17 15:12 WBC Hgb MCV MCH [place] % (Auto) Eos % (Auto) [place] # Eos # Seg Neutrophils % Seg Neutrophils # POC ABG pH POC ABG pCO2 POC ABG pO2 Sodium Potassium Carbon Dioxide BUN Creatinine Glucose POC Glucose 323 H 300 H Total Creatine Kinase Urine Creatinine 39.3 H Urine Chloride 57.7 L Vancomycin Trough 08/16/16 08/16/1617 18:30 23:34 04:21 WBC Hgb 9.9 L MCV MCH 25 L [place] % (Auto) 9.5 H Eos % (Auto) [place] # 1.0 H Eos # Seg Neutrophils % 73.5 H Seg Neutrophils # 8.1 H POC ABG pH POC ABG pCO2 POC ABG pO2 Sodium Potassium Carbon Dioxide BUN Creatinine Glucose POC Glucose 345 H 313 H Total Creatine Kinase Urine Creatinine Urine Chloride Vancomycin Trough 08/17/16 08/17/16 08/17/16 04:21 05:29 11:48 WBC Hgb MCV MCH [place] % (Auto) Eos % (Auto) [place] # Eos # Seg Neutrophils % Seg Neutrophils # POC ABG pH POC ABG pCO2 POC ABG pO2 111 H Sodium Potassium Carbon Dioxide BUN 39 H Creatinine 1.3 H Glucose 390 H POC Glucose 248 H Total Creatine Kinase 226 H Urine Creatinine Urine Chloride Vancomycin Trough 08/17/16 08/17/16 08/17/16 16:25 17:50 22:10 WBC Hgb MCV MCH [place] % (Auto) Eos % (Auto) [place] # Eos # Seg Neutrophils % Seg Neutrophils # POC ABG pH POC ABG pCO2 POC ABG pO2 Sodium Potassium Carbon Dioxide BUN Creatinine Glucose POC Glucose 311 H 391 H Total Creatine Kinase Urine Creatinine Urine Chloride Vancomycin Trough 22.8 H 08/18/16 08/18/16 08/18/16 04:55 04:55 07:53 WBC 11.2 H Hgb MCV MCH 25 L [place] % (Auto) 7.5 H Eos % (Auto) 4.6 H [place] # Eos # 0.5 H Seg Neutrophils % 72.6 H Seg Neutrophils # 8.2 H POC ABG pH POC ABG pCO2 POC ABG pO2 Sodium Potassium 3.1 L D Carbon Dioxide BUN 29 H Creatinine Glucose 245 H POC Glucose 229 H Total Creatine Kinase Urine Creatinine Urine Chloride Vancomycin Trough 08/18/16 08/18/16 08/18/16 12:26 16:04 17:08 WBC Hgb MCV MCH [place] % (Auto) Eos % (Auto) [place] # Eos # Seg Neutrophils % Seg Neutrophils # POC ABG pH POC ABG pCO2 POC ABG pO2 Sodium Potassium Carbon Dioxide BUN Creatinine Glucose POC Glucose 363 H 387 H 358 H Total Creatine Kinase Urine Creatinine Urine Chloride Vancomycin Trough 08/18/16 08/19/16 08/19/16 21:20 04:42 04:42 WBC Hgb MCV 78 L MCH 25 L [place] % (Auto) 9.2 H Eos % (Auto) 10.1 H [place] # Eos # 0.8 H Seg Neutrophils % Seg Neutrophils # POC ABG pH POC ABG pCO2 POC ABG pO2 Sodium Potassium 3.4 L Carbon Dioxide BUN 26 H Creatinine Glucose 202 H POC Glucose 233 H Total Creatine Kinase Urine Creatinine Urine Chloride Vancomycin Trough 08/19/16 08/19/16 08/19/16 09:10 11:26 16:01 WBC Hgb MCV MCH [place] % (Auto) Eos % (Auto) [place] # Eos # Seg Neutrophils % Seg Neutrophils # POC ABG pH 7.481 H POC ABG pCO2 33.7 L POC ABG pO2 Sodium Potassium Carbon Dioxide BUN Creatinine Glucose POC Glucose 291 H 300 H Total Creatine Kinase Urine Creatinine Urine Chloride Vancomycin Trough
[2016-08-19] MEDS: XANAX PO PRN (20:50)
[2016-08-19] MEDS: ELIQUIS PO SCH (21:03)
[2016-08-19] MEDS: LEVEMIR SUB-Q SCH (22:26)
[2016-08-20] MEDS: ROBITUSSIN DM PO PRN (05:50)
[2016-08-20] MEDS: NORCO 7.5/325 PO PRN (05:50)
[2016-08-20] MEDS: XANAX PO PRN (05:50)
[2016-08-20] MEDS: APRESOLINE IV PRN (06:00)
[2016-08-20 06:11] LABS: Anion Gap 17 mmol/L; BUN/Creatinine Ratio 23.33; Basophils % (Auto) 0.6 % (0.0-1.8); Blood Urea Nitrogen 21 mg/dL (7-17); Calcium 8.7 mg/dL (8.4-10.2); Carbon Dioxide 25 mmol/L (22-30); Chloride 100.7 mmol/L (98-107); Eosinophils % (Auto) 11.1 % (0.0-4.3); Glucose 244 mg/dL (65-100); Hematocrit 30.4 % (30.3-42.9); Hemoglobin 9.8 gm/dl (10.1-14.3); Mean Corpuscular HGB Conc 32 % (30-34); Mean Corpuscular Volume 79 fl (79-97); Platelet Count 174 K/mm3 (140-440); Potassium 3.6 mmol/L (3.6-5.0); Red Blood Count 3.86 M/mm3 (3.65-5.03); Red Cell Distribution Width 14.3 % (13.2-15.2); Sodium 139 mmol/L (137-145); White Blood Count 7.2 K/mm3 (4.5-11.0)
[2016-08-20 06:13] LABS: Mean Corpuscular Hemoglobin 25 pg (28-32)
[2016-08-20] MEDS ORDERED: PROVENTIL IH PRN (06:32)
[2016-08-20] MEDS: TAPAZOLE FEEDTUBE SCH ×2 (06:53→14:11)
--- NOTE | 2016-08-20 07:39 | Progress Note ---
Assessment and Plan - Patient Problems (1) LESLI (acute kidney injury) Status: Acute Plan to address problem: Acute Kidney Injury in the setting of Respiratory failure, Sepsis and uncontrolled DM. Renal function has improved. Hemodynamically stable. (2) Metabolic acidosis Status: Acute Plan to address problem: Improved. (3) Acute respiratory failure Status: Acute Qualifiers: Respiratory failure complication: R Plan to address problem: Improved. (4) Altered mental status Status: Acute Qualifiers: Altered mental status type: A Coma depth: C Coma timing: C (5) Diabetes mellitus Status: Chronic Qualifiers: Diabetes mellitus type: D Diabetes mellitus complication status: D Diabetes mellitus complication detail: D Diabetic retinopathy severity: D Diabetes mellitus macular edema: D Diabetes mellitus correction insulin use: D Laterality: L Chronic kidney disease stage: C Subjective Date of service: 08/20/16 Principal diagnosis: Acute Hypoxemic Respiratory Failure; Altered Mental Status Interval history: Patient is feeling better. Objective - Vital Signs Vital signs: Vital Signs - 12hr 08/19/16 08/19/16 08/19/16 19:51 20:35 20:56 Temperature 98.6 F Pulse Rate [ 97 H 99 H Bilateral Throughout] Pulse Rate [ 93 H Left Radial] Respiratory 20 Rate Respiratory 18 18 Rate [Bilateral Throughout] Blood Pressure 172/78 [Left Arm] O2 Sat by Pulse Oximetry 08/19/16 08/20/16 08/20/16 23:49 00:30 04:19 Temperature 98.3 F 98.9 F Pulse Rate [ Bilateral Throughout] Pulse Rate [ 94 H 100 H Left Radial] Respiratory 20 22 Rate Respiratory Rate [Bilateral Throughout] Blood Pressure 177/76 189/87 [Left Arm] O2 Sat by Pulse 97 Oximetry - General Appearance General appearance: well-developed, well-nourished, obese, other (no distress) EENT: PERRL, mucous membranes moist, hearing intact, vision intact Neck: no JVD, supple Respiratory: Present: Clear to Ascultation Cardiology: regular, normal heart rate, S1S2, no murmurs Gastrointestinal: normoactive bowel sounds, no tenderness, no distended Integumentary: no rash, warm and dry Neurologic: no focal deficit, no asterixis, alert and oriented x3, CN 3-12 intact Musculoskeletal: other (no edema) Psychiatric: mood/affect appropriate, cooperative - Lab 08/20/16 04:00 08/20/16 04:00 Most recent lab results Calcium 8.7 mg/dL (8.4-10.2) 08/20/16 04:00 Phosphorus 3.3 mg/dL (2.5-4.5) 08/19/16 04:42 Magnesium 2.0 mg/dL (1.7-2.3) 08/19/16 04:42 Urine Creatinine 39.3 mg/dL (0.1-20.0) H 08/16/16 15:12 Urine Sodium 80 mEq/L 08/16/16 15:12
--- NOTE | 2016-08-20 07:47 | Discharge Summary ---
Providers - Providers Date of Admission: 08/14/16 17:06 Date of discharge: 08/20/16 Attending physician: CAMRYN MARKS 08/14/16 18:42 Consult to Mental Health [CONS] Urgent Reason For Exam: psych Place consult to:: doula vp [employer] Notified:: awaiting call back 08/15/16 13:42 Consult to Dietitian/Nutrition [CONS] Routine Physician Instructions: Reason For Exam: Reason for Consult: Write/Manage Tube Feeding 08/15/16 14:56 Consult to Physician [CONS] Urgent Consulting Provider: KATHIE CANDELARIO Reason For Exam: altered mental status Place consult to:: Notified:: yes Phone number called:: yes office 08/16/16 14:51 Consult to Physician [CONS] Routine Consulting Provider: KRYS HALEY Reason For Exam: LESLI Place consult to:: dr. 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 Normal cxr-mild bibasilar atelectatic changes Hospital course: Miss Rangel is a 41-year-old female who was admitted to the emergency room with unresponsiveness and metabolic encephalopathy. She was intubated in the ER for airway protection. She was subsequently admitted to the ICU. She was started on antibiotics for possible aspiration pneumonia. Her respiratory failure subsequently resolved and she was transferred to the medical floor. There was a vague history from her porphyrin of possible overdose and she was evaluated by the psychiatrist. They found no evidence to suggest a suicidal attempt and cleared her for discharge. 1013 was rescinded. Also had hyperglycemia on admission. SHe was seen by the neurologist as well as the aluminum pourer. condition at discharge-stable 31 minutes spent on discharge Disposition: DISCHARGED TO HOME OR SELFCARE - Discharge Diagnoses (1) Aspiration pneumonia Status: Acute Qualifiers: Aspiration pneumonia type: A Laterality: L Lung location: L (2) LESLI (acute kidney injury) Status: Acute (3) Acute respiratory failure Status: Acute Qualifiers: Respiratory failure complication: R Qualified Code(s): J96.01 - Acute respiratory failure with hypoxia; J96.02 - Acute respiratory failure with hypercapnia (4) Bipolar 1 disorder, depressed, full remission Status: Acute (5) Metabolic acidosis Status: Acute (6) Respiratory failure Status: Acute Qualifiers: Chronicity: C Respiratory failure complication: R (7) Hyperglycemia due to type 2 diabetes mellitus Status: Acute Qualifiers: Diabetes mellitus halfway insulin use: with terminologist use Qualified Code( s): E11.65 - Type 2 diabetes mellitus with hyperglycemia; Z79.4 - senior care ( current) use of insulin Core Measure Documentation - Palliative Care Palliative Care/ Comfort Measures: Not Applicable - Core Measures Any of the following diagnoses?: none Exam - Constitutional Vitals: Temp Pulse Resp BP Pulse Ox 98.9 F 100 H 22 189/87 97 08/20/16 04:19 08/20/16 04:19 08/20/16 04:19 08/20/16 04:19 08/20/16 00:30 General appearance: Present: no acute distress, well-nourished - EENT Eyes: Present: PERRL, EOM intact. Absent: scleral icterus, conjunctival injection ENT: hearing intact, clear oral mucosa, no oropharyngeal erythema, no poor dentition - Neck Neck: Present: supple, normal ROM. Absent: enlarged thyroid, masses or JVD - Respiratory Respiratory effort: normal Respiratory: negative: diminished, rales, rhonchi, wheezing - Cardiovascular Rhythm: regular Heart Sounds: Present: S1 & S2. Absent: gallop - Extremities Extremities: no ischemia, pulses intact, pulses symmetrical, No edema Peripheral Pulses: within normal limits - Abdominal General gastrointestinal: Present: soft, non-tender, non-distended Female genitourinary: Present: deferred - Rectal Rectal Exam: deferred - Integumentary Integumentary: Present: clear - Musculoskeletal Musculoskeletal: strength equal bilaterally - Psychiatric Psychiatric: appropriate mood/affect, intact judgment & insight - Neurologic Neurologic: CNII-XII intact Plan Activity: no restrictions Diet: low salt, diabetic Additional Instructions: F/U psychiatry as outpatient; cotn elidixieis as per home meds Follow up with: PRIMARY CARE, [Primary Care Provider] - 3-5 Days KATHIE CANDELARIO MD [Staff Physician] - 7 Days HERLINDA MARKS MD [Staff Physician] - 08/27/16 1:50 pm Prescriptions: Levofloxacin [Levaquin TAB] 500 mg PO QDAY #2 tablet
[2016-08-20] MEDS ORDERED: LOPRESSOR PO SCH (08:00)
[2016-08-20] MEDS ORDERED: VALIUM PO PRN (08:00)
[2016-08-20] MEDS ORDERED: TAPAZOLE PO SCH (08:00)
--- NOTE | 2016-08-20 08:09 | Consultation ---
History of Present Illness - Reason for Consult Consult date: 08/20/16 weakness - History of Present Illness patient seen and assessed report is that she developed pain in the left leg post admission and describes new onset of weakness and numbness in the left leg detailed exam is unremarkabkle doubt stroke or peripheral nerve problem as reflexes and sensation ate intact she can move leg normal at this time she may be discharged and follow up with physical therapy as outpatient Past History Past Medical History: diabetes, other (obesity. Current pneumonia, chronic pain , CHF, thyroid disease) Medications and Allergies Allergies Allergy/AdvReac Type Severity Reaction Status Date / Time latex Allergy Rash Verified 08/14/16 13:44 Penicillins Allergy Rash Verified 08/14/16 13:44 tramadol Allergy Rash Verified 08/14/16 13:44 Home Medications Medication Instructions Recorded Confirmed Last Taken Type Insulin Glargine,Hum.rec.anlog 30 units SQ HS 05/24/14 08/16/16 05/23/14 History [Lantus] Diazepam Tab [Valium] 5 mg PO TID PRN #30 tablet 12/14/15 08/16/16 Unknown Rx Gabapentin [Neurontin] 300 mg PO Q8HR #90 capsule 12/14/15 08/16/16 Unknown Rx Insulin Aspart [NovoLOG Flexpen] 6 units SQ AC #2 pen 12/14/15 08/16/16 Unknown Rx Methimazole [Tapazole] 5 mg PO Q8HR #60 tablet 12/14/15 08/16/16 Unknown Rx Quetiapine Fumarate [SEROquel XR] 400 mg PO QDAY #30 tab.er.24h 12/14/15 Unknown Rx metFORMIN XR [Glucophage XR] 1,000 mg PO 0800 #30 tablet 12/14/15 08/16/16 Unknown Rx Diltiazem Cd [Cardizem CD] 300 mg PO QDAY #30 capsule 07/31/16 08/16/16 Unknown Rx Furosemide [Lasix TAB] 20 mg PO QDAY #30 tablet 07/31/16 08/16/16 Unknown Rx HYDROcodone/APAP 7.5-325 [[place]ore 1 each PO Q6HR PRN #12 tablet 07/31/16 08/16/16 Unknown Rx 7.5-325 mg TAB] Lisinopril [Zestril TAB] 20 mg PO QDAY #30 tablet 07/31/16 08/16/16 Unknown Rx Ibuprofen [Motrin 800 MG tab] 800 mg PO Q8HR PRN #15 tablet 08/13/16 08/16/16 Unknown Rx Levofloxacin [Levaquin TAB] 500 mg PO QDAY #2 tablet 08/20/16 Unknown Rx Active Meds: Active Medications Acetaminophen (Tylenol) 650 mg FEEDTUBE Q4H PRN PRN Reason: Fever Last Admin: 08/17/16 22:16 Dose: 650 mg Acetaminophen/Hydrocodone Bitart (Moore 7.5/325) 1 each PO Q6H PRN PRN Reason: Pain, Moderate (4-6) Last Admin: 08/20/16 05:50 Dose: 1 each Albuterol (Proventil) 2.5 mg IH Q3HRT PRN PRN Reason: Shortness Of Breath Alprazolam (Xanax) 0.25 mg PO Q8H PRN PRN Reason: Anxiety Last Admin: 08/20/16 05:50 Dose: 0.25 mg Apixaban (Eliquis) 5 mg PO Q12HR [facility]ANO Last Admin: 08/19/16 21:03 Dose: 5 mg Dextrose (D50w (25gm)) 50 ml IV PRN PRN PRN Reason: Hypoglycemia Diazepam (Valium) 5 mg PO TID PRN PRN Reason: Anxiety Diltiazem HCl (Cardizem Cd) 300 mg PO QDAY [facility] Famotidine (Pepcid) 20 mg PO QDAY [facility] Last Admin: 08/19/16 10:49 Dose: 20 mg Furosemide (Lasix) 20 mg PO QDAY [facility]IL[facility]AN[facility] Gabapentin (Neurontin) 300 mg PO Q8HR [facility]IL[facility]AN[facility] Guaifenesin (Robitussin Dm) 10 ml PO Q6H PRN PRN Reason: Cough Last Admin: 08/20/16 05:50 Dose: 10 ml Haloperidol Lactate (Haldol) 5 mg IV Q6H PRN PRN Reason: Agitation Hydralazine HCl (Apresoline) 10 mg IV Q4HR PRN PRN Reason: Blood Pressure Last Admin: 08/20/16 06:00 Dose: 10 mg Hydrophilic Ointment (Vaseline Lip Therapy) 1 applic TP Q2HR PRN PRN Reason: Dry Lips Levofloxacin/Dextrose (Levaquin 500mg/100ml) 500 mg in 100 mls @ 100 mls/hr IV Q24HR [facility] Stop: 08/24/16 10:59 Last Admin: 08/19/16 10:48 Dose: 100 mls/hr Vancomycin HCl (Vancomycin/Ns 1 Gm/250 Ml) 1 gm in 250 mls @ 166.667 mls/hr IV Q12H [facility] Last Admin: 08/19/16 21:01 Dose: 166.667 mls/hr Insulin Aspart (Novolog) 5 units SUB-Q AC [facility] Last Admin: 08/19/16 17:45 Dose: 5 units Insulin Detemir (Levemir) 50 units SUB-Q QHS [facility] Last Admin: 08/19/16 22:26 Dose: 50 units Insulin Human Regular (Novolin R) 0 units SUB-Q ACHS [facility] PRN Reason: Protocol Last Admin: 08/19/16 22:25 Dose: 3 units Lisinopril (Zestril) 20 mg PO QDAY [facility] Metformin HCl (Glucophage Xr) 1,000 mg PO 0800 [facility] Methimazole (Tapazole) 5 mg FEEDTUBE Q8HR [facility] Last Admin: 08/20/16 06:53 Dose: 5 mg Methimazole (Tapazole) 5 mg PO Q8HR [facility] Metoprolol Tartrate (Lopressor) 50 mg PO BID [facility] Miscellaneous Medication (Insulin Aspart [Novolog Flexpen]) 6 units SQ AC [facility] Miscellaneous Medication (Insulin Glargine,Hum.Rec.Anlog [Lantus]) 30 units SQ HS [facility] Miscellaneous Medication (Quetiapine Fumarate [Seroquel Xr]) 400 mg PO QDAY [facility] Multi-Ingred Cream/Lotion/Oil/Oint (Artificial Tears Ophth Oint) 1 applic OU Q4HR PRN PRN Reason: Dry Eye(s) Quetiapine Fumarate (Seroquel) 200 mg PO BID [facility] Last Admin: 08/19/16 21:03 Dose: 200 mg Vancomycin HCl (Vancomycin Pharmacy To Dose) 1 each IV PKCONSULT [facility] PRN Reason: Protocol Exam - Constitutional Vitals: Temp Pulse Resp BP Pulse Ox 98.9 F 100 H 22 189/87 97 08/20/16 04:19 08/20/16 04:19 08/20/16 04:19 08/20/16 04:19 08/20/16 00:30 Results - Labs CBC & Chem 7: 08/20/16 04:00 08/20/16 04:00 Labs: Abnormal lab results 08/19/16 08/19/16 08/19/16 Range/Units 08:32 09:10 11:26 Hgb (10.1-14.3) gm/dl MCH (28-32) pg [place] % (Auto) (0.0-7.3) % Eos % (Auto) (0.0-4.3) % Eos # (0.0-0.4) K/mm3 POC ABG pH 7.481 H (7.35-7.45) POC ABG pCO2 33.7 L (35-45) BUN (7-17) mg/dL Glucose (65-100) mg/dL POC Glucose 210 H 291 H (70-105) 08/19/16 08/19/16 08/20/16 Range/Units 16:01 21:32 04:00 Hgb 9.8 L (10.1-14.3) gm/dl MCH 25 L (28-32) pg Louisa % (Auto) 9.0 H (0.0-7.3) % Eos % (Auto) 11.1 H (0.0-4.3) % Eos # 0.8 H (0.0-0.4) K/mm3 POC ABG pH (7.35-7.45) POC ABG pCO2 (35-45) BUN (7-17) mg/dL Glucose (65-100) mg/dL POC Glucose 300 H 299 H (70-105) 08/20/16 Range/Units 04:00 Hgb (10.1-14.3) gm/dl MCH (28-32) pg Louisa % (Auto) (0.0-7.3) % Eos % (Auto) (0.0-4.3) % Eos # (0.0-0.4) K/mm3 POC ABG pH (7.35-7.45) POC ABG pCO2 (35-45) BUN 21 H (7-17) mg/dL Glucose 244 H (65-100) mg/dL POC Glucose (70-105)
[2016-08-20 09:40] VITALS: BP 149/67
[2016-08-20] MEDS ORDERED: GLUCOPHAGE XR PO SCH (10:00)
[2016-08-20] MEDS ORDERED: ZESTRIL PO SCH (10:00)
[2016-08-20] MEDS ORDERED: NON-FORMULARY (Quetiapine Fumarate [Seroquel Xr] 400 MG) PO SCH (10:00)
[2016-08-20] MEDS ORDERED: LASIX PO SCH (10:00)
[2016-08-20] MEDS ORDERED: CARDIZEM CD PO SCH (10:00)
[2016-08-20] MEDS: PEPCID PO SCH (10:17)
[2016-08-20] MEDS: LEVAQUIN 500MG/100ML 500 MG/100 ML BAG IV SCH (10:17)
[2016-08-20] MEDS: NEURONTIN PO SCH ×2 (10:19→14:12)
[2016-08-20] MEDS: ELIQUIS PO SCH (10:20)
[2016-08-20] MEDS: NOVOLOG SUB-Q SCH ×2 (10:22→13:34)
--- NOTE | 2016-08-20 10:41 | Progress Note ---
Assessment and Plan Altered mental status no acute intracranial abnormalities CT of the head Acute respiratory failure pt extubated Diabetes mellitus Hypertension Paroxysmal atrial fibrillation currently in sinus rhythm pt reports she is on home eliquis for anticoagulation RBBB, old Thyroid disease Recommendation: Continue oral anticoagulation for the patient's history of paroxysmal atrial fibrillation. Once discharged, follow up with [facility] on August 27 at 1:50p. Subjective Date of service: 08/20/16 Principal diagnosis: Acute Hypoxemic Respiratory Failure; Altered Mental Status Interval history: Patient has no chest pain or shortness of breath. Objective Vital Signs Temp Pulse Pulse Pulse Pulse Resp Resp 08/20/16 08:05 99.2 F 102 H 24 08/20/16 04:19 98.9 F 100 H 22 08/20/16 00:30 08/19/16 23:49 98.3 F 94 H 20 08/19/16 20:56 99 H 18 08/19/16 20:35 97 H 18 08/19/16 19:51 98.6 F 93 H 20 08/19/16 17:55 88 08/19/16 15:37 97.9 F 94 H 18 08/19/16 14:20 94 H 20 08/19/16 14:11 90 20 08/19/16 13:00 20 08/19/16 11:51 98.5 F 97 H 18 BP Pulse Ox 08/20/16 08:05 149/67 97 08/20/16 04:19 189/87 08/20/16 00:30 97 08/19/16 23:49 177/76 08/19/16 20:56 08/19/16 20:35 08/19/16 19:51 172/78 08/19/16 17:55 08/19/16 15:37 149/70 98 08/19/16 14:20 08/19/16 14:11 08/19/16 13:00 08/19/16 11:51 145/68 98 - Physical Examination General: No Apparent Distress HEENT: Positive: PERRL Neck: Positive: trachea midline Cardiac: Positive: Reg Rate and Rhythm Lungs: Positive: Decreased Breath Sounds Neuro: Positive: Grossly Intact - Labs and Meds CBC 08/20/16 Range/Units 04:00 WBC 7.2 (4.5-11.0) K/mm3 RBC 3.86 (3.65-5.03) M/mm3 Hgb 9.8 L (10.1-14.3) gm/dl Hct 30.4 (30.3-42.9) % Plt Count 174 (140-440) K/mm3 Lymph # 1.3 (1.2-5.4) K/mm3 [place] # 0.6 (0.0-0.8) K/mm3 Eos # 0.8 H (0.0-0.4) K/mm3 Baso # 0.0 (0.0-0.1) K/mm3 Comprehensive Metabolic Panel 08/20/16 Range/Units 04:00 Sodium 139 (137-145) mmol/L Potassium 3.6 (3.6-5.0) mmol/L Chloride 100.7 (98-107) mmol/L Carbon Dioxide 25 (22-30) mmol/L BUN 21 H (7-17) mg/dL Creatinine 0.9 (0.7-1.2) mg/dL Glucose 244 H (65-100) mg/dL Calcium 8.7 (8.4-10.2) mg/dL - EKG Sinus rhythms and dysrhythmias: sinus rhythm
[2016-08-20] MEDS: VANCOMYCIN/NS 1 GM/250 ML 1 GM/250 ML BAG IV SCH (11:23)
[2016-08-20] MEDS ORDERED: NON-FORMULARY (Insulin Aspart [Novolog Flexpen] 6 UNITS) SQ SCH (11:30)
[2016-08-20] MEDS ORDERED: NON-FORMULARY (Insulin Glargine,Hum.Rec.Anlog [Lantus] 30 UNITS) SQ SCH (22:00)
== END 2016-08-20 16:30 | disposition home or self-care (01) | DRG 871 ==
LOC: ED 13:27 → CC1 17:06 → 4A 08-18 10:06
PROVIDERS: ADMIT Internal Medicine; ATTEND Hospitalist
PROC: 5A1945Z Respiratory Ventilation, 24-96 Consecutive Hours (ICD-10-PCS; principal; 2016-08-14)
PROC: 0BH17EZ Insertion of Endotracheal Airway into Trachea, Via Natural or Artificial Opening (ICD-10-PCS; 2016-08-14)
PROC: 4A033R1 Measurement of Arterial Saturation, Peripheral, Percutaneous Approach (ICD-10-PCS; 2016-08-14)
PROC: 009U3ZX Drainage of Spinal Canal, Percutaneous Approach, Diagnostic (ICD-10-PCS; 2016-08-14)
PROC: 4A033R1 Measurement of Arterial Saturation, Peripheral, Percutaneous Approach (ICD-10-PCS; 2016-08-15)
PROC: 4A033R1 Measurement of Arterial Saturation, Peripheral, Percutaneous Approach (ICD-10-PCS; 2016-08-17)
PROC: 4A033R1 Measurement of Arterial Saturation, Peripheral, Percutaneous Approach (ICD-10-PCS; 2016-08-19)
DX: A41.9 Sepsis, unspecified organism (principal); G92 Toxic encephalopathy; J96.01 Acute respiratory failure with hypoxia; N17.0 Acute kidney failure with tubular necrosis; J96.02 Acute respiratory failure with hypercapnia; J69.0 Pneumonitis due to inhalation of food and vomit; F20.2 Catatonic schizophrenia; T68.XXXA Hypothermia, initial encounter; E11.65 Type 2 diabetes mellitus with hyperglycemia; E11.42 Type 2 diabetes mellitus with diabetic polyneuropathy; F31.9 Bipolar disorder, unspecified; I48.91 Unspecified atrial fibrillation; I50.9 Heart failure, unspecified; I11.0 Hypertensive heart disease with heart failure; M19.90 Unspecified osteoarthritis, unspecified site; E05.90 Thyrotoxicosis, unspecified without thyrotoxic crisis or storm; E66.9 Obesity, unspecified; E87.6 Hypokalemia; I48.0 Paroxysmal atrial fibrillation; G89.29 Other chronic pain; Z88.0 Allergy status to penicillin; Z79.4 Long term (current) use of insulin; Z91.040 Latex allergy status; Z88.8 Allergy status to other drugs, medicaments and biological substances; Z68.34 Body mass index [BMI] 34.0-34.9, adult; Z87.891 Personal history of nicotine dependence
CPT/HCPCS: 36415; 36600; 70450; 71010; 72125; 74000; 80048; 80053; 80202; 80307; 80320; 81001; 81025; 82140; 82436; 82550; 82570; 82803; 82947; 82962; 83735; 84100; 84133; 84160; 84300; 84443; 84484; 84703; 85025; 85610; 85730; 86403; 87040; 87070; 87076; 87086; 87116; 87185; 87186; 87205; 87210; 87591; 89050; 89051; 93005; 93010; 94002; 94003; 94640; 94760; 95819; 96365; 96367; 96375; 96376; 99284; G0480; J0133; J0360; J0696; J1100; J1650; J1815; J1818; J1956; J3010; J3370; J7040; J7070

== ENCOUNTER 2017-12-23 12:35 | Emergency (ER) | payer MEDICARE ==
[2017-12-23] MEDS ORDERED: ATIVAN PO ONE (12:57)
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
--- NOTE | 2017-12-23 13:28 | XRay Report ---
RIGHT HIP, 2 views: History: Fall, pain in right hip The bony architecture is intact without evidence of fracture or dislocation. Early osteoarthritic changes are noted. No significant soft tissue abnormality is seen. IMPRESSION: Mild osteoarthritis. No acute process.
[2017-12-23] MEDS ORDERED: PERCOCET 5/325 PO ONE (14:32)
[2017-12-23 16:43] VITALS: BP 180/76
== END 2017-12-23 16:25 | disposition home or self-care (01) ==
LOC: ED 12:35
DX: F31.9 Bipolar disorder, unspecified (principal); M25.551 Pain in right hip; I10 Essential (primary) hypertension; I50.9 Heart failure, unspecified; E11.9 Type 2 diabetes mellitus without complications; F20.9 Schizophrenia, unspecified; J45.909 Unspecified asthma, uncomplicated; Z79.4 Long term (current) use of insulin; Z88.0 Allergy status to penicillin; Z91.040 Latex allergy status; Z79.01 Long term (current) use of anticoagulants; W19.XXXA Unspecified fall, initial encounter; Y93.89 Activity, other specified; Y99.8 Other external cause status; Y92.89 Other specified places as the place of occurrence of the external cause

== ENCOUNTER 2018-10-14 14:39 | Emergency (ER) | payer MEDICARE, MEDICAID ==
--- NOTE | 2018-10-14 15:32 | Emergency Department Report ---
Blank Doc - Documentation Documentation: This is a 43-year-old female that presents with chest pain and SOB. This initial assessment/diagnostic orders/clinical plan/treatment(s) is/are subject to change based on patient's health status, clinical progression and re- assessment by fellow clinical providers in the ED. Further treatment and workup at subsequent clinical providers discretion. Patient/guardians urged not to elope from the ED as their condition may be serious if not clinically assessed and managed. Initial orders include: 1- Patient sent to MAIN ED for further evaluation and treatment 2- labs 3- EKG 4- CXR
[2018-10-14 15:49] LABS: Basophils % (Auto) 0.5 % (0.0-1.8); Eosinophils # (Auto) 0.3 K/mm3 (0.0-0.4); Eosinophils % (Auto) 4.8 % (0.0-4.3); Hemoglobin 11.5 gm/dl (10.1-14.3); Lymphocytes # (Auto) 1.4 K/mm3 (1.2-5.4); Lymphocytes % (Auto) 22.5 % (13.4-35.0); Mean Corpuscular HGB Conc 33 % (30-34); Mean Corpuscular Volume 81 fl (79-97); Monocytes # (Auto) 0.5 K/mm3 (0.0-0.8); Monocytes % (Auto) 7.6 % (0.0-7.3); Platelet Count 234 K/mm3 (140-440); Red Blood Count 4.34 M/mm3 (3.65-5.03); Red Cell Distribution Width 15.3 % (13.2-15.2)
[2018-10-14 16:10] LABS: BUN/Creatinine Ratio 18; Blood Urea Nitrogen 25 mg/dL (7-17); Calcium 8.5 mg/dL (8.4-10.2); Hemolysis Index 21
[2018-10-14 16:21] LABS: INR 0.94 (0.87-1.13)
[2018-10-14 16:22] LABS: Partial Thromboplastin Time 24.9 Sec. (24.2-36.6)
--- NOTE | 2018-10-14 17:39 | XRay Report ---
PROCEDURE: XR CHEST ROUTINE 2V TECHNIQUE: Chest radiograph , PA and lateral views. HISTORY: Chest Pain COMPARISONS: CXR 05/17/2018 . FINDINGS: Heart: Normal. Mediastinum/Vessels: Normal. Lungs/Pleural space: Normal. Bony thorax: No acute osseous abnormality. Life support devices: None. IMPRESSION: No acute cardiopulmonary abnormality. No change. This document is electronically signed by Huma Najera MD., October 14 2018 05:37:06 PM ET
[2018-10-14 21:53] VITALS: BP 177/67
== END 2018-10-14 19:00 | disposition home or self-care (01) ==
LOC: ED 14:39
DX: R07.9 Chest pain, unspecified (principal); Z53.21 Procedure and treatment not carried out due to patient leaving prior to being seen by health care provider
CPT/HCPCS: 36415; 71046; 80048; 84484; 85025; 85610; 85730

== ENCOUNTER 2018-12-28 08:41 | Inpatient (IN) | payer MEDICARE ==
[2018-12-28 09:24] LABS: Basophils # (Auto) 0.1 K/mm3 (0.0-0.1); Basophils % (Auto) 0.6 % (0.0-1.8); Eosinophils # (Auto) 0.2 K/mm3 (0.0-0.4); Eosinophils % (Auto) 1.8 % (0.0-4.3); Hematocrit 32.5 % (30.3-42.9); Hemoglobin 10.9 gm/dl (10.1-14.3); Lymphocytes # (Auto) 1.4 K/mm3 (1.2-5.4); Lymphocytes % (Auto) 14.2 % (13.4-35.0); Mean Corpuscular HGB Conc 34 % (30-34); Mean Corpuscular Volume 77 fl (79-97); Monocytes # (Auto) 0.6 K/mm3 (0.0-0.8); Monocytes % (Auto) 5.7 % (0.0-7.3); Platelet Count 229 K/mm3 (140-440); Red Blood Count 4.24 M/mm3 (3.65-5.03); Red Cell Distribution Width 14.6 % (13.2-15.2)
[2018-12-28 09:33] LABS: INR 1.18 (0.87-1.13); Partial Thromboplastin Time 22.9 Sec. (24.2-36.6)
[2018-12-28 10:08] LABS: Alanine Aminotransferase 9 units/L (7-56); Albumin 3.1 g/dL (3.9-5); Bilirubin,Direct < 0.2 mg/dL (0-0.2)
[2018-12-28] MEDS ORDERED: ZOFRAN IV ONE (10:11)
[2018-12-28] MEDS ORDERED: MORPHINE IV ONE (10:11)
--- NOTE | 2018-12-28 10:19 | Emergency Department Report ---
ED General Adult HPI - General Chief complaint: Chest Pain Stated complaint: CHEST PAIN/TROUBLE URINATING Time Seen by Provider: 12/28/18 08:49 Source: EMS Mode of arrival: Stretcher Limitations: No Limitations - History of Present Illness Initial comments: 43-year-old insulin-dependent diabetic (type II) with nausea and vomiting for the past day. Patient denies diarrhea. She is not complaining of abdominal per se. She states that she has had tightness in her chest as well since 3 in the morning. She's been awake since that time. She states she's been previously diagnosed with "blockages". She has not been hospitalized at this facility in the past. [place]. She denies being noncompliant with her medications to include metformin and insulin, lisinopril and diuretic. She has a history of congestive heart failure. Her last discharge summary was May 2018: Hospitalization Reason for admission: DKA Condition: Stable Hospital course: 43-year-old female with past medical history of diabetes presents with cough and shortness of breath and body aches for last 3 days. Patient states that her body aches are a 7 out of 10 nothing makes it better and nothing makes it worse. She states that she has been nauseous no bloody no bilious vomit .She states that she feels that she has been around people who have been sick. She has been having productive mucus.No exacerbating or relieving factors. The yelitza chavez was admitted with diagnosis of acute hypoxemic respiratory failure and sepsis. Patient with atrial fibrillation with RVR that developed shortly after admission. Patient has had further complications on 05/19/18 with significant hyperglycemia blood glucose greater than 500. The patient was transferred to the ICU and received IV insulin drip with significant improvement. Patient is now tolerating long-acting insulin. DKA. Continue Lantus 25 units twice a day. Continue pre-meal short-acting insulin 8 units. Counselling provided Acute hypoxemic respiratory failure. Continue O2 to maintain sats greater than 92%. Sepsis. ID following. Improved, manifested by fever, tachycardia and leukocytosis. Etiology unclear, chest xray show no evidence of pneumonia,. Blood Cultures [employer] likely contaminant, Stool cultures negative, UTI negative, influenza negative Paroxysmal atrial fibrillation with RVR. Cardiology following. IV heparin discontinued. Eliquis started per cardiology. Patient also on IV amiodarone and diltiazem. Acute kidney injury. Etiology likely secondary to ischemic ATN from sepsis. Renal Ultrasound- No hydronephrosis. Right renal cysts. Continue on Sodium Bicarbonate in 1/2NS@75 ml/hr per nephrology GN labs pending-SPEP, KHRIS, ANCA, Anti-GBM, Hep B surface antigen, HCV, C3, C4, Ch50, serum free light chains HIV negative Renally dose medications Obtain daily weights Monitor I/O's AG metabolic acidosis, DKA resolved acei held due to renal function. Patient can restarted once renal function improves. Continue on Sodium Bicarbonate in 1/2NS@75 ml/hr per nephrology Hypertension. Continue his hypertensive medications. Peripheral neuropathy. Continue gabapentin. Hypothyroidism. Continue methimazole. morbid obesity -weightloss advised -: Gradual, hour(s) Location: chest Radiation: non-radiation Quality: other (tightness) Consistency: intermittent Improves with: none Worsens with: none Associated Symptoms: chest pain, nausea/vomiting, shortness of breath. denies: confusion, cough, diaphoresis, headaches, loss of appetite, malaise Treatments Prior to Arrival: none - Related Data Home Medications Medication Instructions Recorded Confirmed Last Taken Diltiazem HCl [Cardizem] 60 mg PO QDAY 05/17/18 05/17/18 Unknown Gabapentin [Neurontin] 800 mg PO TID 05/17/18 05/17/18 Unknown LORazepam [Ativan] 0.5 mg PO QHS 05/17/18 05/17/18 Unknown Methimazole [Tapazole] 20 mg PO Q8H 05/17/18 05/17/18 Unknown cloNIDine [Catapres] 0.2 mg PO BID 05/17/18 05/17/18 Unknown QUEtiapine [SEROquel] 400 mg PO QHS 05/18/18 05/18/18 2 Days Ago ~05/16/18 Previous Rx's Medication Instructions Recorded Last Taken Type Amiodarone [Cordarone 200 MG TAB] 200 mg PO QDAY #30 tablet 05/25/18 Unknown Rx Apixaban [Eliquis] 5 mg PO Q12HR #60 tablet 05/25/18 Unknown Rx Famotidine [Pepcid] 10 mg PO BID #60 tablet 05/25/18 Unknown Rx Insulin Glargine [Lantus VIAL] 30 units SUB-Q BID 30 Days units 05/25/18 Unknown Rx Insulin Regular, Human [Novolin R] 8 units SUB-Q AC #1 vial 05/25/18 Unknown Rx oxyCODONE /ACETAMINOPHEN [Percocet 1 tab PO Q6H PRN #14 tablet 05/25/18 Unknown Rx 5/325 mg] Allergies Allergy/AdvReac Type Severity Reaction Status Date / Time latex Allergy Rash Verified 05/17/18 10:24 Penicillins Allergy Rash Verified 05/17/18 10:24 tramadol Allergy Rash Verified 05/17/18 10:24 ED Review of Systems ROS: Stated complaint: CHEST PAIN/TROUBLE URINATING Other details as noted in HPI Constitutional: denies: chills, fever Eyes: denies: eye pain, eye discharge, vision change ENT: denies: ear pain, throat pain Respiratory: shortness of breath. denies: cough, wheezing Cardiovascular: chest pain. denies: palpitations Endocrine: no symptoms reported Gastrointestinal: nausea, vomiting. denies: abdominal pain, diarrhea Genitourinary: denies: urgency, dysuria, discharge Musculoskeletal: denies: back pain, joint swelling, arthralgia Skin: denies: rash, lesions Neurological: denies: headache, weakness, paresthesias Psychiatric: denies: anxiety, depression Hematological/Lymphatic: denies: easy bleeding, easy bruising ED Past Medical Hx - Past Medical History Hx Hypertension: Yes Hx Heart Attack/AMI: No Hx Congestive Heart Failure: Yes Hx Diabetes: Yes Hx Deep Vein Thrombosis: No Hx Pulmonary Embolism: No Hx Renal Disease: Yes (stage 3 CKD) Hx Arthritis: No Hx Seizures: No Hx Kidney Stones: No Hx Psychiatric Treatment: Yes (BIPOLAR/PARANOID SCHIZOPHRENIA) Hx Asthma: Yes Hx COPD: No Hx Tuberculosis: No Additional medical history: Paranoid schizophrenia, hyperthyroidism - Surgical History Hx Coronary Stent: No Hx Open Heart Surgery: No Hx Pacemaker: No Hx Internal Defibrillator: No Additional Surgical History: right arm fx - Social History Smoking Status: Never Smoker - Medications Home Medications: Home Medications Medication Instructions Recorded Confirmed Last Taken Type Diltiazem HCl [Cardizem] 60 mg PO QDAY 05/17/18 05/17/18 Unknown History Gabapentin [Neurontin] 800 mg PO TID 05/17/18 05/17/18 Unknown History LORazepam [Ativan] 0.5 mg PO QHS 05/17/18 05/17/18 Unknown History Methimazole [Tapazole] 20 mg PO Q8H 05/17/18 05/17/18 Unknown History cloNIDine [Catapres] 0.2 mg PO BID 05/17/18 05/17/18 Unknown History QUEtiapine [SEROquel] 400 mg PO QHS 05/18/18 05/18/18 2 Days Ago History ~05/16/18 Amiodarone [Cordarone 200 MG TAB] 200 mg PO QDAY #30 tablet 05/25/18 Unknown Rx Apixaban [Eliquis] 5 mg PO Q12HR #60 tablet 05/25/18 Unknown Rx Famotidine [Pepcid] 10 mg PO BID #60 tablet 05/25/18 Unknown Rx Insulin Glargine [Lantus VIAL] 30 units SUB-Q BID 30 Days units 05/25/18 Unknown Rx Insulin Regular, Human [Novolin R] 8 units SUB-Q AC #1 vial 05/25/18 Unknown Rx oxyCODONE /ACETAMINOPHEN [Percocet 1 tab PO Q6H PRN #14 tablet 05/25/18 Unknown Rx 5/325 mg] ED Physical Exam - General Limitations: No Limitations General appearance: alert, in no apparent distress - Head Head exam: Present: atraumatic, normocephalic - Eye Eye exam: Present: normal appearance. Absent: scleral icterus - ENT ENT exam: Present: mucous membranes moist - Neck Neck exam: Present: normal inspection - Respiratory Respiratory exam: Present: normal lung sounds bilaterally. Absent: respiratory distress - Cardiovascular Cardiovascular Exam: Present: regular rate, normal rhythm. Absent: systolic murmur, diastolic murmur, rubs, gallop - GI/Abdominal GI/Abdominal exam: Present: soft, normal bowel sounds. Absent: distended, tenderness, guarding, rebound, rigid - Extremities Exam Extremities exam: Present: other (bilateral leg edema 2+ tenderness). Absent: calf tenderness - Back Exam Back exam: Present: normal inspection - Neurological Exam Neurological exam: Present: alert, oriented X3, CN II-XII intact. Absent: motor sensory deficit - Psychiatric Psychiatric exam: Present: anxious, flat affect - Skin Skin exam: Present: warm, dry, intact, normal color. Absent: rash ED Course Vital Signs 07/09/19 07/09/19 09:00 10:34 Pulse Rate 87 74 Respiratory 18 17 Rate Blood Pressure 154/62 Blood Pressure 180/63 [Left] O2 Sat by Pulse 99 99 Oximetry - Reevaluation(s) Reevaluation #1: Patient with persistent vomiting and hyperglycemia despite compliance with insulin. I will add a lipase to her labs. It looks like she has been treated in similar circumstances for DKA with an insulin drip. Her anion gap is 17 which is atypical for DKA. Her venous pH is low. Her creatinine has moved from 1.4 to 1.7. Her BUN is now 32. She is a bit volume depleted. She will be given a bolus of fluid. She does have a cardiomyopathy so we will do that and a reserved manner. Her CO2 is 15. Her lactic acid level is normal. I'm going to presume that this is DKA and order an insulin drip at this point. I will discuss this with Dr. Morrison of the hospitalist. We will see if he feels if it is necessary to continue the insulin drip. In any case patient will be admitted for further care and evaluation. 12/28/18 11:25 12/28/18 11:29 Initially the patient has a moderately elevated d-dimer. She has chest pain. A nuclear medicine study has been ordered. 12/28/18 11:32 ED Medical Decision Making - Lab Data Result diagrams: 12/28/18 09:02 12/28/18 09:39 Laboratory Results - last 24 hr 12/28/18 12/28/18 12/28/18 09:00 09:02 09:02 WBC 9.9 RBC 4.24 Hgb 10.9 Hct 32.5 MCV 77 L MCH 26 L MCHC 34 RDW 14.6 Plt Count 229 Lymph % (Auto) 14.2 Casey % (Auto) 5.7 Eos % (Auto) 1.8 Baso % (Auto) 0.6 Lymph # 1.4 Casey # 0.6 Eos # 0.2 Baso # 0.1 Seg Neutrophils % 77.7 H Seg Neutrophils # 7.7 PT 14.7 INR 1.18 H APTT 22.9 L D-Dimer Sodium Potassium Chloride Carbon Dioxide Anion Gap BUN Creatinine Estimated GFR BUN/Creatinine Ratio Glucose POC Glucose Calcium Phosphorus Total Bilirubin < 0.20 Direct Bilirubin < 0.2 AST 6 ALT 9 Alkaline Phosphatase 96 Total Creatine Kinase CK-MB (CK-2) CK-MB (CK-2) Rel Index Troponin T < 0.010 NT-Pro-B Natriuret Pep Total Protein 6.7 Albumin 3.1 L Albumin/Globulin Ratio 0.9 12/28/18 12/28/18 12/28/18 09:39 09:39 09:39 WBC RBC Hgb Hct MCV MCH MCHC RDW Plt Count Lymph % (Auto) Casey % (Auto) Eos % (Auto) Baso % (Auto) Lymph # Casey # Eos # Baso # Seg Neutrophils % Seg Neutrophils # PT INR APTT D-Dimer 392.45 H Sodium 134 L Potassium 4.4 Chloride 106.0 Carbon Dioxide 15 L Anion Gap 17 BUN 32 H Creatinine 1.7 H Estimated GFR 39 BUN/Creatinine Ratio 19 Glucose 347 H POC Glucose Calcium 8.7 Phosphorus 4.30 Total Bilirubin Direct Bilirubin AST ALT Alkaline Phosphatase Total Creatine Kinase 56 CK-MB (CK-2) 3.3 CK-MB (CK-2) Rel Index 5.8 H Troponin T NT-Pro-B Natriuret Pep 1810 H Total Protein Albumin Albumin/Globulin Ratio 12/28/18 10:32 WBC RBC Hgb Hct MCV MCH MCHC RDW Plt Count Lymph % (Auto) Casey % (Auto) Eos % (Auto) Baso % (Auto) Lymph # Casey # Eos # Baso # Seg Neutrophils % Seg Neutrophils # PT INR APTT D-Dimer Sodium Potassium Chloride Carbon Dioxide Anion Gap BUN Creatinine Estimated GFR BUN/Creatinine Ratio Glucose POC Glucose 356 H Calcium Phosphorus Total Bilirubin Direct Bilirubin AST ALT Alkaline Phosphatase Total Creatine Kinase CK-MB (CK-2) CK-MB (CK-2) Rel Index Troponin T NT-Pro-B Natriuret Pep Total Protein Albumin Albumin/Globulin Ratio Laboratory Results - last 24 hr 12/28/18 12/28/18 12/28/18 09:00 09:02 09:02 WBC 9.9 RBC 4.24 Hgb 10.9 Hct 32.5 MCV 77 L MCH 26 L MCHC 34 RDW 14.6 Plt Count 229 Lymph % (Auto) 14.2 Casey % (Auto) 5.7 Eos % (Auto) 1.8 Baso % (Auto) 0.6 Lymph # 1.4 Casey # 0.6 Eos # 0.2 Baso # 0.1 Seg Neutrophils % 77.7 H Seg Neutrophils # 7.7 PT 14.7 INR 1.18 H APTT 22.9 L D-Dimer VBG pH Sodium Potassium Chloride Carbon Dioxide Anion Gap BUN Creatinine Estimated GFR BUN/Creatinine Ratio Glucose POC Glucose Lactic Acid Calcium Phosphorus Total Bilirubin < 0.20 Direct Bilirubin < 0.2 AST 6 ALT 9 Alkaline Phosphatase 96 Total Creatine Kinase CK-MB (CK-2) CK-MB (CK-2) Rel Index Troponin T < 0.010 NT-Pro-B Natriuret Pep Total Protein 6.7 Albumin 3.1 L Albumin/Globulin Ratio 0.9 Urine Color Urine Turbidity Urine pH Ur Specific Hood Urine Protein Urine Glucose (UA) Urine Ketones Urine Blood Urine Nitrite Urine Bilirubin Urine Urobilinogen Ur Leukocyte Esterase Urine WBC (Auto) Urine RBC (Auto) U Epithel Cells (Auto) Urine Opiates Screen Urine Methadone Screen Ur Barbiturates Screen Ur Phencyclidine Scrn Ur Amphetamines Screen U Benzodiazepines Scrn 12/28/18 12/28/18 12/28/18 09:39 09:39 09:39 WBC RBC Hgb Hct MCV MCH MCHC RDW Plt Count Lymph % (Auto) Casey % (Auto) Eos % (Auto) Baso % (Auto) Lymph # Casey # Eos # Baso # Seg Neutrophils % Seg Neutrophils # PT INR APTT D-Dimer 392.45 H VBG pH Sodium 134 L Potassium 4.4 Chloride 106.0 Carbon Dioxide 15 L Anion Gap 17 BUN 32 H Creatinine 1.7 H Estimated GFR 39 BUN/Creatinine Ratio 19 Glucose 347 H POC Glucose Lactic Acid Calcium 8.7 Phosphorus 4.30 Total Bilirubin Direct Bilirubin AST ALT Alkaline Phosphatase Total Creatine Kinase 56 CK-MB (CK-2) 3.3 CK-MB (CK-2) Rel Index 5.8 H Troponin T NT-Pro-B Natriuret Pep 1810 H Total Protein Albumin Albumin/Globulin Ratio Urine Color Urine Turbidity Urine pH Ur Specific Hood Urine Protein Urine Glucose (UA) Urine Ketones Urine Blood Urine Nitrite Urine Bilirubin Urine Urobilinogen Ur Leukocyte Esterase Urine WBC (Auto) Urine RBC (Auto) U Epithel Cells (Auto) Urine Opiates Screen Urine Methadone Screen Ur Barbiturates Screen Ur Phencyclidine Scrn Ur Amphetamines Screen U Benzodiazepines Scrn 12/28/18 12/28/18 12/28/18 10:32 10:36 10:36 WBC RBC Hgb Hct MCV MCH MCHC RDW Plt Count Lymph % (Auto) Casey % (Auto) Eos % (Auto) Baso % (Auto) Lymph # Casey # Eos # Baso # Seg Neutrophils % Seg Neutrophils # PT INR APTT 24.3 D-Dimer VBG pH 7.279 L Sodium Potassium Chloride Carbon Dioxide Anion Gap BUN Creatinine Estimated GFR BUN/Creatinine Ratio Glucose POC Glucose 356 H Lactic Acid Calcium Phosphorus Total Bilirubin Direct Bilirubin AST ALT Alkaline Phosphatase Total Creatine Kinase CK-MB (CK-2) CK-MB (CK-2) Rel Index Troponin T NT-Pro-B Natriuret Pep Total Protein Albumin Albumin/Globulin Ratio Urine Color Urine Turbidity Urine pH Ur Specific Hood Urine Protein Urine Glucose (UA) Urine Ketones Urine Blood Urine Nitrite Urine Bilirubin Urine Urobilinogen Ur Leukocyte Esterase Urine WBC (Auto) Urine RBC (Auto) U Epithel Cells (Auto) Urine Opiates Screen Urine Methadone Screen Ur Barbiturates Screen Ur Phencyclidine Scrn Ur Amphetamines Screen U Benzodiazepines Scrn 12/28/18 12/28/18 12/28/18 10:36 Unknown Unknown WBC RBC Hgb Hct MCV MCH MCHC RDW Plt Count Lymph % (Auto) Casey % (Auto) Eos % (Auto) Baso % (Auto) Lymph # Casey # Eos # Baso # Seg Neutrophils % Seg Neutrophils # PT INR APTT D-Dimer VBG pH Sodium Potassium Chloride Carbon Dioxide Anion Gap BUN Creatinine Estimated GFR BUN/Creatinine Ratio Glucose POC Glucose Lactic Acid 1.60 Calcium Phosphorus Total Bilirubin Direct Bilirubin AST ALT Alkaline Phosphatase Total Creatine Kinase CK-MB (CK-2) CK-MB (CK-2) Rel Index Troponin T NT-Pro-B Natriuret Pep Total Protein Albumin Albumin/Globulin Ratio Urine Color Yellow Urine Turbidity Clear Urine pH 5.0 Ur Specific Hood 1.011 Urine Protein >500 Urine Glucose (UA) 150 Urine Ketones Neg Urine Blood Sm Urine Nitrite Neg Urine Bilirubin Neg Urine Urobilinogen < 2.0 Ur Leukocyte Esterase Tr Urine WBC (Auto) 2.0 Urine RBC (Auto) 1.0 U Epithel Cells (Auto) 2.0 Urine Opiates Screen Presumptive negative Urine Methadone Screen Presumptive negative Ur Barbiturates Screen Presumptive negative Ur Phencyclidine Scrn Presumptive negative Ur Amphetamines Screen Presumptive negative U Benzodiazepines Scrn Presumptive negative - EKG Data -: EKG Interpreted by Sd EKG shows normal: sinus rhythm Rate: normal - EKG Data Interpretation: other (right bundle-branch block, left anterior fascicular block) - Radiology Data Radiology results: report reviewed (chest x-ray no acute process) Critical Care Time: Yes Critical care time in (mins) excluding proc time.: 45 Critical care attestation.: If time is entered above; I have spent that time in minutes in the direct care of this critically ill patient, excluding procedure time. ED Disposition Clinical Impression: Elevated d-dimer DKA (diabetic ketoacidoses) Qualifiers: Diabetes mellitus type: type 2 Diabetes mellitus complication detail: without coma Qualified Code(s): E11.10 - Type 2 diabetes mellitus with ketoacidosis without coma Chest pain Qualifiers: Chest pain type: unspecified Qualified Code(s): R07.9 - Chest pain, unspecified Cardiomyopathy Qualifiers: Cardiomyopathy type: unspecified Qualified Code(s): I42.9 - Cardiomyopathy, unspecified Vomiting Qualifiers: Vomiting type: unspecified Vomiting Intractability: non-intractable Nausea presence: with nausea Qualified Code(s): R11.2 - Nausea with vomiting, unspecified Disposition: -09 OP ADMIT IP TO THIS HOSP Is pt being admited?: Yes Does the pt Need Aspirin: Yes Condition: Stable Instructions: Diabetic Ketoacidosis (ED), Chest Pain (ED) Referrals: RUPA ZARATE MD [Primary Care Provider] - 3-5 Days Time of Disposition: 11:33
[2018-12-28 10:22] LABS: Creatine Kinase MB 3.3 ng/mL (0.0-4.0)
[2018-12-28] MEDS ORDERED: NACL 0.9% 1000 ML 1,000 ML IV ONE ×2 (10:22→13:34)
[2018-12-28 10:25] LABS: Calcium 8.7 mg/dL (8.4-10.2)
--- NOTE | 2018-12-28 10:29 | XRay Report ---
CHEST 1 VIEW 12/28/2018 10:10 AM INDICATION / CLINICAL INFORMATION: hypertension. COMPARISON: None available. FINDINGS: SUPPORT DEVICES: None. HEART / MEDIASTINUM: No significant abnormality. LUNGS / PLEURA: No significant pulmonary or pleural abnormality. No pneumothorax. ADDITIONAL FINDINGS: No significant additional findings. IMPRESSION: 1. No acute findings. Signer Name: Kadeem Pickering MD Signed: 12/28/2018 10:25 AM Workstation Name: [id number]
[2018-12-28 11:07] LABS: Bilirubin,Urine NEG (Negative); Blood,Urine SM (Negative); Color,Urine Yellow (Yellow); Urobilinogen,Urine < 2.0 mg/dL (<2.0)
[2018-12-28] MEDS ORDERED: D50W (25GM) Syringe IV PRN ×2 (11:07→12:34)
[2018-12-28] MEDS ORDERED: NACL 0.9% 500 ML IV ONE (11:09)
[2018-12-28 11:10] LABS: Protein,Urine >500 mg/dL (Negative)
[2018-12-28 11:20] LABS: Amphetamine Screen,Urine PRESUMPTIVE NEGATIVE; Benzodiazepines Screen,Urine PRESUMPTIVE NEGATIVE; Methadone Screen,Urine PRESUMPTIVE NEGATIVE; Opiate Screen,Urine PRESUMPTIVE NEGATIVE
[2018-12-28] MEDS ORDERED: BABY ASPIRIN PO ONE (11:37)
[2018-12-28 11:53] LABS: Calcium 8.6 mg/dL (8.4-10.2)
[2018-12-28] MEDS ORDERED: HumuLIN R 100 UNITS in NACL 0.9% 99 ML IV SCH ×2 (12:00→13:00)
[2018-12-28 12:11] LABS: Cannabinoid Screen,Urine PRESUMPTIVE POSITIVE; Cocaine Screen,Urine PRESUMPTIVE POSITIVE
--- NOTE | 2018-12-28 12:27 | History and Physical Report ---
History of Present Illness Chief complaint: I feel sick, and i have been throwing up History of present illness: 43 YO Female with HTN, CHF, DM complicated by Peripheral Neuropathy, OA, Bipolar, Schizophrenia, Polysubstance Abuse, Atrial Fib on Therapeutic Antocoagualtion but noncompliant with therapy, Asthma presents to ED for evaluation. Pt states that she has experienced nausea, and multiple episodes of vomiting, abdominal discomfort over the past 1 day as well as chest palpitations. Pt acknowledges noncompliance with her medication over the past 3 days. EMS notified and upon arrival the patient found to be in distress. Pt transported to [facility]. Pt seen and evaluated in ED and found to have DKA as well as Atrial Fib. Pt initiated on insulin drip in ED and admitted to ICU and initiated on DKA protocol. Pt denies fever, chills, CP, Palpitations, NVD, Trauma, BRBPR, Productive cough, Skin rash, or recent ill contacts. Prior admission on 05/17/18 reviewed. All listed medications reconciled at time of admission. Past History Past Medical History: atrial fib, diabetes, hypertension, hypothyroidism Past Surgical History: Other (right arm surgery) Social history: single. denies: smoking, alcohol abuse, prescription drug abuse Family history: diabetes, hypertension Medications and Allergies Allergies Allergy/AdvReac Type Severity Reaction Status Date / Time latex Allergy Rash Verified 05/17/18 10:24 Penicillins Allergy Rash Verified 05/17/18 10:24 tramadol Allergy Rash Verified 05/17/18 10:24 Home Medications Medication Instructions Recorded Confirmed Last Taken Type Diltiazem HCl [Cardizem] 60 mg PO QDAY 05/17/18 12/28/18 Unknown History Gabapentin [Neurontin] 800 mg PO TID 05/17/18 12/28/18 Unknown History LORazepam [Ativan] 0.5 mg PO QHS 05/17/18 12/28/18 Unknown History cloNIDine [Catapres] 0.2 mg PO BID 05/17/18 12/28/18 Unknown History QUEtiapine [SEROquel] 400 mg PO QHS 05/18/18 12/28/18 2 Days Ago History ~05/16/18 Apixaban [Eliquis] 5 mg PO Q12HR #60 tablet 05/25/18 12/28/18 Unknown Rx Famotidine [Pepcid] 10 mg PO BID #60 tablet 05/25/18 12/28/18 Unknown Rx Insulin Glargine [Lantus VIAL] 30 units SUB-Q QHS 12/28/18 12/28/18 Unknown History Insulin Regular, Human [Novolin R] 20 units SUB-Q AC 12/28/18 12/28/18 Unknown History Active Meds: Active Medications Dextrose (D50w (25gm) Syringe) 0 ml IV ONCE PRN PRN Reason: Hypoglycemia Sodium Chloride (Nacl 0.9% 1000 Ml) 1,000 mls @ 125 mls/hr IV ONCE ONE Stop: 12/28/18 18:21 Last Admin: 12/28/18 10:30 Dose: 125 mls/hr Documented by: Insulin Human Regular 100 (units/ Sodium Chloride) 100 mls @ 1 mls/hr IV TITR SILVANO; Protocol Review of Systems Constitutional: no weight loss, no weight gain, no fever, no chills Ears, nose, mouth and throat: no ear pain, no ear discharge, no tinnitis, no decreased hearing, no nose pain, no nasal congestion Breasts: no change in shape, no swelling Cardiovascular: no chest pain, no orthopnea, no palpitations, no rapid/irregular heart beat, no edema Respiratory: no cough, no cough with sputum, no excessive sputum, no hemoptysis, no shortness of breath Gastrointestinal: nausea, vomiting, no abdominal pain, no diarrhea, no constipation, no change in bowel habits Genitourinary Female: no pelvic pain, no flank pain, no menorrhagia, no dysuria, no urinary frequency, no urgency Rectal: no pain, no incontinence, no bleeding Musculoskeletal: no neck stiffness, no neck pain, no shooting arm pain, no arm numbness/tingling, no low back pain Integumentary: no rash, no pruritis, no redness, no sores, no wounds Neurological: no head injury, no transient paralysis, no paralysis, no weakness, no parathesias, no numbness, no tingling Psychiatric: no anxiety, no memory loss, no change in sleep habits, no sleep disturbances, no hypersomnia, no change in appetite Endocrine: no cold intolerance, no heat intolerance, no polyphagia, no excessive thirst, no polyuria Hematologic/Lymphatic: no easy bruising, no easy bleeding, no lymphadenopathy Allergic/Immunologic: no urticaria, no allergic rhinitis, no wheezing, no persistent infections, no anaphylaxis Exam - Constitutional Vitals: Temp Pulse Resp BP Pulse Ox 74 17 133/57 100 12/28/18 11:51 12/28/18 11:51 12/28/18 11:51 12/28/18 11:51 General appearance: Present: mild distress - EENT Eyes: Present: PERRL ENT: hearing intact, clear oral mucosa - Neck Neck: Present: supple, normal ROM - Respiratory Respiratory effort: normal Respiratory: bilateral: CTA - Cardiovascular Heart Sounds: Present: S1 & S2. Absent: rub, click - Extremities Extremities: pulses symmetrical, No edema Peripheral Pulses: within normal limits - Abdominal General gastrointestinal: Present: soft, non-tender, non-distended, normal bowel sounds Female genitourinary: Present: normal - Integumentary Integumentary: Present: clear, warm, dry - Musculoskeletal Musculoskeletal: gait normal, strength equal bilaterally - Psychiatric Psychiatric: appropriate mood/affect, intact judgment & insight - Neurologic Neurologic: CNII-XII intact, moves all extremities Results - Labs CBC & Chem 7: 12/28/18 09:02 12/28/18 15:35 Labs: Abnormal lab results 12/28/18 12/28/18 12/28/18 Range/Units 09:00 09:02 09:02 MCV 77 L (79-97) fl MCH 26 L (28-32) pg Seg Neutrophils % 77.7 H (40.0-70.0) % INR 1.18 H (0.87-1.13) APTT 22.9 L (24.2-36.6) Sec. D-Dimer (0-234) ng/mlDDU VBG pH (7.320-7.420) Sodium (137-145) mmol/L Chloride (98-107) mmol/L Carbon Dioxide (22-30) mmol/L BUN (7-17) mg/dL Creatinine (0.7-1.2) mg/dL Glucose (65-100) mg/dL POC Glucose (70-105) Magnesium (1.7-2.3) mg/dL CK-MB (CK-2) Rel Index (0-4) NT-Pro-B Natriuret Pep (0-450) pg/mL Albumin 3.1 L (3.9-5) g/dL Lipase (13-60) units/L 12/28/18 12/28/18 12/28/18 Range/Units 09:39 09:39 09:39 MCV (79-97) fl MCH (28-32) pg Seg Neutrophils % (40.0-70.0) % INR (0.87-1.13) APTT (24.2-36.6) Sec. D-Dimer 392.45 H (0-234) ng/mlDDU VBG pH (7.320-7.420) Sodium 134 L (137-145) mmol/L Chloride (98-107) mmol/L Carbon Dioxide 15 L (22-30) mmol/L BUN 32 H (7-17) mg/dL Creatinine 1.7 H (0.7-1.2) mg/dL Glucose 347 H (65-100) mg/dL POC Glucose (70-105) Magnesium (1.7-2.3) mg/dL CK-MB (CK-2) Rel Index 5.8 H (0-4) NT-Pro-B Natriuret Pep 1810 H (0-450) pg/mL Albumin (3.9-5) g/dL Lipase (13-60) units/L 12/28/18 12/28/18 12/28/18 Range/Units 10:32 10:36 11:25 MCV (79-97) fl MCH (28-32) pg Seg Neutrophils % (40.0-70.0) % INR (0.87-1.13) APTT (24.2-36.6) Sec. D-Dimer (0-234) ng/mlDDU VBG pH 7.279 L (7.320-7.420) Sodium (137-145) mmol/L Chloride (98-107) mmol/L Carbon Dioxide (22-30) mmol/L BUN (7-17) mg/dL Creatinine (0.7-1.2) mg/dL Glucose (65-100) mg/dL POC Glucose 356 H (70-105) Magnesium 1.40 L (1.7-2.3) mg/dL CK-MB (CK-2) Rel Index (0-4) NT-Pro-B Natriuret Pep (0-450) pg/mL Albumin (3.9-5) g/dL Lipase (13-60) units/L 12/28/18 12/28/18 Range/Units 11:25 11:25 MCV (79-97) fl MCH (28-32) pg Seg Neutrophils % (40.0-70.0) % INR (0.87-1.13) APTT (24.2-36.6) Sec. D-Dimer (0-234) ng/mlDDU VBG pH (7.320-7.420) Sodium 135 L (137-145) mmol/L Chloride 107.2 H (98-107) mmol/L Carbon Dioxide 16 L (22-30) mmol/L BUN 31 H (7-17) mg/dL Creatinine 1.5 H (0.7-1.2) mg/dL Glucose 314 H (65-100) mg/dL POC Glucose (70-105) Magnesium (1.7-2.3) mg/dL CK-MB (CK-2) Rel Index (0-4) NT-Pro-B Natriuret Pep (0-450) pg/mL Albumin (3.9-5) g/dL Lipase 110 H (13-60) units/L Assessment and Plan - Patient Problems (1) DKA (diabetic ketoacidoses) Onset Date: 12/11/15 Current Visit: Yes Status: Acute Qualifiers: Diabetes mellitus type: type 2 Diabetes mellitus complication detail: without coma Qualified Code(s): E11.10 - Type 2 diabetes mellitus with ketoacidosis without coma Plan to address problem: Admit to ICU, Initiate DKA protocol, IVF resuscitation, monitor anion gap, serial bmp, insulin drip, The high probability of a clinically significant, sudden or life threatening deterioration of the [endocrine, renal,neuro] system(s) required my full and direct attention, intervention and personal management. The aggregate critical care time was [60] minutes. This time is in addition to time spent performing reported procedures but includes the following: [x] Data Review and interpretation [x] Patient assessment and monitoring of vital signs [x] Documentation [x] Medication orders and management (2) Atrial fibrillation Current Visit: Yes Status: Acute Qualifiers: Atrial fibrillation type: persistent Qualified Code(s): I48.1 - Persistent atrial fibrillation Plan to address problem: Cardiology consulted in ED, Medical cardioversion in ED, supportive care, thyroid panel, therapeutic anticoagulation (3) HTN (hypertension) Current Visit: Yes Status: Acute Qualifiers: Hypertension type: essential hypertension Qualified Code(s): I10 - Essential (primary) hypertension Plan to address problem: monitor bp q shift, supportive care, continue medical management. (4) Hypothyroidism Current Visit: Yes Status: Acute Qualifiers: Hypothyroidism type: acquired Qualified Code(s): E03.9 - Hypothyroidism, unspecified Plan to address problem: thyroid panel, continue supportive therapy (5) Polysubstance abuse Current Visit: Yes Status: Acute Plan to address problem: Pt counseled regarding abstinence, 25minutes, supportive care. (6) DVT prophylaxis Current Visit: Yes Status: Acute Plan to address problem: SCD to BLE while in bed, supportive care.
[2018-12-28] MEDS ORDERED: SODIUM CHLORIDE FLUSH SYRINGE 10 ML IV PRN (12:34)
[2018-12-28] MEDS: D5W/0.45% NACL/KCL 20 MEQ 20 MEQ/1,000 ML BAG IV SCH ×2 (13:45→22:43)
[2018-12-28] MEDS ORDERED: D5/0.45NS 1,000 ML IV ONE (13:49)
[2018-12-28 14:19] LABS: Creatine Kinase MB 3.5 ng/mL (0.0-4.0)
[2018-12-28 16:23] LABS: Calcium 8.7 mg/dL (8.4-10.2)
--- NOTE | 2018-12-28 17:08 | Nuclear Medicine Report ---
NUCLEAR MEDICINE VENTILATION/PERFUSION LUNG SCAN INDICATION: Shortness of breath TECHNIQUE: 20.3 mCi of Xenon-133 were given by inhalation. 4.2 mCi of Tc 99m MAA were given by IV. FINDINGS: Comparison with chest radiograph from 12/28/2018. Wash-in, equilibrium, and wash-out phases of ventilation are normal. No air-trapping is seen. No perfusion defects are noted. IMPRESSION: Low probability for pulmonary embolism. Signer Name: Iraj Burnett MD Signed: 12/28/2018 5:04 PM Workstation Name: [id number]
[2018-12-28] MEDS ORDERED: HumuLIN R SUB-Q SCH (17:30)
[2018-12-28 20:00] LABS: Calcium 8.7 mg/dL (8.4-10.2)
[2018-12-28] MEDS ORDERED: K-DUR PO ONE (20:37)
[2018-12-28] MEDS: MORPHINE IV PRN (21:30)
[2018-12-28] MEDS ORDERED: LANTUS SUB-Q SCH (22:00)
[2018-12-28] MEDS: PEPCID PO SCH (22:18)
[2018-12-28] MEDS: CATAPRES PO SCH (22:19)
[2018-12-28 22:22] LABS: Calcium 8.7 mg/dL (8.4-10.2)
[2018-12-28 22:23] LABS: Creatine Kinase MB 3.6 ng/mL (0.0-4.0)
[2018-12-28] MEDS: NEURONTIN PO SCH (22:25)
[2018-12-28] MEDS: ELIQUIS PO SCH (22:26)
[2018-12-28] MEDS: SODIUM CHLORIDE FLUSH SYRINGE 10 ML IV SCH (22:27)
[2018-12-28] MEDS: ATIVAN PO SCH (22:28)
[2018-12-29] MEDS: HumaLOG SUB-Q SCH ×6 (00:19→10:14)
[2018-12-29 05:19] LABS: Calcium 8.5 mg/dL (8.4-10.2)
[2018-12-29 05:58] LABS: BUN/Creatinine Ratio 18; Blood Urea Nitrogen 23 mg/dL (7-17)
[2018-12-29] MEDS ORDERED: D5W/0.45% NACL/KCL 20 MEQ 20 MEQ/1,000 ML BAG IV SCH (06:00)
[2018-12-29] MEDS: NEURONTIN PO SCH ×3 (08:27→21:51)
[2018-12-29] MEDS: CARDIZEM PO SCH (09:22)
[2018-12-29] MEDS: PEPCID PO SCH ×2 (09:22→21:50)
[2018-12-29] MEDS: CATAPRES PO SCH ×2 (09:22→21:50)
[2018-12-29] MEDS: ELIQUIS PO SCH ×2 (09:23→22:15)
[2018-12-29] MEDS: SODIUM CHLORIDE FLUSH SYRINGE 10 ML IV SCH ×2 (09:24→22:00)
[2018-12-29 11:57] LABS: Calcium 8.9 mg/dL (8.4-10.2)
--- NOTE | 2018-12-29 15:50 | Progress Note ---
Assessment and Plan / DKA (diabetic ketoacidoses) Admitted to ICU, Initiated DKA protocol, IVF resuscitation, resolved anion gap, will stop insulin drip, start consistent carb diet, place on sliding scale of insulin and long-acting insulin Transfer to telemetry / Atrial fibrillation Cardiology consulted in ED, Medical cardioversion in ED, rate control, th erapeutic anticoagulation / HTN (hypertension) monitor bp q shift, supportive care, continue medical management. / Hypothyroidism thyroid panel, continue supportive therapy /LESLI, Likely vasomotor nephropathy Continue IV fluids / Polysubstance abuse Pt counseled regarding abstinence, / DVT prophylaxis SCD to BLE while in bed, supportive care. Brief history: 43 YO Female with HTN, CHF, DM complicated by Peripheral Neuropathy, OA, Bipolar, Schizophrenia, Polysubstance Abuse, Atrial Fib on Therapeutic Antocoagualtion but noncompliant with therapy, Asthma presents to ED with nausea, and multiple episodes of vomiting, abdominal discomfort over the past 1 day as well as chest palpitations. Pt acknowledges noncompliance with her medication over the past 3 days. EMS notified and upon arrival in ED found to have DKA as well as Atrial Fib. Pt initiated on insulin drip in ED and admitted to ICU and initiated on DKA protocol. her UDs was positive for cocaine and marijuana. Hospitalist physical: GENERAL: well-developed -[place] female lying on bed appeared to be in no discomfort. HEENT: Normocephalic. Atraumatic. No conjunctival congestion or icterus. Patient has moist mucous membranes. NECK: Supple. Trachea midline. CHEST/LUNGS: Clear to auscultated bilaterally, breathing nonlabored. No wheezes crackles or rhonchi. HEART/CARDIOVASCULAR: No murmur. S1 and S2 positive. ABDOMEN: Abdomen is soft, nontender. Patient has normal bowel sounds. SKIN: There is no rash. Warm and dry. NEURO: No focal motor deficit. Follows command. MUSCULOSKELETAL: No joint effusion or tenderness. EXTRIMITY: No edema, no cyanosis or clubbing. PSYCH: Cooperative. Subjective Date of service: 12/29/18 Interval history: Patient seen and examined. Medical records and medication list reviewed. No acute event overnight noted by the RN. Patient denies any chest pain or difficulty breathing. Patient is tolerating diet. Admits taking marijuana and cocaine frequently Discussed plan of care at bedside with patient. Objective - Constitutional Vitals: Vital Signs - 12hr 07/10/19 07/10/19 07/10/19 08:00 09:22 12:00 Temperature 98.2 F 97.9 F Pulse Rate 78 Respiratory 18 23 Rate Blood Pressure 143/52 - Labs CBC & Chem 7: 12/28/18 09:02 12/30/18 12:54 Labs: Abnormal lab results 12/28/18 12/28/18 12/28/18 Range/Units 14:59 15:35 16:00 Sodium (137-145) mmol/L Potassium (3.6-5.0) mmol/L Chloride 111.8 H (98-107) mmol/L Carbon Dioxide 17 L (22-30) mmol/L BUN 29 H (7-17) mg/dL Creatinine 1.4 H (0.7-1.2) mg/dL Glucose 157 H (65-100) mg/dL POC Glucose 210 H 153 H (70-105) CK-MB (CK-2) Rel Index (0-4) 12/28/18 12/28/18 12/28/18 Range/Units 17:59 19:21 19:46 Sodium 135 L (137-145) mmol/L Potassium 3.5 L (3.6-5.0) mmol/L Chloride 109.7 H (98-107) mmol/L Carbon Dioxide 16 L (22-30) mmol/L BUN 27 H (7-17) mg/dL Creatinine 1.3 H (0.7-1.2) mg/dL Glucose 137 H (65-100) mg/dL POC Glucose 126 H 136 H (70-105) CK-MB (CK-2) Rel Index (0-4) 12/28/18 12/28/18 12/29/18 Range/Units 21:57 21:57 00:17 Sodium (137-145) mmol/L Potassium (3.6-5.0) mmol/L Chloride 110.7 H (98-107) mmol/L Carbon Dioxide 16 L (22-30) mmol/L BUN 24 H (7-17) mg/dL Creatinine 1.3 H (0.7-1.2) mg/dL Glucose 124 H (65-100) mg/dL POC Glucose 160 H (70-105) CK-MB (CK-2) Rel Index 8.5 H (0-4) 12/29/18 12/29/18 12/29/18 Range/Units 02:11 04:15 06:42 Sodium (137-145) mmol/L Potassium (3.6-5.0) mmol/L Chloride 115.6 H (98-107) mmol/L Carbon Dioxide 14 L (22-30) mmol/L BUN 23 H (7-17) mg/dL Creatinine 1.3 H (0.7-1.2) mg/dL Glucose 167 H (65-100) mg/dL POC Glucose 157 H 200 H (70-105) CK-MB (CK-2) Rel Index (0-4) 12/29/18 12/29/18 12/29/18 Range/Units 08:01 11:20 11:51 Sodium (137-145) mmol/L Potassium (3.6-5.0) mmol/L Chloride 115.3 H (98-107) mmol/L Carbon Dioxide 14 L (22-30) mmol/L BUN 22 H (7-17) mg/dL Creatinine 1.3 H (0.7-1.2) mg/dL Glucose 114 H (65-100) mg/dL POC Glucose 136 H 138 H (70-105) CK-MB (CK-2) Rel Index (0-4)
[2018-12-29] MEDS: HumuLIN R SUB-Q SCH ×2 (16:16→21:59)
[2018-12-29 16:53] LABS: Calcium 8.8 mg/dL (8.4-10.2)
[2018-12-29] MEDS: ATIVAN PO SCH (21:51)
[2018-12-29] MEDS: MORPHINE IV PRN (22:19)
[2018-12-30] MEDS: MORPHINE IV PRN ×4 (06:45→22:04)
[2018-12-30] MEDS: NEURONTIN PO SCH ×5 (08:28→22:01)
[2018-12-30] MEDS: HumuLIN R SUB-Q SCH ×4 (08:29→22:00)
[2018-12-30] MEDS: ELIQUIS PO SCH ×4 (08:29→21:25)
[2018-12-30] MEDS: PEPCID PO SCH ×3 (08:29→21:17)
[2018-12-30] MEDS: CATAPRES PO SCH ×3 (08:30→22:05)
[2018-12-30] MEDS: SODIUM CHLORIDE FLUSH SYRINGE 10 ML IV SCH ×2 (12:20→21:20)
[2018-12-30 13:35] LABS: Calcium 8.9 mg/dL (8.4-10.2)
--- NOTE | 2018-12-30 15:15 | Progress Note ---
Assessment and Plan / DKA (diabetic ketoacidoses) Admitted to ICU, Initiated DKA protocol, IVF resuscitation, resolved anion gap, off insulin drip, started on consistent carb diet, placed on sliding scale of insulin and long-acting insulin adjust insulin doses as needed to better control BG /Noncompliance, counseled / Atrial fibrillation Cardiology consulted in ED, Medical cardioversion in ED, rate control, therapeutic anticoagulation / HTN (hypertension) monitor bp q shift, supportive care, continue medical management. / Hypothyroidism thyroid panel, continue supportive therapy /LESLI, Likely vasomotor nephropathy Continue IV fluids, renal US, avoid nephrotoxins / Polysubstance abuse Pt counseled regarding abstinence, / DVT prophylaxis SCD to BLE while in bed, supportive care. Brief history: 43 YO Female with HTN, CHF, DM complicated by Peripheral Neuropathy, OA, Bipolar, Schizophrenia, Polysubstance Abuse, Atrial Fib on Therapeutic Antocoagualtion but noncompliant with therapy, Asthma presents to ED with nausea, and multiple episodes of vomiting, abdominal discomfort over the past 1 day as well as chest palpitations. Pt acknowledges noncompliance with her medication over the past 3 days. EMS notified and upon arrival in ED found to have DKA as well as Atrial Fib. Pt initiated on insulin drip in ED and admitted to ICU and initiated on DKA protocol. her UDs was positive for cocaine and marijuana. Hospitalist physical: GENERAL: well-developed -[place] female lying on bed appeared to be in no discomfort. HEENT: Normocephalic. Atraumatic. No conjunctival congestion or icterus. Patient has moist mucous membranes. NECK: Supple. Trachea midline. CHEST/LUNGS: Clear to auscultated bilaterally, breathing nonlabored. No wheezes crackles or rhonchi. HEART/CARDIOVASCULAR: No murmur. S1 and S2 positive. ABDOMEN: Abdomen is soft, nontender. Patient has normal bowel sounds. SKIN: There is no rash. Warm and dry. NEURO: No focal motor deficit. Follows command. MUSCULOSKELETAL: No joint effusion or tenderness. EXTRIMITY: No edema, no cyanosis or clubbing. PSYCH: Cooperative. Subjective Date of service: 12/30/18 Interval history: Patient seen and examined. Medical records and medication list reviewed. No acute event overnight noted by the RN. Patient denies any chest pain or difficulty breathing. Patient is tolerating diet. Admits taking marijuana and cocaine frequently Bg was >400 today, having double portion of meal and eating food from outside Discussed plan of care at bedside with patient. Objective - Constitutional Vitals: Vital Signs - 12hr 12/30/18 12/30/18 12/30/18 05:02 05:11 06:45 Temperature 97.6 F 97.6 F Pulse Rate 71 71 Respiratory 18 18 20 Rate Blood Pressure 85/26 Blood Pressure 143/58 [Left] O2 Sat by Pulse 98 98 Oximetry 12/30/18 12/30/18 12/30/18 07:46 08:30 10:17 Temperature 97.8 F Pulse Rate 79 71 Respiratory 18 Rate Blood Pressure 146/56 143/58 Blood Pressure [Left] O2 Sat by Pulse 98 97 Oximetry 12/30/18 12:09 Temperature 98.0 F Pulse Rate 94 H Respiratory 18 Rate Blood Pressure 145/67 Blood Pressure [Left] O2 Sat by Pulse 100 Oximetry - Labs CBC & Chem 7: 12/28/18 09:02 12/30/18 12:54 Labs: Abnormal lab results 12/29/18 12/29/18 12/29/18 Range/Units 15:56 16:13 17:17 Sodium 136 L (137-145) mmol/L Chloride 112.5 H (98-107) mmol/L Carbon Dioxide 15 L (22-30) mmol/L BUN 21 H (7-17) mg/dL Creatinine 1.3 H (0.7-1.2) mg/dL Glucose 310 H (65-100) mg/dL POC Glucose 310 H 303 H (70-105) 12/29/18 12/30/18 12/30/18 Range/Units 21:45 07:52 11:23 Sodium (137-145) mmol/L Chloride (98-107) mmol/L Carbon Dioxide (22-30) mmol/L BUN (7-17) mg/dL Creatinine (0.7-1.2) mg/dL Glucose (65-100) mg/dL POC Glucose 363 H 455 H 411 H (70-105) 12/30/18 Range/Units 12:54 Sodium (137-145) mmol/L Chloride 110.3 H (98-107) mmol/L Carbon Dioxide 17 L (22-30) mmol/L BUN 26 H (7-17) mg/dL Creatinine 1.5 H (0.7-1.2) mg/dL Glucose 329 H (65-100) mg/dL POC Glucose (70-105)
--- NOTE | 2018-12-30 16:39 | Ultrasound Report ---
ULTRASOUND RENAL INDICATION / CLINICAL INFORMATION: possible CKD. Acute right flank pain COMPARISON: Prior renal ultrasound report without imaging from 05/18/2018 FINDINGS: RIGHT KIDNEY: Length = 10.6 cm. [normal > 9 cm] - Parenchymal Thickness = 1.8 cm. [normal > 1.5 cm] - Echogenicity: Normal. - Hydronephrosis: None. - Cyst or mass: Simple cyst measuring 3.5 cm in the lower pole. - Stones: None seen. LEFT KIDNEY: Length = 9.7 cm. [normal > 9 cm] - Parenchymal Thickness = 1.9 cm. [normal > 1.5 cm] - Echogenicity: Normal. - Hydronephrosis: None. - Cyst or mass: No significant abnormality. - Stones: None seen. URINARY BLADDER: No significant abnormality. FREE FLUID: None. ADDITIONAL FINDINGS: None. IMPRESSION: 1. Simple right renal cyst. Otherwise unremarkable exam. Signer Name: Sriram Paez MD Signed: 12/30/2018 4:34 PM Workstation Name: [id number]
[2018-12-30] MEDS: CARDIZEM PO SCH (17:17)
[2018-12-30] MEDS: ATIVAN PO SCH (21:17)
[2018-12-31] MEDS: MORPHINE IV PRN ×3 (02:17→10:35)
[2018-12-31] MEDS: HumuLIN R SUB-Q SCH ×2 (08:10→13:12)
[2018-12-31] MEDS: NEURONTIN PO SCH (08:29)
[2018-12-31 08:32] VITALS: BP 155/56
[2018-12-31] MEDS: CARDIZEM PO SCH (10:31)
[2018-12-31] MEDS: ELIQUIS PO SCH (10:32)
[2018-12-31] MEDS: PEPCID PO SCH (10:32)
[2018-12-31] MEDS: CATAPRES PO SCH (10:33)
[2018-12-31] MEDS: SODIUM CHLORIDE FLUSH SYRINGE 10 ML IV SCH (10:39)
[2018-12-31] MEDS ORDERED: PERCOCET 5/325 PO PRN (10:46)
--- NOTE | 2018-12-31 11:17 | Discharge Summary ---
Providers - Providers Date of Admission: 12/28/18 12:34 Date of discharge: 12/31/18 Attending physician: JESSICA JETT 12/28/18 11:08 Consult to Case Management [CONS] Routine Services Needed at Discharge: Other Notified:: COOKER MEAL 12/30/18 13:11 Physical Therapy Evaluation and Treat [CONS] Routine Comment: Reason For Exam: generalized weakness and falls [facility] care [facility]: [facility] Hospitalization Condition: Stable Pertinent studies: CXR VQ scan Renal US Hospital course: 43 YO Female with HTN, CHF, DM complicated by Peripheral Neuropathy, OA, Bipolar, Schizophrenia, Polysubstance Abuse, Atrial Fib on Therapeutic Antocoagualtion but noncompliant with therapy, Asthma presents to ED with nausea, and multiple episodes of vomiting, abdominal discomfort over the past 1 day as well as chest palpitations. Pt acknowledges noncompliance with her medication over the past 3 days. EMS notified and upon arrival in ED found to have DKA as well as Atrial Fib. Pt initiated on insulin drip in ED and admitted to ICU and initiated on DKA protocol. Her UDs was positive for cocaine and marijuana. Discharge Diagnosis and management: / DKA (diabetic ketoacidoses) Admitted to ICU, Initiated DKA protocol, IVF resuscitation, resolved anion gap, off insulin drip, started on consistent carb diet, placed on sliding scale of insulin and long-acting insulin adjusted insulin doses as needed to better control BG /Noncompliance, counseled / Atrial fibrillation Cardiology consulted in ED, Medical cardioversion in ED, Placed on rate control medications, therapeutic anticoagulation / HTN (hypertension) monitored bp q shift, supportive care, continue medical management with current meds. / Hypothyroidism thyroid panel ordered, continue replacement /LESLI, Likely vasomotor nephropathy Managed with IV fluids, renal US obtained and showed no medical renal disease, avoided nephrotoxins will do further f/u with Dr Haley as outpt / Polysubstance abuse Pt counseled regarding abstinence, / DVT prophylaxis SCD to BLE while in bed, supportive care. Hospitalist physical: GENERAL: well-developed -[place] female lying on bed appeared to be in no discomfort. HEENT: Normocephalic. Atraumatic. No conjunctival congestion or icterus. Patient has moist mucous membranes. NECK: Supple. Trachea midline. CHEST/LUNGS: Clear to auscultated bilaterally, breathing nonlabored. No wheezes crackles or rhonchi. HEART/CARDIOVASCULAR: No murmur. S1 and S2 positive. ABDOMEN: Abdomen is soft, nontender. Patient has normal bowel sounds. SKIN: There is no rash. Warm and dry. NEURO: No focal motor deficit. Follows command. MUSCULOSKELETAL: No joint effusion or tenderness. EXTRIMITY: No edema, no cyanosis or clubbing. PSYCH: Cooperative. Disposition: [id number] HOME UNDER HOME [facility] Time spent for discharge: 34 minutes Core Measure Documentation - Palliative Care Palliative Care/ Comfort Measures: Not Applicable - Core Measures Any of the following diagnoses?: none Exam - Constitutional Vitals: Temp Pulse Resp BP Pulse Ox 98.6 F 86 20 155/56 96 12/31/18 07:45 12/31/18 07:45 12/31/18 07:45 12/31/18 07:45 12/31/18 07:45 Plan Activity: advance as tolerated Weight Bearing Status: Partial Weight Bearing Diet: diabetic Special Instructions: record blood sugar diary Additional Instructions: BMP in one week Follow up with: KERI ORONAMODOC MD YARA [Primary Care Provider] - 3-5 Days KRYS HALEY MD [Staff Physician] - 7 Days
== END 2018-12-31 16:00 | disposition home health service (06) | DRG 637 ==
LOC: ED 08:41 → CC1 12:34 → 3B-SURG 12-29 17:03
PROVIDERS: ADMIT Internal Medicine; ATTEND Internal Medicine
DX: E11.10 Type 2 diabetes mellitus with ketoacidosis without coma (principal); N17.0 Acute kidney failure with tubular necrosis; I48.1 Persistent atrial fibrillation; I13.0 Hypertensive heart and chronic kidney disease with heart failure and stage 1 through stage 4 chronic kidney disease, or unspecified chronic kidney disease; I42.9 Cardiomyopathy, unspecified; E11.42 Type 2 diabetes mellitus with diabetic polyneuropathy; I50.9 Heart failure, unspecified; M19.90 Unspecified osteoarthritis, unspecified site; F31.9 Bipolar disorder, unspecified; F20.9 Schizophrenia, unspecified; E03.9 Hypothyroidism, unspecified; E11.22 Type 2 diabetes mellitus with diabetic chronic kidney disease; N18.3 Chronic kidney disease, stage 3 (moderate); J45.909 Unspecified asthma, uncomplicated; F19.10 Other psychoactive substance abuse, uncomplicated; Z79.01 Long term (current) use of anticoagulants; Z91.14 Patient's other noncompliance with medication regimen; Z71.89 Other specified counseling; Z71.51 Drug abuse counseling and surveillance of drug abuser; Z82.49 Family history of ischemic heart disease and other diseases of the circulatory system; Z83.3 Family history of diabetes mellitus; Z88.0 Allergy status to penicillin; Z91.040 Latex allergy status; Z79.899 Other long term (current) drug therapy
CPT/HCPCS: 36415; 71045; 76770; 78582; 80048; 80076; 80307; 81001; 82010; 82140; 82550; 82553; 82805; 82962; 83690; 83735; 83880; 84100; 84484; 85025; 85379; 85610; 85730; 87040; 87086; 93005; 93010; 93306; G0378; A9540; A9558; J1815; J2270; J2405; J7030; J7040